=== PATIENT | female | born 1980 | race African-American/Black ===

== ENCOUNTER 2023-08-02 12:36 | Day surgery (SDC) | payer OTHER, SELFPAY ==
[2023-08-02] VITALS (13 sets, daily range): BP systolic 112–144; BP diastolic 66–88; PULSE 56–92; RESP 16–20; TEMP 36.3–37.1; O2SAT 96–100; BMI 36.8
[2023-08-02 13:12] LABS: Basophils Percent Auto 0.3 % (0.2-2.0); Eosinophils Absolute Auto 0.1 10^3/uL (0.0-0.7); Eosinophils Percent Auto 0.9 % (0.9-7.0); Hematocrit 38.1 % (36.0-48.0); Hemoglobin 13.5 g/dL (12.0-16.0); Immature Granulocytes Abs Auto 0.02 10^3/uL (0.00-0.03); Immature Granulocytes Pct Auto 0.3 % (0.0-0.5); Lymphocytes Absolute Auto 2.5 10^3/uL (1.2-3.8); Mean Corpuscular HGB Conc 35.4 g/dL (29.9-35.2); Mean Corpuscular Hemoglobin 28.1 pg (26.7-34.0); Mean Corpuscular Volume 79.4 fL (81.0-99.0); Mean Platelet Volume 9.7 fL (9.5-13.5); Monocytes Absolute Auto 0.4 10^3/uL (0.3-0.8); Monocytes Percent Auto 5.8 % (1.7-12.0); Neutrophils Absolute Auto 3.9 10^3/uL (1.4-6.5); Neutrophils Percent Auto 56.7 % (43.0-75.0); Platelet Count 340 10^3/uL (150-450); Red Cell Distribution Width 13.6 % (11.0-15.0); White Blood Count 6.9 10^3/uL (4.0-11.0)
[2023-08-02 13:31] LABS: HCG Quantitative <1 mIU/mL
[2023-08-02] MEDS: LACTATED RINGER'S SOLUTION 1,000 ML 50 ML IV (13:54)
--- NOTE | 2023-08-02 14:47 | P.ON_ITS ---
Brief Operative Note Date of procedure: 08/02/23 Pre-op diagnosis: PELVIC PAIN, OVARIAN CYST Post-op diagnosis: same as pre-op Procedure: NAME OF PROCEDURE: [diagnostic laparoscopy ] PROCEDURE: The patient was taken back to the Operating Room where she was placed in dorsal lithotomy position after given general anesthesia. The patient was prepped and draped in normal sterile fashion. A sponge stick was placed into the patient's vagina. Attention was turned to the patient's abdomen, where a small umbilical incision was made. The fascia was tented using Luiz clamps and the fascia was entered sharply. Confirmation of intraabdominal placement of the 10 mm port was confirmed under direct visualization using a laparoscope. The patient's abdomen was then insufflated using CO2 gas with approximately 4 liters. A second port was placed left laterally, this was done under direct visualization with a 5 mm port. Survey of the patient's abdomen demonstrated normal liver and gallbladder. Survey of the patient's pelvic anatomy demonstrated normal appearing rt and lt ovary and tubes as well as normal appearing uterus. No endometrial implants could be noted, no evidence of any pelvic disease was seen, normal appearing pelvic cavity. All instruments were removed from the patient's abdomen. The patient's abdomen was deinsufflated of CO2 gas. The patient tolerated the procedure well. Sponge stick was removed from the patient's vagina. The patient's infraumbilical fascia was closed using #0 Vicryl on a GI needle. The patient's skin was closed laterally and infraumbilically using 4-0 Vicryl. The patient tolerated the procedure well. Sponge, lap and needle counts were correct x 2. The patient was taken to Recovery Room in stable condition.Clips from prior surgery noted adhered to bladder, the clips were grasped and gently removed Surgeon: Florin Mccrary Signal Mechanic: Katherine Evans Estimated blood loss (mL): 5 Pathology: none sent Condition: stable Disposition: PACU
[2023-08-02] MEDS: LACTATED RINGER'S SOLUTION 1,000 ML 150 ML IV (14:55)
[2023-08-02] MEDS: CEFTRIAXONE 1,000 MG in 0.9 % SODIUM CHLORIDE 50 ML 100 MG IV (15:00)
[2023-08-02] MEDS: PROMETHAZINE HCL 25 MG/ML VIAL 12.5 MG IV (15:16)
[2023-08-02] MEDS: PROMETHAZINE HCL 25 MG TABLET PO (15:18)
[2023-08-02] MEDS: OXYCODONE HCL/ACETAMINOPHEN 5MG/325MG 2 TAB PO (15:35)
[2023-08-02] MEDS: DOXYCYCLINE HYCLATE 100 MG in 0.9 % SODIUM CHLORIDE 100 ML IV (15:35)
== END 2023-08-02 16:46 | disposition home or self-care (01) ==
PROVIDERS: PCP Family Medicine; Visit Provider Obstetrics & Gynecology
PROC: (CPT 840; principal; 2023-08-02 14:00)
DX: R10.2 Pelvic and perineal pain (principal); Z87.898 Personal history of other specified conditions
CPT/HCPCS: 49320; 36415; 84702; 85025; J1170; J2704

== ENCOUNTER 2024-04-14 13:07 | Emergency (ER) | payer OTHER, SELFPAY ==
[2024-04-14] VITALS (14 sets, daily range): BP systolic 110–160; BP diastolic 80–103; PULSE 58–92; TEMP 36.9; O2SAT 97–100; BMI 34.2
--- NOTE | 2024-04-14 14:26 | CT_ITS ---
[address] [address] Patient Name: WILFRIDO GILMORE MRN: [id number] date: 1980 Sex: F Assigned Patient Location: ER Current Patient Location: ER Accession/Order Number: [id number] Exam Date: 04/14/2024 16:05 Report Date: 04/14/2024 17:05 At the request of: CORBIN SAMS Procedure: CT abdomen pelvis w con EXAM: CT abdomen pelvis w con HISTORY: rlq pain COMPARISON: 07/22/2016 TECHNIQUE: Axial CT imaging was performed through the abdomen and pelvis with intravenous contrast. Multiplanar reformats were performed. Dose reduction techniques were achieved by using automated exposure control and/or adjustment of mA and/or kV according to patient size and/or use of iterative reconstruction technique. FINDINGS: Lung bases: Lung bases are clear. No pleural effusion. GI upper: Unremarkable. Liver: Normal size and contour. Gallbladder: Cholecystectomy. Biliary system: No intra or extrahepatic biliary ductal dilatation. Spleen: Normal size. Pancreas: Unremarkable. Adrenal glands: Normal adrenal glands. Kidneys/ureters: Normal contours. No hydronephrosis. There is a 0.2 cm left renal stone. Vessels: No aneurysm. Lymph Nodes: No lymphadenopathy. Small bowel: No wall thickening or dilatation. Colon: No wall thickening or dilatation. Appendix: Appendix is identified with normal appearance (series 3, image 104). Peritoneal cavity: No free fluid or pneumoperitoneum. Lower : No significant abnormality of the uterus or adnexa. Intrauterine device is in place. 1.4 cm corpus luteal cyst in the right ovary. Bones: No acute bony abnormality. Soft tissues: No acute finding. Additional findings: None. CT/CT abdomen pelvis w con IMPRESSION: 0.2 cm left renal stone. 1.4 cm corpus luteal cyst in the right ovary. Electronically authenticated by: FARSHAD JAMES Date: 04/14/2024 17:05
[2024-04-14 14:31] LABS: Basophils Percent Auto 0.2 % (0.2-2.0); Eosinophils Absolute Auto 0.1 10^3/uL (0.0-0.7); Eosinophils Percent Auto 0.6 % (0.9-7.0); Hematocrit 39.3 % (36.0-48.0); Hemoglobin 14.6 g/dL (12.0-16.0); Immature Granulocytes Abs Auto 0.03 10^3/uL (0.00-0.03); Immature Granulocytes Pct Auto 0.4 % (0.0-0.5); Lymphocytes Absolute Auto 3.4 10^3/uL (1.2-3.8); Lymphocytes Percent Auto 39.6 % (20.5-60.0); Mean Corpuscular HGB Conc 37.2 g/dL (29.9-35.2); Mean Corpuscular Hemoglobin 28.8 pg (26.7-34.0); Mean Corpuscular Volume 77.5 fL (81.0-99.0); Monocytes Absolute Auto 0.6 10^3/uL (0.3-0.8); Monocytes Percent Auto 7.5 % (1.7-12.0); Neutrophils Absolute Auto 4.4 10^3/uL (1.4-6.5); Neutrophils Percent Auto 51.7 % (43.0-75.0); Platelet Count 384 10^3/uL (150-450); Red Blood Count 5.07 10^6/uL (4.20-5.40); Red Cell Distribution Width 13.1 % (11.0-15.0); White Blood Count 8.5 10^3/uL (4.0-11.0)
[2024-04-14 14:32] LABS: Bilirubin Urine NEGATIVE (NEGATIVE); Blood Urine NEGATIVE (NEGATIVE); Clarity Urine CLEAR (CLEAR); Color Urine LT. YELLOW (YELLOW); Glucose Urine UA NEGATIVE (NEGATIVE); Ketones Urine NEGATIVE (NEGATIVE); Leukocyte Esterase Urine SMALL (NEGATIVE); Nitrite Urine NEGATIVE (NEGATIVE); Protein Urine NEGATIVE (NEG/TRACE); Specific Gravity Urine 1.025 (1.005-1.025); Urine Microscopic Indicated YES; Urobilinogen Urine 0.2 EU/dL (0.2-1.0); pH Urine 6.5 (5.0-9.0)
[2024-04-14] MEDS: KETOROLAC TROMETHAMINE 30 MG/ML VIAL IVP (14:35)
[2024-04-14] MEDS: ONDANSETRON PF 4 MG/2 ML VIAL IV (14:35)
--- NOTE | 2024-04-14 14:39 | ED_ITS ---
HPI - Abdominal Pain General Chief Complaint: Abdominal Pain Stated Complaint: ABDOMINAL PAIN Time Seen by Provider: 04/14/24 13:42 Source: patient Mode of arrival: walk-in Limitations: no limitations History of Present Illness HPI narrative: Patient presents to ED complaining of generalized abdominal pain which is worse in the right lower quadrant. She said she has been sick since last Monday it started with a cold. Then on Monday she started getting abdominal pain. She thought it was because she was coughing a lot but now she has sharp stabbing pain that comes and goes in the right lower quadrant but also radiates many other places in her abdomen. She has seen her doctor twice since she has been sick last week and called again yesterday. They told her if it gets worse and continues to be an issue please come into the ER. She is here today for further evaluation. She complains of nausea no vomiting. She was tested for COVID a couple of days ago but states that was negative Related Data Home Medications ?Medication ?Instructions ?Recorded ?Confirmed acetaminophen 300 mg-codeine 30 mg 1 tab PO Q8H 08/02/23 08/02/23 tablet dextroamphetamine-amphetamine 30 30 mg PO DAILY 08/02/23 08/02/23 mg tablet (Adderall) metformin 500 mg tablet 500 mg PO BID POLYCYSTIC OVARIES 08/02/23 08/02/23 topiramate 100 mg tablet 100 mg PO BID 08/02/23 08/02/23 trazodone 50 mg tablet 100 mg PO BEDTIME 08/02/23 08/02/23 vilazodone 10 mg tablet (Viibryd) 10 mg PO DAILY 08/02/23 08/02/23 vilazodone 20 mg tablet 10 mg PO DAILY 08/02/23 08/02/23 Previous Rx's ?Medication ?Instructions ?Recorded ibuprofen 800 mg tablet 800 mg PO Q8H PRN pain 14 days #40 08/02/23 tabs metronidazole 500 mg tablet 500 mg PO BID 7 days #14 tabs 08/02/23 oxycodone-acetaminophen 5 mg-325 1 tab PO Q6H PRN pain 4 days #16 08/02/23 mg tablet (Percocet) tabs Allergies Allergy/AdvReac Type Severity Reaction Status Date / Time latex Allergy Severe Verified 08/02/23 13:15 adhesive Allergy Intermediate Hives Verified 08/02/23 13:15 Review of Systems ROS Status of ROS 10 or more systems reviewed and unremark able except as noted in history and below PFSH PFSH Medical History (Updated 04/14/24 @ 17:14 by Delaney Plata DO) Pelvic pain ?R10.2 - Pelvic and perineal pain (ICD-10) Anxiety ?F41.9 - Anxiety disorder, unspecified (ICD-10) CRPS (complex regional pain syndrome) Surgical History (Updated 08/02/23 @ 13:24 by Chyna Haney) Umbilical hernia ?K42.9 - Umbilical hernia without obstruction or gangrene (ICD-10) Hiatal hernia ?K44.9 - Diaphragmatic hernia without obstruction or gangrene (ICD-10) Family History (Updated 08/02/23 @ 13:24 by Chyna Haney) Mother Family history of cancer Brother Family history of cancer Social History (Updated 08/02/23 @ 13:28 by Chyna Haney) Within the past year, how often did you have a drink containing alcohol: mon thly or less Within the past year, how many standard drinks containing alcohol did you have on a typical day: 1 or 2 Within the past year, how often did you have six or more drinks on one occasion: less than monthly Total score: 1 Score interpretation: A score less than 3 is consistent with normal alcohol consumption. Smoking status: Former smoker Second hand tobacco smoke exposure: No Non-prescribed substance use: denies use Previous occupational history: disabled Known occupational exposures/hazards: No Highest level of school completed/degree received: Bachelor's degree Do you want help with school or training: No Are you now , , , , never or living with a partner: living with partner In a typical week, how many times do you talk on the telephone with family, friends, or neighbors: twice per week How often do you get together with friends or relatives: twice per week How often do you attend [employer] or latter day services: never Do you belong to any clubs or organizations such as [employer] groups unions, fraternal or athletic groups, or school groups: no Total score: 2 Score interpretation: A score of greater than or equal to 2 indicates the lowest level of social isolation. Little interest or pleasure in doing things: not at all Feeling down, depressed, or hopeless: not at all Feel stressed/tense/nervous/anxious/difficulty sleeping: very much Life stressors: recent of family or friend Due to disability, difficulty making decisions: No Do you think of yourself as: straight/heterosexual Gender Identity: female Exam Narrative Exam Narrative: Time Seen: [] Vital Signs: [Per nurse's notes.] General: [Alert] Skin: [Warm, dry, no rash.] Head: [Normocephalic, atraumatic.] Neck: [Supple, trachea midline.] Eye: [Pupils are equal, round and reactive to light, extraocular movements are intact, normal conjunctiva.] Ears, nose, mouth and throat: oral mucosa moist. Cardiovascular: [Regular rate and rhythm, no murmur.] Respiratory: [Lungs are clear to auscultation, respirations are non-labored, breath sounds are equal.] Chest wall: [No tenderness, no deformity.] Gastrointestinal: [Soft, Diffuse tenderness to palpation worse in the right lower quadrant, non distended, normal bowel sounds.] MSK: 5 out of 5 muscle strength x 4 extremities no calf pain or edema Lymphatics: [No lymphadenopathy.] Psychiatric: [Cooperative, appropriate mood & affect.] Neurological: [Alert and oriented to person, place, time, and situation, no focal neurological deficit observed.] Constitutional Vital Signs, click to edit/add: Last Vital Signs Temp 98.5 F 04/14/24 13:27 Pulse 68 04/14/24 17:01 Resp 18 04/14/24 17:01 BP 110/88 04/14/24 17:01 Pulse Ox 98 04/14/24 17:01 O2 Del Method Room Air 04/14/24 13:27 Course Vital Signs Vital signs: Vital Signs Temperature 98.5 F 04/14/24 13:27 Pulse Rate 92 H 04/14/24 13:27 Respiratory Rate 18 04/14/24 13:27 Blood Pressure 160/102 H 04/14/24 13:27 Pulse Oximetry 100 04/14/24 13:27 Oxygen Delivery Method Room Air 04/14/24 13:27 Temperature 98.5 F 04/14/24 13:27 Pulse Rate 68 04/14/24 17:01 Respiratory Rate 18 04/14/24 17:01 Blood Pressure 110/88 04/14/24 17:01 Pulse Oximetry 98 04/14/24 17:01 Oxygen Delivery Method Room Air 04/14/24 13:27 MDM - Abdominal Pain MDM Narrative Medical decision making narrative: Patient's labs and imaging are nonacute. She does have an ovarian cyst but this is most likely not the cause of her pain. Possible viral syndrome given her recent upper respiratory infection as well. Patient is stable for discharge home. Please return to ED if worsening abdominal pain fevers vomiting or any other concerns. Differential Diagnosis Differential diagnosis: Likely abdominal pain, acute appendicitis, constipation, diverticulitis, gastroenteritis and small bowel obstruction Medical Records Attestation: I reviewed the patient's medical records. Lab Data Attestation: I reviewed the patient's lab results. Labs: Lab Results 04/14/24 04/14/24 Range/Units 13:50 13:55 WBC 8.5 (4.0-11.0) 10^3/uL RBC 5.07 (4.20-5.40) 10^6/uL Hgb 14.6 (12.0-16.0) g/dL Hct 39.3 (36.0-48.0) % MCV 77.5 L (81.0-99.0) fL MCH 28.8 (26.7-34.0) pg MCHC 37.2 H (29.9-35.2) g/dL RDW 13.1 (11.0-15.0) % Plt Count 384 (150-450) 10^3/uL MPV 10.0 (9.5-13.5) fL Neut % (Auto) 51.7 (43.0-75.0) % Lymph % (Auto) 39.6 (20.5-60.0) % [place] % (Auto) 7.5 (1.7-12.0) % Eos % (Auto) 0.6 L (0.9-7.0) % Baso % (Auto) 0.2 (0.2-2.0) % Neut # (Auto) 4.4 (1.4-6.5) 10^3/uL Lymph # (Auto) 3.4 (1.2-3.8) 10^3/uL [place] # (Auto) 0.6 (0.3-0.8) 10^3/uL Eos # (Auto) 0.1 (0.0-0.7) 10^3/uL Baso # (Auto) 0.0 (0.0-0.1) 10^3/uL Abs Immat Gran (auto) 0.03 (0.00-0.03) 10^3/uL Imm/Tot Granulo (auto) 0.4 (0.0-0.5) % Sodium 141 (136-145) mmol/L Potassium 4.6 (3.5-5.1) mmol/L Chloride 106 (98-107) mmol/L Carbon Dioxide 21.9 (21.0-32.0) mmol/L Anion Gap 17.7 BUN 13.0 (7.0-18.0) mg/dL Creatinine 0.73 (0.55-1.02) mg/dL Est GFR ( Amer) >60 (>=60) Est GFR (Non-Af Amer) >60 (>=60) BUN/Creatinine Ratio 17.8 Glucose 97 (74-106) mg/dL Calcium 8.9 (8.5-10.1) mg/dL Total Bilirubin 0.4 (0.2-1.0) mg/dL AST 21 (15-37) U/L ALT 23 (14-59) U/L Alkaline Phosphatase 74 (46-116) U/L Total Protein 7.2 (6.4-8.2) g/dL Albumin 3.8 (3.4-5.0) g/dL Globulin 3.4 g/dL Albumin/Globulin Ratio 1.1 Serum HCG, Qual Negative (NEGATIVE) Urine Color Lt. yellow (YELLOW) Urine Clarity Clear (CLEAR) Urine pH 6.5 (5.0-9.0) Ur Specific [place] 1.025 (1.005-1.025) Urine Protein Negative (NEG/TRACE) mg/dL Urine Glucose (UA) Negative (NEGATIVE) mg/dL Urine Ketones Negative (NEGATIVE) mg/dL Urine Occult Blood Negative (NEGATIVE) Urine Nitrite Negative (NEGATIVE) Urine Bilirubin Negative (NEGATIVE) Urine Urobilinogen 0.2 (0.2-1.0) EU/dL Ur Leukocyte Esterase Small A (NEGATIVE) Urine RBC 2-5 A (0-2) #/HPF Urine WBC 5-10 A (NONE SEEN) #/HPF Ur Squamous Epith Cells Moderate A (NONE/RARE) #/LPF Urine Crystals None seen (None Seen) #/HPF Urine Bacteria Small A (NONE SEEN) #/HPF Urine Casts None seen (NONE SEEN) #/LPF Urine Mucus None seen (NONE SEEN) Urine Yeast Seen A (NONE SEEN) Ur Culture Indicated? Yes Imaging Data CT scan - abdomen: Radiologist's impression: ITS Impressions Abdomen/Pelvis CT 04/14/24 14:26 IMPRESSION: 0.2 cm left renal stone. 1.4 cm corpus luteal cyst in the right ovary. Electronically authenticated by: FARSHAD JAMES Date: 04/14/2024 17:05 ECG Data Attestation: I personally reviewed and interpreted this ECG as follows: Interpretation: EKG INTERPRETATION Time: []1342 Rate: []72 Rhythm: _ []Sinus rhythm ST segments: _ [] T waves: _ [] Ectopy: _ [] P wave/OR interval: _ [] QRS interval: _ [] QT interval: _ [] Comparison: _ [] Comparison EKG date: [] Performed by: [self]No acute ST elevation or depression Discharge Plan Discharge Stand Alone Forms: Portal Instructions Chief Complaint: Abdominal Pain Clinical Impression: Gastroenteritis, Acute viral syndrome Patient Disposition: Home, Self-Care Time of Disposition Decision: 17:13 Condition: Good Mode of Transportation: Private Vehicle Prescriptions / Home Meds: No Action metformin 500 mg tablet 500 mg PO BID trazodone 50 mg tablet 100 mg PO BEDTIME topiramate 100 mg tablet 100 mg PO BID vilazodone [Viibryd] 10 mg tablet 10 mg PO DAILY Rx Instructions: must administer with a meal/food acetaminophen-codeine 300-30 mg tablet 1 tab PO Q8H vilazodone 20 mg tablet 10 mg PO DAILY dextroamphetamine-amphetamine [Adderall] 30 mg tablet 30 mg PO DAILY ibuprofen 800 mg tablet 800 mg PO Q8H PRN (Reason: pain) 14 Days Qty: 40 0RF oxycodone-acetaminophen [Percocet] 5-325 mg tablet 1 tab PO Q6H PRN (Reason: pain) 4 Days Qty: 16 0RF metronidazole 500 mg tablet 500 mg PO BID 7 Days Qty: 14 0RF Print Language: Georgian Instructions: Gastroenteritis (ED), Viral Syndrome (ED) Referrals: LIAN STYLES [Primary Care Provider] - 1 week
[2024-04-14 14:42] LABS: Bacteria Urine SMALL #/HPF (NONE SEEN); Cast Seen? NONE SEEN #/LPF (NONE SEEN); Crystals Seen? None Seen #/HPF (None Seen); Mucus Urine NONE SEEN (NONE SEEN); Squamous Epithelial Cell Urine MODERATE #/LPF (NONE/RARE)
[2024-04-14 14:43] LABS: Urine Culture Indicated YES
[2024-04-14 14:48] LABS: Alanine Aminotransferase 23 U/L (14-59); Albumin Globulin Ratio 1.1; Albumin Level 3.8 g/dL (3.4-5.0); Alkaline Phosphatase 74 U/L (46-116); Anion Gap 17.7; Aspartate Amino Transferase 21 U/L (15-37); BUN Creatinine Ratio 17.8; Bilirubin Total 0.4 mg/dL (0.2-1.0); Calcium 8.9 mg/dL (8.5-10.1); Carbon Dioxide 21.9 mmol/L (21.0-32.0); Chloride 106 mmol/L (98-107); Estimated GFR (African America >60 (>=60); Estimated GFR (Non-African Ame >60 (>=60); Globulin 3.4 g/dL; Glucose 97 mg/dL (74-106); Sodium 141 mmol/L (136-145); Total Protein 7.2 g/dL (6.4-8.2)
[2024-04-14 14:49] LABS: Potassium 4.6 mmol/L (3.5-5.1)
[2024-04-14 15:50] LABS: HCG Qualitative NEGATIVE (NEGATIVE)
--- NOTE | 2024-04-14 17:29 | ECG_ITS ---
[facility] Test Date: 2024-04-14 Pat Name: WILFRIDO GILMORE Department: Room: - Gender: Female [place]: : 1980 Requested By: LIAN STYLES Order Number: [id number] Reading MD: CHARLIE PUGH Measurements Intervals [place] Rate: 72 P: 60 WY: 156 QRS: 56 QRSD: 84 T: 46 QT: 360 QTc: 384 Interpretive Statements 1100 Sinus rhythm 1102 Sinus arrhythmia 8102 Low QRS voltage in chest leads 0102 ARTIFACT PRESENT 9120 atypical ECG No previous ECG available for comparison Electronically Signed On 04-15-2024 6:30:53 EDT by CHARLIE PUGH
[2024-04-14 18:20] LABS: Influenza Virus A Antigen Negative; Influenza Virus B Antigen Negative; Internal Control Within Normal Limits; SARS-CoV-2 Ag NEGATIVE (NEGATIVE)
--- NOTE | 2024-04-14 18:26 | PC.NURSE ---
04/14/24 attempted to call pt and update company phone number unable to leave message. Fede Rasmussen RN
== END 2024-04-14 17:32 | disposition home or self-care (01) ==
PROVIDERS: Emergency Provider Emergency Medicine; PCP Family Medicine
DX: K52.9 Noninfective gastroenteritis and colitis, unspecified (principal); B34.9 Viral infection, unspecified; Z90.49 Acquired absence of other specified parts of digestive tract; Z87.891 Personal history of nicotine dependence; N83.201 Unspecified ovarian cyst, right side
CPT/HCPCS: 36415; 74177; 80053; 81001; 84703; 85025; 87086; 87804; 87811; 93005; 96374; 96375; 99285; Q9967

== ENCOUNTER 2024-05-20 10:00 | Outpatient (REF) | payer OTHER, SELFPAY ==
--- OUTSIDE RECORDS SUMMARY | 2024-05-20 21:11 | XMS_ITS | CCD ---
Author Organization [facility] Care Team Providers Care Extractor Puller Name Role Phone RINKU NAJERA Attending Unavailable RINKU NAJERA Admitting Unavailable MITA GONZALES Primary Care Unavailable OLY BIRD Consulting Unavailable RINKU NAJERA Consulting Unavailable Marycarmen Nayak MD Primary Care Provider POOL, MARÍA E Admitting Unavailable VENKATA BARNESHLEEN E Attending Unavailable MARYCARMEN NAYAK Primary Care Unavailable MARYCARMEN NAYAK Primary Care Unavailable ANAO SELMA Admitting Unavailable PEEWEE SIFUENTESE Attending Unavailable MARYCARMEN NAYAK Primary Care Unavailable ANAO, SELMA Admitting Unavailable PEEWEE SIFUENTESE Attending Unavailable DR OLY BIRD Consulting Unavailable RINKU NAJERA Admitting Unavailable RINKU NAJERA Attending Unavailable RINKU NAJERA Consulting Unavailable MITA GONZALES Primary Care Unavailable LALI EL Admitting Unavailable SIENNA, LALI Consulting Unavailable LALI EL Attending Unavailable Marycarmen Nayak MD Primary Care Provider Trey MILES, Kimberlee Rachel Unavailable Marycarmen Nayak MD Unavailable MAGALIE PEÑALOZA Attending Unavailab MAGALIE Harris Attending Unavailab MARICHUY Nair Attending Unavailable MAGALIE PEÑALOZA Referring Unavailab SELMA Rossi Referring Unavailable DEE JACKSON Attending Unavailable MARYCARMEN NAYAK Attending Unavailable DEB SHORT Attending Unavailab MARYCARMEN Mcneil Attending Unavailable MARYCARMEN NAYAK Attending Unavailable Allergies Allergy Classification Reported Allergen(s) Allergy Type Date of Onset Reaction(s) Facility (3 sources) Adhesive Tape Propensity to adverse reactions to drug 1 [facility] (See Comments[facility] Latex Propensity to adverse reactions to drug 1 Rash [facility] (1 source) Latex Allergy to substance 3 Swelling [facility] Work Phone: (1 source) Wound Dressing Adhesive Propensity to adverse reactions 3 Other [facility] Medications Current Medications Medication Drug Class(es) Dates Sig (Normalized) Sig (Original) acetaminophen 325 mg oral tablet (2 sources) Start: 07-29-2021 take 650 mg by mouth every four hours as needed for fever, then take 4000 mg by mouth every twenty-four hours as needed for fever 650 mg, Oral, EVERY 4 HOURS PRN, Fever, Fever >100.5 F (38 C) or pain 1-10, Starting on Vera 07/29/21 at 0855 Maximum dose of acetaminophen is 4000 mg from all sources in 24 hours. Start: 07-21-2021 acetaminophen (TYLENOL) tablet 650 mg 24 hr amphetamine aspartate 7.5 mg / amphetamine sulfate 7.5 mg / dextroamphetamine saccharate 7.5 mg / dextroamphetamine sulfate 7.5 mg extended release oral capsule (1 source) Central Nervous System Stimulant Start: 06-21-2023 take 1 capsule by mouth every twenty-four hours in the morning amphetamine-dextroamphetamine XR (Adderall XR) 30 MG 24 hr capsule Indications: Attention deficit hyperactivity disorder (ADHD), combined type (CMS/HCC) Take 1 capsule (30 mg) by mouth in the morning. Do not crush or chew. . 30 capsule 0 06/21/2023 Active benzocaine 200 mg/ml / menthol 5 mg/ml topical spray (1 source) Standardized Chemical Allergen Start: 07-29-2021 apply 1 dose topically twice daily Topical, 2 TIMES DAILY, First dose on Vera 07/29/21 at 0915 Apply to perineal area. Patient is capable and may self administer at bedside. calcium chloride 0.0014 meq/ml / potassium chloride 0.004 meq/ml / sodium chloride 0.103 meq/ml / sodium lactate 0.028 meq/ml injectable solution (1 source) Start: 07-20-2021 lactated ringers infusion diphenhydrAMINE hydrochloride 50 mg oral capsule (3 sources) Histamine-1 Receptor Antagonist End: 07-31-2021 take 1 capsule by mouth once daily as needed for sleep diphenhydrAMINE (BENADRYL) 50 MG capsule Take 50 mg by mouth nightly as needed for Itching (sleep) 0 07/31/2021 Discontinued (Stop Taking at Discharge) docusate sodium 100 mg oral capsule (1 source) Start: 07-29-2021 take 100 mg by mouth twice daily as needed for constipation 100 mg, Oral, 2 TIMES DAILY PRN, Constipation, Starting on Vera 07/29/21 at 0855 Do not crush or break. ibuprofen 800 mg oral tablet (2 sources) Nonsteroidal Anti-inflamma tory Drug Start: 07-31-2021 take 1 tablet by mouth every eight hours ibuprofen (ADVIL;MOTRIN) 800 MG tablet Take 1 tablet by mouth every 8 hours 120 tablet 3 07/31/2021 Active Start: 07-29-2021 take 800 mg by mouth every eight hours 800 mg, Oral, EVERY 8 HOURS, First dose on Vera 07/29/21 at 0915 Do not crush or break. insulin glargine 100 unt/ml injectable solution (3 sources) Insulin Analog End: 07-31-2021 insulin glargine (LANTUS) 100 UNIT/ML injection vial Inject 35 Units into the skin nightly 0 07/31/2021 Discontinued (Stop Taking at Discharge) lanolin 1000 mg/ml topical cream (2 sources) Start: 07-31-2021 lansinoh lanol in CREA ointment Apply 1 applicator topically as needed for Dry Skin (nipple discomfort) 1 each 3 07/31/2021 Active Start: 07-29-2021 Topical, PRN, Dry Skin, nipple discomfort, Starting on Vera 07/29/21 at 0855, metFORMIN hydrochloride 500 mg oral tablet (1 source) Biguanide Start: 04-13-2023 End: 04-12-2024 take 1 tablet by mouth in the morning metFORMIN (Glucophage) 500 MG tablet Indications: Glucose intolerance Take 1 tablet (500 mg) by mouth in the morning and 1 tablet (500 mg) in the evening. Take with meals. 60 tablet 11 04/13/2023 04/12/2024 Active 2 ml ondansetron 2 mg/ml injection (1 source) Serotonin-3 Receptor Antagonist Start: 07-20-2021 ondansetron (ZOFRAN) injection 4 mg Vit-Fe Fumarate-FA ( VITAMIN PO) (3 sources) Vit-Fe Fumarate-FA ( VITAMIN PO) Take by mouth daily 0 Active rho(d) immune globulin, human 1500 unt prefilled syringe (1 source) Human Immunoglobulin G Start: 07-29-2021 300 mcg, IntraMUSCular, PRN, if mom negative and baby positive, Starting on Vera 07/29/21 at 0855, For 1 dose, rimegepant 75 mg disintegrating oral tablet (1 source) Start: 12-22-2022 Nurtec 75 MG tablet dispersible 3 ml sodium chloride 9 mg/ml injection (3 sources) Start: 07-29-2021 10 mL, IntraVENous, EVERY 12 HOURS SCHEDULED (2 times per day), First dose on Vera 07/29/21 at 0915, Start: 07-29-2021 take 10 mL intravenously once 10 mL, IntraVENous, PRN, Line Care, Starting on Vera 07/29/21 at 0855 After every IV line use Start: 07-29-2021 take 25 mL intraveno usly every hour as needed 25 mL, IntraVENous, at 100 mL/hr, PRN, If patient receiving piggyback infusions without ordered maintenance IV fluids or with frequent/long duration piggyback infusions, Starting on Vera 07/29/21 at 0855 Administer at the same rate as the piggyback being infused. topiramate 100 mg oral tablet (1 source) Start: 10-12-2023 take 2 tablets by mouth once daily at bedtime topiramate (Topamax) 100 MG tablet Indications: Complex regional pain syndrome I, unspecified TAKE 2 TABLET BY MOUTH ONCE DAILY AT BEDTIME FOR 30 DAYS 60 tablet 6 10/12/2023 Active traZODone hydrochloride 50 mg oral tablet (1 source) Serotonin Reuptake Inhibitor Start: 08-04-2023 take 1-2 tablets by mouth every hour at bedtime traZODone (Desyrel) 50 MG tablet Indications: Adjustment disorder with depressed mood (CMS/HCC) TAKE 1-2 TABLETS BY MOUTH ONE HOUR PRIOR TO BEDTIME 180 tablet 1 08/04/2023 Active vilazodone hydrochloride 40 mg oral tablet (1 source) Start: 10-13-2023 take 1 tablet by mouth in the morning Viibryd 40 MG tablet Take 40 mg by mouth in the morning. 0 10/13/2023 Active witch bryant 500 mg/ml medicated pad (1 source) Start: 07-29-2021 apply 1 dose topically twice daily Topical, 2 TIMES DAILY, First dose on Vera 07/29/21 at 0915 Apply to perineal area. Patient is capable and may self administer at bedside. Completed/Discontinued Medications Medication Drug Class(es) Dates Sig (Normalized) Sig (Original) 24 hr methylphenidate hydrochloride 54 mg extended release oral tablet (1 source) Central Nervous System Stimulant End: 07-20-2021 take 1 tablet by mouth once daily in the morning methylphenidate (CONCERTA) 54 MG CR tablet Take 54 mg by mouth every morning. 0 07/20/2021 Discontinued (LIST CLEANUP) 1 ml nalbuphine hydrochloride 10 mg/ml injection (4 sources) Opioid Agonist/Antagon ist Start: 07-29-2021 End: 07-29-2021 nalbuphine (NUBAIN) injection 10 mg Start: 07-20-2021 End: 07-20-2021 nalbuphine (NUBAIN) injectio n 20 mg Start: 07-20-2021 End: 07-20-2021 nalbuphine (NUBAIN) injectio n 5 mg oxytocin (PITOCIN) 30 units in 500 mL infusion Override Pull (1 source) Start: 07-29-2021 End: 07-29-2021 oxytocin (PITOCIN) 30 units in 500 mL infusion Override Pull Problems Active Problems Problem Classification Problem Date Documented Date Episodic/Chronic Acquired foot deformities (1 source) Acquired equinus deformity of foot; Translations: [Other acquired deformities of right foot] Onset: 11-09-2023 11-09-2023 Episodic Adjustment disorders (2 sources) Adjustment disorder with depressed mood; Translations: [Adjustment disorder with depressed mood] Onset: 04-10-2023 04-10-2023 Chronic Anxiety disorders (1 source) Posttraumatic stress disorder; Translations: [Post-traumatic stress disorder, unspecified] Onset: 04-10-2023 04-10-2023 Chronic Attention-deficit, conduct, and disruptive behavior disorders (1 source) Attention deficit hyperactivity disorder, combined type; Translations: [Attention-deficit hyperactivity disorder, combined type] Onset: 04-10-2023 04-10-2023 Chronic Conditions associated with dizziness or vertigo (1 source) Vertigo of central origin; Translations: [Vertigo of central origin] Onset: 11-09-2023 11-09-2023 Episodic Headache; including migraine (2 sources) Migraine; Translations: [Migraine, unspecified, not intractable, without status migrainosus] Onset: 11-09-2023 11-09-2023 Chronic Headache; including migraine (1 source) Headache; including migraine; Translations: [HEADACHE UNSPECIFIED] Onset: 10-02-2021 Menstrual disorders (1 source) Amenorrhea; Translations: [Amenorrhea, unspecified] Onset: 11-09-2023 11-09-2023 Chronic Miscellaneous mental health disorders (1 source) Primary insomnia; Translations: [Primary insomnia] Onset: 11-09-2023 11-09-2023 Chronic Mood disorders (1 source) Mild bipolar II disorder, most recent episode major depressive; Translations: [Bipolar II disorder] Onset: 11-09-2023 11-09-2023 Chronic Nonmalignant breast conditions (1 source) Galactorrhea not associated with childbirth; Translations: [Galactorrhea not associated with childbirth] Onset: 11-09-2023 11-09-2023 Episodic Nonspecific chest pain (4 sources) Chest pain, unspecified; Translations: [CHEST PAIN UNSPECIFIED] Onset: 10-27-2020 Episodic Other acquired deformities (1 source) Equinus contracture of the ankle; Translations: [Contracture, unspecified ankle] Onset: 11-09-2023 11-09-2023 Chronic Other acquired deformities (1 source) Acquired deformity of lower limb; Translations: [Other specified acquired deformities of left lower leg] Onset: 11-09-2023 11-09-2023 Episodic Other connective tissue disease (1 source) Pain in right foot; Translations: [Pain in right foot] Onset: 11-09-2023 11-09-2023 Episodic Other endocrine disorders (1 source) Polycystic ovary syndrome; Translations: [Polycystic ovarian syndrome] Onset: 11-09-2023 11-09-2023 Chronic Other female genital disorders (1 source) Disorder of female genital organs; Translations: [Unspecified condition associated with female genital organs and menstrual cycle] Onset: 11-09-2023 11-09-2023 Episodic Other inflammatory condition of skin (1 source) Pruritus, unspecified; Translations: [PRURITUS UNSPECIFIED] Onset: 10-02-2021 Episodic Other nervous system disorders (1 source) Complex regional pain syndrome type I of left lower limb; Translations: [Complex regional pain syndrome I of left lower limb] Onset: 01-03-2023 11-09-2023 Chronic Other nervous system disorders (1 source) Chronic pain syndrome; Translations: [Chronic pain syndrome] Onset: 11-09-2023 11-09-2023 Chronic Other skin disorders (1 source) Alopecia areata; Translations: [Alopecia areata, unspecified] Onset: 11-09-2023 11-09-2023 Episodic Other upper respiratory disease (1 source) Nasal congestion; Translations: [NASAL CONGESTION] Onset: 10-02-2021 Episodic Other upper respiratory disease (1 source) Other diseases of pharynx; Translations: [OTHER DISEASES OF PHARYNX] Onset: 10-02-2021 Episodic Spondylosis; intervertebral disc disorders; other back problems (1 source) Lumbar radiculopathy; Translations: [Radiculopathy, lumbar region] Onset: 11-09-2023 11-09-2023 Episodic Unclassified (3 sources) CONTACT W/AND (SUSP) EXPOS COVID-19; Translations: [CONTACT W/AND (SUSP) EXPOS COVID-19] Onset: 10-02-2021 Past or Other Problems Problem Classification Problem Date Documented Date Episodic/Chronic Abdominal hernia (1 source) Umbilical hernia; Translations: [Umbilical hernia without obstruction or gangrene] Onset: 03-07-2016 11-09-2023 Episodic Biliary tract disease (1 source) Biliary calculus; Translations: [Calculus of gallbladder without cholecystitis without obstruction] Onset: 03-07-2016 11-09-2023 Episodic Diabetes or abnormal glucose tolerance complicating ; childbirth; or the puerperium (1 source) Gestational diabetes mellitus; Translations: [Gestational diabetes mellitus in , insulin controlled] Onset: 07-13-2021 11-09-2023 Episodic distress and abnormal forces of labor (6 sources) Finding of uterine contractions; Translations: [Other uterine inertia] Onset: 07-21-2021 Episodic Mood disorders (1 source) Mood disorders Onset: 11-09-2023 11-09-2023 Other complications of (1 source) Multigravida of advanced maternal age; Translations: [Supervision of elderly multigravida, unspecified trimester] Onset: 11-09-2023 Resolved: 11-10-2023 11-10-2023 Episodic Other connective tissue disease (1 source) Calcaneal spur of right foot; Translations: [Calcaneal spur, right foot] Onset: 04-19-2019 11-09-2023 Episodic Other connective tissue disease (1 source) Left achilles tendonitis; Translations: [Achilles tendinitis, left leg] Onset: 10-21-2022 11-09-2023 Episodic Other and delivery including normal (3 sources) Delivery normal; Translations: [Encounter for full-term uncomplicated delivery] Onset: 11-09-2023 Resolved: 11-10-2023 Episodic Polyhydramnios and other problems of amniotic cavity (3 sources) Amniotic fluid leaking; Translations: [Premature rupture of membranes, unspecified as to length of time between rupture and onset of labor, unspecified weeks of gestation] Onset: 11-09-2023 Resolved: 11-10-2023 Episodic Residual codes; unclassified (2 sources) Gestation period, 37 weeks; Translations: [37 weeks gestation of ] Onset: 11-09-2023 Resolved: 11-10-2023 07-28-2021 Episodic Unclassified (1 source) CONTACT W/AND (SUSP) EXPOS COVID-19; Translations: [CONTACT W/AND (SUSP) EXPOS COVID-19] Onset: 09-24-2021 Results Test Name Value Interpretation Reference Range Facility US PELVIS TRANSVAGINALon US PELVIS TRANSVAGINAL FINDINGS: Uterus 8.7 x 6.3 x 5.5 cm Endometrium 4 mm IUD Right Ovary 2.6 x 2.3 x 2.2 cm Left Ovary 3.8 x 1.7 x 1.8cm Normal uterine orientation. Normal myometrium. Appropriately positioned intrauterine device. Small amount of pelvic fluid. Normal ovaries, subcentimeter left ovarian follicle. IMPRESSION: 1. Small amount of pelvic fluid. 2. Appropriately positioned intrauterine device. TRANSCRIBED BY: ELECTRONICALLY SIGNED BY: Dayton Graves MD Normal Not Available MRI Ankle w/o Lefton 022 MRI Ankle w/o Left HISTORY: Posterior ankle pain for 8 weeks. Achilles tendinitis. COMPARISON: Radiographs 07/07/2022 TECHNIQUE: Multiplanar multisequence MRI of the left ankle was performed without contrast. FINDINGS: Mild Achilles tendinosis. No Kager fat pad edema or retrocalcaneal bursitis. The plantar fascia is intact and without thickening or nodularity. Tibialis posterior, flexor digitorum longus, and flexor digitorum longus tendons are intact. No space-occupying lesion within the tarsal tunnel. Peroneus longus and peroneus brevis tendons are intact. Extensor tendons are intact. The anterior and posterior tibiofibular ligaments are intact. The anterior and posterior talofibular ligaments and calcaneofibular ligament are intact. Superficial and deep fibers of the deltoid ligament are intact. Spring ligament is intact. Sinus tarsi fat is preserved. No well defined or measurable articular cartilage defect of the tibial plafond, talar dome, or subtalar joint. No ankle joint effusion. No evidence of fracture or stress reaction of the visualized bones. IMPRESSION: Mild Achilles tendinosis. Report reported and signed by Tyler Loza on 09/15/2022 1103 Normal [facility] XR Chest 2 Views*on 05-05-20 22 XR Chest 2 Views* FINDINGS: Mild diffuse interstitial prominence with peribronchial thickening. No parenchymal consolidation or alveolar infiltrates, pulmonary edema or pleural effusion. No pneumothorax. Normal cardiac silhouette size. Mild mid thoracic dextroscoliosis. IMPRESSION: Parenchymal findings can be consistent with interstitial pneumonia, asthma Report reported and signed by Dayton Graves on 05/05/2022 1225 Normal [facility] Covid-19 PCR (CVDTBH)on 09-06 SARS-CoV-2 (COVID-19) RNA ANTHONY+probe Ql (Unsp spec) Not detected Normal NOT DETECTED [facility] Comment on above: Result Comment: This test is not yet approved or cleared by the [place] FDA. When there are no FDA-approved or cleared tests available, and other criteria are met, FDA can make tests available under an emergency access mechanism called an Emergency Use Authorization (EUA). The EUA for this test is supported by the [place] of Health and Human Service's (HHS's) declaration that circumstances exist to justify the emergency use of in vitro diagnostics for the detection and/or diagnosis of the virus that causes COVID-19. This EUA will remain in effect (meaning this test can be used) for the duration of the COVID-19 declaration justifying emergency of IVDs, unless it is terminated or revoked by FDA (after which the test may no longer be used). When diagnostic testing is negative, the possibility of a false negative should be considered in the context of a patient's recent exposures and the presence of clinical signs and symptoms consistent with SARS-CoV-2. Performed By: #### [facility] #### [facility] [address] [place] [address] Dr. Carolyn Ross CBC auto differentialOrdered By: María Barnes on 07-29-2021 Absolute Eos # 0.10 Pull [facility] Work Phone: Absolute Immature Granulocyte 0.04 [employer] Work Phone: Absolute Lymph # 2.71 [employer] [facility] Work Phone: Absolute Gentry # 0.97 [employer] [facility] Work Phone: Basophils (Bld) [#/Vol] 10*3/uL M [employer] Work Phone: Basophils/100 WBC (Bld) 0 % 0 - 2 % [employer] Work Phone: Differential Type NOT REPORTED [employer] Phone: Eosinophils/100 WBC (Bld) 1 % 1 - 4 % [employer] Work Phone: Hematocrit (Bld) [Volume fraction] 36.2 % Low 36.3 - 47.1 % [employer] Phone: Hemoglobin.gastrointest inal spec 1 Ql (Stl) 13.0 g/dL 11.9 - 15.1 g/dL [employer] Phone: Immature granulocytes/100 WBC (Bld) 0 % 0 [employer] Work Phone: Interpretation and review of laboratory results Abnormal [employer] Phone: Lymphocytes/100 WBC (Bld) 26 % 24 - 43 % [employer] Phone: MCH (RBC) [Entitic mass] 27.4 pg 25.2 - 33.5 pg [employer] Phone: MCHC (RBC) [Mass/Vol] 35.9 g/dL High 28.4 - 34.8 g/dL [employer] Phone: MCV (RBC) [Entitic vol] 76.2 fL Low 82.6 - 102.9 fL [employer] Phone: Monocytes/100 WBC (Bld) 9 % 3 - 12 % [facility] Phone: NRBC Automated 0.0 0.0 per 100 WBC [employer] Phone: Platelet distribution width (Bld) [Ratio] 13.2 % 11.8 - 14.4 % [employer] Phone: Platelet Estimate NOT REPORTED [facility] Phone: Platelet mean volume (Bld) [Entitic vol] 11.4 fL 8.1 - 13.5 fL [employer] Phone: Platelets (Bld) [#/Vol] 229 10*3/uL [employer] Phone: RBC (Bld) [#/Vol] 4.75 10*6/uL 3.95 - 5.1 1 m/uL [employer] Phone: RBC (Bld) [#/Vol] NOT REPORTED [facility] Phone: Segmented neutrophils/100 WBC (Bld) 64 % 36 - 65 % [employer] Phone: Segs Absolute 6.79 [employer] Work Phone: WBC (Bld) [#/Vol] 10.6 10*3/uL [facility] Work Phone: WBC (Bld) [#/Vol] NOT REPORTED [facility] Work Phone: [facility] Work Phone: CBC with Diffon 07-29-2021 Abs. Basophil <0.03 Normal 0.00-0.20 [facility] Comment on above: Performed By: #### C DP #### [address] [place] [address] Manager Of Training: Tico Minaya MD Abs.Imm.Granulocyte 0.04 k/uL Normal 0.00-0.30 [facility] Comment on above: Performed By: #### C DP #### [address] [place] [address] Manager Of Training: Tico Minaya MD Abs.Neutrophil (Seg) 6.79 k/uL Normal 1.50-8.10 [facility] Comment on above: Performed By: #### C DP #### [address] [place] [address] Manager Of Training: Tico Minaya MD Basophils/100 WBC (Bld) 0 % Normal 0-2 [facility] Comment on above: Performed By: #### C DP #### [address] [place] [address] Manager Of Training: Tico Minaya MD Eosinophils (Bld) [#/Vol] 0.10 10*3/uL Normal 0.00-0.44 [facility] Comment on above: Performed By: #### C DP #### [address] [place], [place] [id number] Manager Of Training: Tico Minaya MD Eosinophils/100 WBC (Bld) 1 % Normal 1-4 [facility] Comment on above: Performed By: #### C DP #### [facility] [address] [place], [place] [id number] Manager Of Training: Tico Minaya MD Erythrocyte distribution width (RBC) [Ratio] 13.2 % Normal 11.8-14.4 [facility] Comment on above: Performed By: #### C DP #### [facility] [address] [place], [place] [id number] Manager Of Training: Tico Minaya MD Hematocrit (Bld) [Volume fraction] 36.2 % Low 36.3-47.1 [facility] Comment on above: Performed By: #### C DP #### [address] [place], [place] [id number] Manager Of Training: Tico Minaya MD Hemoglobin (Bld) [Mass/Vol] 13.0 g/dL Normal 11.9-15.1 [facility] Comment on above: Performed By: #### C DP #### [address] [place], [facility]83 Manager Of Training: Tico Minaya MD Immature granulocytes/100 WBC (Bld) 0 % Normal 0 [facility] Comment on above: Performed By: #### C DP #### [address] [place], [place] [id number] Manager Of Training: Tico Minaya MD Lymphocytes (Bld) [#/Vol] 2.71 10*3/uL Normal 1.10-3.70 [facility] Comment on above: Performed By: #### C DP #### [facility] [address] [place], [place] [id number] Manager Of Training: Tcio Minaya MD Lymphocytes/100 WBC (Bld) 26 % Normal 24-43 [facility] Comment on above: Performed By: #### C DP #### [facility] [address] [place] [address] Manager Of Training: Tico Minaya MD MCH (RBC) [Entitic mass] 27.4 pg Normal 25.2-33.5 [facility] Comment on above: Performed By: #### C DP #### [address] [place], [facility]83 Manager Of Training: Tico Minaya MD MCHC (RBC) [Mass/Vol] 35.9 g/dL High 28.4-34.8 [facility] Comment on above: Performed By: #### C DP #### [address] [place], [facility]83 Manager Of Training: Tico Minaya MD MCV (RBC) [Entitic vol] 76.2 fL Low 82.6-102.9 [facility] Comment on above: Performed By: #### C DP #### [address] [place] [id number] Manager Of Training: Tico Minaya MD Monocytes (Bld) [#/Vol] 0.97 10*3/uL Normal 0.10-1.20 [facility] Comment on above: Performed By: #### C DP #### [address] [place], [facility]83 Manager Of Training: Tico Minaya MD Monocytes/100 WBC (Bld) 9 % Normal 3-12 [facility] Comment on above: Performed By: #### C DP #### [address] [place], [place] [address] Manager Of Training: Tico Minaya MD Neutrophil (Seg) 64 % Normal 36-65 [facility] Comment on above: Performed By: #### C DP #### [address] [place], [facility]83 Manager Of Training: Tico Minaya MD NRBC Automated 0.0 per 100 WBC Normal 0.0 [facility] Comment on above: Performed By: #### C DP #### [address] [place], [place] [id number] Manager Of Training: Tico Minaya MD Platelet mean volume (Bld) [Entitic vol] 11.4 fL Normal 8.1-13.5 [facility] Comment on above: Performed By: #### C DP #### [address] [place], [place] [id number] Manager Of Training: Tico Minaya MD Platelets (Bld) [#/Vol] 229 10*3/uL Normal 138-453 [facility] Comment on above: Performed By: #### C DP #### [address] [place] [id number] Manager Of Training: Tico Minaya MD RBC (Bld) [#/Vol] 4.75 10*6/uL Normal 3.95-5.11 [facility] Comment on above: Performed By: #### C DP #### [address] [place], [facility]83 Manager Of Training: Tico Minaya MD WBC (Bld) [#/Vol] 10.6 10*3/uL Normal 3.5-11.3 [facility] Comment on above: Performed By: #### C DP #### [address] [place], [facility]83 Manager Of Training: Tico Minaya MD Auto Diff Performed NOT REPORTED Normal [facility] Comment on above: Performed By: #### C DP #### [address] [place], [place] [id number] Manager Of Training: Tico Minaya MD Platelet Estimate NOT REPORTED Normal [facility] Comment on above: Performed By: #### C DP #### [address] [place], [place] [id number] Manager Of Training: Tico Minaya MD RBC morphology finding Nom (Bld) NOT REPORTED Normal [facility] Comment on above: Performed By: #### C DP #### [facility] [address] [place] [address] Manager Of Training: Tico Minaya MD WBC Morphology NOT REPORTED Normal [facility] Comment on above: Performed By: #### C DP #### [facility] [address] [place] [address] Manager Of Training: Tico Minaya MD Cult,Urineon 07-29-2021 Cult,Urine Specimen Description .CLEAN CATCH URINE Special Requests NOT REPORTED Culture NO SIGNIFICANT GROWTH Report Status FINAL 07/29/2021 Normal [facility] Comment on above: Performed By: #### U RC #### [facility] [address] [place], [place] [id number] Manager Of Training: Kvng Soares MD [facility] [address] [place] [address] [place] [address] Manager Of Training: Tico Minaya MD DRUG SCREEN MULTI URINEOrder ed By: María Barnes on 07-29-2021 Amphetamine Screen, Ur Negative NEGATIVE [facility] Work Phone: Barbiturate Screen, Ur Negative NEGATIVE [facility] Work Phone: Benzodiazepine Screen, Urine Negative NEGATIVE [facility] Work Phone: Buprenorphine Urine Negative NEGATIVE [facility] Work Phone: Cannabinoid Scrn, Ur Negative NEGATIVE [facility] Work Phone: Cocaine Metabolite, Urine Negative NEGATIVE [facility] Work Phone: MDMA, Urine NOT REPORTED NEGATIVE [facility] Work Phone: Methadone Screen, Urine Negative NEGATIVE [facility] Work Phone: Methamphetamine, Urine Negative NEGATIVE [facility] Work Phone: Opiates, Urine Negative NEGATIVE [facility] Work Phone: Oxycodone Screen, Ur Negative NEGATIVE [facility] Work Phone: Phencyclidine, Urine Negative NEGATIVE [facility] [email or web address] Phone: Propoxyphene, Urine Negative NEGATIVE [facility] [email or web address] Phone: Test Information NOT REPORTED [facility] [email or web address] Phone: Tricyclic Antidepressants, Urine Negative NEGATIVE [facility] Work Phone: Comment on above: Drug screen results are to be used for medical purposes only. All positive results are unconfirmed. Testing for employment or legal uses should be sent to a reference laboratory for confirmation. [facility] [employer] Phone: Drug Scr, Abuse, Uron 2020 Amphetamine(s),Ur Negative Normal NEG [facility] Comment on above: Performed By: #### D AU #### [facility] [address] [place] [address] [place] [address] Manager Of Training: Tico Minaya MD Barbiturate(s),Ur Negative Normal NEG [facility] Comment on above: Performed By: #### D AU #### [facility] [address] [place], [facility]83 Manager Of Training: Tico Minaya MD Benzodiazepine(s) Negative Normal NEG [facility] Comment on above: Performed By: #### D AU #### [facility] [address] [place], [facility]83 Manager Of Training: Tico Minaya MD Buprenorphrine, Ur Negative Normal NEG [facility] Comment on above: Performed By: #### D AU #### [facility] [address] [place] [address] Manager Of Training: Tico Minaya MD Cannabinoid(s),Ur Negative Normal NEG [facility] Comment on above: Performed By: #### D AU #### [facility] [address] [place] [address] Manager Of Training: Tico Minaya MD Cocaine Metabolite Negative Normal NEG [facility] Comment on above: Performed By: #### D AU #### [facility] [address] [place], [place] [id number] Manager Of Training: Tico Minaya MD Methadone Ql (U) Negative Normal [facility] Comment on above: Performed By: #### D AU #### [facility] [address] [place], [facility]83 Manager Of Training: Tico Minaya MD Methamphetamine, Ur Negative Normal NEG [facility] Comment on above: Performed By: #### D AU #### [facility] [address] [place] [address] [place] [id number] Manager Of Training: Tico Minaya MD Opiate(s), Ur Negative Normal NEG [facility] Comment on above: Performed By: #### D AU #### [facility] [address] [place], [facility]83 Manager Of Training: Tico Minaya MD Oxycodone, Urine Negative Normal [facility] Comment on above: Performed By: #### D AU #### [facility] [address] [place] [address] Dr. [place], [facility]83 Manager Of Training: Tico Minaya MD Phencyclidine, Ur Negative Normal [facility] Comment on above: Performed By: #### D AU #### [facility] [address] [place], [facility]83 Manager Of Training: Tico Minaya MD Propoxyphene,Urine Negative Normal NEG [facility] Comment on above: Performed By: #### D AU #### [facility] [address] [place] [address] Dr. [place], [place] [id number] Manager Of Training: Tico Minaya MD Tricyclic antidepressants Screen Ql (U) Negative Normal [facility] Comment on above: Result Comment: Drug screen results are to be used for medical purposes only. All positive results are unconfirmed. Testing for employment or legal uses should be sent to a reference laboratory for confirmation. Performed By: #### D AU #### [facility] [address] [place] [address] Manager Of Training: Tico Minaya MD Interpretive Info NOT REPORTED Normal [facility] Comment on above: Performed By: #### D AU #### [facility] [address] [place] [address] Manager Of Training: Tico Minaya MD MDMA, Urine NOT REPORTED Normal NEG [facility] Comment on above: Performed By: #### D AU #### [facility] [address] [place] [address] Manager Of Training: Tico Minaya MD Glucose, Whole BloodOrdered By: María Barnes on 07-29-2021 Glucose [Mass/Vol] 100 mg/dL 74 - 100 mg/dL [facility] Work Phone: [facility] Work Phone: Urinalysis, Routineon 2020 Bilirubin, SemiQt,Ur Negative Normal NEG [facility] Comment on above: Performed By: #### U SARAHO, UA #### [facility] [address] [place] [address] Manager Of Training: Tico Minaya MD Blood, Urine Negative Normal NEG [facility] Comment on above: Performed By: #### U SARAHO, UA #### [facility] [address] [place] [address] Manager Of Training: Tico Minaya MD Clarity (U) CLEAR Normal CLEAR [facility] Comment on above: Performed By: #### U SARAHO, UA #### [facility] [address] [place] [address] Manager Of Training: Tico Minaya MD Color (U) YELLOW Normal YEL [facility] Comment on above: Performed By: #### U MICAO, UA #### [facility] [address] [place], [place] [id number] Manager Of Training: Tico Minaya MD Glucose Ql (U) Negative Normal NEG [facility] Comment on above: Performed By: #### U MICAO, UA #### [facility] [address] [place], [place] [id number] Manager Of Training: Tico Minaya MD Ketones Ql (U) Negative Normal NEG [facility] Comment on above: Performed By: #### U MICAO, UA #### [facility] [address] [place], [place] [id number] Manager Of Training: Tico Minaya MD Leukocyte esterase Test strip Ql (U) SMALL Abnormal NEG [facility] Comment on above: Performed By: #### U MICAO, UA #### [facility] [address] [place] [address] Dr. [place], [place] [id number] Manager Of Training: Tico Minaya MD Nitrite,Ur Negative Normal NEG [facility] Comment on above: Performed By: #### U MICAO, UA #### [facility] [address] [place] [address] Dr. [place], [place] [id number] Manager Of Training: Tico Minaya MD PH,Ur 7.0 Normal 5.0-9.0 [facility] Comment on above: Performed By: #### U MICAO, UA #### [facility] [address] [place] [address] Manager Of Training: Tico Minaya MD Protein Ql (U) Negative Normal NEG [facility] Comment on above: Performed By: #### U MICAO, UA #### [facility] [address] [place], [place] [id number] Manager Of Training: Tico Minaya MD Spec. [place],Ur 1.010 Normal 1.010-1.020 [facility] Comment on above: Performed By: #### U MICAO, UA #### [facility] [address] [place], [place] [id number] Manager Of Training: Tico Minaya MD Urobilinogen,Ur Normal Normal NORM [facility] Comment on above: Performed By: #### U MICAO, UA #### [facility] [address] [place] [address] Manager Of Training: Tico Minaya MD Comment NOT REPORTED Normal [facility] Comment on above: Performed By: #### U MICAO, UA #### [facility] [address] [place] [address] Manager Of Training: Tico Minaya MD Urinalysis,Microon 1 ----- Normal [facility] Comment on above: Performed By: #### U MICAO, UA #### [facility] [address] [place], [facility]83 Manager Of Training: Tico Minaya MD Epithelial cells LM Ql (Urine sed) 5 TO 10 Normal 0-25 [facility] Comment on above: Performed By: #### U MICAO, UA #### [facility] [address] [place], [place] [id number] Manager Of Training: Tico Minaya MD Urine RBC's None Normal 0-2 [facility] Comment on above: Performed By: #### U MICAO, UA #### [facility] [address] [place], [facility]83 Manager Of Training: Tico Minaya MD Urine WBC's 0 TO 2 Normal 0-5 [facility] Comment on above: Performed By: #### U MICAO, UA #### [facility] [address] [place] [address] Manager Of Training: Tico Minaya MD Amorphous sediment LM Ql (Urine sed) NOT REPORTED Normal NONE [facility] Comment on above: Performed By: #### U MICAO, UA #### [facility] [address] [place] [address] Manager Of Training: Tico Minaya MD Bacteria NOT REPORTED Normal NONE [facility] Comment on above: Performed By: #### U MICAO, UA #### [facility] [address] [place] [address] Manager Of Training: Tico Minaya MD Casts NOT REPORTED Normal [facility] Comment on above: Performed By: #### U MICAO, UA #### [facility] [address] [place] [address] Manager Of Training: Tico Minaya MD Crystals LM Nom (Urine sed) NOT REPORTED Normal [facility] Comment on above: Performed By: #### U MICAO, UA #### [facility] [address] [place], [place] [id number] Manager Of Training: Tico Minaya MD Epithelial, Renal NOT REPORTED Normal 0 [facility] Comment on above: Performed By: #### U MICAO, UA #### [facility] [address] [place] [address] Manager Of Training: Tico Minaya MD Mucus Strands NOT REPORTED Normal [facility] Comment on above: Performed By: #### U MICAO, UA #### [facility] [address] [place] [address] Manager Of Training: Tico Minaya MD Other Observations NOT REPORTED Normal NREQ [facility] Comment on above: Performed By: #### U MICAO, UA #### [facility] [address] [place] [address] Manager Of Training: Tico Minaya MD Trichomonas NOT REPORTED Normal NONE [facility] Comment on above: Performed By: #### U MICAO, UA #### [facility] [address] [place], [place] [id number] Manager Of Training: Tico Minaya MD Yeast NOT REPORTED Normal NONE [facility] Comment on above: Performed By: #### U MICAO, UA #### [facility] [address] [place] [address] Manager Of Training: Tico Minaya MD Microscopic UrinalysisOrdere d By: María Barnes on 07-27-2021 - [facility] Work Phone: Amorphous, UA NOT REPORTED None [facility] Work Phone: Bacteria, UA NOT REPORTED None [facility] Work Phone: Casts UA NOT REPORTED /LPF [facility] Work Phone: Crystals, UA NOT REPORTED None /HPF [facility] Work Phone: Epithelial Cells UA 5 TO 10 [facility] Work Phone: Mucus, UA NOT REPORTED None [facility] Work Phone: Other Observations UA NOT REPORTED NOT REQ. M [facility] Work Phone: RBC, UA None [facility] Work Phone: Renal Epithelial, UA NOT REPORTED 0 /HPF [facility] Work Phone: Trichomonas, UA NOT REPORTED None [facility] Work Phone: WBC, UA 0 TO 2 [facility] Work Phone: Yeast, UA NOT REPORTED None [facility] Work Phone: [facility] Work Phone: UrinalysisOrdered By: Bay Barnes on 07-27-2021 Bilirubin Urine Negative NEGATIVE [facility] Work Phone: Color, UA YELLOW YELLOW [facility] [employer] Work Phone: Glucose, Ur Negative NEGATIVE [facility] Work Phone: Interpretation and review of laboratory results Abnormal [facility] Work Phone: Ketones Ql (U) Negative NEGATIVE [employer] Work Phone: Leukocyte esterase Test strip Ql (U) SMALL Abnormal NEGATIVE [employer] Work Phone: Nitrite, Urine Negative NEGATIVE [employer] Work Phone: pH, UA 7.0 [facility] Work Phone: Protein, UA Negative NEGATIVE [facility] Work Phone: Specific [place], UA 1.010 [employer] Work Phone: Turbidity UA CLEAR CLEAR [facility] Work Phone: Urinalysis Comments NOT REPORTED [facility] [employer] Work Phone: Urine Hgb Negative NEGATIVE [facility] Phone: Urobilinogen, Urine Normal Normal [facility] Work Phone: [facility] Work Phone: CBC auto differentialOrdered By: Selma Sifuentes on 07-21-2021 Absolute Eos # PLEASE DISREGARD RESULTS. SPECIMEN CONTAMINATED. [employer] Phone: Comment on above: CORRECTED ON 07/21 A T 0451: PREVIOUSLY REPORTED <0.03 Absolute Immature Granulocyte PLEASE DISREGARD RESULTS. SPECIMEN CONTAMINATED. [employer] Phone: Comment on above: CORRECTED ON 07/21 A T 0451: PREVIOUSLY REPORTED <0.03 Absolute Lymph # PLEASE DISREGARD RESULTS. SPECIMEN CONTAMINATED. [employer] Phone: Comment on above: CORRECTED ON 07/21 A T 0451: PREVIOUSLY REPORTED 1.38 Absolute Gentry # PLEASE DISREGARD RESULTS. SPECIMEN CONTAMINATED. [employer] Phone: Comment on above: CORRECTED ON 07/21 A T 0451: PREVIOUSLY REPORTED 0.48 Basophils (Bld) [#/Vol] PLEASE DISREGARD RESULTS. SPECIMEN CONTAMINATED. 0 - 2 % [employer] Work Phone: Comment on above: CORRECTED ON 07/21 A T 0451: PREVIOUSLY REPORTED 0 Basophils Absolute PLEASE DISREGARD RESULTS. SPECIMEN CONTAMINATED. [employer] Phone: Comment on above: CORRECTED ON 07/21 A T 0451: PREVIOUSLY REPORTED <0.03 Differential Type NOT REPORTED [employer] Phone: Eosinophils % PLEASE DISREGARD RESULTS. SPECIMEN CONTAMINATED. 1 - 4 % [employer] Phone: Comment on above: CORRECTED ON 07/21 A T 0451: PREVIOUSLY REPORTED 0 Hematocrit (Bld) [Volume fraction] PLEASE DISREGARD RESULTS. SPECIMEN CONTAMINATED. 36.3 - 47.1 % [employer] Phone: Comment on above: CORRECTED ON 07/21 A T 0451: PREVIOUSLY REPORTED 20.1 Hemoglobin.gastrointest inal spec 1 Ql (Stl) PLEASE DISREGARD RESULTS. SPECIMEN CONTAMINATED. 11.9 - 15.1 g/dL [employer] Phone: Comment on above: CORRECTED ON 07/21 A T 0451: PREVIOUSLY REPORTED 6.8 Immature Granulocytes PLEASE DISREGARD RESULTS. SPECIMEN CONTAMINATED. 0 % [employer] Phone: Comment on above: CORRECTED ON 07/21 A T 0451: PREVIOUSLY REPORTED 0 Lymphocytes (Bld) [#/Vol] PLEASE DISREGARD RESULTS. SPECIMEN CONTAMINATED. 24 - 43 % [employer] Phone: Comment on above: CORRECTED ON 07/21 A T 0451: PREVIOUSLY REPORTED 24 MCH (RBC) [Entitic mass] PLEASE DISREGARD RESULTS. SPECIMEN CONTAMINATED. 25.2 - 33.5 pg [employer] Phone: Comment on above: CORRECTED ON 07/21 A T 0451: PREVIOUSLY REPORTED 27.6 MCHC (RBC) [Mass/Vol] PLEASE DISREGARD RESULTS. SPECIMEN CONTAMINATED. 28.4 - 34.8 g/dL [employer] Phone: Comment on above: CORRECTED ON 07/21 A T 0451: PREVIOUSLY REPORTED 33.8 MCV (RBC) [Entitic vol] PLEASE DISREGARD RESULTS. SPECIMEN CONTAMINATED. 82.6 - 102.9 fL [employer] Phone: Comment on above: CORRECTED ON 07/21 A T 0451: PREVIOUSLY REPORTED 81.7 Monocytes (Bld) [#/Vol] PLEASE DISREGARD RESULTS. SPECIMEN CONTAMINATED. 3 - 12 % [employer] Phone: Comment on above: CORRECTED ON 07/21 A T 0451: PREVIOUSLY REPORTED 8 NRBC Automated NOT REPORTED 0.0 per 100 WBC [employer] Phone: Platelet distribution width (Bld) [Ratio] PLEASE DISREGARD RESULTS. SPECIMEN CONTAMINATED. 11.8 - 14.4 % [employer] Phone: Comment on above: CORRECTED ON 07/21 A T 0451: PREVIOUSLY REPORTED 13.2 Platelet Estimate NOT REPORTED [employer] Phone: Platelet mean volume (Bld) [Entitic vol] PLEASE DISREGARD RESULTS. SPECIMEN CONTAMINATED. 8.1 - 13.5 fL [employer] Phone: Comment on above: CORRECTED ON 07/21 A T 0451: PREVIOUSLY REPORTED 11.2 Platelets (Bld) [#/Vol] PLEASE DISREGARD RESULTS. SPECIMEN CONTAMINATED. [employer] Phone: Comment on above: CORRECTED ON 07/21 A T 0451: PREVIOUSLY REPORTED 129 RBC (Bld) [#/Vol] PLEASE DISREGARD RESULTS. SPECIMEN CONTAMINATED. 3.95 - 5.11 m/uL [employer] Phone: Comment on above: CORRECTED ON 07/21 A T 0451: PREVIOUSLY REPORTED 2.46 RBC (Bld) [#/Vol] NOT REPORTED [employer] Phone: Seg Neutrophils PLEASE DISREGARD RESULTS. SPECIMEN CONTAMINATED. 36 - 65 % [employer] Phone: Comment on above: CORRECTED ON 07/21 A T 0451: PREVIOUSLY REPORTED 68 Segs Absolute PLEASE DISREGARD RESULTS. SPECIMEN CONTAMINATED. [facility]: Comment on above: CORRECTED ON 07/21 A T 0451: PREVIOUSLY REPORTED 3.95 WBC (Bld) [#/Vol] PLEASE DISREGARD RESULTS. SPECIMEN CONTAMINATED. [facility] Phone: Comment on above: CORRECTED ON 07/21 A T 0451: PREVIOUSLY REPORTED 5.9 WBC (Bld) [#/Vol] NOT REPORTED [employer] Phone: [employer] Phone: CBC with Diffon 07-21-2021 Abs. Basophil PLEASE DISREGARD RESULTS. SPECIMEN CONTAMINATED. Normal 0.00-0.20 [facility] Comment on above: Result Comment: MARIPOSA ECTED ON 07/21 AT 0451: PREVIOUSLY REPORTED <0.03 Performed By: #### C DP #### [facility] [address] [place] [address] [place] [id number] Manager Of Training: Tico Minaya MD Abs. Eosinophil PLEASE DISREGARD RESULTS. SPECIMEN CONTAMINATED. Normal 0.00-0.44 [facility] Comment on above: Result Comment: MARIPOSA ECTED ON 07/21 AT 0451: PREVIOUSLY REPORTED <0.03 Performed By: #### C DP #### [facility] [address] [place] [address] [place] [address] Manager Of Training: Tico Minaya MD Abs. Lymph PLEASE DISREGARD RESULTS. SPECIMEN CONTAMINATED. Normal 1.10-3.70 [facility] Comment on above: Result Comment: MARIPOSA ECTED ON 07/21 AT 0451: PREVIOUSLY REPORTED 1.38 Performed By: #### C DP #### [facility] [address] [place], [place] [id number] Manager Of Training: Tico Minaya MD Abs. Monocyte PLEASE DISREGARD RESULTS. SPECIMEN CONTAMINATED. Normal 0.10-1.20 [facility] Comment on above: Result Comment: MARIPOSA ECTED ON 07/21 AT 0451: PREVIOUSLY REPORTED 0.48 Performed By: #### C DP #### [facility] [address] [place], [place] [phone] Manager Of Training: Tico Minaya MD Abs.Imm.Granulocyte PLEASE DISREGARD RESULTS. SPECIMEN CONTAMINATED. Normal 0.00-0.30 [facility] Comment on above: Result Comment: MARIPOSA ECTED ON 07/21 AT 0451: PREVIOUSLY REPORTED <0.03 Performed By: #### C DP #### [facility] [address] [place] [address] Manager Of Training: Tico Minaya MD Abs.Neutrophil (Seg) PLEASE DISREGARD RESULTS. SPECIMEN CONTAMINATED. Normal 1.50-8.10 [facility] Comment on above: Result Comment: MARIPOSA ECTED ON 07/21 AT 0451: PREVIOUSLY REPORTED 3.95 Performed By: #### C DP #### [address] [place], [place] [id number] Manager Of Training: Tico Minaya MD Basophil PLEASE DISREGARD RESULTS. SPECIMEN CONTAMINATED. Normal 0-2 [facility] Comment on above: Result Comment: MARIPOSA ECTED ON 07/21 AT 0451: PREVIOUSLY REPORTED 0 Performed By: #### C DP #### [address] [place], [place] [phone] Manager Of Training: Tico Minaya MD Eosinophil PLEASE DISREGARD RESULTS. SPECIMEN CONTAMINATED. Normal 1-4 [facility] Comment on above: Result Comment: MARIPOSA ECTED ON 07/21 AT 0451: PREVIOUSLY REPORTED 0 Performed By: #### C DP #### [facility] [address] [place] [address] Dr. [place], [place] [id number] Manager Of Training: Tico Minaya MD Hematocrit PLEASE DISREGARD RESULTS. SPECIMEN CONTAMINATED. Normal 36.3-47.1 [facility] Comment on above: Result Comment: MARIPOSA ECTED ON 07/21 AT 0451: PREVIOUSLY REPORTED 20.1 Performed By: #### C DP #### [facility] [address] [place] [address] Dr. [place], [place] [id number] Manager Of Training: Tico Minaya MD [facility] PLEASE DISREGARD RESULTS. SPECIMEN CONTAMINATED. Normal 11.9-15.1 [facility] Comment on above: Result Comment: MARIPOSA ECTED ON 07/21 AT 0451: PREVIOUSLY REPORTED 6.8 Performed By: #### C DP #### [facility] [address] [place], [place] [id number] Manager Of Training: Tico Minaya MD [facility] Granulocyte PLEASE DISREGARD RESULTS. SPECIMEN CONTAMINATED. Normal 0 [facility] Comment on above: Result Comment: MARIPOSA ECTED ON 07/21 AT 0451: PREVIOUSLY REPORTED 0 Performed By: #### C DP #### [facility] [address] [place], [place] [id number] Manager Of Training: Tico Minaya MD [facility] PLEASE DISREGARD RESULTS. SPECIMEN CONTAMINATED. Normal 24-43 [facility] Comment on above: Result Comment: MARIPOSA ECTED ON 07/21 AT 0451: PREVIOUSLY REPORTED 24 Performed By: #### C DP #### [facility] [address] [place], [place] [phone] Manager Of Training: Tico Minaya MD [facility] PLEASE DISREGARD RESULTS. SPECIMEN CONTAMINATED. Normal 25.2-33.5 [facility] Comment on above: Result Comment: MARIPOSA ECTED ON 07/21 AT 0451: PREVIOUSLY REPORTED 27.6 Performed By: #### C DP #### [facility] [address] [place], [place] [id number] Manager Of Training: Tico Minaya MD [facility] PLEASE DISREGARD RESULTS. SPECIMEN CONTAMINATED. Normal 28.4-34.8 [facility] Comment on above: Result Comment: MARIPOSA ECTED ON 07/21 AT 0451: PREVIOUSLY REPORTED 33.8 Performed By: #### C DP #### [facility] [address] [place], [place] [phone] Manager Of Training: Tico Minaya MD [facility] PLEASE DISREGARD RESULTS. SPECIMEN CONTAMINATED. Normal 82.6-102.9 [facility] Comment on above: Result Comment: MARIPOSA ECTED ON 07/21 AT 0451: PREVIOUSLY REPORTED 81.7 Performed By: #### C DP #### [facility] [address] [place], [place] [id number] Manager Of Training: Tico Minaya MD Monocyte PLEASE DISREGARD RESULTS. SPECIMEN CONTAMINATED. Normal 3-12 [facility] Comment on above: Result Comment: MARIPOSA ECTED ON 07/21 AT 0451: PREVIOUSLY REPORTED 8 Performed By: #### C DP #### [facility] [address] [place], [place] [id number] Manager Of Training: Tico Minaya MD MPV PLEASE DISREGARD RESULTS. SPECIMEN CONTAMINATED. Normal 8.1-13.5 [facility] Comment on above: Result Comment: MARIPOSA ECTED ON 07/21 AT 0451: PREVIOUSLY REPORTED 11.2 Performed By: #### C DP #### [facility] [address] [place], [place] [phone] Manager Of Training: Tico Minaya MD Neutrophil (Seg) PLEASE DISREGARD RESULTS. SPECIMEN CONTAMINATED. Normal 36-65 [facility] Comment on above: Result Comment: MARIPOSA ECTED ON 07/21 AT 0451: PREVIOUSLY REPORTED 68 Performed By: #### C DP #### [facility] [address] [place] [address] Manager Of Training: Tico Minaya MD Platelet Count PLEASE DISREGARD RESULTS. SPECIMEN CONTAMINATED. Normal 138-453 [facility] Comment on above: Result Comment: MARIPOSA ECTED ON 07/21 AT 0451: PREVIOUSLY REPORTED 129 Performed By: #### C DP #### [facility] [address] [place], [place] [id number] Manager Of Training: Tico Minaya MD RBC Count PLEASE DISREGARD RESULTS. SPECIMEN CONTAMINATED. Normal 3.95-5.11 [facility] Comment on above: Result Comment: MARIPOSA ECTED ON 07/21 AT 0451: PREVIOUSLY REPORTED 2.46 Performed By: #### C DP #### [facility] [address] [place] [address] Manager Of Training: Tico Minaya MD RDW PLEASE DISREGARD RESULTS. SPECIMEN CONTAMINATED. Normal 11.8-14.4 [facility] Comment on above: Result Comment: MARIPOSA ECTED ON 07/21 AT 0451: PREVIOUSLY REPORTED 13.2 Performed By: #### C DP #### [facility] [address] [place] [address] Manager Of Training: Tico Minaya MD WBC Count PLEASE DISREGARD RESULTS. SPECIMEN CONTAMINATED. Normal 3.5-11.3 [facility] Comment on above: Result Comment: MARIPOSA ECTED ON 07/21 AT 0451: PREVIOUSLY REPORTED 5.9 Performed By: #### C DP #### [facility] [address] [place] [address] [place] [address] Manager Of Training: Tico Minaya MD Abs. Basophil <0.03 Normal 0.00-0.20 [facility] Comment on above: Performed By: #### C DP #### [address] [place] [id number] Manager Of Training: Tico Minaya MD Abs. Eosinophil <0.03 Normal 0.00-0.44 [facility] Comment on above: Performed By: #### C DP #### [facility] [address] [place] [address] [place] [address] Manager Of Training: Tico Minaya MD Abs.Imm.Granulocyte 0.09 k/uL Normal 0.00-0.30 [facility] Comment on above: Performed By: #### C DP #### [facility] [address] [place] [address] [place] [phone] Manager Of Training: Tico Minaya MD Abs.Neutrophil (Seg) 11.03 k/uL High 1.50-8.10 [facility] Comment on above: Performed By: #### C DP #### [facility] [address] [place], [place] [phone] Manager Of Training: Tico Minaya MD Basophils/100 WBC (Bld) 0 % Normal 0-2 [facility] Comment on above: Performed By: #### C DP #### [facility] [address] [place], [facility]83 Manager Of Training: Tico Minaya MD Eosinophils/100 WBC (Bld) 0 % Low 1-4 [facility] Comment on above: Performed By: #### C DP #### [address] [place] [id number] Manager Of Training: Tico Minaya MD Erythrocyte distribution width (RBC) [Ratio] 13.2 % Normal 11.8-14.4 [facility] Comment on above: Performed By: #### C DP #### [address] [place], [facility]83 Manager Of Training: Tico Minaya MD Hematocrit (Bld) [Volume fraction] 37.3 % Normal 36.3-47.1 [facility] Comment on above: Performed By: #### C DP #### [address] [place], [facility]83 Manager Of Training: Tico Minaya MD Hemoglobin (Bld) [Mass/Vol] 13.1 g/dL Normal 11.9-15.1 [facility] Comment on above: Performed By: #### C DP #### [address] [place] [address] Manager Of Training: Tico Minaya MD Immature granulocytes/100 WBC (Bld) 1 % High 0 [facility] Comment on above: Performed By: #### C DP #### [address] [place] [address] Manager Of Training: Tico Minaya MD Lymphocytes (Bld) [#/Vol] 2.10 10*3/uL Normal 1.10-3.70 [facility] Comment on above: Performed By: #### C DP #### [facility] [address] [place], [place] [id number] Manager Of Training: Tico Minaya MD Lymphocytes/100 WBC (Bld) 15 % Low 24-43 [facility] Comment on above: Performed By: #### C DP #### [facility] [address] [place] [address] Manager Of Training: Tico Minaya MD MCH (RBC) [Entitic mass] 27.6 pg Normal 25.2-33.5 [facility] Comment on above: Performed By: #### C DP #### [address] [place] [id number] Manager Of Training: Tico Minaya MD MCHC (RBC) [Mass/Vol] 35.1 g/dL High 28.4-34.8 [facility] Comment on above: Performed By: #### C DP #### [address] [place] [address] Manager Of Training: Tico Minaya MD MCV (RBC) [Entitic vol] 78.7 fL Low 82.6-102.9 [facility] Comment on above: Performed By: #### C DP #### [address] [place] [address] Manager Of Training: Tico Minaya MD Monocytes (Bld) [#/Vol] 0.82 10*3/uL Normal 0.10-1.20 [facility] Comment on above: Performed By: #### C DP #### [address] [place], [place] [phone] Manager Of Training: Tico Minaya MD Monocytes/100 WBC (Bld) 6 % Normal 3-12 [facility] Comment on above: Performed By: #### C DP #### [facility] [address] [place], [place] [id number] Manager Of Training: Tico Minaya MD Neutrophil (Seg) 79 % High 36-65 [facility] Comment on above: Performed By: #### C DP #### [facility] [address] [place], [place] [phone] Manager Of Training: Tico Minaya MD NRBC Automated 0.0 per 100 WBC Normal 0.0 [facility] Comment on above: Performed By: #### C DP #### [facility] [address] [place] [id number] Manager Of Training: Tico Minaya MD Platelet mean volume (Bld) [Entitic vol] 10.8 fL Normal 8.1-13.5 [facility] Comment on above: Performed By: #### C DP #### [facility] [address] [place] [address] Dr. [place], [place] [phone] Manager Of Training: Tico Minaya MD Platelets (Bld) [#/Vol] 250 10*3/uL Normal 138-453 [facility] Comment on above: Performed By: #### C DP #### [address] [place], [place] [phone] Manager Of Training: Tico Minaya MD RBC (Bld) [#/Vol] 4.74 10*6/uL Normal 3.95-5.11 [facility] Comment on above: Performed By: #### C DP #### [facility] [address] [place] [address] Dr. [place], [place] [phone] Manager Of Training: Tico Minaya MD WBC (Bld) [#/Vol] 14.1 10*3/uL High 3.5-11.3 [facility] Comment on above: Performed By: #### C DP #### [facility] [address] [place] [address] Dr. [place] [id number] Manager Of Training: Tico Minaya MD Auto Diff Performed NOT REPORTED Normal [facility] Comment on above: Performed By: #### C DP #### [facility] [address] [place], [place] [phone] Manager Of Training: Tico Minaya MD Platelet Estimate NOT REPORTED Normal [facility] Comment on above: Performed By: #### C DP #### [facility] [address] [place], [place] [id number] Manager Of Training: Tico Minaya MD RBC morphology finding Nom (Bld) NOT REPORTED Normal [facility] Comment on above: Performed By: #### C DP #### [facility] [address] [place], [place] [phone] Manager Of Training: Tico Minaya MD WBC Morphology NOT REPORTED Normal [facility] Comment on above: Performed By: #### C DP #### [facility] [address] [place], [facility]83 Manager Of Training: Tico Minaya MD NRBC Automated NOT REPORTED Normal 0.0 [facility] Comment on above: Performed By: #### C DP #### [facility] [address] [place] [address] Dr. [place], [facility]83 Manager Of Training: Tico Minaya MD Glucose, Whole BloodOrdered By: Selma Sifuentes on 07-21-2021 Glucose [Mass/Vol] 107 mg/dL High 74 - 100 mg/dL [facility] [employer] Phone: Interpretation and review of laboratory results Abnormal [facility] [employer] Phone: [employer] Phone: Glucose [Mass/Vol] 111 mg/dL High 74 - 100 mg/dL [facility] [email or web address] Phone: Interpretation and review of laboratory results Abnormal [facility]: [facility] Phone: TYPE AND SCREENOrdered By: Dewayne Sifuentes on 07-21-2021 ABO/Rh Positive [facility] Work Phone: Arm Band Number [id number] [facility] Work Phone: Expiration Date 07/23/2021,2359 [facility] Work Phone: [facility] [employer] Work Phone: Type + Screenon 07-21-2021 Type + Screen Sample Expiration 07/23/2021,2359 Arm Band Number [id number] ABO/Rh(D) B POSITIVE Antibody Screen NEGATIVE Normal [facility] Comment on above: Performed By: #### T YS #### [facility] [address] [place] [address] Manager Of Training: Tico Minaya MD CBC auto differentialOrdered By: Selma Sifuentes on 07-20-2021 Absolute Eos # <0.03 [facility] Work Phone: Absolute Immature Granulocyte 0.09 [facility] Work Phone: Absolute Lymph # 2.10 [facility] Work Phone: Absolute Gentry # 0.82 [facility] Work Phone: Basophils (Bld) [#/Vol] 10*3/uL M [employer] Work Phone: Basophils/100 WBC (Bld) 0 % 0 - 2 % M [email or web address] Work Phone: Differential Type NOT REPORTED [facility] [employer] Work Phone: Eosinophils/100 WBC (Bld) 0 % Low 1 - 4 % [facility] Work Phone: Hematocrit (Bld) [Volume fraction] 37.3 % 36.3 - 47.1 % [facility] Phone: Hemoglobin.gastrointest inal spec 1 Ql (Stl) 13.1 g/dL 11.9 - 15.1 g/dL [facility] Work Phone: Immature granulocytes/100 WBC (Bld) 1 % High 0 [employer] Phone: Interpretation and review of laboratory results Abnormal [employer] Phone: Lymphocytes/100 WBC (Bld) 15 % Low 24 - 43 % [employer] Phone: MCH (RBC) [Entitic mass] 27.6 pg 25.2 - 33.5 pg [employer] Phone: MCHC (RBC) [Mass/Vol] 35.1 g/dL High 28.4 - 34.8 g/dL [employer] Phone: MCV (RBC) [Entitic vol] 78.7 fL Low 82.6 - 102.9 fL [employer] Phone: Monocytes/100 WBC (Bld) 6 % 3 - 12 % M [employer] Phone: NRBC Automated 0.0 0.0 per 100 WBC [employer] Phone: Platelet distribution width (Bld) [Ratio] 13.2 % 11.8 - 14.4 % [employer] Phone: Platelet Estimate NOT REPORTED [employer] Phone: Platelet mean volume (Bld) [Entitic vol] 10.8 fL 8.1 - 13.5 fL [employer] Phone: Platelets (Bld) [#/Vol] 250 10*3/uL [employer] Phone: RBC (Bld) [#/Vol] 4.74 10*6/uL 3.95 - 5.1 1 m/uL [employer] Phone: RBC (Bld) [#/Vol] NOT REPORTED [employer] Phone: Segmented neutrophils/100 WBC (Bld) 79 % High 36 - 65 % [employer] Phone: Segs Absolute 11.03 High [facility] Work Phone: WBC (Bld) [#/Vol] 14.1 10*3/uL High [facility] Work Phone: WBC (Bld) [#/Vol] NOT REPORTED [facility] Work Phone: [facility] Work Phone: CBC with Diffon 07-20-2021 Auto Diff Performed NOT REPORTED Normal [facility] Comment on above: Performed By: #### C DP #### [facility] [address] [place], [place] [phone] Manager Of Training: Tico Minaya MD Platelet Estimate NOT REPORTED Normal [facility] Comment on above: Performed By: #### C DP #### [facility] [address] [place] [address] Manager Of Training: Tico Minaya MD RBC morphology finding Nom (Bld) NOT REPORTED Normal [facility] Comment on above: Performed By: #### C DP #### [facility] [address] [place] [address] Manager Of Training: Tico Minaya MD WBC Morphology NOT REPORTED Normal [facility] Comment on above: Performed By: #### C DP #### [facility] [address] [place] [address] Manager Of Training: Tico Minaya MD Glucose, Whole BloodOrdered By: Selma Sifuentes on 07-20-2021 Glucose [Mass/Vol] 98 mg/dL 74 - 100 mg/dL [facility] Work Phone: [facility] Work Phone: Microscopic UrinalysisOrdere d By: Selma Sifuentes on 07-20-2021 - [facility] Work Phone: Amorphous, UA NOT REPORTED None [facility] Work Phone: Bacteria, UA TRACE Abnormal None [facility] Work Phone: Casts UA NOT REPORTED /LPF [facility] Work Phone: Crystals, UA NOT REPORTED None /HPF [facility] Work Phone: Epithelial Cells UA 10 TO 20 [facility] Work Phone: Interpretation and review of laboratory results Abnormal [facility] Work Phone: Mucus, UA NOT REPORTED None [facility] Work Phone: Other Observations UA NOT REPORTED NOT REQ. M [facility] Work Phone: RBC, UA 0 TO 2 [facility] Work Phone: Renal Epithelial, UA NOT REPORTED 0 /HPF [facility] Work Phone: Trichomonas, UA NOT REPORTED None [facility] Work Phone: WBC, UA 0 TO 3 [facility] Work Phone: Yeast, UA NOT REPORTED None [facility] Work Phone: [facility] Work Phone: UrinalysisOrdered By: Peewee Sifuentes on 07-20-2021 Bilirubin Urine Negative NEGATIVE [facility] Work Phone: Color, UA YELLOW YELLOW [facility] Work Phone: Glucose, Ur Negative NEGATIVE [facility] Work Phone: Interpretation and review of laboratory results Abnormal [facility] Work Phone: Ketones Ql (U) 2+ Abnormal NEGATIVE [facility] Work Phone: Leukocyte esterase Test strip Ql (U) Negative NEGATIVE [facility] Work Phone: Nitrite, Urine Negative NEGATIVE [facility] Work Phone: pH, UA 6.0 [facility] Work Phone: Protein, UA Negative NEGATIVE [facility] [employer] Work Phone: Specific [place], UA 1.020 [facility] [employer] Work Phone: Turbidity UA CLEAR CLEAR [facility] Work Phone: Urinalysis Comments NOT REPORTED [facility] [employer] Work Phone: Urine Hgb Negative NEGATIVE [facility] Work Phone: Urobilinogen, Urine Normal Normal [facility] [email or web address] Phone: [facility] [employer] Work Phone: Urinalysis, Routineon 2020 Bilirubin, SemiQt,Ur Negative Normal NEG [facility] Comment on above: Performed By: #### U MICAO, UA #### [facility] [address] [place], [facility]83 Manager Of Training: Tico Minaya MD Blood, Urine Negative Normal NEG [facility] Comment on above: Performed By: #### U MICAO, UA #### [facility] [address] [place], [facility]83 Manager Of Training: Tico Minaya MD Clarity (U) CLEAR Normal CLEAR [facility] Comment on above: Performed By: #### U MICAO, UA #### [facility] [address] [place], [facility]83 Manager Of Training: Tico Minaya MD Color (U) YELLOW Normal YEL [facility] Comment on above: Performed By: #### U MICAO, UA #### [facility] [address] [place] [address] Manager Of Training: Tico Minaya MD Glucose Ql (U) Negative Normal NEG [facility] Comment on above: Performed By: #### U MICAO, UA #### [facility] [address] [place], [facility]83 Manager Of Training: Tico Minaya MD Ketones Ql (U) 2+ Abnormal NEG [facility] Comment on above: Performed By: #### U MICAO, UA #### [facility] [address] [place], [place] [phone] Manager Of Training: Tico Minaya MD Leukocyte esterase Test strip Ql (U) Negative Normal NEG [facility] Comment on above: Performed By: #### U MICAO, UA #### [facility] [address] [place] [address] Manager Of Training: Tico Minaya MD Nitrite,Ur Negative Normal NEG [facility] Comment on above: Performed By: #### U MICAO, UA #### [facility] [address] [place] [address] Dr. [place], [place] [phone] Manager Of Training: Tico Minaya MD PH,Ur 6.0 Normal 5.0-9.0 [facility] Comment on above: Performed By: #### U MICAO, UA #### [facility] [address] [place] [address] [place] [address] Manager Of Training: Tico Minaya MD Protein Ql (U) Negative Normal NEG [facility] Comment on above: Performed By: #### U MICAO, UA #### [facility] [address] [place] [address] Dr[place], [place] [phone] Manager Of Training: Tico Minaya MD Spec. [place],Ur 1.020 Normal 1.010-1.020 [facility] Comment on above: Performed By: #### U MICAO, UA #### [facility] [address] [place], [place] [id number] Manager Of Training: Tico Minaya MD Urobilinogen,Ur Normal Normal NORM [facility] Comment on above: Performed By: #### U MICAO, UA #### [facility] [address] [place], [place] [phone] Manager Of Training: Tico Minaya MD Comment NOT REPORTED Normal [facility] Comment on above: Performed By: #### U MICAO, UA #### [facility] [address] [place] [address] Dr. [place], [place] [id number] Manager Of Training: Tico Minaya MD Urinalysis,Microon 1 ----- Normal [facility] Comment on above: Performed By: #### U MICAO, UA #### [facility] [address] [place], [place] [id number] Manager Of Training: Tico Minaya MD Bacteria TRACE Abnormal [facility] Comment on above: Performed By: #### U MICAO, UA #### [facility] [address] [place] [address] Dr. [place], [place] [phone] Manager Of Training: Tico Minaya MD Epithelial cells LM Ql (Urine sed) 10 TO 20 Normal 0-25 [facility] Comment on above: Performed By: #### U MICAO, UA #### [facility] [address] [place], [place] [id number] Manager Of Training: Tico Minaya MD Urine RBC's 0 TO 2 Normal 0-2 [facility] Comment on above: Performed By: #### U MICAO, UA #### [address] [place], [place] [phone] Manager Of Training: Tico Minaya MD Urine WBC's 0 TO 3 Normal 0-5 [facility] Comment on above: Performed By: #### U MICAO, UA #### [facility] [address] [place], [place] [phone] Manager Of Training: Tico Minaya MD Amorphous sediment LM Ql (Urine sed) NOT REPORTED Normal [facility] Comment on above: Performed By: #### U MICAO, UA #### [facility] [address] [place], [place] [id number] Manager Of Training: Tico Minaya MD Casts NOT REPORTED Normal [facility] Comment on above: Performed By: #### U ELLIOT, UA #### [facility] [address] [place], [place] [phone] Manager Of Training: Tico Minaya MD Crystals LM Nom (Urine sed) NOT REPORTED Normal NONE [facility] Comment on above: Performed By: #### U SARAHO, UA #### [facility] [address] [place], [place] [id number] Manager Of Training: Tico Minaya MD Epithelial, Renal NOT REPORTED Normal 0 [facility] Comment on above: Performed By: #### U ELLIOT, UA #### [facility] [address] [place], [place] [id number] Manager Of Training: Tico Minaya MD Mucus Strands NOT REPORTED Normal NONE [facility] Comment on above: Performed By: #### U ELLIOT, UA #### [facility] [address] [place], [place] [id number] Manager Of Training: Tico Minaya MD Other Observations NOT REPORTED Normal NREQ [facility] Comment on above: Performed By: #### U ELLIOT, UA #### [facility] [address] [place], [place] [id number] Manager Of Training: Tico Minaya MD Trichomonas NOT REPORTED Normal NONE [facility] Comment on above: Performed By: #### U SARAHO, UA #### [facility] [address] [place], [place] [id number] Manager Of Training: Tico Minaya MD Yeast NOT REPORTED Normal [facility] Comment on above: Performed By: #### U SARAHO, UA #### [facility] [address] [place], [place] [id number] Manager Of Training: Tico Minaya MD GBS, External ResultOrdered By: Selma Sifuentes on 07-19-2021 GBS, External Result Negative [facility] Work Phone: [employer] Phone: ABO, External ResultOrdered By: Historical Provider on 12-29-2020 ABO, External Result Positive [employer] Phone: HIV ScreenOrdered By: Peewee Sifuentes on 12-29-2020 HIV Ag/Ab [facility]-Reactive [facility]: N. GONORRHOEAE CULTUREOrdere d By: Selma Sifuentes on 12-29-2020 Culture, Gonorrhoeae Not detected [facility] [employer] Phone: No Panel InformationOrdered By: Historical Provider on 12-29-2020 [facility]: No Panel InformationOrdered By: Selma Sifuentes on 12-29-2020 [facility] Phone: PROFILE IOrdered By : Selma Sifuentes on 12-29-2020 ABO/Rh Positive [facility]: Hepatitis B Surface Ag Non-Reactive [facility]: Rubella virus IgG Ql (S) Immune [facility] Phone: T. pallidum, IgG Non-Reactive [facility]: Comment on above: RPR CBC AUTO DIFFon 10-27-2020 Basophils (Bld) [#/Vol] 0.0 103/ul Normal 0.0-0.1 [facility] Comment on above: Performed By: #### C BC #### [facility] [address] [place], [place] [address] [place] Basophils/100 WBC (Bld) 0.2 % Normal 0.2-2.0 [facility] Comment on above: Performed By: #### C BC #### [facility] [address] [place], [place] [address] [place] Eosinophils (Bld) [#/Vol] 0.1 103/ul Normal 0.0-0.7 [facility] Comment on above: Performed By: #### C BC #### [facility] [address] [place] [id number] [place] Eosinophils/100 WBC (Bld) 1.2 % Normal 0.9-7.0 [facility] Comment on above: Performed By: #### C BC #### [facility] [address] [place] [id number] [place] Erythrocyte distribution width (RBC) [Ratio] 12.5 % Normal 11.0-15.0 [facility] Comment on above: Performed By: #### C BC #### [facility] [address] [place], [place] [phone] [place] Hematocrit (Bld) [Volume fraction] 40.1 % Normal 36.0-48.0 [facility] Comment on above: Performed By: #### C BC #### [facility] [address] [place], [place] [phone] [place] Hemoglobin (Bld) [Mass/Vol] 14.3 g/dL Normal 12.0-16.0 [facility] Comment on above: Performed By: #### C BC #### [facility] [address] [place], [place] [phone] [place] IG # 0.04 10e3/ul Critically high 0.00-0.03 [facility] Comment on above: Performed By: #### C BC #### [facility] [address] [place], [place] [phone] [place] IG % 0.4 % Normal 0.0-0.5 [facility] Comment on above: Performed By: #### C BC #### [facility] [address] [place], [place] [phone] [place] Lymphocytes (Bld) [#/Vol] 3.8 103/ul Normal 1.2-3.8 [facility] Comment on above: Performed By: #### C BC #### [facility] [address] [place], [place] [phone] [place] Lymphocytes/100 WBC (Bld) 36.2 % Normal 20.5-60.0 [facility] Comment on above: Performed By: #### C BC #### [facility] [address] [place], [place] [address] [place] MANUAL DIFF REQ NO Normal [facility] Comment on above: Performed By: #### C BC #### [facility] [address] [place], [place] [address] [place] MCH (RBC) [Entitic mass] 28.1 pg Normal 26.7-34.0 [facility] Comment on above: Performed By: #### C BC #### [facility] [address] [place], [place] [address] [place] MCHC (RBC) [Mass/Vol] 35.7 g/dL Critically high 29.9-35.2 [facility] Comment on above: Performed By: #### C BC #### [facility] [address] [place] [phone] [place] MCV (RBC) [Entitic vol] 78.9 fL Critically low 81.0-99. 0 [facility] Comment on above: Performed By: #### C BC #### [facility] [address] [place] [address] [place] Monocytes (Bld) [#/Vol] 1.1 103/ul Critically high 0.3-0.8 [facility] Comment on above: Performed By: #### C BC #### [facility] [address] [place], [place] [address] [place] Monocytes/100 WBC (Bld) 10.3 % Normal 1.7-12.0 [facility] Comment on above: Performed By: #### C BC #### [facility] [address] [place], [place] [address] [place] Neutrophils (Bld) [#/Vol] 5.4 103/ul Normal 1.4-6.5 [facility] Comment on above: Performed By: #### C BC #### [facility] [address] [place], [place] [address] [place] Neutrophils/100 WBC (Bld) 51.7 % Normal 43.0-75.0 [facility] Comment on above: Performed By: #### C BC #### [facility] [address] [place], [place] [phone] Casekrysten Wong Platelet mean volume (Bld) [Entitic vol] 9.7 fL Normal 9.5-13.5 [facility] Comment on above: Performed By: #### C BC #### [facility] [address] [place], [place] [phone] Casekrysten Wong Platelets (Bld) [#/Vol] 321 103/ul Normal 150-450 [facility] Comment on above: Performed By: #### C BC #### [facility] [address] [place], [place] [address] [place] RBC (Bld) [#/Vol] 5.08 106/ul Normal 4.20-5.40 [facility] Comment on above: Performed By: #### C BC #### [facility] [address] [place], [place] [phone] Casekrysten Lemonen WBC (Bld) [#/Vol] 10.4 103/ul Normal 4.0-11.0 [facility] Comment on above: Performed By: #### C BC #### [facility] [address] [place], [place] [phone] Casekrysten Wong ER URINE PROFILEon 0 Bilirubin [Mass/Vol] Negative Normal NEGATIVE [facility] Comment on above: Performed By: #### E RUR #### [facility] [address] [place], [place] [phone] [place] BLOOD Negative Normal NEGATIVE [facility] Comment on above: Performed By: #### E RUR #### [facility] [address] [place], [place] [phone] [place] Clarity (U) CLEAR Normal CLEAR [facility] Comment on above: Performed By: #### E RUR #### [facility] [address] [place], [place] [phone] [place] Color (U) LT. YELLOW Normal YELLOW [facility] Comment on above: Performed By: #### E RUR #### [facility] [address] [place] [address] [place] ERUAHD A micrscopic examination will be performed if indicated. Normal [facility] Comment on above: Performed By: #### E RUR #### [facility] [address] [place], [place] [phone] [place] Glucose [Mass/Vol] Negative Normal NEGATIVE [facility] Comment on above: Performed By: #### E RUR #### [facility] [address] [place] [address] [place] Ketones Ql (U) Negative Normal NEGATIVE [facility] Comment on above: Performed By: #### E RUR #### [facility] [address] [place], [place] [phone] [place] Nitrite Ql (U) Negative Normal NEGATIVE [facility] Comment on above: Performed By: #### E RUR #### [facility] [address] [place] [address] [place] pH (Bld) 6.0 Normal 5-9 [facility] Comment on above: Performed By: #### E RUR #### [facility] [address] [place] [address] [place] Protein (U) [Mass/Vol] Negative Normal NEGAT EDDY/ TRACE [facility] Comment on above: Performed By: #### E RUR #### [facility] [address] [place] [address] [place] SPEC GRAVITY >=1.030 Abnormal 1.005-<=1.025 [facility] Comment on above: Performed By: #### E RUR #### [facility] [address] [place] [address] [place] UR MICRO IND NOT INDICATED Normal [facility] Comment on above: Performed By: #### E RUR #### [facility] [address] [place], [place] [phone] [place] Urobilinogen Qn (U) 0.2 EU/dl Normal 0.2 - 1.0 [facility] Comment on above: Performed By: #### E RUR #### [facility] [address] [place] [address] Casekrysten Wong WBC (Bld) [#/Vol] Negative Normal NEGATIVE [facility] Comment on above: Performed By: #### E RUR #### [facility] [address] [place] [address] Case Wong URon 10-27-2020 , QUAL Negative Normal NEGATIVE [facility] Comment on above: Performed By: #### P REGU #### [facility] [address] [place], [place] [address] Case Wong PROF 14(COMP METB)on 020 Albumin [Mass/Vol] 3.7 g/dL Normal 3.5-5.0 [facility] Comment on above: Performed By: #### C MP #### [facility] [address] [place], [place] [address] Casekrysten Wong Albumin/Globulin [Mass ratio] 1.1 {ratio} Normal [facility] Comment on above: Performed By: #### C MP #### [facility] [address] [place], [place] [address] [place] ALP [Catalytic activity/Vol] 62 U/L Normal 38-126 [facility] Comment on above: Performed By: #### C MP #### [facility] [address] [place], [place] [address] [place] ALT [Catalytic activity/Vol] 36 U/L Normal 9-52 [facility] Comment on above: Performed By: #### C MP #### [facility] [address] [place], [place] [address] [place] Anion gap [Moles/Vol] 15.4 mmol/L Normal [facility] Comment on above: Performed By: #### C MP #### [facility] [address] [place], [place] [address] [place] AST [Catalytic activity/Vol] 17 U/L Normal 14-36 [facility] Comment on above: Performed By: #### C MP #### [facility] [address] [place], [place] [address] [place] Bilirubin Ql (U) 0.4 mg/dL Normal 0.2-1.3 [facility] Comment on above: Performed By: #### C MP #### [facility] [address] [place] [address] [place] Calcium [Mass/Vol] 8.4 mg/dL Normal 8.4-10.2 [facility] Comment on above: Performed By: #### C MP #### [facility] [address] [place] [address] [place] Chloride [Moles/Vol] 103 mmol/L Normal 98-107 [facility] Comment on above: Performed By: #### C MP #### [facility] [address] [place] [address] [place] CO2 [Moles/Vol] 25.5 mmol/L Normal 22.0-30.0 [facility] Comment on above: Performed By: #### C MP #### [facility] [address] [place] [address] [place] Creatinine [Mass/Vol] 0.88 mg/dL Normal 0.52-1.04 [facility] Comment on above: Performed By: #### C MP #### [facility] [address] [place] [address] [place] EGFR-AF RWANDAN >60 Normal >=60 [facility] Comment on above: Performed By: #### C MP #### [facility] [address] [place] [address] [place] EGFR-NON AF RWANDAN >60 Normal >=60 [facility] Comment on above: Performed By: #### C MP #### [facility] [address] [place] [address] [place] Globulin (S) [Mass/Vol] 3.3 g/dL Normal T [facility] Comment on above: Performed By: #### C MP #### [facility] [address] [place] [address] [place] Glucose [Mass/Vol] 105 mg/dL Normal 74-106 [facility] Comment on above: Performed By: #### C MP #### [facility] [address] [place], [place] [address] [place] Potassium [Moles/Vol] 3.9 mmol/L Normal 3.4-5.0 [facility] Comment on above: Performed By: #### C MP #### [facility] [address] [place], [place] [address] [place] Protein [Mass/Vol] 7.0 g/dL Normal 6.1-8.2 [facility] Comment on above: Performed By: #### C MP #### [facility] [address] [place], [place] [address] [place] Sodium [Moles/Vol] 140 mmol/L Normal 137-145 [facility] Comment on above: Performed By: #### C MP #### [facility] [address] [place], [place] [address] [place] Urea nitrogen [Mass/Vol] 11.0 mg/dL Normal 7.0-17.0 [facility] Comment on above: Performed By: #### C MP #### [facility] [address] [place], [place] [address] [place] Urea nitrogen/Creatinine [Mass ratio] 12.5 mg/mg Normal [facility] Comment on above: Performed By: #### C MP #### [facility] [address] [place], [place] [address] [place] XR CHEST 1 Von 10-27-2020 XR CHEST 1 V EXAMINATION: XR CHEST 1 V HISTORY: CHEST PAIN, UNSPECIFIED ; acute chest pain for a few days COMPARISON: No relevant comparison available. FINDINGS: LUNGS: No significant pulmonary parenchymal abnormalities. VASCULATURE: No increased pulmonary vasculature. PLEURA: No pneumothorax, effusion, or pleural thickening. CARDIAC: No cardiomegaly or cardiac silhouette abnormality. MEDIASTINUM: No visible mass or adenopathy. BONES: No fracture or visible bone lesion. OTHER: Negative. IMPRESSION: 1. No acute cardiopulmonary process. Electronically authenticated by: OLY BIRD Date: 2020-10-27 12:04 Normal [facility] Vital Signs Date Time Vital Sign Value Performing Clinician Jaleni lity 07-31-2021 07:46-0400 Body temperature 98.71 [degF] María Pool DATA ENTRY COORDINATOR - CNM Work Phone: [employer] Work Phone: 07-31-2021 07:46-0400 Diastolic blood pressure 78 mm[Hg] María Pool DATA ENTRY COORDINATOR - CNM Work Phone: [employer] Work Phone: 07-31-2021 07:46-0400 Heart rate 72 /min María Pool DATA ENTRY COORDINATOR - CNM Work Phone: [employer] Work Phone: 07-31-2021 07:46-0400 Respiratory rate 16 /min María Pool DATA ENTRY COORDINATOR - CNM Work Phone: [employer] Work Phone: 07-31-2021 07:46-0400 Systolic blood pressure 135 mm[Hg] María Pool DATA ENTRY COORDINATOR - CNM Work Phone: [employer] Work Phone: 07-29-2021 04:02-0400 Body height 170.2 cm María Pool DATA ENTRY COORDINATOR - CNM Work Phone: [employer] Work Phone: 07-29-2021 04:02-0400 Body mass index (BMI) [Ratio] 41.04 kg/m2 María Pool DATA ENTRY COORDINATOR - CNM Work Phone: [employer] Work Phone: 07-29-2021 04:02-0400 Body weight 118.84 kg María Pool DATA ENTRY COORDINATOR - CNM Work Phone: [employer] Work Phone: 07-28-2021 00:21-0400 Diastolic blood pressure 86 mm[Hg] Selma Sifuentes DATA ENTRY COORDINATOR - CNM Work Phone: [employer] Work Phone: 07-28-2021 00:21-0400 Heart rate 63 /min Selma Floro DATA ENTRY COORDINATOR - CNM Work Phone: [employer] Work Phone: 07-28-2021 00:21-0400 Systolic blood pressure 140 mm[Hg] Selma Sifuentes APRN - CNM Work Phone: [employer] Work Phone: 07-27-2021 23:08-0400 Respiratory rate 17 /min Selma Sifuentes APRN - CNM Work Phone: [employer] Work Phone: 07-27-2021 22:36-0400 Body height 170.2 cm Selma Sifuentes APRN - CNM Work Phone: [employer] Work Phone: 07-27-2021 22:36-0400 Body mass index (BMI) [Ratio] 41.5 kg/m2 Selma Sifuentes APRN - CNM Work Phone: [employer] Work Phone: 07-27-2021 22:36-0400 Body weight 120.2 kg Slema Sifuentes APRN - CNM Work Phone: [employer] Work Phone: 07-27-2021 22:18-0400 Body temperature 98.01 [degF] Selma Sifuentes APRN - CNM Work Phone: [employer] Work Phone: 07-21-2021 12:20-0400 Body temperature 98.01 [degF] Selma Sifuentes DATA ENTRY COORDINATOR - CNM Work Phone: [employer] Work Phone: 07-21-2021 12:20-0400 Diastolic blood pressure 75 mm[Hg] Selma Sifuentes APRN - CNM Work Phone: [employer] Work Phone: 07-21-2021 12:20-0400 Heart rate 86 /min Selma Sifuentes APRN - CNM Work Phone: [employer] Work Phone: 07-21-2021 12:20-0400 Respiratory rate 20 /min Selma Sifuentes DATA ENTRY COORDINATOR - CNM Work Phone: [employer] Work Phone: 07-21-2021 12:20-0400 Systolic blood pressure 130 mm[Hg] Selma Sifuentes APRN - CNM Work Phone: [employer] Work Phone: 07-20-2021 14:45-0400 Body height 170.2 cm Selma Sifuentes APRN - CNM Work Phone: [employer] Work Phone: 07-20-2021 14:45-0400 Body mass index (BMI) [Ratio] 41.5 kg/m2 Selma Sifuentes APRN - CNM Work Phone: [employer] Work Phone: 07-20-2021 14:45-0400 Body weight 120.2 kg Selma Sifuentes APRN - CNM Work Phone: [employer] Work Phone: Encounters Encounter Date Encounter Type Care Provider Facility Start: 04-15-2024 End: 04-15-2024 ambulatory MARYCARMEN NAYAK Not Available Start: 04-10-2024 End: 04-10-2024 ambulatory MARYCARMEN NAYAK Not Available Start: 04-09-2024 End: 04-09-2024 ambulatory DEB SHORT Not Available Start: 04-08-2024 End: 04-08-2024 ambulatory MARYCARMEN NAYAK Not Available Start: 04-02-2024 End: 04-02-2024 ambulatory DEE JACKSON Not Available Start: 03-13-2024 End: 03-13-2024 ambulatory SELMA SIFUENTES Not Available Start: 03-11-2024 End: 03-11-2024 ambulatory MARICHUY SKY Not Available Start: 03-04-2024 End: 03-04-2024 ambulatory MAGALIE PEÑALOZA Not Available Start: 12-18-2023 Telephone encounter Marycarmen nassar MD Work Phone: [facility] Start: 11-09-2023 End: 11-09-2023 ambulatory MAGALIE PEÑALOZA Not Available Start: 09-24-2021 End: 09-24-2021 ambulatory MITA GONZALES Facility:[facility] Start: 07-29-2021 End: 07-31-2021 Evaluation and management of inpatient [facility] Start: 07-29-2021 End: 07-31-2021 Evaluation and management of inpatient María Edwards Buchanan DATA ENTRY COORDINATOR - CNM Work Phone: [facility] Start: 07-28-2021 End: 07-28-2021 ambulatory [facility] Start: 07-27-2021 End: 07-28-2021 Subsequent hospital visit by physician Selma Sifuentes DATA ENTRY COORDINATOR - CNM Work Phone: [facility] Start: 07-20-2021 End: 07-21-2021 Evaluation and management of inpatient [facility] Start: 07-20-2021 End: 07-21-2021 Evaluation and management of inpatient Selma Sifuentes DATA ENTRY COORDINATOR - CNM Work Phone: [facility] Start: 10-27-2020 End: 10-27-[address] OLY BIRD Facility:[facility] Start: 10-27-2020 End: 10-27-2020 Patient encounter procedure RINKU Andre NAJERA Facility:[facility] Procedures Date Procedure Procedure Detail Performing Clinician Start: 03-22-2023 Microscopic observat ion [Identifier] in Cervix by Cyto stain Marycarmen Nayak MD Work Phone: Start: 02-08-2023 Mammography Marycarmen Nayak MD Work Phone: Start: 07-29-2021 GLUCOSE, WHOLE BLOOD Ka hans Edwards Michi DATA ENTRY COORDINATOR - CNM Work Phone: Start: 07-29-2021 Drug screen class list a María Barnes DATA ENTRY COORDINATOR - CNM Work Phone: Start: 07-29-2021 Blood count complete auto&auto difrntl wbc María Barnes DATA ENTRY COORDINATOR - CNM Work Phone: Start: 07-27-2021 Urinalysis microscop ic only María Barnes DATA ENTRY COORDINATOR - CNM Work Phone: Start: 07-27-2021 Urnls dip stick/tabl et rgnt auto w/o microscopy María Barnes DATA ENTRY COORDINATOR - CNM Work Phone: Start: 07-21-2021 GLUCOSE, WHOLE BLOOD Portia Sifuentes DATA ENTRY COORDINATOR - CNM Work Phone: Start: 07-21-2021 GLUCOSE, WHOLE BLOOD Portia Sifuentes DATA ENTRY COORDINATOR - CNM Work Phone: Start: 07-21-2021 Antibody screen Selma Sifuentes DATA ENTRY COORDINATOR - CNM Work Phone: Start: 07-20-2021 Blood count complete auto&auto difrntl wbc Selma Sifuentes DATA ENTRY COORDINATOR - CNM Work Phone: Start: 07-20-2021 GLUCOSE, WHOLE BLOOD Portia Sifuentes DATA ENTRY COORDINATOR - CNM Work Phone: Start: 07-20-2021 Blood count complete auto&auto difrntl wbc Selma Sifuentes APRN - CNM Work Phone: Start: 07-20-2021 Blood typing serologic abo Selma Sifuentes DATA ENTRY COORDINATOR - CNM Work Phone: Start: 07-20-2021 Urinalysis microscop ic only Selma Sifuentes DATA ENTRY COORDINATOR - CNM Work Phone: Start: 07-20-2021 Urnls dip stick/tabl et rgnt auto w/o microscopy Selma Sifuentes DATA ENTRY COORDINATOR - CNM Work Phone: Start: 07-19-2021 GBS, EXTERNAL RESULT Va spike Sifuentes DATA ENTRY COORDINATOR - CNM Work Phone: Start: 12-29-2020 ABO, EXTERNAL RESULT Hi storical Provider Start: 12-29-2020 Antibody hiv-1&hiv-2 single result Selma Sifuentes DATA ENTRY COORDINATOR - CN Work Phone: Start: 12-29-2020 Antibody screen Selma Sifuentes DATA ENTRY COORDINATOR - CN Work Phone: Start: 12-29-2020 Chlamydia culture Yovanny Sifuentes DATA ENTRY COORDINATOR - CN Work Phone: Start: 12-29-2020 Iaadiadoo neisseria gonorrhoeae Selma Sifuentes DATA ENTRY COORDINATOR - CN Work Phone: Plan of Treatment Date Care Activity Detail Author Start: 03-22-2028 Screening for malign ant neoplasm of cervix [facility] Start: 03-22-2026 Screening for malign ant neoplasm of cervix Pap Smear [facility] Start: 02-09-2024 Screening for malign ant neoplasm of breast Mammogram [facility] Start: 07-07-2023 Influenza vaccination Influenza Vacc ine (#1) [facility] Start: 07-07-2021 Influenza vaccination Flu vaccine (# 1) [employer] Phone: Start: 2021 Diabetes screen Diabetes screen [employer] Phone: Start: 2021 Lipid panel Lipid screen [facility] Work Phone: Start: 2011 Screening for malign ant neoplasm of cervix [employer] Phone: Start: 2002 Screening for malign ant neoplasm of cervix Pap smear [employer] Phone: Start: 2000 DTaP/Tdap/Td vaccine (1 - Tdap) DTaP/Tdap/Td vaccine (1 - Tdap) [employer] Phone: Start: 1993 COVID-19 Vaccine (1) COVID-19 Vaccin e (1) [employer] Phone: Start: 1982 Varicella vaccine (1 of 2 - 2-dose childhood series) Varicella vaccine (1 of 2 - 2-dose childhood series) [employer] Phone: Start: 1981 Hepatitis C screening Hepatitis C sc [facility] [employer] Phone: End: 07-20-2021 Bacteria identified in Urine by Culture Urine culture Microbiology Routine One Time for 1 Occurrences starting 07/20/2021 until 07/20/2021 [employer] Phone: Comment on above: One Time for 1 Occur rences starting 07/20/2021 until 07/20/2021 End: 07-27-2021 Bacteria identified in Urine by Culture Urine culture Microbiology Routine One Time for 1 Occurrences starting 07/27/2021 until 07/27/2021 [employer] Phone: Comment on above: One Time for 1 Occur rences starting 07/27/2021 until 07/27/2021 Bacteria identified in Urine by Culture Urine culture Microbiology [employer] Label Print 07/27/2021 10:30 PM EDT [employer] Phone: Glucose [Mass/volume ] in Serum or Plasma POCT glucose Point of Care Testing Routine TID until discontinued starting 07/21/2021 [employer] Phone: Comment on above: TID until discontinu ed starting 07/21/2021 Nonrebreather mask oxygen [employer] Phone: Comment on above: As directed - RT (WA N) until discontinued starting 07/20/2021 As directed - RT (WA N) until discontinued starting 07/27/2021 End: 07-29-2021 RHOGAM RHOGAM Blood Bank Routine One Time for 1 Occurrences starting 07/29/2021 until 07/29/2021 [employer] Phone: Comment on above: One Time for 1 Occur rences starting 07/29/2021 until 07/29/2021 End: 07-20-2021 SVE SVE Point of Care Testing Routine One Time for 1 Occurrences starting 07/20/2021 until 07/20/2021 [employer] Phone: Comment on above: One Time for 1 Occur rences starting 07/20/2021 until 07/20/2021 End: 07-27-2021 SVE SVE Point of Care Testing Routine One Time for 1 Occurrences starting 07/27/2021 until 07/27/2021 [employer] Phone: Comment on above: One Time for 1 Occur rences starting 07/27/2021 until 07/27/2021 End: 07-27-2021 Urinalysis Urinalysis Lab Routine One Time for 1 Occurrences starting 07/27/2021 until 07/27/2021 [employer] Phone: Comment on above: One Time for 1 Occur rences starting 07/27/2021 until 07/27/2021 Immunizations Immunization Date Immunization Notes Care Provider Fa cili 07-29-2021 diphtheria, tetanus toxoids and acellular pertussis vaccine, unspecified formulation María [employer] DATA ENTRY COORDINATOR - [facility] Work Phone: [employer] Work Phone: 07-29-2021 measles, mumps and rubella virus vaccine María [employer] DATA ENTRY COORDINATOR - [facility] Work Phone: [employer] Work Phone: 06-30-2021 tetanus toxoid, redu graciela diphtheria toxoid, and acellular pertussis vaccine, adsorbed Marycarmen Nayak MD Work Phone: [facility] Payers Date Payer Category Payer Unknown [id number] 2023 Unknown [id number] 2023 Medicaid [employer] [employer] [id number] 2023-Present [address] [place] [address] [id number] 2020 Unknown [id number] 1981 Unknown [id number] 1981 Unknown [id number] 1981 Unknown [id number] [id number] 1981 Unknown [id number] [id number] 1981 Unknown [id number] [id number] 1981 Unknown [id number] [id number] 1981 Unknown [id number] [id number] 1981 Unknown [id number] [id number] 1981 Unknown [id number] [id number] 1981 Unknown [id number] [id number] 1981 Unknown [id number] [id number] 1981 Unknown [id number] [id number] 1981 Unknown [id number] [id number] 1981 Unknown [id number] 1959 Unknown [id number] Social History Date Type Detail Facility Start: 07-20-2021 End: 04-13-2023 Tobacco smoking status [facility] Former smoker [employer] Phone: Start: 11-06-1994 End: 07-20-2020 History of tobacco use Current smoker [employer] Start: 07-20-2021 End: 04-13-2023 Tobacco use and exposure Never used [employer] Start: 07-20-2021 End: 07-29-2021 Alcohol intake Lifetime non-drinker (finding) [employer] Phone: Start: 07-20-2021 History SDOH Alcohol Frequency 1 [employer] Phone: Start: 11-22-2020 [employer] Phone: Start: 1980 Sex Assigned At Not on file [employer] Phone: Exposure to SARS-CoV -2 (event) Not sure [employer] Start: 11-06-1994 End: 11-06-2019 History of tobacco use Cigarette Smoker [facility] Start: 11-10-2023 Alcohol intake Ex-drinker (finding) [facility] Start: 04-13-2023 End: 11-10-2023 Alcohol intake [facility] Start: 04-13-2023 End: 11-09-2023 Humiliation, Afraid, Rape, and Kick questionnaire [HARK] [facility] Within the last year , have you been afraid of your partner or ex-partner? No [facility] Are you now , , , , never or living with a partner? [facility] How often to you hav e a drink containing alcohol? Monthly or less [facility] How many standard dr inks containing alcohol do you have on a typical day? Patient does not drink [facility] How often do you hav e 6 or more drinks on 1 occasion? Never [facility] How hard is it for y ou to pay for the very basics like food, housing, medical care, and heating Not very hard [facility] Do you feel stress - tense, restless, nervous, or anxious, or unable to sleep at night because your mind is troubled all the time - these days [OSQ] Only a little [facility] (I/We) worried wheth er (my/our) food would run out before (I/we) got money to buy more. Never true [facility] In the past 12 month s, was there a time when you were not able to pay the mortgage or rent on time? Yes [facility] Start: 06-13-2023 Alcohol Comment caffeiene: 1-2 cups/day [facility] Start: 07-13-2023 Sexual orientation Heterosexual (finding) [facility] Telephone encounter Note 12-18-2023 Telephone Encounter - Helen Hairston - 12/18/2023 1:05 PM EST Note Date & Type Note Facility 12-18-2023 Telephone encount er Note Handicapped ese expires in January, and she is requesting a new rx for this. [facility] Note 12-18-2023 Telephone Encounter - Helen Hairston - 12/18/2023 1:05 PM EST Note Date & Type Note Facility 12-18-2023 Miscellaneous Notes Formattin g of this note might be different from the original. Handicapped ese expires in January, and she is requesting a new rx for this. documented in this encounter [facility] History of Present illness Narrative 07-31-2021 Selma Sifuentes APRN - CNM - 07/31/2021 4:03 AM María Preston APRN - CNM - 07/30/2021 8:19 AM Jenny Vargas RN - 07/29/2021 8:20 AM Jenny Vargas RN - 07/29/2021 8:15 AM EDT Note Date & Type Note Facility 07-31-2021 History of Present illness Narrative Department of Obstetrics and Gynecology Labor and Deliver Post Progress Note SUBJECTIVE: Sitting up in bed and watching tv. She just sent the baby to the nursery so she could try and get some sleep. OBJECTIVE: Vitals: BP 126/85 Pulse 76 Temp 98.1 F (36.7 C) Resp 18 Ht 5' 7 (1.702 m) Wt 262 lb (118.8 kg) LMP 11/08/2020 (Exact Date) Unknown BMI 41.04 kg/m Patient Vitals for the past 24 hrs: BP Temp Temp src Pulse Resp 07/31/21 0119 126/85 98.1 F (36.7 C) 76 18 07/30/21 2118 (!) 139/93 97.9 F (36.6 C) 78 18 07/30/21 1632 132/68 98 F (36.7 C) Oral 81 16 07/30/21 1307 124/80 97.7 F (36.5 C) Oral 70 16 07/30/21 0757 126/80 98.4 F (36.9 C) Oral 71 16 07/30/21 0650 133/73 98.4 F (36.9 C) 77 18 ABDOMEN: normal shape, position and consistency, non tender GENITAL/URINARY: External Genitalia: General appearance; normal, Hair distribution; normal, Lesions absent Uterus: Size normal, Tenderness absent Breast:normal appearance, no masses or tenderness Cor: RRR no Murmurs Pulmonary: clear to auscultation anterior and posterior Extremities: no Clubbing cyanosis or ecchymosis DATA: 41 yo 2 day post S/P ASSESSMENT : Active Problems: Uterine contractions during (normal spontaneous vaginal delivery) Amniotic fluid leaking Plan: Discharge patient home with baby girl Follow up with ROSEANNA Swain in 2 weeks for televisit Department of Obstetrics and Gynecology Labor and Delivery Post Progress Note SUBJECTIVE: Pt doing well today. Pt states she is wishing to go home on 07/31/21 OBJECTIVE: Vitals: BP 133/73 Pulse 77 Temp 98.4 F (36.9 C) Resp 18 Ht 5' 7 (1.702 m) Wt 262 lb (118.8 kg) LMP 11/08/2020 (Exact Date) Unknown BMI 41.04 kg/m Patient Vitals for the past 24 hrs: BP Temp Pulse Resp 07/30/21 0650 133/73 98.4 F (36.9 C) 77 18 07/30/21 0138 130/76 98.4 F (36.9 C) 82 18 07/30/21 0022 (!) 143/75 98 F (36.7 C) 90 18 07/29/21 2149 133/73 81 07/29/21 1604 129/75 98.6 F (37 C) 89 20 07/29/21 1200 128/71 83 07/29/21 1045 134/76 80 16 07/29/21 1030 134/76 80 16 07/29/21 1015 133/75 93 16 07/29/21 1000 (!) 144/82 102 16 07/29/21 0945 131/78 93 16 07/29/21 0930 (!) 155/85 93 16 07/29/21 0915 (!) 158/93 90 16 07/29/21 0912 (!) 143/88 74 16 07/29/21 0900 129/79 97.7 F (36.5 C) 98 16 07/29/21 0845 (!) 142/80 85 16 07/29/21 0830 (!) 146/91 97 16 ABDOMEN: normal shape, position and consistency GENITAL/URINARY: External Genitalia: General appearance; normal, Hair distribution; normal, Lesions absent Uterus: Size normal, Contour normal Breast:normal appearance, no masses or tenderness Cor: RRR no Murmurs Pulmonary: clear to auscultation anterior and posterior Extremities: no Clubbing cyanosis or ecchymosis DATA: ASSESSMENT : Active Problems: Uterine contractions during (normal spontaneous vaginal delivery) Plan: continue care Rest today Angeline Barnes CNM in room for delivery HOLLI Mesa in room for epidural. documented in this encounter [employer] Phone: History of Present illness Narrative 07-28-2021 Caterina Bautista RN - 07/28/2021 3:01 AM EDTCaterina Bautista RN - 07/28/2021 2:35 AM EDTCaterina Bautista RN - 07/28/2021 12:50 AM EDCaterina Parra RN - 07/27/2021 11:01 PM EDT Note Date & Type Note Facility 07-28-2021 History of Present illness Narrative Pt provided with discharge instructions. Pt verbalized understanding regarding home going instructions. Pt was also instructed per STEVEN to take a hot shower, to get some sleep and to come back to the hospital if she started to feel worse. Pt verbalized understanding. Pt was wheeled off unit in wheelchair and driven home by significant other. Joi Barnes CNM updated with SVE. CNMarty states okay to discharge patient. CNM stated to instruct patient to take a hot shower and rest and to return to the hospital if pain is worse. Joi Barnes CNM updated with SVE. STEVEN states to keep patient and recheck in two hours.Pt aware of plan. Joi Barnes CNM updated with SVE, patient pain rating, contraction pattern and urine results. Joi Barnes CNM states to have Pt drink 1 pitcher of water every 30 minutes and to perform SVE in 2 hours. Pt arrives to OB department in wheelchair with FODiane Coronado. Pt complains of 6/10 pain with contractions every 6 minutes lasting one minute. Pt hs been experiencing them all day and was told by her OB provider Samra Sifuentes CNM to come to hospital. Pt denies any leaking of fluid, patient last had sex 07/25/21 and denies any amounts of bleeding. Pt states she has continued to feel baby move during this time. documented in this encounter [employer] Phone: History of Present illness Narrative 07-21-2021 Selma Sifuentes APRN - CNM - 07/21/2021 9:24 AM EDSelma Ruelas APRN - CNM - 07/21/2021 8:14 AM EDTCaterina Bautista RN - 07/21/2021 6:38 AM EDSelma Ruelas APRN - CNM - 07/21/2021 6:36 AM EDT Note Date & Type Note Facility 07-21-2021 History of Present illness Narrative To patients room. She is uncomfortable and states the contractions are far apart but they feel different. SVE stretchy /-3 and ballotable. Baby is not engaged against the cervix. CTX's palpate moderate and she is breathing through them. She would like something for pain and she states the Nubain made her sick and she does not want an epidural at this time. She wants to stay longer as she thinks this is different and I feel like I'm not comfortable going home at this time. She will order breakfast as she has not eaten since yesterday. She is diabetic and on insulin at night. She did not have insulin last night but bedside glucose was not elevated per RN. I will diet for her, intermittent monitoring so she can ambulate in the room and will evaluate her in a few hours. PVU and agrees with the plan. She will reconsider Nubain for pain relief. En route to hospital I called the unit and spoke with Priya. Contractions are about 7 mins apart and pt states she is uncomfortable. I asked Priya to do SVE as patient had not been checked since 229. She reports to me patient is 3/60/-3 and not engaged. Veronica Sifuentes CNM updated with SVE, contraction pattern, pain rating, CBC results. Veronica Sifuentes CNM stated to admit patient and continue to monitor. I called hospital for update on patient and spoke with Caterina, reported that patients contractions have spaced out and she rested most of the night after receiving Tylenol. She reported to me her labs that were on hold were ran and her Hgb was 6.0. RN spoke with patient and they think the lab was drawn from the arm the IV fluids were running in so she repeated the lab and it was drawn from the other arm. Hgb was 13.1/ RN reported SVE was 4-5 cm. Patient has made cervical change from previously reported SVE so I gave orders to admit patient for labor. Second CBC hemoglobin result WNL. Pt made aware of lab result. CBC redrawn on Patient after lab called with critical low of hemoglobin and hematocrit from previous draw. Pt asymptomatic, VS stable at this time. Pt states previous nurse mojgan lab from same arm as IV fluids were infusing. Second CBC was drawn from opposite arm as IV fluids. Awaiting result. Pt aware of plan. Samra Sifuentes CNM orders CBC and type and screen on patient. Samra Sifuentes CNM updated with SVE, patient contraction pattern and improved pain rating after the nubain. CNM orders tylenol 650mg for pain every 4 hours, 20mg IM nubain every 6 hours as needed for pain, zofran 4mg IV every 8 hours for nausea. Patient updated with plan. Samra Sifuentes CNM updated with SVE, contraction pattern and Pt pain rating. CNM states to continue to monitor patient as observation. CNM orders 20mg IM nubain for pain. CNM states to recheck patient in 2 hours. Pt updated with plan. documented in this encounter [employer] Phone: Evaluation note Note Date & Type Note Facility Evaluation note Diagnosis Uterine contractions during documented in this encounter [employer] Phone: Evaluation note Note Date & Type Note Facility Evaluation note Diagnosis Uterine contractions during (normal spontaneous vaginal delivery) Normal delivery Amniotic fluid leaking Premature rupture of membranes in , unspecified as to episode of care documented in this encounter [employer] Phone: Hospital Discharge instructions Instructions Note Date & Type Note Facility Hospital Discharge instructions Priya Sanchez RN - 07/21/[address] Ana Cristina Barnes CN Dr. Desirae Sullivan CN [address] [facility] [address] [place] [id number] [place] [address] [place] [address] Desirae Herrera CN [address] [facility] [id number] [phone] Samra Sifuentes, MSN, DATA ENTRY COORDINATOR, CNM [facility] [address] [facility] [address] [address] Sch[address] [facility] [address] Jazmine Boateng CN [address] [facility] [place] [address] Magy Wells CN [address] [place] [place] [address] [place] [address] [phone] ACTIVITY LIMITATIONS: ( )Up and about as desired and tolerated ( )Up to bathroom only ( )Lay on either side ( )Avoid heavy lifting or exercise ( )No sex ( )No nipple stimulation ( )Complet bedrest ( )Avoid using stairs ( x )Increase fluids DRINK AT LEAST eight-8oz. Glasses of water daily. Call your Doctor if: (x )Contractions are every 5 minutes apart (from start of one to the start of the next contraction) lasting 60 seconds for at least 1 hour, strong enough you can not walk or talk through the contraction and regular. (x )Bag of water breaks ( x )Vaginal bleeding ( x )Unusual pain occurs ( x )Decreased movement ( ) labor: If you have 4 contractions in an hour Keep your scheduled follow up appointment tomorrow. IN CASE OF EMERGENCY CONTACT LABOR AND DELIVERY . documented in this encounter [employer] Phone: Hospital Discharge instructions Instructions Note Date & Type Note Facility Hospital Discharge instructions Lashon Alarcon RN - 07/28/[address] Ana Cristina Barnes [facility] Dr. Desirae Sullivan [facility] [address] [facility] [address] [facility] [address] [place] [address] Desirae Herrera [facility] [address] [facility] [id number] [phone] Samra Sifuentes, MSN, DATA ENTRY COORDINATOR, CNM [facility] [address] [facility] [address] [address] [facility] [address] Jazmine Boateng CN [address] [place] [address] [place] [address] Magy Wells CN [address] [place] [address] [place] [address] [phone] ACTIVITY LIMITATIONS: ( x )Up and about as desired and tolerated ( )Up to bathroom only ( )Lay on either side ( )Avoid heavy lifting or exercise ( )No sex ( )No nipple stimulation ( )Complet bedrest ( )Avoid using stairs (x )Increase fluids DRINK AT LEAST eight-8oz. Glasses of water daily. Call your Doctor if: ( )Contractions are every 5 minutes apart (from start of one to the start of the next contraction) lasting 60 seconds for at least 1 hour, strong enough you can not walk or talk through the contraction and regular. ( x)Bag of water breaks ( x )Vaginal bleeding ( x )Unusual pain occurs ( x )Decreased movement ( ) labor: If you have 4 contractions in an hour Keep your scheduled follow up appointment. IN CASE OF EMERGENCY CONTACT LABOR AND DELIVERY . documented in this encounter [employer] Phone: Hospital Discharge instructions Instructions Note Date & Type Note Facility Hospital Discharge instructions Kristie Houser RN - 07/31/2021 Follow-up with your OB doctor as specified. [facility] OB Department phone: Dr. Ana Cristina Barnes [facility] Dr. Desirae Sullivan [address] [place] DIET Eat a well balanced diet focusing on foods high in fiber and protein. Drink plenty of fluids especially water. To avoid constipation you may take a mild stool softener as recommended by your doctor or medical laboratory technician. ACTIVITY Gradually increase your activity. Resume exercise regimen only after advice by your doctor or medical laboratory technician. Avoid lifting anything heavier than a gallon of milk for SIX weeks. Avoid driving until your doctor or medical laboratory technician has given their approval. Rise slowly from a lying to sitting and then a standing position. Climb stairs one at a time. Use caution when carrying your baby up and down the stairs. NO SEXUAL Activity for 4-6 weeks or until advised by your doctor; Nothing in vagina: intercourse, tampons, or douching. Be prepared to discuss family planning at your follow-up OB visit. You may feel tired or have a lack of energy. You may continue your vitamin to replenish nutrients post delivery. Nap when baby naps to catch up on sleep. EMOTIONS You may feel alberto, sad, teary, & overwhelmed. Contact your OB provider if you feel you may be showing signs of depression, or have thoughts of harming yourself or your infant. If will not stop crying, contact another adult for help or place infant in their crib on their back and take a break. NEVER shake your infant. BLEEDING Vaginal bleeding will decrease in amount over the next few weeks. You will notice that as your activity increases, your flow may increase. This is your body's way of telling you, you need to take things easier and rest more often. Call your care provider if you are saturating more than one maxi pad in an hour & resting does not help. BREAST CARE Take medications as recommended by your doctor or medical laboratory technician for pain If you develop a warm, red, tender area on your breast or develop a fever contact your OB provider. For moms: If you become engorged, feeding may be more difficult or painful for 1-2 days. You may find it helpful to hand express some milk so that the can latch on more easily. While , continue to take your vitamins as directed by your doctor or medical laboratory technician. Refer to the booklet in the folder/binder for more information. If you feel you need more assistance or have questions, please call Senait Vizcarra IBCLC, networks software consultant, at or the OB department to schedule an appointment or phone consultation. For more FREE help, visit the Support Group on Monday evenings at 7 pm in the OB department. DARIEL CARE Use the dariel-bottle after toileting until bleeding stops. Cleanse your perineum from front to back If used, stitches will dissolve in 4-6 weeks. You may use a sitz bath or soak in a clean tub as needed for comfort. Kegel exercises will help restore bladder control. SWELLING Try to keep your legs elevated when you are sitting. When lying down keep your legs elevated. When wearing stocking or socks, make sure they are not too tight. WHEN TO CALL THE DOCTOR If you have a temp of 100.6 or more. If your bleeding has increased and you are saturating a pad in an hour. Your abdomen is tender to touch. You are passing blood clots bigger than the size of a lemon. If you are experiencing extreme weakness or dizziness. If you are having flu-like symptoms such as achy muscles or joints. There is a foul smell or a green color to your vaginal bleeding. If you have pain that cannot be relieved. You have persistent burning or frequency with urination. Call if you have concerns about your well-being. You are unable to sleep, eat, or are having thoughts of harming yourself or your baby. You have swelling, bleeding, drainage, foul odor, redness, or warmth in/around your incision or stitches. You have a red, warm, tender area in your calf. 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 Latest Code Status on File Code Status Date Activated Date Inactivated Comments Full Code 07/20/2021 2:33 PM Latest Code Status on File Code Status Date Activated Date Inactivated Comments Full Code 07/27/2021 10:29 PM Full Code 07/27/2021 10:27 PM 07/27/2021 10:28 PM Full Code 07/20/2021 2:33 PM 07/21/2021 3:03 PM Latest Code Status on File Code Status Date Activated Date Inactivated Comments Full Code 07/29/2021 8:55 AM Full Code 07/29/2021 4:34 AM 07/29/2021 8:55 AM Full Code 07/27/2021 10:29 PM 07/28/2021 5:32 AM Additional Source Comments INFORMATION SOURCE (unrecogn ized section and content) DATE CREATED AUTHOR 10/29/2020 [facility] DATE CREATED AUTHOR AUTHOR'S ORGANIZ ATION 08/02/2021 [facility] DATE CREATED AUTHOR AUTHOR'S ORGANIZ ATION 10/04/2021 [facility] DATE CREATED AUTHOR AUTHOR'S ORGANIZ ATION 09/16/2022 [facility] DATE CREATED AUTHOR AUTHOR'S ORGANIZ ATION 04/20/2024 [facility] EPIC Reason for Visit (unrecogniz ed section and content) Reason Comments Contractions Reason Comments Rupture of Membranes Status Reason Specialty Diagnoses / Procedures Referre d By Contact Referred To Contact Diagnoses Uterine contractions during María Barnes, DATA ENTRY COORDINATOR - CNM [address] [place] [address] [facility] Scheduled Active and Recently Administ ered Medications (unrecognized section and content) Medication Order 07/19/2021 07/20/2021 07/21/2021 nalbuphine (NUBAIN) injection 20 mg (COMPLETED) 20 mg, IntraMUSCular, ONCE, On Mon07/20/21 at 2015, For 1 dose 2004 (Given - Provider: Caterina Bautista RN) nalbuphine (NUBAIN) injection 5 mg (COMPLETED) 5 mg, IntraVENous, ONCE, On Mon07/20/21 at 1545, For 1 dose 1640 (Given - Provider: Aidan Washburn RN) Continuous Medication Order 07/19/2021 07/20/2021 07/21/2021 lactated ringers infusion IntraVENous, at 100 mL/hr, CONTINUOUS, Starting on Mon07/20/21 at 1545 1515 (New Bag - Provider: Leena Washburn RN)1600 (Rate/Dose Change - Provider: Leena Washburn RN)2004 (New Bag - Provider: Caterina Bautista RN) 0410 (New Bag - Provider: Caterina Bautista RN) PRN Medication Order 07/19/2021 07/20/2021 07/21/2021 acetaminophen (TYLENOL) tablet 650 mg 650 mg, Oral, EVERY 4 HOURS PRN, Pain Mild (1-3), Starting on Mon07/21/21 at 0220, Maximum dose of acetaminophen is 4000 mg from all sources in 24 hours. 0254 (Given - Provid er: Caterina Bautista RN) nalbuphine (NUBAIN) injection 20 mg 20 mg, IntraMUSCular, EVERY 6 HOURS PRN, Pain Severe (7-10), Starting on Mon07/20/21 at 2246 ondansetron (ZOFRAN) injection 4 mg 4 mg, IntraVENous, EVERY 8 HOURS PRN, Nausea, Vomiting, Starting on Mon07/20/21 at 2246 2316 (Given - Provider: Caterina Bautista, RN) Scheduled Medication Order 07/29/2021 07/30/2021 07/31/2021 benzocaine-menthol (DERMOPLAST) 20-0.5 % spray Topical, 2 TIMES DAILY, First dose on Vera 07/29/21 at 0915, Apply to perineal area. Patient is capable and may self administer at bedside., 09 (Due)2099 (Due) 0856 (Not Given - Provider: Miriam Wong RN - Reason: Patient/family refused)2099 (Due) 0932 (Not Given - Provider: Kristie Houser, JONH - Reason: Other)2099 (Due) ibuprofen (ADVIL;MOTRIN) tablet 800 mg 800 mg, Oral, EVERY 8 HOURS, First dose on Mon07/29/21 at 0915, Do not crush or break., 0906 (Given - Provider: Jenny Moore RN)1757 (Given - Provider: Sudha Lee RN) 0018 (Given - Provider: Lashon Alarcon RN)0856 (Given - Provider: Miriam Wong, JONH)1704 (Given - Provider: Sudha Lee, JONH) 0117 (Given - Provider: Caterina Bautista, JONH)0936 (Given - Provider: Kristie Houser, JONH)1715 (Due) measles, mumps & rubella vaccine (MMR) injection 0.5 mL 0.5 mL, SubCUTAneous, PRIOR TO DISCHARGE, Starting on Mon07/29/21 at 0855, For 1 dose, sodium chloride flush 0.9 % injection 10 mL 10 mL, IntraVENous, EVERY 12 HOURS SCHEDULED (2 times per day), First dose on Mon07/29/21 at 0915, 0915 (Due)2099 (Due) 0856 (Not Given - Provider: Miriam Wong RN - Reason: Loss of IV access)2099 (Due) 0933 (Not Given - Provider: Kristie Houser, JONH - Reason: Loss of IV access)2100 (Due) Tiusvax-Sodblg-Udfus Pertussis (BOOSTRIX) injection 0.5 mL 0.5 mL, IntraMUSCular, PRIOR TO DISCHARGE, Starting on Mon07/29/21 at 0855, For 1 dose, If not previously administered during at 27-36 weeks as recommended by CDC., witch bryant-glycerin (TUCKS) pad Topical, 2 TIMES DAILY, First dose on Vera 07/29/21 at 0915, Apply to perineal area. Patient is capable and may self administer at bedside., 0915 (Due)2099 (Due) 0857 (Not Given - Provider: Miriam Wong RN - Reason: Patient/family refused)2099 (Due) 932 (Not Given - Provider: Kristie Houser, JONH - Reason: Other)2099 (Due) PRN Medication Order 07/29/2021 07/30/2021 07/31/2021 0.9 % sodium chloride infusion 25 mL, IntraVENous, at 100 mL/hr, PRN, If patient receiving piggyback infusions without ordered maintenance IV fluids or with frequent/long duration piggyback infusions, Starting on Vera 07/29/21 at 0855, Administer at the same rate as the piggyback being infused., acetaminophen (TYLENOL) tablet 650 mg 650 mg, Oral, EVERY 4 HOURS PRN, Fever, Fever >100.5 F (38 C) or pain 1-10, Starting on Vera 07/29/21 at 0855, Maximum dose of acetaminophen is 4000 mg from all sources in 24 hours., 1248 (Given - Provider: Jenny Moore, RN)2000 (Given - Provider: Obdulia Farrell, JONH) 0025 (Given - Provider: Lashon Alarcon, RN)1353 (Given - Provider: Miriam Wong RN)1801 (Given - Provider: Sudha Lee, JONH)2212 (Given - Provider: Aileen Sands, JONH) 0749 (Given - Provider: Kristie Houser, JONH) docusate sodium (COLACE) capsule 100 mg 100 mg, Oral, 2 TIMES DAILY PRN, Constipation, Starting on Vera 07/29/21 at 0855, Do not crush or break., lansinoh lanolin ointment Topical, PRN, Dry Skin, nipple discomfort, Starting on Vera 07/29/21 at 0855, nalbuphine (NUBAIN) injection 10 mg (CANCELED) 10 mg, IntraVENous, EVERY 2 HOURS PRN, Pain Moderate (4-6), Pain Severe (7-10), For pain, Starting on Vera 07/29/21 at 0429, PRN for pain, Labor and Delivery 0536 (Given - Provider: Mariola Tinoco, RN)0746 (Given - Provider: Jenny Moore, JONH) oxytocin (PITOCIN) 30 units in 500 mL infusion (CANCELED) 166 gertrudis-units/min (166 mL/hr), IntraVENous, at 166 mL/hr, PRN, Bleeding, Starting on Vera 07/29/21 at 0429, For 1 dose, For Post Use Only. Give after delivery of placenta. Following Bolus from bag administration, reduce the rate to166 mL/hr and administer remaining bag, Post Delivery 0845 (New Bag - Provider: Jenny Moore, JONH) rho(D) immune globulin (HYPERRHO S/D) injection 300 mcg 300 mcg, IntraMUSCular, PRN, if mom negative and baby positive, Starting on Vera 07/29/21 at 0855, For 1 dose, sodium chloride flush 0.9 % injection 10 mL 10 mL, IntraVENous, PRN, Line Care, Starting on Vera 07/29/21 at 0855, After every IV line use, Ordered Prescriptions (unrec ognized section and content) Prescription Sig Dispensed Refills Start Date End Da lansinoh lanolin CREA ointment Apply 1 applicator topically as needed for Dry Skin (nipple discomfort) 1 each 3 07/31/2021 ibuprofen (ADVIL;MOTRIN) 800 MG tablet Take 1 tablet by mouth every 8 hours 120 tablet 3 07/31/2021 Care Teams (unrecognized sec tion and content) Extractor Puller Relationship Specialty Start Date End Date Marycarmen Nayak MD [address] [place] [place] [address] PCP - General Family Medicine 03/15/23 Marycarmen Nayak MD [address] [place] [address] PCP - [facility] 05/06/23 Kimberlee Yang NP [address] [place] [address] Nurse Practitioner Family Medicine 03/15/23 FOR RECORDS PERTAINING TO PATIENTS WHO ARE OR HAVE BEEN ENROLLED IN A CHEMICAL DEPENDENCY/SUBSTANCEABUSE PROGRAM, SOME INFORMATION MAY BE OMITTED. This clinical summary was aggregated from multiple sources. Caution should be exercised in using it in the provision of clinical care. This summary normalizes information from multiple sources, and as a consequence, information in this document may materially change the coding, format and clinical context of patient data. In addition, data may be omitted in some cases. CLINICAL DECISIONS SHOULD BE BASED ON THE PRIMARY CLINICAL RECORDS. [employer] [facility]. provides no warranty or guarantee of the accuracy or completeness of information in this document.
--- OUTSIDE RECORDS SUMMARY | 2024-05-24 10:16 | XMS_ITS | CCD ---
Author Organization [facility] CliniSyin Care Team Providers Care Castables Worker Name Role Phone RINKU NAJERA Attending Unavailable RINKU NAJERA Admitting Unavailable MITA GONZALES Primary Care Unavailable OLY BIRD Consulting Unavailable RINKU NAJERA Consulting Unavailable Marycarmen Nayak MD Primary Care Provider [phone] POOLMARÍA Admitting Unavailable MRAÍA BARNES Attending Unavailable MARYCARMEN NAYAK Primary Care Unavailable MARYCARMEN NAYAK Primary Care Unavailable SELMA SIFUENTES Admitting Unavailable SELMA SIFUENTES Attending Unavailable MARYCARMEN NAYAK Primary Care Unavailable SELMA SIFUENTES Admitting Unavailable SELMA SIFUENTES Attending Unavailable DR OLY BIRD Consulting Unavailable RINKU NAJERA Admitting Unavailable RINKU NAJERA Attending Unavailable RINKU NAJERA Consulting Unavailable MITA GONZALES Primary Care Unavailable LALI EL Admitting Unavailable SIENNA, LALI Consulting Unavailable LALI EL Attending Unavailable Marycarmen Nayak MD Primary Care Provider Trey NURSE DISCHARGE PLANNER, Kimberlee R Unavailable Marycarmen Nayak MD Unavailable MAGALIE PEÑALOZA Attending Unavailab MAGALIE Harris Attending Unavailab MARICHUY Nair Attending Unavailable MAGALIE PEÑALOZA Referring Unavailab SELMA Rossi Referring Unavailable FLORIN MCCRARY Attending Unavailable MARYCARMEN NAYAK Attending Unavailable DEB SHORT Attending Unavailab MARYCARMEN Mcneil Attending Unavailable MARYCARMEN NAYAK Attending Unavailable DO Florin Mccrary Attending Provider Allergies Allergy Classification Reported Allergen(s) Allergy Type Date of Onset Reaction(s) Facility (3 sources) Adhesive Tape Propensity to adverse reactions to drug 1 Other (See Comments) [employer] (3 sources) Latex Propensity to adverse reactions to drug 1 Rash [employer] (1 source) Latex Allergy to substance 3 Swelling [facility] Work Phone: (1 source) Wound Dressing Adhesive Propensity to adverse reactions 3 Other [facility] Medications Current Medications Medication Drug Class(es) [...] by Tyler Loza on 09/15/2022 1103 Normal [facility] Nurse Discharge Planner XR Chest 2 Views*on 05-05-20 22 XR Chest 2 Views* FINDINGS: Mild diffuse interstitial prominence with peribronchial thickening. No parenchymal consolidation or alveolar infiltrates, pulmonary edema or pleural effusion. No pneumothorax. Normal cardiac silhouette size. Mild mid thoracic dextroscoliosis. IMPRESSION: Parenchymal findings can be consistent with interstitial pneumonia, asthma Report reported and signed by Dayton Graves on 05/05/2022 1225 Normal [facility] Nurse Discharge Planner Covid-19 PCR (CVDTBH)on 09-06 SARS-CoV-2 (COVID-19) RNA ANTHONY+probe Ql (Unsp spec) Not detected Normal NOT DETECTED [facility] Comment on above: Result Comment: This test is not yet approved or cleared by the [place] FDA. When there are no FDA-approved or cleared tests available, and other criteria are met, FDA can make tests available under an emergency access mechanism called an Emergency Use Authorization (EUA). The EUA for this test is supported by the [place] of Health and Human Service's (HHS's) declaration [...] consistent with SARS-CoV-2. Performed By: #### [facility] #### [facility] [address] [place] [address] Dr. Carolyn Ross CBC auto differentialOrdered By: María Barnes on 07-29-2021 Absolute Eos # 0.10 [employer] [facility] Work Phone: Absolute Immature Granulocyte 0.04 [employer] Work Phone: Absolute Lymph # 2.71 [facility] Work Phone: Absolute [place] # 0.97 [facility] Work Phone: Basophils (Bld) [#/Vol] 10*3/uL [employer] Work Phone: Basophils/100 WBC (Bld) 0 % 0 - 2 % [employer] Work Phone: Differential Type NOT REPORTED [employer] Phone: Eosinophils/100 WBC (Bld) 1 % 1 - 4 % [employer] Work Phone: Hematocrit (Bld) [Volume fraction] 36.2 % Low 36.3 - 47.1 % [employer] Phone: Hemoglobin.gastrointest inal spec 1 Ql (Stl) 13.0 g/dL 11.9 - 15.1 g/dL [employer] Phone: Immature granulocytes/100 WBC (Bld) 0 % 0 [employer] Phone: Interpretation and review of laboratory results Abnormal [employer] Phone: Lymphocytes/100 WBC (Bld) 26 % 24 - 43 % [facility] Phone: MCH (RBC) [Entitic mass] 27.4 pg 25.2 - 33.5 pg [employer] Phone: MCHC (RBC) [Mass/Vol] 35.9 g/dL High 28.4 - 34.8 g/dL [employer] Phone: MCV (RBC) [Entitic vol] 76.2 fL Low 82.6 - 102.9 fL [employer] Phone: Monocytes/100 WBC (Bld) 9 % 3 - 12 % [facility] Phone: NRBC Automated 0.0 0.0 per 100 WBC [employer] Phone: Platelet distribution width (Bld) [Ratio] 13.2 % 11.8 - 14.4 % [employer] Phone: Platelet Estimate NOT REPORTED [facility] Phone: Platelet mean volume (Bld) [Entitic vol] 11.4 fL 8.1 - 13.5 fL [employer] Phone: Platelets (Bld) [#/Vol] 229 10*3/uL [employer] Phone: RBC (Bld) [#/Vol] 4.75 10*6/uL 3.95 - 5.1 1 m/uL [facility] Phone: RBC (Bld) [#/Vol] NOT REPORTED [facility] Phone: Segmented neutrophils/100 WBC (Bld) 64 % 36 - 65 % [employer] Phone: Segs Absolute 6.79 [employer] Work Phone: WBC (Bld) [#/Vol] 10.6 10*3/uL [facility] Work Phone: WBC (Bld) [#/Vol] NOT REPORTED [facility] Work Phone: [facility] [employer] Phone: CBC with Diffon 07-29-2021 Abs. Basophil <0.03 Normal 0.00-0.20 [facility] Comment on above: Performed By: #### C DP #### [facility] [address] [place] [address] [place] [address] Investigation Manager: Tico Minaya MD Abs.Imm.Granulocyte 0.04 k/uL Normal 0.00-0.30 [facility] Comment on above: Performed By: #### C DP #### [address] [place] [id number] Investigation Manager: Tico Minaya MD Abs.Neutrophil (Seg) 6.79 k/uL Normal 1.50-8.10 [facility] Comment on above: Performed By: #### C DP #### [address] [place] [address] Investigation Manager: Tico Minaya MD Basophils/100 WBC (Bld) 0 % Normal 0-2 [facility] Comment on above: Performed By: #### C DP #### [address] [place] [address] Investigation Manager: Tico Minaya MD Eosinophils (Bld) [#/Vol] 0.10 10*3/uL Normal 0.00-0.44 [facility] Comment on above: Performed By: #### C DP #### [address] [place], [place] [id number] Investigation Manager: Tico Minaya MD Eosinophils/100 WBC (Bld) 1 % Normal 1-4 [facility] Comment on above: Performed By: #### C DP #### [address] [place], [place] [id number] Investigation Manager: Tico Minaya MD Erythrocyte distribution width (RBC) [Ratio] 13.2 % Normal 11.8-14.4 [facility] Comment on above: Performed By: #### C DP #### [facility] [address] [place] [address] Dr. [place], [place] [id number] Investigation Manager: Tico Minaya MD Hematocrit (Bld) [Volume fraction] 36.2 % Low 36.3-47.1 [facility] Comment on above: Performed By: #### C DP #### [address] [place], [facility]83 Investigation Manager: Tico Minaya MD Hemoglobin (Bld) [Mass/Vol] 13.0 g/dL Normal 11.9-15.1 [facility] Comment on above: Performed By: #### C DP #### [address] [place], [facility]83 Investigation Manager: Tico Minaya MD Immature granulocytes/100 WBC (Bld) 0 % Normal 0 [facility] Comment on above: Performed By: #### C DP #### [address] [place], [facility]83 Investigation Manager: Tico Minaya MD Lymphocytes (Bld) [#/Vol] 2.71 10*3/uL Normal 1.10-3.70 [facility] Comment on above: Performed By: #### C DP #### [facility] [address] [place] [address] Dr. [place], [place] [id number] Investigation Manager: Tico Minaya MD Lymphocytes/100 WBC (Bld) 26 % Normal 24-43 [facility] Comment on above: Performed By: #### C DP #### [facility] [address] [place] [address] Dr. [place], [place] [id number] Investigation Manager: Tico Minaya MD MCH (RBC) [Entitic mass] 27.4 pg Normal 25.2-33.5 [facility] Comment on above: Performed By: #### C DP #### [facility] [address] [place] [address] Dr[place] [id number] Investigation Manager: Tico Minaya MD MCHC (RBC) [Mass/Vol] 35.9 g/dL High 28.4-34.8 [facility] Comment on above: Performed By: #### C DP #### [address] [place] [address] Investigation Manager: Tico Minaya MD MCV (RBC) [Entitic vol] 76.2 fL Low 82.6-102.9 [facility] Comment on above: Performed By: #### C DP #### [address] [place] [id number] Investigation Manager: Tico Minaya MD Monocytes (Bld) [#/Vol] 0.97 10*3/uL Normal 0.10-1.20 [facility] Comment on above: Performed By: #### C DP #### [address] [place], [facility]83 Investigation Manager: Tico Minaya MD Monocytes/100 WBC (Bld) 9 % Normal 3-12 [facility] Comment on above: Performed By: #### C DP #### [address] [place], [facility]83 Investigation Manager: Tico Minaya MD Neutrophil (Seg) 64 % Normal 36-65 [facility] Comment on above: Performed By: #### C DP #### [address] [place] [id number] Investigation Manager: Tico Minaya MD NRBC Automated 0.0 per 100 WBC Normal 0.0 [facility] Comment on above: Performed By: #### C DP #### [address] [place] [address] Investigation Manager: Tico Minaya MD Platelet mean volume (Bld) [Entitic vol] 11.4 fL Normal 8.1-13.5 [facility] Comment on above: Performed By: #### C DP #### [address] [place], [place] [id number] Investigation Manager: Tico Minaya MD Platelets (Bld) [#/Vol] 229 10*3/uL Normal 138-453 [facility] Comment on above: Performed By: #### C DP #### [address] [place], [place] 1284383 Investigation Manager: Tico Minaya MD RBC (Bld) [#/Vol] 4.75 10*6/uL Normal 3.95-5.11 [facility] Comment on above: Performed By: #### C DP #### [address] [place], [facility]83 Investigation Manager: Tico Minaya MD WBC (Bld) [#/Vol] 10.6 10*3/uL Normal 3.5-11.3 [facility] Comment on above: Performed By: #### C DP #### [address] [place], [place] [id number] Investigation Manager: Tico Minaya MD Auto Diff Performed NOT REPORTED Normal [facility] Comment on above: Performed By: #### C DP #### [address] [place], [place] 3088183 Investigation Manager: Tico Minaya MD Platelet Estimate NOT REPORTED Normal [facility] Comment on above: Performed By: #### C DP #### [address] [place], [place] 9648083 Investigation Manager: Tico Minaya MD RBC morphology finding Nom (Bld) NOT REPORTED Normal [facility] Comment on above: Performed By: #### C DP #### [facility] [address] [place] [address] Investigation Manager: Tico Minaya MD WBC Morphology NOT REPORTED Normal [facility] Comment on above: Performed By: #### C DP #### [facility] [address] [place] [address] Investigation Manager: Tico Minaya MD Cult,Urineon 07-29-2021 Cult,Urine Specimen Description .CLEAN CATCH URINE Special Requests NOT REPORTED Culture NO SIGNIFICANT GROWTH Report Status FINAL 07/29/2021 Normal [facility] Comment on above: Performed By: #### U RC #### [facility] [address] [place], [place] 1402308 Investigation Manager: Kvng Soares MD [facility] [address] [place] [address] Investigation Manager: Tico Minaya MD DRUG SCREEN MULTI URINEOrder ed By: María Barnes on 07-29-2021 Amphetamine Screen, Ur Negative NEGATIVE [facility] Work Phone: Barbiturate Screen, Ur Negative NEGATIVE [facility] Work Phone: Benzodiazepine Screen, Urine Negative NEGATIVE [facility] Work Phone: Buprenorphine Urine Negative NEGATIVE [facility] Work Phone: Cannabinoid Scrn, Ur Negative NEGATIVE [facility] Work Phone: Cocaine Metabolite, Urine Negative NEGATIVE [facility] Work Phone: MDMA, Urine NOT REPORTED NEGATIVE [facility] Work Phone: Methadone Screen, Urine Negative NEGATIVE [facility] Work Phone: Methamphetamine, Urine Negative NEGATIVE [facility] Work Phone: Opiates, Urine Negative NEGATIVE [facility] Work Phone: Oxycodone Screen, Ur Negative NEGATIVE [facility] Work Phone: Phencyclidine, Urine Negative NEGATIVE [facility] [employer] Phone: Propoxyphene, Urine Negative NEGATIVE [facility] [employer] Phone: Test Information NOT REPORTED [facility] [employer] Phone: Tricyclic Antidepressants, Urine Negative NEGATIVE [facility] Work Phone: Comment on above: Drug screen results are to be used for medical purposes only. All positive results are unconfirmed. Testing for employment or legal uses should be sent to a reference laboratory for confirmation. [facility] Phone: Drug Scr, Abuse, Uron 2020 Amphetamine(s),Ur Negative Normal NEG [facility] Comment on above: Performed By: #### D AU #### [facility] [address] [place] [address] [place] [address] Investigation Manager: Tico Minaya MD Barbiturate(s),Ur Negative Normal NEG [facility] Comment on above: Performed By: #### D AU #### [facility] [address] [place] [address] Investigation Manager: Tico Minaya MD Benzodiazepine(s) Negative Normal NEG [facility] Comment on above: Performed By: #### D AU #### [facility] [address] [place], [place] [id number] Investigation Manager: Tico Minaya MD Buprenorphrine, Ur Negative Normal NEG [facility] Comment on above: Performed By: #### D AU #### [facility] [address] [place] [address] Investigation Manager: Tioc Minaya MD Cannabinoid(s),Ur Negative Normal NEG [facility] Comment on above: Performed By: #### D AU #### [facility] [address] [place] [address] Investigation Manager: Tico Minaya MD Cocaine Metabolite Negative Normal NEG [facility] Comment on above: Performed By: #### D AU #### [facility] [address] [place], [place] [id number] Investigation Manager: Tico Minaya MD Methadone Ql (U) Negative Normal [facility] Comment on above: Performed By: #### D AU #### [facility] [address] [place], [facility]83 Investigation Manager: Tico Minaya MD Methamphetamine, Ur Negative Normal NEG [facility] Comment on above: Performed By: #### D AU #### [facility] [address] [place] [id number] Investigation Manager: Tioc Minaya MD Opiate(s), Ur Negative Normal NEG [facility] Comment on above: Performed By: #### D AU #### [facility] [address] [place], [facility]83 Investigation Manager: Tico Minaya MD Oxycodone, Urine Negative Normal [facility] Comment on above: Performed By: #### D AU #### [facility] [address] [place], [facility]83 Investigation Manager: Tico Minaya MD Phencyclidine, Ur Negative Normal [facility] Comment on above: Performed By: #### D AU #### [facility] [address] [place], [facility]83 Investigation Manager: Tico Minaya MD Propoxyphene,Urine Negative Normal [facility] Comment on above: Performed By: #### D AU #### [facility] [address] [place] [id number] Investigation Manager: Tico Minaya MD Tricyclic antidepressants Screen Ql (U) Negative Normal [facility] Comment on above: Result Comment: Drug screen results are to be used for medical purposes only. All positive results are unconfirmed. Testing for employment or legal uses should be sent to a reference laboratory for confirmation. Performed By: #### D AU #### [facility] [address] [place] [address] Investigation Manager: Tico Minaya MD Interpretive Info NOT REPORTED Normal [facility] Comment on above: Performed By: #### D AU #### [facility] [address] [place] [address] Investigation Manager: Tico Minaya MD MDMA, Urine NOT REPORTED Normal NEG [facility] Comment on above: Performed By: #### D AU #### [facility] [address] [place] [address] Investigation Manager: Tico Minaya MD Glucose, Whole BloodOrdered By: María Barnes on 07-29-2021 Glucose [Mass/Vol] 100 mg/dL 74 - 100 mg/dL [facility] Work Phone: [facility] Work Phone: Urinalysis, Routineon 2020 Bilirubin, SemiQt,Ur Negative Normal NEG [facility] Comment on above: Performed By: #### U SARAHO, UA #### [facility] [address] [place] [address] Investigation Manager: Tico Minaya MD Blood, Urine Negative Normal NEG [facility] Comment on above: Performed By: #### U MICAO, UA #### [facility] [address] [place] [address] Investigation Manager: Tico Minaya MD Clarity (U) CLEAR Normal CLEAR [facility] Comment on above: Performed By: #### U MICAO, UA #### [facility] [address] [place] [address] Investigation Manager: Tico Minaya MD Color (U) YELLOW Normal YEL [facility] Comment on above: Performed By: #### U MICAO, UA #### [facility] [address] [place], [place] [id number] Investigation Manager: Tico Minaya MD Glucose Ql (U) Negative Normal NEG [facility] Comment on above: Performed By: #### U MICAO, UA #### [facility] [address] [place] [address] Dr. [place], [place] [id number] Investigation Manager: Tico Minaya MD Ketones Ql (U) Negative Normal NEG [facility] Comment on above: Performed By: #### U MICAO, UA #### [facility] [address] [place] [address] Dr. [place], [place] [id number] Investigation Manager: Tico Minaya MD Leukocyte esterase Test strip Ql (U) SMALL Abnormal NEG [facility] Comment on above: Performed By: #### U MICAO, UA #### [facility] [address] [place] [address] Dr. [place], [place] [id number] Investigation Manager: Tico Minaya MD Nitrite,Ur Negative Normal NEG [facility] Comment on above: Performed By: #### U MICAO, UA #### [facility] [address] [place] [address] Dr. [place], [place] [id number] Investigation Manager: Tico Minaya MD PH,Ur 7.0 Normal 5.0-9.0 [facility] Comment on above: Performed By: #### U MICAO, UA #### [facility] [address] [place] [address] Dr. [place], [place] [id number] Investigation Manager: Tico Minaya MD Protein Ql (U) Negative Normal NEG [facility] Comment on above: Performed By: #### U MICAO, UA #### [facility] [address] [place] [address] Dr. [place], [place] [phone] Investigation Manager: Tico Minaya MD Spec. [place],Ur 1.010 Normal 1.010-1.020 [facility] Comment on above: Performed By: #### U MICAO, UA #### [facility] [address] [place] [address] Investigation Manager: Tico Minaya MD Urobilinogen,Ur Normal Normal NORM [facility] Comment on above: Performed By: #### U MICAO, UA #### [facility] [address] [place], [place] 0559783 Investigation Manager: Tico Minaya MD Comment NOT REPORTED Normal [facility] Comment on above: Performed By: #### U MICAO, UA #### [facility] [address] [place], [place] [id number] Investigation Manager: Tico Minaya MD Urinalysis,Microon 1 ----- Normal [facility] Comment on above: Performed By: #### U MICAO, UA #### [facility] [address] [place], [facility]83 Investigation Manager: Tico Minaya MD Epithelial cells LM Ql (Urine sed) 5 TO 10 Normal 0-25 [facility] Comment on above: Performed By: #### U MICAO, UA #### [address] [place], [place] 1461083 Investigation Manager: Tico Minaya MD Urine RBC's None Normal 0-2 [facility] Comment on above: Performed By: #### U MICAO, UA #### [facility] [address] [place], [place] [phone] Investigation Manager: Tico Minaya MD Urine WBC's 0 TO 2 Normal 0-5 [facility] Comment on above: Performed By: #### U MICAO, UA #### [facility] [address] [place] [address] Investigation Manager: Tico Minaya MD Amorphous sediment LM Ql (Urine sed) NOT REPORTED Normal [facility] Comment on above: Performed By: #### U MICAO, UA #### [facility] [address] [place] [address] Investigation Manager: Tico Minaya MD Bacteria NOT REPORTED Normal NONE [facility] Comment on above: Performed By: #### U MICAO, UA #### [facility] [address] [place], [place] [id number] Investigation Manager: Tico Minaya MD Casts NOT REPORTED Normal [facility] Comment on above: Performed By: #### U MICAO, UA #### [facility] [address] [place], [place] [id number] Investigation Manager: Tico Minaya MD Crystals LM Nom (Urine sed) NOT REPORTED Normal NONE [facility] Comment on above: Performed By: #### U MICAO, UA #### [facility] [address] [place] [address] Investigation Manager: Tico Minaya MD Epithelial, Renal NOT REPORTED Normal 0 [facility] Comment on above: Performed By: #### U MICAO, UA #### [facility] [address] [place], [place] [id number] Investigation Manager: Tico Minaya MD Mucus Strands NOT REPORTED Normal [facility] Comment on above: Performed By: #### U MICAO, UA #### [facility] [address] [place], [place] [id number] Investigation Manager: Tico Minaya MD Other Observations NOT REPORTED Normal NREQ [facility] Comment on above: Performed By: #### U MICAO, UA #### [facility] [address] [place], [place] [id number] Investigation Manager: Tico Minaya MD Trichomonas NOT REPORTED Normal NONE [facility] Comment on above: Performed By: #### U MICAO, UA #### [facility] [address] [place], [place] [id number] Investigation Manager: Tico Minaya MD Yeast NOT REPORTED Normal NONE [facility] Comment on above: Performed By: #### U MICAO, UA #### [facility] [address] [place] [address] Investigation Manager: Tico Minaya MD Microscopic UrinalysisOrdere d By: María Barnes on 07-27-2021 - [facility] Work Phone: Amorphous, UA NOT REPORTED None [facility] Work Phone: Bacteria, UA NOT REPORTED None [facility] Work Phone: Casts UA NOT REPORTED /LPF [facility] Work Phone: Crystals, UA NOT REPORTED None /HPF [facility] Work Phone: Epithelial Cells UA 5 TO 10 [facility] Work Phone: Mucus, UA NOT REPORTED None [facility] Work Phone: Other Observations UA NOT REPORTED NOT REQ. M [facility] Work Phone: RBC, UA None [facility] Work Phone: Renal Epithelial, UA NOT REPORTED 0 /HPF [facility] Work Phone: Trichomonas, UA NOT REPORTED None [facility] Work Phone: WBC, UA 0 TO 2 [facility] Work Phone: Yeast, UA NOT REPORTED None [facility] Work Phone: [facility] Work Phone: UrinalysisOrdered By: Bay Barnes on 07-27-2021 Bilirubin Urine Negative NEGATIVE [facility] Work Phone: Color, UA YELLOW YELLOW [facility] Work Phone: Glucose, Ur Negative NEGATIVE [facility] Work Phone: Interpretation and review of laboratory results Abnormal [facility] [employer] Work Phone: Ketones Ql (U) Negative NEGATIVE [facility] Work Phone: Leukocyte esterase Test strip Ql (U) SMALL Abnormal NEGATIVE [employer] Work Phone: Nitrite, Urine Negative NEGATIVE [facility] Work Phone: pH, UA 7.0 [facility] Work Phone: Protein, UA Negative NEGATIVE [facility] Work Phone: Specific [place], UA 1.010 [employer] Work Phone: Turbidity UA CLEAR CLEAR [employer] Work Phone: Urinalysis Comments NOT REPORTED [facility] [employer] Work Phone: Urine Hgb Negative NEGATIVE [facility] Phone: Urobilinogen, Urine Normal Normal [facility] Work Phone: [employer] Work Phone: CBC auto differentialOrdered By: Selma Sifuentes on 07-21-2021 Absolute Eos # PLEASE DISREGARD RESULTS. SPECIMEN CONTAMINATED. [employer] Phone: Comment on above: CORRECTED ON 07/21 A T 0451: PREVIOUSLY REPORTED <0.03 Absolute Immature Granulocyte PLEASE DISREGARD RESULTS. SPECIMEN CONTAMINATED. [employer] Phone: Comment on above: CORRECTED ON 07/21 A T 0451: PREVIOUSLY REPORTED <0.03 Absolute Lymph # PLEASE DISREGARD RESULTS. SPECIMEN CONTAMINATED. [employer] Phone: Comment on above: CORRECTED ON 07/21 A T 0451: PREVIOUSLY REPORTED 1.38 [facility] [place] # PLEASE DISREGARD RESULTS. SPECIMEN CONTAMINATED. [employer] Phone: Comment on above: CORRECTED ON 07/21 A T 0451: PREVIOUSLY REPORTED 0.48 Basophils (Bld) [#/Vol] PLEASE DISREGARD RESULTS. SPECIMEN CONTAMINATED. 0 - 2 % [employer] Work Phone: Comment on above: CORRECTED ON 07/21 A T 0451: PREVIOUSLY REPORTED 0 Basophils Absolute PLEASE DISREGARD RESULTS. SPECIMEN CONTAMINATED. [employer] Phone: Comment on above: CORRECTED ON 07/21 A T 0451: PREVIOUSLY REPORTED <0.03 Differential Type NOT REPORTED [employer] Phone: Eosinophils % PLEASE DISREGARD RESULTS. SPECIMEN CONTAMINATED. 1 - 4 % [employer] Phone: Comment on above: CORRECTED ON 07/21 A T 0451: PREVIOUSLY REPORTED 0 Hematocrit (Bld) [Volume fraction] PLEASE DISREGARD RESULTS. SPECIMEN CONTAMINATED. 36.3 - 47.1 % [employer] Phone: Comment on above: CORRECTED ON 07/21 A T 0451: PREVIOUSLY REPORTED 20.1 Hemoglobin.gastrointest inal spec 1 Ql (Stl) PLEASE DISREGARD RESULTS. SPECIMEN CONTAMINATED. 11.9 - 15.1 g/dL [employer] Phone: Comment on above: CORRECTED ON 07/21 A T 0451: PREVIOUSLY REPORTED 6.8 Immature Granulocytes PLEASE DISREGARD RESULTS. SPECIMEN CONTAMINATED. 0 % [employer] Phone: Comment on above: CORRECTED ON 07/21 A T 0451: PREVIOUSLY REPORTED 0 Lymphocytes (Bld) [#/Vol] PLEASE DISREGARD RESULTS. SPECIMEN CONTAMINATED. 24 - 43 % [employer] Phone: Comment on above: CORRECTED ON 07/21 A T 0451: PREVIOUSLY REPORTED 24 MCH (RBC) [Entitic mass] PLEASE DISREGARD RESULTS. SPECIMEN CONTAMINATED. 25.2 - 33.5 pg [employer] Phone: Comment on above: CORRECTED ON 07/21 A T 0451: PREVIOUSLY REPORTED 27.6 MCHC (RBC) [Mass/Vol] PLEASE DISREGARD RESULTS. SPECIMEN CONTAMINATED. 28.4 - 34.8 g/dL [employer] Phone: Comment on above: CORRECTED ON 07/21 A T 0451: PREVIOUSLY REPORTED 33.8 MCV (RBC) [Entitic vol] PLEASE DISREGARD RESULTS. SPECIMEN CONTAMINATED. 82.6 - 102.9 fL [employer] Phone: Comment on above: CORRECTED ON 07/21 A T 0451: PREVIOUSLY REPORTED 81.7 Monocytes (Bld) [#/Vol] PLEASE DISREGARD RESULTS. SPECIMEN CONTAMINATED. 3 - 12 % [employer] Phone: Comment on above: CORRECTED ON 07/21 A T 0451: PREVIOUSLY REPORTED 8 NRBC Automated NOT REPORTED 0.0 per 100 WBC [employer] Phone: Platelet distribution width (Bld) [Ratio] PLEASE DISREGARD RESULTS. SPECIMEN CONTAMINATED. 11.8 - 14.4 % [employer] Phone: Comment on above: CORRECTED ON 07/21 A T 0451: PREVIOUSLY REPORTED 13.2 Platelet Estimate NOT REPORTED [employer] Phone: Platelet mean volume (Bld) [Entitic vol] PLEASE DISREGARD RESULTS. SPECIMEN CONTAMINATED. 8.1 - 13.5 fL [employer] Phone: Comment on above: CORRECTED ON 07/21 A T 0451: PREVIOUSLY REPORTED 11.2 Platelets (Bld) [#/Vol] PLEASE DISREGARD RESULTS. SPECIMEN CONTAMINATED. [employer] Phone: Comment on above: CORRECTED ON 07/21 A T 0451: PREVIOUSLY REPORTED 129 RBC (Bld) [#/Vol] PLEASE DISREGARD RESULTS. SPECIMEN CONTAMINATED. 3.95 - 5.11 m/uL [employer] Phone: Comment on above: CORRECTED ON 07/21 A T 0451: PREVIOUSLY REPORTED 2.46 RBC (Bld) [#/Vol] NOT REPORTED [employer] Phone: Seg Neutrophils PLEASE DISREGARD RESULTS. SPECIMEN CONTAMINATED. 36 - 65 % [employer] Phone: Comment on above: CORRECTED ON 07/21 A T 0451: PREVIOUSLY REPORTED 68 Segs Absolute PLEASE DISREGARD RESULTS. SPECIMEN CONTAMINATED. [employer] Phone: Comment on above: CORRECTED ON 07/21 A T 0451: PREVIOUSLY REPORTED 3.95 WBC (Bld) [#/Vol] PLEASE DISREGARD RESULTS. SPECIMEN CONTAMINATED. [facility] Phone: Comment on above: CORRECTED ON 07/21 A T 0451: PREVIOUSLY REPORTED 5.9 WBC (Bld) [#/Vol] NOT REPORTED [employer] Phone: [facility] Phone: CBC with Diffon 07-21-2021 Abs. Basophil PLEASE DISREGARD RESULTS. SPECIMEN CONTAMINATED. Normal 0.00-0.20 [facility] Comment on above: Result Comment: MARIPOSA ECTED ON 07/21 AT 0451: PREVIOUSLY REPORTED <0.03 Performed By: #### C DP #### [facility] [address] [place] [address] Investigation Manager: Tico Minaya MD Abs. Eosinophil PLEASE DISREGARD RESULTS. SPECIMEN CONTAMINATED. Normal 0.00-0.44 [facility] Comment on above: Result Comment: MARIPOSA ECTED ON 07/21 AT 0451: PREVIOUSLY REPORTED <0.03 Performed By: #### C DP #### [facility] [address] [place], [place] [id number] Investigation Manager: Tico Minaya MD Abs. Lymph PLEASE DISREGARD RESULTS. SPECIMEN CONTAMINATED. Normal 1.10-3.70 [facility] Comment on above: Result Comment: MARIPOSA ECTED ON 07/21 AT 0451: PREVIOUSLY REPORTED 1.38 Performed By: #### C DP #### [facility] [address] [place] [address] Investigation Manager: Tico Minaya MD Abs. Monocyte PLEASE DISREGARD RESULTS. SPECIMEN CONTAMINATED. Normal 0.10-1.20 [facility] Comment on above: Result Comment: MARIPOSA ECTED ON 07/21 AT 0451: PREVIOUSLY REPORTED 0.48 Performed By: #### C DP #### [facility] [address] [place] [address] Investigation Manager: Tico Minaya MD Abs.Imm.Granulocyte PLEASE DISREGARD RESULTS. SPECIMEN CONTAMINATED. Normal 0.00-0.30 [facility] Comment on above: Result Comment: MARIPOSA ECTED ON 07/21 AT 0451: PREVIOUSLY REPORTED <0.03 Performed By: #### C DP #### [facility] [address] [place] [address] Investigation Manager: Tico Minaya MD Abs.Neutrophil (Seg) PLEASE DISREGARD RESULTS. SPECIMEN CONTAMINATED. Normal 1.50-8.10 [facility] Comment on above: Result Comment: MARIPOSA ECTED ON 07/21 AT 0451: PREVIOUSLY REPORTED 3.95 Performed By: #### C DP #### [address] [place] [address] Investigation Manager: Tico Minaya MD Basophil PLEASE DISREGARD RESULTS. SPECIMEN CONTAMINATED. Normal 0-2 [facility] Comment on above: Result Comment: MARIPOSA ECTED ON 07/21 AT 0451: PREVIOUSLY REPORTED 0 Performed By: #### C DP #### [address] [place] [address] Investigation Manager: Tico Minaya MD Eosinophil PLEASE DISREGARD RESULTS. SPECIMEN CONTAMINATED. Normal 1-4 [facility] Comment on above: Result Comment: MARIPOSA ECTED ON 07/21 AT 0451: PREVIOUSLY REPORTED 0 Performed By: #### C DP #### [facility] [address] [place] [address] [place] [address] Investigation Manager: Tico Minaya MD Hematocrit PLEASE DISREGARD RESULTS. SPECIMEN CONTAMINATED. Normal 36.3-47.1 [facility] Comment on above: Result Comment: MARIPOSA ECTED ON 07/21 AT 0451: PREVIOUSLY REPORTED 20.1 Performed By: #### C DP #### [address] [place] [id number] Investigation Manager: Tico Minaya MD Hemoglobin PLEASE DISREGARD RESULTS. SPECIMEN CONTAMINATED. Normal 11.9-15.1 [facility] Comment on above: Result Comment: MARIPOSA ECTED ON 07/21 AT 0451: PREVIOUSLY REPORTED 6.8 Performed By: #### C DP #### [facility] [address] [place], [place] [id number] Investigation Manager: Tico Minaya MD Immature Granulocyte PLEASE DISREGARD RESULTS. SPECIMEN CONTAMINATED. Normal 0 [facility] Comment on above: Result Comment: MARIPOSA ECTED ON 07/21 AT 0451: PREVIOUSLY REPORTED 0 Performed By: #### C DP #### [facility] [address] [place], [place] [id number] Investigation Manager: Tico Minaya MD [facility] PLEASE DISREGARD RESULTS. SPECIMEN CONTAMINATED. Normal 24-43 [facility] Comment on above: Result Comment: MARIPOSA ECTED ON 07/21 AT 0451: PREVIOUSLY REPORTED 24 Performed By: #### C DP #### [facility] [address] [place], [place] [id number] Investigation Manager: Tico Minaya MD [facility] PLEASE DISREGARD RESULTS. SPECIMEN CONTAMINATED. Normal 25.2-33.5 [facility] Comment on above: Result Comment: MARIPOSA ECTED ON 07/21 AT 0451: PREVIOUSLY REPORTED 27.6 Performed By: #### C DP #### [facility] [address] [place], [place] [phone] Investigation Manager: Tico Minaya MD [facility] PLEASE DISREGARD RESULTS. SPECIMEN CONTAMINATED. Normal 28.4-34.8 [facility] Comment on above: Result Comment: MARIPOSA ECTED ON 07/21 AT 0451: PREVIOUSLY REPORTED 33.8 Performed By: #### C DP #### [facility] [address] [place], [place] [id number] Investigation Manager: Tico Minaya MD [facility] PLEASE DISREGARD RESULTS. SPECIMEN CONTAMINATED. Normal 82.6-102.9 [facility] Comment on above: Result Comment: MARIPOSA ECTED ON 07/21 AT 0451: PREVIOUSLY REPORTED 81.7 Performed By: #### C DP #### [facility] [address] [place], [place] [phone] Investigation Manager: Tico Minaya MD Monocyte PLEASE DISREGARD RESULTS. SPECIMEN CONTAMINATED. Normal 3-12 [facility] Comment on above: Result Comment: MARIPOSA ECTED ON 07/21 AT 0451: PREVIOUSLY REPORTED 8 Performed By: #### C DP #### [facility] [address] [place] [address] Investigation Manager: Tico Minaya MD MPV PLEASE DISREGARD RESULTS. SPECIMEN CONTAMINATED. Normal 8.1-13.5 [facility] Comment on above: Result Comment: MARIPOSA ECTED ON 07/21 AT 0451: PREVIOUSLY REPORTED 11.2 Performed By: #### C DP #### [facility] [address] [place] [address] Investigation Manager: Tico Minaya MD Neutrophil (Seg) PLEASE DISREGARD RESULTS. SPECIMEN CONTAMINATED. Normal 36-65 [facility] Comment on above: Result Comment: MARIPOSA ECTED ON 07/21 AT 0451: PREVIOUSLY REPORTED 68 Performed By: #### C DP #### [facility] [address] [place] [id number] Investigation Manager: Tico Minaya MD Platelet Count PLEASE DISREGARD RESULTS. SPECIMEN CONTAMINATED. Normal 138-453 [facility] Comment on above: Result Comment: MARIPOSA ECTED ON 07/21 AT 0451: PREVIOUSLY REPORTED 129 Performed By: #### C DP #### [facility] [address] [place], [place] [id number] Investigation Manager: Tico Minaya MD RBC Count PLEASE DISREGARD RESULTS. SPECIMEN CONTAMINATED. Normal 3.95-5.11 [facility] Comment on above: Result Comment: MARIPOSA ECTED ON 07/21 AT 0451: PREVIOUSLY REPORTED 2.46 Performed By: #### C DP #### [facility] [address] [place] [id number] Investigation Manager: Tico Minaya MD RDW PLEASE DISREGARD RESULTS. SPECIMEN CONTAMINATED. Normal 11.8-14.4 [facility] Comment on above: Result Comment: MARIPOSA ECTED ON 07/21 AT 0451: PREVIOUSLY REPORTED 13.2 Performed By: #### C DP #### [facility] [address] [place] [address] Investigation Manager: Tico Minaya MD WBC Count PLEASE DISREGARD RESULTS. SPECIMEN CONTAMINATED. Normal 3.5-11.3 [facility] Comment on above: Result Comment: MARIPOSA ECTED ON 07/21 AT 0451: PREVIOUSLY REPORTED 5.9 Performed By: #### C DP #### [facility] [address] [place] [address] [place] [address] Investigation Manager: Tico Minaya MD Abs. Basophil <0.03 Normal 0.00-0.20 [facility] Comment on above: Performed By: #### C DP #### [facility] [address] [place] [address] [place] [address] Investigation Manager: Tico Minaya MD Abs. Eosinophil <0.03 Normal 0.00-0.44 [facility] Comment on above: Performed By: #### C DP #### [facility] [address] [place] [address] [place] [address] Investigation Manager: Tico Minaya MD Abs.Imm.Granulocyte 0.09 k/uL Normal 0.00-0.30 [facility] Comment on above: Performed By: #### C DP #### [facility] [address] [place] [address] Investigation Manager: Tico Minaya MD Abs.Neutrophil (Seg) 11.03 k/uL High 1.50-8.10 [facility] Comment on above: Performed By: #### C DP #### [facility] [address] [place] [address] Dr[place], [place] [id number] Investigation Manager: Tico Minaya MD Basophils/100 WBC (Bld) 0 % Normal 0-2 [facility] Comment on above: Performed By: #### C DP #### [facility] [address] [place] [address] Dr. [place], [place] [id number] Investigation Manager: Tico Minaya MD Eosinophils/100 WBC (Bld) 0 % Low 1-4 [facility] Comment on above: Performed By: #### C DP #### [address] [place], [place] [phone] Investigation Manager: Tico Minaya MD Erythrocyte distribution width (RBC) [Ratio] 13.2 % Normal 11.8-14.4 [facility] Comment on above: Performed By: #### C DP #### [address] [place], [facility]83 Investigation Manager: Tico Minaya MD Hematocrit (Bld) [Volume fraction] 37.3 % Normal 36.3-47.1 [facility] Comment on above: Performed By: #### C DP #### [address] [place], [place] [id number] Investigation Manager: Tico Minaya MD Hemoglobin (Bld) [Mass/Vol] 13.1 g/dL Normal 11.9-15.1 [facility] Comment on above: Performed By: #### C DP #### [facility] [address] [place] [address] Dr. [place], [place] [phone] Investigation Manager: Tico Minaya MD Immature granulocytes/100 WBC (Bld) 1 % High 0 [facility] Comment on above: Performed By: #### C DP #### [address] [place], [place] [phone] Investigation Manager: Tico Minaya MD Lymphocytes (Bld) [#/Vol] 2.10 10*3/uL Normal 1.10-3.70 [facility] Comment on above: Performed By: #### C DP #### [facility] [address] [place], [place] [phone] Investigation Manager: Tico Minaya MD Lymphocytes/100 WBC (Bld) 15 % Low 24-43 [facility] Comment on above: Performed By: #### C DP #### [facility] [address] [place], [place] [address] Investigation Manager: Tico Minaya MD MCH (RBC) [Entitic mass] 27.6 pg Normal 25.2-33.5 [facility] Comment on above: Performed By: #### C DP #### [address] [place], [facility]03 ( Investigation Manager: Tico Minaya MD MCHC (RBC) [Mass/Vol] 35.1 g/dL High 28.4-34.8 [facility] Comment on above: Performed By: #### C DP #### [address] [place], [place] [address] Investigation Manager: Tico Minaya MD MCV (RBC) [Entitic vol] 78.7 fL Low 82.6-102.9 [facility] Comment on above: Performed By: #### C DP #### [facility] [address] [place] [address] Dr. [place], [facility]83 Investigation Manager: Tico Minaya MD Monocytes (Bld) [#/Vol] 0.82 10*3/uL Normal 0.10-1.20 [facility] Comment on above: Performed By: #### C DP #### [facility] [address] [place] [address] Dr[place], [place] 4373983 Investigation Manager: Tico Minaya MD Monocytes/100 WBC (Bld) 6 % Normal 3-12 [facility] Comment on above: Performed By: #### C DP #### [facility] [address] [place], [place] [phone] Investigation Manager: Tico Minaya MD Neutrophil (Seg) 79 % High 36-65 [facility] Comment on above: Performed By: #### C DP #### [facility] [address] [place], [place] 9041183 Investigation Manager: Tico Minaya MD NRBC Automated 0.0 per 100 WBC Normal 0.0 [facility] Comment on above: Performed By: #### C DP #### [facility] [address] [place], [place] [phone] Investigation Manager: Tico Minaya MD Platelet mean volume (Bld) [Entitic vol] 10.8 fL Normal 8.1-13.5 [facility] Comment on above: Performed By: #### C DP #### [address] [place], [place] 8288383 Investigation Manager: Tico Minaya MD Platelets (Bld) [#/Vol] 250 10*3/uL Normal 138-453 [facility] Comment on above: Performed By: #### C DP #### [address] [place], [place] 0126383 Investigation Manager: Tico Minaya MD RBC (Bld) [#/Vol] 4.74 10*6/uL Normal 3.95-5.11 [facility] Comment on above: Performed By: #### C DP #### [facility] [address] [place] [address] Dr[place], [place] [phone] Investigation Manager: Tico Minaya MD WBC (Bld) [#/Vol] 14.1 10*3/uL High 3.5-11.3 [facility] Comment on above: Performed By: #### C DP #### [facility] [address] [place], [place] [phone] Investigation Manager: Tico Minaya MD Auto Diff Performed NOT REPORTED Normal [facility] Comment on above: Performed By: #### C DP #### [facility] [address] [place], [place] 9584283 Investigation Manager: Tico Minaya MD Platelet Estimate NOT REPORTED Normal [facility] Comment on above: Performed By: #### C DP #### [facility] [address] [place], [place] [phone] Investigation Manager: Tico Minaya MD RBC morphology finding Nom (Bld) NOT REPORTED Normal [facility] Comment on above: Performed By: #### C DP #### [facility] [address] [place], [place] 774[address]83 Investigation Manager: Tico Minaya MD WBC Morphology NOT REPORTED Normal [facility] Comment on above: Performed By: #### C DP #### [facility] [address] [place], [place] 9013283 Investigation Manager: Tico Minaya MD NRBC Automated NOT REPORTED Normal 0.0 [facility] Comment on above: Performed By: #### C DP #### [facility] [address] [place], [place] [phone] Investigation Manager: Tico Minaya MD Glucose, Whole BloodOrdered By: Selma Sifuentes on 07-21-2021 Glucose [Mass/Vol] 107 mg/dL High 74 - 100 mg/dL [facility] [employer] Phone: Interpretation and review of laboratory results Abnormal [facility] [employer] Phone: [facility] Phone: Glucose [Mass/Vol] 111 mg/dL High 74 - 100 mg/dL [facility] Phone: Interpretation and review of laboratory results Abnormal [facility] Phone: [facility] Phone: TYPE AND SCREENOrdered By: Dewayne Sifuentes on 07-21-2021 ABO/Rh Positive [facility] Work Phone: Arm Band Number [id number] [facility] Work Phone: Expiration Date 07/23/2021,2359 [facility] Work Phone: [facility] [employer] Work Phone: Type + Screenon 07-21-2021 Type + Screen Sample Expiration 07/23/2021,2359 Arm Band Number [id number] ABO/Rh(D) B POSITIVE Antibody Screen NEGATIVE Normal [facility] Comment on above: Performed By: #### T YS #### [facility] [address] [place] [address] Investigation Manager: Tico Minaya MD CBC auto differentialOrdered By: Selma Sifuentes on 07-20-2021 [employer] Eos # <0.03 [facility] Work Phone: Absolute Immature Granulocyte 0.09 [facility] Work Phone: Absolute Lymph # 2.10 [facility] Work Phone: Absolute [place] # 0.82 [facility] Work Phone: Basophils (Bld) [#/Vol] 10*3/uL [employer] Work Phone: Basophils/100 WBC (Bld) 0 % 0 - 2 % M [facility] [employer] Work Phone: Differential Type NOT REPORTED [facility] [employer] Work Phone: Eosinophils/100 WBC (Bld) 0 % Low 1 - 4 % [facility] Phone: Hematocrit (Bld) [Volume fraction] 37.3 % 36.3 - 47.1 % [facility] [employer] Work Phone: Hemoglobin.gastrointest inal spec 1 Ql (Stl) 13.1 g/dL 11.9 - 15.1 g/dL [facility] Work Phone: Immature granulocytes/100 WBC (Bld) 1 % High 0 [employer] Phone: Interpretation and review of laboratory results Abnormal [employer] Phone: Lymphocytes/100 WBC (Bld) 15 % Low 24 - 43 % [employer] Phone: MCH (RBC) [Entitic mass] 27.6 pg 25.2 - 33.5 pg [employer] Phone: MCHC (RBC) [Mass/Vol] 35.1 g/dL High 28.4 - 34.8 g/dL [employer] Phone: MCV (RBC) [Entitic vol] 78.7 fL Low 82.6 - 102.9 fL [employer] Phone: Monocytes/100 WBC (Bld) 6 % 3 - 12 % M [employer] Phone: NRBC Automated 0.0 0.0 per 100 WBC [employer] Phone: Platelet distribution width (Bld) [Ratio] 13.2 % 11.8 - 14.4 % [employer] Phone: Platelet Estimate NOT REPORTED [employer] Phone: Platelet mean volume (Bld) [Entitic vol] 10.8 fL 8.1 - 13.5 fL [employer] Phone: Platelets (Bld) [#/Vol] 250 10*3/uL [employer] Phone: RBC (Bld) [#/Vol] 4.74 10*6/uL 3.95 - 5.1 1 m/uL [employer] Phone: RBC (Bld) [#/Vol] NOT REPORTED [employer] Phone: Segmented neutrophils/100 WBC (Bld) 79 % High 36 - 65 % [employer] Phone: Segs Absolute 11.03 High [facility] Work Phone: WBC (Bld) [#/Vol] 14.1 10*3/uL [facility] Work Phone: WBC (Bld) [#/Vol] NOT REPORTED [facility] Work Phone: [facility] Work Phone: CBC with Diffon 07-20-2021 Auto Diff Performed NOT REPORTED Normal [facility] Comment on above: Performed By: #### C DP #### [facility] [address] [place], [place] [id number] Investigation Manager: Tico Minaya MD Platelet Estimate NOT REPORTED Normal [facility] Comment on above: Performed By: #### C DP #### [facility] [address] [place], [place] [id number] Investigation Manager: Tico Minaya MD RBC morphology finding Nom (Bld) NOT REPORTED Normal [facility] Comment on above: Performed By: #### C DP #### [facility] [address] [place] [address] Investigation Manager: Tico Minaya MD WBC Morphology NOT REPORTED Normal [facility] Comment on above: Performed By: #### C DP #### [facility] [address] [place] [address] Investigation Manager: Tico Minaya MD Glucose, Whole BloodOrdered By: Selma Sifuentes on 07-20-2021 Glucose [Mass/Vol] 98 mg/dL 74 - 100 mg/dL [facility] Work Phone: [facility] Work Phone: Microscopic UrinalysisOrdere d By: Selma Sifuentes on 07-20-2021 - [facility] Work Phone: Amorphous, UA NOT REPORTED None [facility] Work Phone: Bacteria, UA TRACE Abnormal None [facility] Work Phone: Casts UA NOT REPORTED /LPF [facility] Work Phone: Crystals, UA NOT REPORTED None /HPF [facility] Work Phone: Epithelial Cells UA 10 TO 20 [facility] Work Phone: Interpretation and review of laboratory results Abnormal [facility] Work Phone: Mucus, UA NOT REPORTED None [facility] Work Phone: Other Observations UA NOT REPORTED NOT REQ. M [facility] Work Phone: RBC, UA 0 TO 2 [facility] Work Phone: Renal Epithelial, UA NOT REPORTED 0 /HPF [facility] Work Phone: Trichomonas, UA NOT REPORTED None [facility] Work Phone: WBC, UA 0 TO 3 [facility] Work Phone: Yeast, UA NOT REPORTED None [facility] Work Phone: [facility] Work Phone: UrinalysisOrdered By: Ghazal Sifuentes on 07-20-2021 Bilirubin Urine Negative NEGATIVE [facility] Work Phone: Color, UA YELLOW YELLOW [facility] Work Phone: Glucose, Ur Negative NEGATIVE [facility] Work Phone: Interpretation and review of laboratory results Abnormal [facility] Work Phone: Ketones Ql (U) 2+ Abnormal NEGATIVE [facility] Work Phone: Leukocyte esterase Test strip Ql (U) Negative NEGATIVE [facility] Work Phone: Nitrite, Urine Negative NEGATIVE [facility] Work Phone: pH, UA 6.0 [facility] [employer] Work Phone: Protein, UA Negative NEGATIVE [facility] [employer] Phone: Specific [place], UA 1.020 [facility] [employer] Work Phone: Turbidity UA CLEAR CLEAR [facility] Work Phone: Urinalysis Comments NOT REPORTED [facility] [employer] Work Phone: Urine Hgb Negative NEGATIVE [facility] [employer] Phone: Urobilinogen, Urine Normal Normal [facility] [employer] Phone: [facility] [employer] Phone: Urinalysis, Routineon 2020 Bilirubin, SemiQt,Ur Negative Normal NEG [facility] Comment on above: Performed By: #### U MICAO, UA #### [facility] [address] [place] [address] Investigation Manager: Tico Minaya MD Blood, Urine Negative Normal NEG [facility] Comment on above: Performed By: #### U MICAO, UA #### [facility] [address] [place] [address] Investigation Manager: Tico Minaya MD Clarity (U) CLEAR Normal CLEAR [facility] Comment on above: Performed By: #### U MICAO, UA #### [facility] [address] [place] [address] Investigation Manager: Tico Minaya MD Color (U) YELLOW Normal YEL [facility] Comment on above: Performed By: #### U MICAO, UA #### [facility] [address] [place] [address] Investigation Manager: Tico Minaya MD Glucose Ql (U) Negative Normal NEG [facility] Comment on above: Performed By: #### U MICAO, UA #### [facility] [address] [place] [address] Investigation Manager: Tico Minaya MD Ketones Ql (U) 2+ Abnormal NEG [facility] Comment on above: Performed By: #### U MICAO, UA #### [facility] [address] [place] [address] Investigation Manager: Tico Minaya MD Leukocyte esterase Test strip Ql (U) Negative Normal NEG [facility] Comment on above: Performed By: #### U MICAO, UA #### [facility] [address] [place] [address] Investigation Manager: Tico Minaya MD Nitrite,Ur Negative Normal NEG [facility] Comment on above: Performed By: #### U MICAO, UA #### [facility] [address] [place] [address] [place] [address] Investigation Manager: Tico Minaya MD PH,Ur 6.0 Normal 5.0-9.0 [facility] Comment on above: Performed By: #### U MICAO, UA #### [facility] [address] [place] [address] [place] [address] Investigation Manager: Tico Minaya MD Protein Ql (U) Negative Normal NEG [facility] Comment on above: Performed By: #### U MICAO, UA #### [facility] [address] [place] [address] [place] [address] Investigation Manager: Tico Minaya MD Spec. [place],Ur 1.020 Normal 1.010-1.020 [facility] Comment on above: Performed By: #### U MICAO, UA #### [facility] [address] [place], [place] [id number] Investigation Manager: Tico Minaya MD Urobilinogen,Ur Normal Normal NORM [facility] Comment on above: Performed By: #### U MICAO, UA #### [facility] [address] [place] [address] Dr. [place], [place] [id number] Investigation Manager: Tico Minaya MD Comment NOT REPORTED Normal [facility] Comment on above: Performed By: #### U MICAO, UA #### [facility] [address] [place] [address] Dr[place], [place] [id number] Investigation Manager: Tico Minaya MD Urinalysis,Microon 1 ----- Normal [facility] Comment on above: Performed By: #### U MICAO, UA #### [facility] [address] [place], [place] [address] Investigation Manager: Tico Minaya MD Bacteria TRACE Abnormal [facility] Comment on above: Performed By: #### U MICAO, UA #### [address] [place], [place] [id number] Investigation Manager: Tico Minaya MD Epithelial cells LM Ql (Urine sed) 10 TO 20 Normal 0-25 [facility] Comment on above: Performed By: #### U MICAO, UA #### [address] [place], [place] [id number] Investigation Manager: Tico Minaya MD Urine RBC's 0 TO 2 Normal 0-2 [facility] Comment on above: Performed By: #### U MICAO, UA #### [address] [place], [place] [id number] Investigation Manager: Tico Minaya MD Urine WBC's 0 TO 3 Normal 0-5 [facility] Comment on above: Performed By: #### U MICAO, UA #### [facility] [address] [place], [place] [address] Investigation Manager: Tico Minaya MD Amorphous sediment LM Ql (Urine sed) NOT REPORTED Normal [facility] Comment on above: Performed By: #### U MICAO, UA #### [facility] [address] [place] [address] Investigation Manager: Tico Minaya MD Casts NOT REPORTED Normal [facility] Comment on above: Performed By: #### U SARAHO, UA #### [facility] [address] [place], [place] [address] Investigation Manager: Tico Minaya MD Crystals LM Nom (Urine sed) NOT REPORTED Normal NONE [facility] Comment on above: Performed By: #### U SARAHO, UA #### [facility] [address] [place], [place] [id number] Investigation Manager: Tico Minaya MD Epithelial, Renal NOT REPORTED Normal 0 [facility] Comment on above: Performed By: #### U SARAHO, UA #### [facility] [address] [place], [place] [id number] Investigation Manager: Tico Minaya MD Mucus Strands NOT REPORTED Normal NONE [facility] Comment on above: Performed By: #### U ELLIOT, UA #### [facility] [address] [place], [place] [id number] Investigation Manager: Tico Minaya MD Other Observations NOT REPORTED Normal NREQ [facility] Comment on above: Performed By: #### U ELLIOT, UA #### [facility] [address] [place], [place] [id number] Investigation Manager: Tico Minaya MD Trichomonas NOT REPORTED Normal NONE [facility] Comment on above: Performed By: #### U ELLIOT, UA #### [facility] [address] [place], [place] [address] Investigation Manager: Tico Minaya MD Yeast NOT REPORTED Normal [facility] Comment on above: Performed By: #### U SARAHO, UA #### [facility] [address] [place] [address] Investigation Manager: Tico Minaya MD GBS, External ResultOrdered By: Selma Sifuentes on 07-19-2021 GBS, External Result Negative [facility] Work Phone: [employer] Phone: ABO, External ResultOrdered By: Historical Provider on 12-29-2020 ABO, External Result Positive [employer] Phone: HIV ScreenOrdered By: Ghazal Sifuentes on 12-29-2020 HIV Ag/Ab Non-Reactive [facility] Phone: N. GONORRHOEAE CULTUREOrdere d By: Selma Sifuentes on 12-29-2020 Culture, Gonorrhoeae Not detected [facility] Phone: No Panel InformationOrdered By: Historical Provider on 12-29-2020 [employer] Phone: No Panel InformationOrdered By: Selma Sifuentes on 12-29-2020 [employer] Phone: PROFILE IOrdered By : Selma Sifuentes on 12-29-2020 ABO/Rh Positive [facility] Phone: Hepatitis B Surface Ag Non-Reactive [employer] Phone: Rubella virus IgG Ql (S) Immune [facility] Phone: T. pallidum, IgG Non-Reactive [facility] Phone: Comment on above: RPR CBC AUTO DIFFon 10-27-2020 Basophils (Bld) [#/Vol] 0.0 103/ul Normal 0.0-0.1 [facility] Comment on above: Performed By: #### C BC #### [facility] [address], [place] [address] [facility] [employer] Basophils/100 WBC (Bld) 0.2 % Normal 0.2-2.0 [facility] Comment on above: Performed By: #### C BC #### [facility] [address], [place] [address] [facility] [place] Eosinophils (Bld) [#/Vol] 0.1 103/ul Normal 0.0-0.7 [facility] Comment on above: Performed By: #### C BC #### [facility] [address] [place] [id number] [facility] Eosinophils/100 WBC (Bld) 1.2 % Normal 0.9-7.0 [facility] Comment on above: Performed By: #### C BC #### [facility] [address] [id number] [facility] Erythrocyte distribution width (RBC) [Ratio] 12.5 % Normal 11.0-15.0 [facility] Comment on above: Performed By: #### C BC #### [facility] [address] [place], [place] [address] [facility] Hematocrit (Bld) [Volume fraction] 40.1 % Normal 36.0-48.0 [facility] Comment on above: Performed By: #### C BC #### [facility] [address] [place], [place] [address] [facility] Hemoglobin (Bld) [Mass/Vol] 14.3 g/dL Normal 12.0-16.0 [facility] Comment on above: Performed By: #### C BC #### [facility] [address] [place], [place] [address] Case [facility] IG # 0.04 10e3/ul Critically high 0.00-0.03 [facility] Comment on above: Performed By: #### C BC #### [facility] [address] [place], [place] [address] [facility] IG % 0.4 % Normal 0.0-0.5 [facility] Comment on above: Performed By: #### C BC #### [facility] [address] [place], [place] [address] [facility] Lymphocytes (Bld) [#/Vol] 3.8 103/ul Normal 1.2-3.8 [facility] Comment on above: Performed By: #### C BC #### [facility] [address] [place], [place] [address] [facility] Lymphocytes/100 WBC (Bld) 36.2 % Normal 20.5-60.0 [facility] Comment on above: Performed By: #### C BC #### [facility] [address], [place] [address] [employer] MANUAL DIFF REQ NO Normal [facility] Comment on above: Performed By: #### C BC #### [facility] [address], [place] [address] [facility] [place] MCH (RBC) [Entitic mass] 28.1 pg Normal 26.7-34.0 [facility] Comment on above: Performed By: #### C BC #### [facility] [address] [place], [place] [address] [facility] MCHC (RBC) [Mass/Vol] 35.7 g/dL Critically high 29.9-35.2 [facility] Comment on above: Performed By: #### C BC #### [facility] [address] [place], [place] [address] [facility] MCV (RBC) [Entitic vol] 78.9 fL Critically low 81.0-99. 0 [facility] Comment on above: Performed By: #### C BC #### [facility] [address] [place], [place] [address] [facility] Monocytes (Bld) [#/Vol] 1.1 103/ul Critically high 0.3-0.8 [facility] Comment on above: Performed By: #### C BC #### [facility] [address] [place] [address] [facility] Monocytes/100 WBC (Bld) 10.3 % Normal 1.7-12.0 [facility] Comment on above: Performed By: #### C BC #### [facility] [address] [place] [address] [facility] [place] Neutrophils (Bld) [#/Vol] 5.4 103/ul Normal 1.4-6.5 [facility] Comment on above: Performed By: #### C BC #### [facility] [address] [place], [place] [address] [facility] Neutrophils/100 WBC (Bld) 51.7 % Normal 43.0-75.0 [facility] Comment on above: Performed By: #### C BC #### [facility] [address] [place], [place] [address] Casekrysten Wong Platelet mean volume (Bld) [Entitic vol] 9.7 fL Normal 9.5-13.5 [facility] Comment on above: Performed By: #### C BC #### [facility] [address] [place], [place] [address] Casekrysten Wong Platelets (Bld) [#/Vol] 321 103/ul Normal 150-450 T [facility] Comment on above: Performed By: #### C BC #### [facility] [address] [place], [place] [address] Casekrysten Wong RBC (Bld) [#/Vol] 5.08 106/ul Normal 4.20-5.40 [facility] Comment on above: Performed By: #### C BC #### [facility] [address] [place], [place] [address] Casekrysten Wong WBC (Bld) [#/Vol] 10.4 103/ul Normal 4.0-11.0 [facility] Comment on above: Performed By: #### C BC #### [facility] [address] [place], [place] [address] Casekrysten Wong ER URINE PROFILEon 0 Bilirubin [Mass/Vol] Negative Normal NEGATIVE [facility] Comment on above: Performed By: #### E RUR #### [facility] [address] [place], [place] [address] [facility] BLOOD Negative Normal NEGATIVE [facility] Comment on above: Performed By: #### E RUR #### [facility] [address] [place], [place] [address] Casekrysten Lemonen Clarity (U) CLEAR Normal CLEAR [facility] Comment on above: Performed By: #### E RUR #### [facility] [address] [place], [place] [address] [facility] Color (U) LT. YELLOW Normal YELLOW [facility] Comment on above: Performed By: #### E RUR #### [facility] [address] [place], [place] [address] [facility] ERUAHD A micrscopic examination will be performed if indicated. Normal [facility] Comment on above: Performed By: #### E RUR #### [facility] [address] [place], [place] [address] [facility] Glucose [Mass/Vol] Negative Normal NEGATIVE [facility] Comment on above: Performed By: #### E RUR #### [facility] [address] [place], [place] [address] [facility] [place] Ketones Ql (U) Negative Normal NEGATIVE [facility] Comment on above: Performed By: #### E RUR #### [facility] [address] [place], [place] [address] [facility] [place] Nitrite Ql (U) Negative Normal NEGATIVE [facility] Comment on above: Performed By: #### E RUR #### [facility] [address] [place] [address] Case Judith pH (Bld) 6.0 Normal 5-9 [facility] Comment on above: Performed By: #### E RUR #### [facility] [address] [place] [address] [facility] Protein (U) [Mass/Vol] Negative Normal NEGAT EDDY/ TRACE [facility] Comment on above: Performed By: #### E RUR #### [facility] [address] [place] [address] [facility] SPEC GRAVITY >=1.030 Abnormal 1.005-<=1.025 [facility] Comment on above: Performed By: #### E RUR #### [facility] [address] [place], [place] [address] [facility] UR MICRO IND NOT INDICATED Normal [facility] Comment on above: Performed By: #### E RUR #### [facility] [address] [place], [place] [address] [facility] Urobilinogen Qn (U) 0.2 EU/dl Normal 0.2 - 1.0 [facility] Comment on above: Performed By: #### E RUR #### [facility] [address] [place], [place] [address] Casekrysten Wong WBC (Bld) [#/Vol] Negative Normal NEGATIVE [facility] Comment on above: Performed By: #### E RUR #### [facility] [address] [place], [place] [address] Case Wong URon 10-27-2020 , QUAL Negative Normal NEGATIVE [facility] Comment on above: Performed By: #### P REGU #### [facility] [address] [place], [place] [address] Case Wong PROF 14(COMP METB)on 020 Albumin [Mass/Vol] 3.7 g/dL Normal 3.5-5.0 [facility] Comment on above: Performed By: #### C MP #### [facility] [address] [place], [place] [address] Case Wong Albumin/Globulin [Mass ratio] 1.1 {ratio} Normal [facility] Comment on above: Performed By: #### C MP #### [facility] [address] [place], [place] [address] [facility] ALP [Catalytic activity/Vol] 62 U/L Normal 38-126 [facility] Comment on above: Performed By: #### C MP #### [facility] [address] [place], [place] [address] [facility] [place] ALT [Catalytic activity/Vol] 36 U/L Normal 9-52 [facility] Comment on above: Performed By: #### C MP #### [facility] [address] [place], [place] [address] [place] Anion gap [Moles/Vol] 15.4 mmol/L Normal [facility] Comment on above: Performed By: #### C MP #### [facility] [address] [place], [place] [address] Case Judith AST [Catalytic activity/Vol] 17 U/L Normal 14-36 [facility] Comment on above: Performed By: #### C MP #### [facility] [address] [place], [place] [address] [place] Bilirubin Ql (U) 0.4 mg/dL Normal 0.2-1.3 [facility] Comment on above: Performed By: #### C MP #### [facility] [address] [address] Case Judith Calcium [Mass/Vol] 8.4 mg/dL Normal 8.4-10.2 [facility] Comment on above: Performed By: #### C MP #### [facility] [address] [place] [address] [place] Chloride [Moles/Vol] 103 mmol/L Normal 98-107 [facility] Comment on above: Performed By: #### C MP #### [facility] [address] [place] [address] Case Judith CO2 [Moles/Vol] 25.5 mmol/L Normal 22.0-30.0 [facility] Comment on above: Performed By: #### C MP #### [facility] [address] [place] [address] [facility] [place] Creatinine [Mass/Vol] 0.88 mg/dL Normal 0.52-1.04 [facility] Comment on above: Performed By: #### C MP #### [facility] [address] [place] [address] [facility] EGFR-AF CROATIAN >60 Normal >=60 [facility] Comment on above: Performed By: #### C MP #### [facility] [address] [place] [address] [facility] [place] EGFR-NON AF CROATIAN >60 Normal >=60 [facility] Comment on above: Performed By: #### C MP #### [facility] [address] [place] [address] [facility] Judith Globulin (S) [Mass/Vol] 3.3 g/dL Normal T [facility] Comment on above: Performed By: #### C MP #### [facility] [address] [place] [id number] [place] Glucose [Mass/Vol] 105 mg/dL Normal 74-106 [facility] Comment on above: Performed By: #### C MP #### [facility] [address], [place] [address] Case [place] Potassium [Moles/Vol] 3.9 mmol/L Normal 3.4-5.0 [facility] Comment on above: Performed By: #### C MP #### [facility] [address], [place] [address] [place] Protein [Mass/Vol] 7.0 g/dL Normal 6.1-8.2 [facility] Comment on above: Performed By: #### C MP #### [facility] [address], [place] [address] Case Judith Sodium [Moles/Vol] 140 mmol/L Normal 137-145 [facility] Comment on above: Performed By: #### C MP #### [facility] [address] [id number] Case Judith Urea nitrogen [Mass/Vol] 11.0 mg/dL Normal 7.0-17.0 [facility] Comment on above: Performed By: #### C MP #### [facility] [address] [id number] Case Judith Urea nitrogen/Creatinine [Mass ratio] 12.5 mg/mg Normal [facility] Comment on above: Performed By: #### C MP #### [facility] [address] [id number] Case Judith XR CHEST 1 Von 10-27-2020 [...] by: OLY BIRD Date: 2020-10-27 12:04 Normal [facility] Vital Signs Date Time Vital Sign Value Performing Clinician Faci lity 07-31-2021 07:46-0400 Body temperature 98.71 [degF] María Pool LPN HOME HEALTH - CNM Work Phone: [employer] Work Phone: 07-31-2021 07:46-0400 Diastolic blood pressure 78 mm[Hg] María Pool LPN HOME HEALTH - CNM Work Phone: [employer] Work Phone: 07-31-2021 07:46-0400 Heart rate 72 /min María Pool LPN HOME HEALTH - CNM Work Phone: [employer] Work Phone: 07-31-2021 07:46-0400 Respiratory rate 16 /min María Pool LPN HOME HEALTH - CNM Work Phone: [employer] Work Phone: 07-31-2021 07:46-0400 Systolic blood pressure 135 mm[Hg] María Pool LPN HOME HEALTH - CNM Work Phone: [employer] Work Phone: 07-29-2021 04:02-0400 Body height 170.2 cm María Pool LPN HOME HEALTH - CNM Work Phone: [employer] Work Phone: 07-29-2021 04:02-0400 Body mass index (BMI) [Ratio] 41.04 kg/m2 María Pool LPN HOME HEALTH - CNM Work Phone: [employer] Work Phone: 07-29-2021 04:02-0400 Body weight 118.84 kg María Pool LPN HOME HEALTH - CNM Work Phone: [employer] Work Phone: 07-28-2021 00:21-0400 Diastolic blood pressure 86 mm[Hg] Selma Sifuentes LPN HOME HEALTH - CNM Work Phone: [employer] Work Phone: 07-28-2021 00:21-0400 Heart rate 63 /min Selma Sifuentes APRN - CNM Work Phone: [employer] Work Phone: 07-28-2021 00:21-0400 Systolic blood pressure 140 mm[Hg] Selma Sifuentes APRN - CNM Work Phone: [employer] Work Phone: 07-27-2021 23:08-0400 Respiratory rate 17 /min Selma Sifuentes APRN - CNM Work Phone: [employer] Work Phone: 07-27-2021 22:36-0400 Body height 170.2 cm Selma Sifuentes APRN - CNM Work Phone: [employer] Work Phone: 07-27-2021 22:36-0400 Body mass index (BMI) [Ratio] 41.5 kg/m2 Selma Sifuentes APRN - CNM Work Phone: [employer] Work Phone: 07-27-2021 22:36-0400 Body weight 120.2 kg Selma Sifuentes APRN - CNM Work Phone: [employer] Work Phone: 07-27-2021 22:18-0400 Body temperature 98.01 [degF] Selma Sifuentes APRN - CNM Work Phone: [employer] Work Phone: 07-21-2021 12:20-0400 Body temperature 98.01 [degF] Selma Sifuentes APRN - CNM Work Phone: [employer] Work Phone: 07-21-2021 12:20-0400 Diastolic blood pressure 75 mm[Hg] Selma Sifuentes APRN - CNM Work Phone: [employer] Work Phone: 07-21-2021 12:20-0400 Heart rate 86 /min Selma Sifuentes APRN - CNM Work Phone: [employer] Work Phone: 07-21-2021 12:20-0400 Respiratory rate 20 /min Selma Sifuentes APRN - CNM Work Phone: [employer] Work Phone: 07-21-2021 12:20-0400 Systolic blood pressure 130 mm[Hg] Selma Sifuentes APRN - CNM Work Phone: [employer] Work Phone: 07-20-2021 14:45-0400 Body height 170.2 cm Selma Sifuentes APRN - CNM Work Phone: [employer] Work Phone: 07-20-2021 14:45-0400 Body mass index (BMI) [Ratio] 41.5 kg/m2 Selma Sifuentes APRN - CNMippin Work Phone: [employer] Work Phone: 07-20-2021 14:45-0400 Body weight 120.2 kg Selma Sifuentes APRN - CNM Work Phone: [employer] Work Phone: Encounters Encounter Date Encounter Type Care Provider Facility Start: 05-20-2024 End: 05-20-2024 ambulatory DO Florin Demetra Work Phone: [facility] Work Phone: Start: 05-20-2024 End: 05-20-2024 Departed Referred DO Florin Demetra Work Phone: [facility] Start: 04-15-2024 End: 04-15-2024 ambulatory MARYCARMEN NAYAK Not Available Start: 04-10-2024 End: 04-10-2024 ambulatory MARYCARMEN NAYAK Not Available Start: 04-09-2024 End: 04-09-2024 ambulatory DEB Marty HAN Not Available Start: 04-08-2024 End: 04-08-2024 ambulatory MARYCARMEN NAYAK Not Available Start: 04-02-2024 End: 04-02-2024 ambulatory FLORIN MCCRARY Not Available Start: 03-13-2024 End: 03-13-2024 ambulatory SELMA SIFUENTES Not Available Start: 03-11-2024 End: 03-11-2024 ambulatory MARICHUY SKY Not Available Start: 03-04-2024 End: 03-04-2024 ambulatory MAGALIE ISLASENFABRICIO Not Available Start: 12-18-2023 Telephone encounter Marycarmen Marek Antonio nassar MD Work Phone: [facility] Start: 11-09-2023 End: 11-09-2023 ambulatory MAGALIE ISLASENBURG Not Available Start: 09-24-2021 End: 09-24-2021 ambulatory MITA GONZALES Facility:[facility]1 Start: 07-29-2021 End: 07-31-2021 Evaluation and management of inpatient HIAWATHA Jerry [facility] Start: 07-29-2021 End: 07-31-2021 Evaluation and management of inpatient [facility] Work Phone: [facility] Labor and Delivery Start: 07-28-2021 End: 07-28-2021 ambulatory [facility] Start: 07-27-2021 End: 07-28-2021 Subsequent hospital visit by physician Selma Sifuentes APRN - CNMarty Work Phone: [facility] Labor and Delivery Start: 07-20-2021 End: 07-21-2021 Evaluation and management of inpatient MARYCARMEN NAYAK [facility] Start: 07-20-2021 End: 07-21-2021 Evaluation and management of inpatient Selma Sifuentes LPN HOME HE[facility] - CNM Work Phone: [facility] Labor and Delivery Start: 10-27-2020 End: 10-27-[address] OLY BIRD Facility:[facility]1 Start: 10-27-2020 End: 10-27-2020 Patient encounter procedure RINKU NAJERA Facility:[facility]1 Procedures Date Procedure Procedure Detail Performing Clinician Start: 03-22-2023 Microscopic observat ion [Identifier] in Cervix by Cyto stain Marycarmen Nayak MD Work Phone: Start: 02-08-2023 Mammography Marycarmen Nayak MD Work Phone: Start: 07-29-2021 GLUCOSE, WHOLE BLOOD Ka hans Edwards Pool LPN HOME HEALTH - CNM Work Phone: Start: 07-29-2021 Drug screen class list a María Edwards Pool LPN HOME [facility] - CNM Work Phone: Start: 07-29-2021 Blood count complete auto&auto difrntl wbc María Edwards Pool LPN [facility] - CNM Work Phone: Start: 07-27-2021 Urinalysis microscop ic only María Edwards Pool LPN [facility] - CNM Work Phone: Start: 07-27-2021 Urnls dip stick/tabl et rgnt auto w/o microscopy María Edwards Pool LPN [facility] - CNM Work Phone: Start: 07-21-2021 GLUCOSE, WHOLE BLOOD Portia Sifuentes LPN HOME [facility] - CNM Work Phone: Start: 07-21-2021 GLUCOSE, WHOLE BLOOD Portia Sifuentes LPN [facility] - CNM Work Phone: Start: 07-21-2021 Antibody screen Selma Sifuentes LPN HOME [facility] - CNM Work Phone: Start: 07-20-2021 Blood count complete auto&auto difrntl wbc Selma Sifuentes LPN [facility] - CNM Work Phone: Start: 07-20-2021 GLUCOSE, WHOLE BLOOD Portia Sifuentes LPN HOME [facility] - CNM Work Phone: Start: 07-20-2021 Blood count complete auto&auto difrntl wbc Selma Sifuentes LPN HOME [facility] - CNM Work Phone: Start: 07-20-2021 Blood typing serologic abo Selma Sifuentes LPN [facility] - CNM Work Phone: Start: 07-20-2021 Urinalysis microscop ic only Selma Sifuentes LPN HOME HE[facility] - CN Work Phone: Start: 07-20-2021 Urnls dip stick/tabl et rgnt auto w/o microscopy Selma Sifuentes LPN HOME HE[facility] - CN Work Phone: Start: 07-19-2021 GBS, EXTERNAL RESULT Va spike Sifuentes LPN HOME HEALTH - CN Work Phone: Start: 12-29-2020 ABO, EXTERNAL RESULT Hi storical Provider Start: 12-29-2020 Antibody hiv-1&hiv-2 single result Selma Sifuentes LPN HOME HEALTH - CN Work Phone: Start: 12-29-2020 Antibody screen Selma Sifuentes LPN HOME HEALTH - CN Work Phone: Start: 12-29-2020 Chlamydia culture Yovanny Sifuentes LPN [facility] - [facility] Work Phone: Start: 12-29-2020 Iaadiadoo neisseria gonorrhoeae Selma Sifuentes LPN [facility] - [facility] Work Phone: Plan of Treatment Date Care Activity Detail Author Start: 03-22-2028 Screening for malign ant neoplasm of cervix [facility] Start: 03-22-2026 Screening for malign ant neoplasm of cervix Pap Smear [facility] Start: 02-09-2024 Screening for malign ant neoplasm of breast Mammogram [facility] Start: 07-07-2023 Influenza vaccination Influenza Vacc ine (#1) [facility] Start: 07-07-2021 Influenza vaccination Flu vaccine (# 1) [employer] Phone: Start: 2021 Diabetes screen Diabetes screen [employer] Phone: Start: 2021 Lipid panel Lipid screen [facility] Work Phone: Start: 2011 Screening for malign ant neoplasm of cervix [facility] [employer] Phone: Start: 2002 Screening for malign ant neoplasm of cervix Pap smear [facility] [employer] Phone: Start: 2000 DTaP/Tdap/Td vaccine (1 - Tdap) DTaP/Tdap/Td vaccine (1 - Tdap) [employer] Phone: Start: 1993 COVID-19 Vaccine (1) COVID-19 Vaccin e (1) [employer] Phone: Start: 1982 Varicella vaccine (1 of 2 - 2-dose childhood series) Varicella vaccine (1 of 2 - 2-dose childhood series) [employer] Phone: Start: 1981 Hepatitis C screening Hepatitis C sc reen [employer] Phone: End: 07-20-2021 Bacteria identified in Urine by Culture Urine culture Microbiology Routine One Time for 1 Occurrences starting 07/20/2021 until 07/20/2021 [employer] Phone: Comment on above: One Time for 1 Occur rences starting 07/20/2021 until 07/20/2021 End: 07-27-2021 Bacteria identified in Urine by Culture Urine culture Microbiology Routine One Time for 1 Occurrences starting 07/27/2021 until 07/27/2021 [employer] Phone: Comment on above: One Time for 1 Occur rences starting 07/27/2021 until 07/27/2021 Bacteria identified in Urine by Culture Urine culture Microbiology [employer] Print 07/27/2021 10:30 PM EDT [employer] Phone: Glucose [Mass/volume ] in Serum or Plasma POCT glucose Point of Care Testing Routine TID until discontinued starting 07/21/2021 [employer] Phone: Comment on above: TID until discontinu ed starting 07/21/2021 Nonrebreather mask oxygen [employer] Phone: Comment on above: As directed - RT (MS N) until discontinued starting 07/20/2021 As directed - RT (MS N) until discontinued starting 07/27/2021 End: 07-29-2021 RHOGAM RHOGAM Blood Bank Routine One Time for 1 Occurrences starting 07/29/2021 until 07/29/2021 [employer] Phone: Comment on above: One Time for 1 Occur rences starting 07/29/2021 until 07/29/2021 End: 07-20-2021 SVE SVE Point of Care Testing Routine One Time for 1 Occurrences starting 07/20/2021 until 07/20/2021 [employer] Phone: Comment on above: One Time for 1 Occur rences starting 07/20/2021 until 07/20/2021 End: 07-27-2021 SVE SVE Point of Care Testing Routine One Time for 1 Occurrences starting 07/27/2021 until 07/27/2021 [employer] Phone: Comment on above: One Time for 1 Occur rences starting 07/27/2021 until 07/27/2021 End: 07-27-2021 Urinalysis Urinalysis Lab Routine One Time for 1 Occurrences starting 07/27/2021 until 07/27/2021 [employer] Phone: Comment on above: One Time for 1 Occur rences starting 07/27/2021 until 07/27/2021 Immunizations Immunization Date Immunization Notes Care Provider Luz Marina aiken 07-29-2021 diphtheria, tetanus toxoids and acellular pertussis vaccine, unspecified formulation María Pool LPN HOME HEALTH - CNM Work Phone: [employer] Work Phone: 07-29-2021 measles, mumps and rubella virus vaccine María Pool LPN HOME HE[facility] - CNM Work Phone: [employer] Phone: 06-30-2021 tetanus toxoid, redu graciela diphtheria toxoid, and acellular pertussis vaccine, adsorbed Marycarmen Nayak MD Work Phone: [facility] Payers Date Payer Category Payer Unknown [id number] 2023 Unknown [id number] 2023 Medicaid [facility] Y MEDICAID [place] [id number] 2023-Present [address] [place] [address] [id number] 2020 Unknown [id number] 1981 Unknown [id number] 1981 Unknown [id number] 1981 Unknown [id number] 1981 Unknown [id number] 1981 Unknown [id number] 1981 Unknown [id number] [id number] 1981 Unknown [id number] [id number] 1981 Unknown [id number] [id number] 1981 Unknown [id number] [id number] 1981 Unknown [id number] [id number] 1981 Unknown [id number] [id number] 1981 Unknown [id number] [id number] 1981 Unknown [id number] [id number] 1981 Unknown [id number] 1959 Unknown [id number] Social History Date Type Detail Facility Start: 07-20-2021 End: 04-13-2023 Tobacco smoking status AKIS Former smoker [employer] Phone: Start: 11-06-1994 End: 07-20-2020 History of tobacco use Current smoker [employer] Start: 07-20-2021 End: 04-13-2023 Tobacco use and exposure Never used [employer] Start: 07-20-2021 End: 07-29-2021 Alcohol intake Lifetime non-drinker (finding) [employer] Phone: Start: 07-20-2021 History SDOH Alcohol Frequency 1 [employer] Phone: Start: 11-22-2020 [employer] Phone: Start: 1980 Sex Assigned At Not on file [employer] Phone: Exposure to SARS-CoV -2 (event) Not sure [employer] Start: 11-06-1994 End: 11-06-2019 History of tobacco use Cigarette Smoker [facility] Start: 11-10-2023 Alcohol intake Ex-drinker (finding) [...] got money to buy more. Never true [facility] In the past 12 month s, was there a time when you were not able to pay the mortgage or rent on time? Yes [facility] Start: 06-13-2023 Alcohol Comment caffeiene: 1-2 cups/day [facility] Start: 07-13-2023 Sexual orientation Heterosexual (finding) [facility] Start: 1980 Sex Assigned At Female [facility] Clinical Notes 07-21-2021 to 12-18-2023 Telephone Encounter - Helen Hairston - 12/18/2023 1:05 PM ESTTelephone Encounter - Helen Hairston - 12/18/2023 1:05 PM Selma Boss APRN - CNM - 07/31/2021 4:03 AM EDT Note Date & Type Note Facility 12-18-2023 Telephone encounter Note Handicapped ese expires in January, and she is requesting a new rx for this. [facility] 12-18-2023 Miscellaneous Notes Handicapped ese expires in January, and she is requesting a new rx for this. documented in this encounter [facility] 07-31-2021 History of Presen t illness Narrative Department of Obstetrics and Gynecology [...] room for epidural. documented in this encounter [employer] Phone: 07-28-2021 History of Presen t illness Narrative Pt provided with discharge instructions. [...] other. Joi Barnes CNM updated with SVE. STEVEN states okay to discharge patient. CNM stated [...] arrives to OB department in wheelchair with JESSICA Coronado. Pt complains of 6/10 pain with [...] during this time. documented in this encounter [employer] Phone: 07-21-2021 History of Presen t illness Narrative To patients room. She is uncomfortable and states the contractions are far apart but they feel different. SVE stretchy 3/60/-3 and ballotable. Baby is not engaged against [...] patient is 3/60/-3 and not engaged. Veronica Siufentes CNM updated with SVE, contraction pattern, pain [...] updated with plan. documented in this encounter [employer] Phone: Evaluation note Diagnosis Uterine contractions during documented in this encounter [employer] Phone: evaluation note* Diagnosis Uterine contractions during (normal spontaneous vaginal delivery) Normal delivery Amniotic fluid leaking Premature rupture of membranes in , unspecified as to episode of care documented in this encounter [employer] Phone: evaluation noteNo assessment information available [facility] Work Phone: Hospital Discharge instructions* Instructions* Priya Sanchez, RN - 07/21/[address] Ana Cristina Barnes CNM Dr. Desirae Sullivan CN [address] [facility] [address] [facility] [address] [address] Desirae DIGGS [facility] CN [address] [facility] [id number] [phone] Samra Sifuentes, MSN, LPN HOME HEALTH, CNM [facility] [address] [facility] [address] [address] [facility] [address] Jazmine Boateng CNM [address] [place] [address] [place] [address] Magy Wells CNM [address] [facility] [place] [address] [phone] ACTIVITY LIMITATIONS: ( )Up and about as [...] one to the start of the next contraction)lasting 60 seconds for at least 1 hour, [...] LABOR AND DELIVERY . [facility] Phone: Hospital Discharge instructions* Instructions* Lashon Alarcon, RN - 07/28/[address] Ana Cristina Barnes CNM Dr. Desirae Sullivan CNM [address] [facility] [address] [facility] [address] Desirae DIGGS [facility] CN [address] [facility] [address] [phone] Samra Sifuentes, MSN, LPN HOME HEALTH, CNM [facility] [address] [facility] [address] [address] [facility] [address] Jazmine Boateng CNM [address] [place] [address] [place] [address] Magy Wells CNM [address] [address] [place] [address] [phone] ACTIVITY LIMITATIONS: ( x )Up and about [...] LABOR AND DELIVERY . documented in this [employer] Phone: Hospital Discharge instructions* Instructions* Kristie Houser RN - 07/31/2021 Follow-up with your OB doctor as specified. [facility] OB Department phone: Dr. Ana Cristina Barnes M Dr. Desirae Sullivan [facility] [address] [facility] [address] [facility] [address] [place] DIET Eat a well balanced diet focusing on foods high in fiber and protein. Drink plenty of fluids especially water. To avoid constipation you may take a mild stool softener as recommended by your doctor or language pathologist. ACTIVITY Gradually increase your activity. Resume exercise regimen only after advice by your doctor or language pathologist. Avoid lifting anything heavier than a gallon of milk for SIX weeks. Avoid driving until your doctor or language pathologist has given their approval. Rise slowly from [...] have thoughts of harming yourself or your . If infant will not stop crying, contact another adult for help or place in their crib on their back and take a break. NEVER shake your infant. BLEEDING Vaginal bleeding will decrease in amount over the next few weeks. You will notice that as your activity increases, your flow may increase. This is your body's way oftelling you, you need to take things easier and rest more often. Call your care provider if you are saturating more than one maxi pad in an hour & resting does not help. BREAST CARE Take medications as recommended by your doctor or language pathologist for pain If you develop a warm, [...] vitamins as directed by your doctor or language pathologist. Refer to the booklet in the folder/binder for more information. If you feel you need more assistance or have questions, please call Senait Vizcarra IBCLC, software sales consultant, at or the OB department to schedule an appointment or phone consultation. For more FREE help, visit the Support Group on Monday evenings at 7 pm in the OB department. ADRIEL CARE Use the dariel-bottle after toileting until [...] area in your calf. documented in this 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 ACP-Advance Directive ACP-[employer] Roboticist Latest Code Status on File Code Status [...] Code 07/27/2021 10:29 PM 07/28/2021 5:32 AM Advance Directive Response Recorded Date/ Time Advance Directives No May 21 1:05pm Additional Source Comments INFORMATION SOURCE (unrecogn ized section and content) DATE CREATED AUTHOR 10/29/2020 [facility] DATE CREATED AUTHOR AUTHOR'S ORGANIZ ATION 08/02/2021 [facility] DATE CREATED AUTHOR AUTHOR'S ORGANIZ ATION 10/04/2021 [facility] DATE CREATED AUTHOR AUTHOR'S ORGANIZ ATION 09/16/2022 [facility] dical Specialist DATE CREATED AUTHOR AUTHOR'S ORGANIZ ATION 04/20/2024 [facility] dical Specialists EPIC Reason for Visit (unrecogniz ed section and content) Reason Comments Contractions Reason Comments Rupture of Membranes Status Reason Specialty Diagnoses / Procedures Referre d By Contact Referred To Contact Diagnoses Uterine contractions during María Barnes APRN - STEVEN [address] [place] [address] [facility] Scheduled Active and Recently Administ ered Medications (unrecognized section and content) Medication Order 07/19/2021 07/20/2021 07/21/2021 nalbuphine (NUBAIN) injection 20 mg (COMPLETED) 20 mg, IntraMUSCular, ONCE, On Mon07/20/21 at 2014, For 1 dose 2004 (Given - Provider: [...] at 2246 2316 (Given - Provider: Caterina Bautista RN) Scheduled Medication Order 07/29/2021 07/30/2021 07/31/2021 benzocaine-menthol (DERMOPLAST) 20-0.5 % spray Topical, 2 TIMES DAILY, First dose on Vera 07/29/21 at 0915, Apply to perineal area. Patient is capable and may self administer at bedside., 0915 (Due)2100 (Due) 0856 (Not Given - Provider: Miriam Wong RN - Reason: Patient/family refused)2100 (Due) 0932 (Not Given - Provider: Kristie Houser RN - Reason: Other)2100 (Due) ibuprofen (ADVIL;MOTRIN) tablet 800 mg 800 mg, Oral, EVERY 8 HOURS, First dose on Vera 07/29/21 at 0915, Do not crush or break., 0906 (Given - Provider: Jenny Moore, RN)1757 (Given - Provider: Sudha Lee, RN) 0018 (Given - Provider: Lashon Alarcon, RN)0856 (Given - Provider: Miriam Wong, RN)1704 (Given - Provider: Sudha Lee, RN) 0117 (Given - Provider: Caterina Bautista RN)0936 (Given - Provider: Kristie Houser, JONH)1715 (Due) measles, mumps & rubella vaccine (MMR) injection 0.5 mL 0.5 mL, SubCUTAneous, PRIOR TO DISCHARGE, Starting on Vera 07/29/21 at 0855, For 1 dose, sodium chloride flush 0.9 % injection 10 mL 10 mL, IntraVENous, EVERY 12 HOURS SCHEDULED (2 times per day), First dose on Vera 07/29/21 at 0915, 914 (Due)2099 (Due) 0856 (Not Given - Provider: Miriam Wong RN - Reason: Loss of IV access)2099 (Due) 932 (Not Given - Provider: Kristie Houser RN - Reason: Loss of IV access)2100 (Due) Yjtqjdm-Mhzbxm-Jeyuo Pertussis (BOOSTRIX) injection 0.5 mL 0.5 mL, IntraMUSCular, PRIOR TO DISCHARGE, Starting on Vera 07/29/21 at 0855, For 1 dose, If not [...] - Provider: Kristie Houser, JONH - Reason: Other)2100 (Due) PRN Medication Order 07/29/2021 07/30/2021 07/31/2021 [...] Moore, RN)2000 (Given - Provider: Obdulia Farrell, RN) 0025 (Given - Provider: Lashon Alarcon, RN)1353 (Given - Provider: Miriam Wong, RN)1801 (Given - Provider: Sudha Lee, JONH)2212 (Given - Provider: Aileen Sands, RN) 0749 (Given - Provider: Kristie Houser, JONH) [...] Delivery 0536 (Given - Provider: Mariola Tinoco, JONH)0746 (Given - Provider: Jenny Moore, JONH) oxytocin [...] Delivery 0845 (New Bag - Provider: Jenny Moore RN) rho(D) immune globulin (HYPERRHO S/D) injection 300 [...] Sig Dispensed Refills Start Date End Da te lansinoh lanolin CREA ointment Apply 1 applicator topically as needed for Dry Skin (nipple discomfort) 1 each 3 07/31/2021 ibuprofen (ADVIL;MOTRIN) 800 MG tablet Take 1 tablet by mouth every 8 hours 120 tablet 3 07/31/2021 Care Teams (unrecognized sec tion and content) [employer] Worker Relationship Specialty Start Date End Date Marycarmen Nayak MD [address] [place] [address] PCP - General Family Medicine 03/15/23 Marycarmen Nayak MD [address] [facility] [place] [address] PCP - [facility] 05/06/23 Kimberlee Yang NP [address] [facility] [place] [address] Nurse Practitioner Family Medicine 03/15/23 Team Status: Inactive Member Role Status Dates Florin Mccrary DO Attending Provider Active Start : May 20, 2024 End: May 20, 2024 Goals (unrecognized section and content) Goals may be documented in a n alternate section FOR RECORDS PERTAINING TO PATIENTS WHO ARE [...] BE BASED ON THE PRIMARY CLINICAL RECORDS. [facility] provides no warranty or guarantee of the accuracy or completeness of information in this document.
== END 2024-05-20 21:07 | disposition home or self-care (01) ==
LOC: LAB 10:00
PROVIDERS: PCP Family Medicine; Visit Provider Obstetrics & Gynecology
DX: N92.6 Irregular menstruation, unspecified (principal)
CPT/HCPCS: 88305

== ENCOUNTER 2024-06-21 09:18 | Outpatient (OUT) | payer OTHER, SELFPAY ==
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
[2024-06-21 10:18] LABS: Basophils Percent Auto 0.4 % (0.2-2.0); Eosinophils Absolute Auto 0.1 10^3/uL (0.0-0.7); Eosinophils Percent Auto 1.2 % (0.9-7.0); Hematocrit 37.3 % (36.0-48.0); Hemoglobin 13.5 g/dL (12.0-16.0); Immature Granulocytes Abs Auto 0.01 10^3/uL (0.00-0.03); Immature Granulocytes Pct Auto 0.1 % (0.0-0.5); Lymphocytes Absolute Auto 2.2 10^3/uL (1.2-3.8); Lymphocytes Percent Auto 32.5 % (20.5-60.0); Mean Corpuscular HGB Conc 36.2 g/dL (29.9-35.2); Mean Corpuscular Hemoglobin 28.2 pg (26.7-34.0); Mean Corpuscular Volume 77.9 fL (81.0-99.0); Mean Platelet Volume 9.5 fL (9.5-13.5); Monocytes Absolute Auto 0.6 10^3/uL (0.3-0.8); Monocytes Percent Auto 8.7 % (1.7-12.0); Neutrophils Absolute Auto 3.9 10^3/uL (1.4-6.5); Neutrophils Percent Auto 57.1 % (43.0-75.0); Platelet Count 355 10^3/uL (150-450); Red Blood Count 4.79 10^6/uL (4.20-5.40); Red Cell Distribution Width 13.4 % (11.0-15.0); White Blood Count 6.8 10^3/uL (4.0-11.0)
[2024-06-21 10:41] LABS: Alanine Aminotransferase 25 U/L (14-59); Albumin Globulin Ratio 1.2; Albumin Level 3.6 g/dL (3.4-5.0); Alkaline Phosphatase 69 U/L (46-116); Anion Gap 14.2; Aspartate Amino Transferase 12 U/L (15-37); BUN Creatinine Ratio 11.7; Bilirubin Direct 0.1 mg/dL (0.0-0.2); Bilirubin Total 0.2 mg/dL (0.2-1.0); Calcium 8.7 mg/dL (8.5-10.1); Carbon Dioxide 21.6 mmol/L (21.0-32.0); Chloride 107 mmol/L (98-107); Estimated GFR (African America >60 (>=60); Estimated GFR (Non-African Ame >60 (>=60); Globulin 3.1 g/dL; Glucose 102 mg/dL (74-106); INR 1.01; Partial Thromboplastin Time 25.9 sec (22.3-36.2); Potassium 3.8 mmol/L (3.5-5.1); Prothrombin Time 10.7 sec (9.0-11.6); Sodium 139 mmol/L (136-145); Total Protein 6.7 g/dL (6.4-8.2)
== END 2024-06-21 09:19 | disposition home or self-care (01) ==
LOC: PST 09:22
PROVIDERS: PCP Family Medicine; Visit Provider Obstetrics & Gynecology
DX: Z01.812 Encounter for preprocedural laboratory examination (principal); Z01.818 Encounter for other preprocedural examination; N92.1 Excessive and frequent menstruation with irregular cycle; R10.2 Pelvic and perineal pain; N94.10 Unspecified dyspareunia; N94.6 Dysmenorrhea, unspecified
CPT/HCPCS: 80048; 80076; 85025; 85610; 85730; 86850; 86900; 86901; G0463

== ENCOUNTER 2024-07-04 11:10 | Day surgery (SDC) | payer OTHER, SELFPAY ==
[2024-06-21 09:58] VITALS: BP 138/87; PULSE 92; TEMP 36.5; O2SAT 100; BMI 35.1
[2024-07-04] VITALS (16 sets, daily range): BP systolic 106–145; BP diastolic 64–85; PULSE 69–95; TEMP 36.2–36.4; O2SAT 95–100; BMI 33.6; BMI 33.7
[2024-07-04 11:19] LABS: Basophils Percent Auto 0.1 % (0.2-2.0); Eosinophils Absolute Auto 0.1 10^3/uL (0.0-0.7); Eosinophils Percent Auto 1.4 % (0.9-7.0); Hematocrit 36.4 % (36.0-48.0); Hemoglobin 13.5 g/dL (12.0-16.0); Immature Granulocytes Abs Auto 0.03 10^3/uL (0.00-0.03); Immature Granulocytes Pct Auto 0.4 % (0.0-0.5); Lymphocytes Absolute Auto 2.6 10^3/uL (1.2-3.8); Lymphocytes Percent Auto 37.1 % (20.5-60.0); Mean Corpuscular HGB Conc 37.1 g/dL (29.9-35.2); Mean Corpuscular Hemoglobin 28.7 pg (26.7-34.0); Mean Corpuscular Volume 77.4 fL (81.0-99.0); Mean Platelet Volume 9.1 fL (9.5-13.5); Monocytes Absolute Auto 0.5 10^3/uL (0.3-0.8); Monocytes Percent Auto 7.6 % (1.7-12.0); Neutrophils Absolute Auto 3.7 10^3/uL (1.4-6.5); Neutrophils Percent Auto 53.4 % (43.0-75.0); Platelet Count 284 10^3/uL (150-450); Red Cell Distribution Width 13.7 % (11.0-15.0)
--- OUTSIDE RECORDS SUMMARY | 2024-07-04 11:24 | XMS_ITS | CCD ---
Author Organization [facility] Care Team Providers Care Fingernail Technician Name Role Phone RINKU NAJERA Attending Unavailable RINKU NAJERA Admitting Unavailable MITA GONZALES Primary Care Unavailable OLY BIRD Consulting Unavailable RINKU NAJERA Consulting Unavailable Marycarmen Nayak MD Primary Care Provider [phone] POOLMARÍA E Admitting Unavailable MARÍA BARNES Attending Unavailable MARYCARMEN NAYAK Primary Care Unavailable MARYCARMEN NAYAK Primary Care Unavailable LILLIAN SIFUENTESERIE Admitting Unavailable SELMA SIFUENTES Attending Unavailable MARYCARMEN NAYAK Primary Care Unavailable LILLIAN SIFUENTESERIE Admitting Unavailable SELMA SIFUENTES Attending Unavailable DR OLY BIRD Consulting Unavailable RINKU NAJERA Admitting Unavailable RINKU NAJERA Attending Unavailable RINKU NAJERA Consulting Unavailable MITA GONZALES Primary Care Unavailable LALI EL Admitting Unavailable SIENNA, LALI Consulting Unavailable LALI EL Attending Unavailable Malini DIGGS, Mraycarmen Jara Primary Care Provider [phone] Trey MILLER HEAD WET PROCESS, Kimberlee R Unavailable Marycarmen Nayak MD Unavailable DO Florin Mccrary Attending Provider Florin Mccrary Attending Unavailable Florin Mccrary Admitting Unavailable MAGALIE PÑEALOZA Attending Unavailab MAGALIE Harris Attending Unavailab MARICHUY Nair Attending Unavailable MAGALIE PEÑALOZA Referring Unavailab SELMA Rossi Referring Unavailable FLORIN MCCRARY Attending Unavailable MARYCARMEN NAYAK Attending Unavailable DEB SHORT Attending Unavailab MARYCARMEN Mcneil Attending Unavailable MARYCARMEN NAYAK Attending Unavailable FLORIN MCCRARY Attending Unavailable MARYCARMEN NAYAK Attending Unavailable Allergies Allergy Classification Reported Allergen(s) Allergy Type Date of Onset Reaction(s) Facility (3 sources) Adhesive Tape Propensity to adverse reactions to drug 1 Other (See Comments) [facility] (3 sources) Latex Propensity to adverse reactions to drug 1 Rash [facility] (1 source) Latex Allergy to substance 3 Swelling [facility] Work Phone: (1 source) Wound Dressing Adhesive Propensity to adverse reactions 3 Other [facility] Medications Current Medications Medication [...] mom negative and baby positive, Starting on Mon07/29/21 at 0855, For 1 dose, rimegepant 75 mg disintegrating oral tablet (1 source) Start: 12-22-2022 Nurtec 75 MG tablet dispersible 3 ml sodium chloride 9 mg/ml injection (3 sources) Start: 07-29-2021 10 mL, IntraVENous, EVERY 12 HOURS SCHEDULED (2 times per day), First dose on Mon07/29/21 at 0915, Start: 07-29-2021 take 10 mL intravenously once 10 mL, IntraVENous, PRN, Line Care, Starting on Mon07/29/21 at 0855 After every IV line use Start: 07-29-2021 take 25 mL intraveno usly every hour as needed 25 mL, IntraVENous, at 100 mL/hr, PRN, If patient receiving piggyback infusions without ordered maintenance IV fluids or with frequent/long duration piggyback infusions, Starting on Mon07/29/21 at 0855 Administer at the same rate [...] Test Name Value Interpretation Reference Range Facility [facility] 05-20-2024 L Specimen: [id number] Received: 05/21/241352 Status: DEL [place] Num: [id number] Spec Type: Surgical Subm Dr: Florin Mccrary Tissues: A Endometrium - Biopsy (EMBX) Procedures: HE/2, Gross/Micro L4 Age/ Patient Sex Location Account Attending Physician Julianna Guerra Malena 44/F LABELL [id number] Folrin Mccrary SPEC NUM: [id number] RECD: 05/21/24 STATUS: DEL CONDON NUM: [id number] LACHELLE: 05/20/24-1001 [facility] DR: Florin Mccrary ENTERED: 05/21/[address] [facility] DR: Mathieu,Lab SPEC TYPE: Surgical DEPT: DONALD BADILLO ORDERED: HE/2, Gross/Micro L4 ORDERED: HE/2, Gross/Micro L4 Pathological Diagnosis Endometrial biopsy: -Multiple strips of slightly unevenly developed secretory endometrium of the left phase type, also demonstrating occasional small foci of early breakdown disruption, otherwise without hyperplasia or atypia identified Clinical Information Irregular cycles N92.6 Gross Description Received in formalin labeled with the patient's name, date of and endometrium (per requisition) is a 2.6 x 1.6 x 0.3 cm aggregate of hemorrhagic, hernandez-brown tissue admixed with mucus, entirely submitted in A1. Microscopic Description Microscopic examinations are performed supporting the above interpretation Specimen: [id number] Received: 05/21/24 Status: DEL Condon Num: [id number] Spec Type: Surgical Subm Dr: Florin Mccrary Tissues: A Endometrium - Biopsy (EMBX) Procedures: HE/2, Gross/Micro L4 Patient: Julianna Guerra [id number] (Continued) Specimen: [id number] Received: 05/21/24 (Continued) Signed (signatur e on file) Radha Ross MD 05/23/241831 Specimen: [id number] Received: 05/21/24 Status: DEL [place]ondon Num: [id number] Spec Type: Surgical Subm Dr: Florin Mccrary Tissues: A Endometrium - Biopsy (EMBX) Procedures: DEMARCO/Augie Wilde/Kyra L4 Patient: Julianna Guerra [id number] (Continued) Specimen: [id number] Received: 05/21/24 (Continued) CPT Codes 19950 Specimen: [id number] Received: 05/21/24 Status: DEL [place]ondon Num: [id number] Spec Type: Surgical Subm Dr: Florin Mccrary Tissues: A Endometrium - Biopsy (EMBX) Procedures: DEMARCO/Augie Wilde/Kyra L4 Patient: Julianna Guerra [id number] (Continued) Signed (signatur e on file) Radha Ross MD 05/23/24 1832 Normal [facility] US PELVIS TRANSVAGINALon US PELVIS TRANSVAGINAL FINDINGS: [...] by Tyler Loza on 09/15/2022 1103 Normal [facility] Surgical Device Sales Representative XR Chest 2 Views*on 05-05-20 XR Chest 2 Views* FINDINGS: Mild diffuse interstitial prominence with peribronchial thickening. No parenchymal consolidation or alveolar infiltrates, pulmonary edema or pleural effusion. No pneumothorax. Normal cardiac silhouette size. Mild mid thoracic dextroscoliosis. IMPRESSION: Parenchymal findings can be consistent with interstitial pneumonia, asthma Report reported and signed by Dayton Graves on 05/05/2022 1225 Normal [facility] Surgical Device Sales Representative Covid-19 PCR ([facility])on 09-06 SARS-CoV-2 (COVID-19) RNA ANTHONY+probe Ql (Unsp spec) Not detected Normal NOT DETECTED [facility] Comment on above: Result Comment: This test is not yet approved or cleared by the [place] FDA. When there are no FDA-approved or cleared tests available, and other criteria are met, FDA can make tests available under an emergency access mechanism called an Emergency Use Authorization (EUA). The EUA for this test is supported by the Premium Service Representative of Health and Human Service's (HHS's) declaration [...] consistent with SARS-CoV-2. Performed By: #### C VDTB #### [facility] [address] [place] [address] Dr. Carolyn Ross CBC auto differentialOrdered By: María Barnes on 07-29-2021 Absolute Eos # 0.10 [employer] [facility] Work Phone: Absolute Immature Granulocyte 0.04 [employer] [facility] Work Phone: Absolute Lymph # 2.71 [employer] [facility] Work Phone: Absolute [place] # 0.97 [employer] [facility] Work Phone: Basophils (Bld) [#/Vol] 10*3/uL [employer] Work Phone: Basophils/100 WBC (Bld) 0 % 0 - 2 % [employer] Work Phone: Differential Type NOT REPORTED [employer] Phone: Eosinophils/100 WBC (Bld) 1 % 1 - 4 % [employer] Phone: Hematocrit (Bld) [Volume fraction] 36.2 % Low 36.3 - 47.1 % [employer] Phone: Hemoglobin.gastrointest inal spec 1 Ql (Stl) 13.0 g/dL 11.9 - 15.1 g/dL [employer] Phone: Immature granulocytes/100 WBC (Bld) 0 % 0 [employer] Phone: Interpretation and review of laboratory results Abnormal [employer] Phone: Lymphocytes/100 WBC (Bld) 26 % 24 - 43 % [employer] Phone: MCH (RBC) [Entitic mass] 27.4 pg 25.2 - 33.5 pg [employer] Phone: MCHC (RBC) [Mass/Vol] 35.9 g/dL High 28.4 - 34.8 g/dL [employer] Phone: MCV (RBC) [Entitic vol] 76.2 fL Low 82.6 - 102.9 fL [employer] Phone: Monocytes/100 WBC (Bld) 9 % 3 - 12 % [employer] Phone: NRBC Automated 0.0 0.0 per 100 WBC [employer] Phone: Platelet distribution width (Bld) [Ratio] 13.2 % 11.8 - 14.4 % [employer] Phone: Platelet Estimate NOT REPORTED [employer] Phone: Platelet mean volume (Bld) [Entitic vol] 11.4 fL 8.1 - 13.5 fL [employer] Phone: Platelets (Bld) [#/Vol] 229 10*3/uL [facility] Phone: RBC (Bld) [#/Vol] 4.75 10*6/uL 3.95 - 5.1 1 m/uL [facility] Work Phone: RBC (Bld) [#/Vol] NOT REPORTED [employer] Phone: Segmented neutrophils/100 WBC (Bld) 64 % 36 - 65 % [employer] Work Phone: Segs Absolute 6.79 [facility] Work Phone: WBC (Bld) [#/Vol] 10.6 10*3/uL [facility] Work Phone: WBC (Bld) [#/Vol] NOT REPORTED [employer] Phone: [employer] Phone: CBC with Diffon 07-29-2021 Abs. Basophil <0.03 Normal 0.00-0.20 [facility] Comment on above: Performed By: #### C DP #### [facility] [address] [place] [address] [place] [address] [employer]rick[employer] Helper: Tico Minaya MD Abs.Imm.Granulocyte 0.04 k/uL Normal 0.00-0.30 [facility] Comment on above: Performed By: #### C DP #### [facility] [address] [place] [address] [employer] Helper: Tico Minaya MD Abs.Neutrophil (Seg) 6.79 k/uL Normal 1.50-8.10 [facility] Comment on above: Performed By: #### C DP #### [address] [place] [address] [employer] Helper: Tico Minaya MD Basophils/100 WBC (Bld) 0 % Normal 0-[address] [facility] Comment on above: Performed By: #### C DP #### [facility] [address] [place] [address] [place] [address] [employer] Helper: Tico Minaya MD Eosinophils (Bld) [#/Vol] 0.10 10*3/uL Normal 0.00-0.44 [facility] Comment on above: Performed By: #### C DP #### [address] [place], [facility]83 [employer] Helper: Tico Minaya MD Eosinophils/100 WBC (Bld) 1 % Normal 1-4 [facility] Comment on above: Performed By: #### C DP #### [address] [place], [facility]83 [employer] Helper: Tico Minaya MD Erythrocyte distribution width (RBC) [Ratio] 13.2 % Normal 11.8-14.4 [facility] Comment on above: Performed By: #### C DP #### [address] [place], [facility]83 [employer] Helper: Tico Minaya MD Hematocrit (Bld) [Volume fraction] 36.2 % Low 36.3-47.1 [facility] Comment on above: Performed By: #### C DP #### [address] [place] [id number] [employer]rick[employer] Helper: Tico Minaya MD Hemoglobin (Bld) [Mass/Vol] 13.0 g/dL Normal 11.9-15.1 [facility] Comment on above: Performed By: #### C DP #### [address] [place], [facility]83 [employer] Helper: Tico Minaya MD Immature granulocytes/100 WBC (Bld) 0 % Normal 0 [facility] Comment on above: Performed By: #### C DP #### [address] [place] [facility]83 [employer] Helper: Tico Mianya MD Lymphocytes (Bld) [#/Vol] 2.71 10*3/uL Normal 1.10-3.70 [facility] Comment on above: Performed By: #### C DP #### [facility] [address] [place], [place] [id number] [employer] Helper: Tico Minaya MD Lymphocytes/100 WBC (Bld) 26 % Normal 24-43 [facility] Comment on above: Performed By: #### C DP #### [facility] [address] [place], [place] [id number] [employer]rick[employer] Helper: Tico Minaya MD MCH (RBC) [Entitic mass] 27.4 pg Normal 25.2-33.5 [facility] Comment on above: Performed By: #### C DP #### [address] [place], [place] 5639783 [employer]rick[employer] Helper: Tico Minaya MD MCHC (RBC) [Mass/Vol] 35.9 g/dL High 28.4-34.8 [facility] Comment on above: Performed By: #### C DP #### [address] [place], [place] 6677883 [employer]rick[employer] Helper: Tico Minaya MD MCV (RBC) [Entitic vol] 76.2 fL Low 82.6-102.9 [facility] Comment on above: Performed By: #### C DP #### [facility] [address] [place] [address] Dr[place], [place] [id number] Derrick[employer] Helper: Tico Minaya MD Monocytes (Bld) [#/Vol] 0.97 10*3/uL Normal 0.10-1.20 [facility] Comment on above: Performed By: #### C DP #### [address] [place] [address] [employer]rick[employer] Helper: Tico Minaya MD Monocytes/100 WBC (Bld) 9 % Normal 3-[address] [facility] Comment on above: Performed By: #### C DP #### [facility] [address] [place], [place] 5283083 Derrick[employer] Helper: Tico Minaya MD Neutrophil (Seg) 64 % Normal 36-65 [facility] Comment on above: Performed By: #### C DP #### [facility] [address] [place], [place] 0226283 [employer] Helper: Tico Minaya MD NRBC Automated 0.0 per [address] [facility] Comment on above: Performed By: #### C DP #### [facility] [address] [place] 6342783 [employer]rick[employer] Helper: Tico Minaya MD Platelet mean volume (Bld) [Entitic vol] 11.4 fL Normal 8.1-13.5 [facility] Comment on above: Performed By: #### C DP #### [address] [place], [place] 6270783 [employer] Helper: Tico Minaya MD Platelets (Bld) [#/Vol] 229 10*3/uL Normal 138-453 [facility] Comment on above: Performed By: #### C DP #### [address] [place], [place] 5617183 Derrick[employer] Helper: Tico Minaya MD RBC (Bld) [#/Vol] 4.75 10*6/uL Normal 3.95-5.11 [facility] Comment on above: Performed By: #### C DP #### [address] [place], [place] 3322683 [employer] Helper: Tico Minaya MD WBC (Bld) [#/Vol] 10.6 10*3/uL Normal 3.5-11.3 [facility] Comment on above: Performed By: #### C DP #### [facility] [address] [place] [address] [place] [address] [employer]rick[employer] Helper: Tico Minaya MD Auto Diff Performed NOT REPORTED Normal [facility] Comment on above: Performed By: #### C DP #### [facility] [address] [place] [address] [place] [address] Derrick[employer] Helper: Tico Minaya MD Platelet Estimate NOT REPORTED Normal [facility] Comment on above: Performed By: #### C DP #### [facility] [address] [place] [address] Dr[place], [place] [id number] Derrick[employer] Helper: Tico Minaya MD RBC morphology finding Nom (Bld) NOT REPORTED Normal [facility] Comment on above: Performed By: #### C DP #### [address] [place] [address] [employer]rick[employer] Helper: Tico Minaya MD WBC Morphology NOT REPORTED Normal [facility] Comment on above: Performed By: #### C DP #### [facility] [address] [place] [address] [place] [address] [employer] Helper: Tico Minaya MD Cult,Urineon 07-29-2021 Cult,Urine Specimen Description .CLEAN CATCH URINE Special Requests NOT REPORTED Culture NO SIGNIFICANT GROWTH Report Status FINAL 07/29/[address] [facility] Comment on above: Performed By: #### U RC #### [facility] [address] [place], [place] [id number] [employer] Helper: Kvng Soares MD [facility] [address] [place] [address] [place] [address] [employer] Helper: Tico Minaya MD DRUG SCREEN MULTI URINEOrder ed By: María Barnes on 07-29-2021 Amphetamine Screen, Ur Negative NEGATIVE Me [facility] [employer] Work Phone: Barbiturate Screen, Ur Negative NEGATIVE Me [facility] Work Phone: Benzodiazepine Screen, Urine Negative NEGATIVE [facility] Work Phone: Buprenorphine Urine Negative NEGATIVE [facility] Work Phone: Cannabinoid Scrn, Ur Negative NEGATIVE [facility] Work Phone: Cocaine Metabolite, Urine Negative NEGATIVE [facility] Work Phone: MDMA, Urine NOT REPORTED NEGATIVE [facility] Work Phone: Methadone Screen, Urine Negative NEGATIVE [facility] Work Phone: Methamphetamine, Urine Negative NEGATIVE [facility] Work Phone: Opiates, Urine Negative NEGATIVE [facility] Work Phone: Oxycodone Screen, Ur Negative NEGATIVE [facility] Work Phone: Phencyclidine, Urine Negative NEGATIVE [facility] Work Phone: Propoxyphene, Urine Negative NEGATIVE [facility] Work Phone: Test Information NOT REPORTED [facility] Work Phone: Tricyclic Antidepressants, Urine Negative NEGATIVE [facility] Work Phone: Comment on above: Drug screen results are to be used for medical purposes only. All positive results are unconfirmed. Testing for employment or legal uses should be sent to a reference laboratory for confirmation. [facility] Work Phone: Drug Scr, Abuse, Uron 2020 Amphetamine(s),Ur Negative Normal NEG [facility] Comment on above: Performed By: #### D AU #### [facility] [address] [place] [address] [employer] Helper: Tico Minaya MD Barbiturate(s),Ur Negative Normal NEG [facility] Comment on above: Performed By: #### D AU #### [facility] [address] [place] [address] [employer] Helper: Tico Minaya MD Benzodiazepine(s) Negative Normal NEG [facility] Comment on above: Performed By: #### D AU #### [facility] [address] [place], [place] 7[address]83 [employer]man Helper: Tico Minaya MD Buprenorphrine, Ur Negative Normal [facility] Comment on above: Performed By: #### D AU #### [facility] [address] [place], [place] 2356183 Derrickman Helper: Tico Minaya MD Cannabinoid(s),Ur Negative Normal NEG [facility] Comment on above: Performed By: #### D AU #### [facility] [address] [place], [place] 0175583 [employer] Helper: Tico Minaya MD Cocaine Metabolite Negative Normal [facility] Comment on above: Performed By: #### D AU #### [facility] [address] [place], [place] 6[address]83 Derrickman Helper: Tico Minaya MD Methadone Ql (U) Negative Normal [facility] Comment on above: Performed By: #### D AU #### [facility] [address] [place], [place] 169[address]83 [employer] Helper: Tico Minaya MD Methamphetamine, Ur Negative Normal [facility] Comment on above: Performed By: #### D AU #### [facility] [address] [place], [place] 8447483 Der[employer]man Helper: Tico Minaya MD Opiate(s), Ur Negative Normal [facility] Comment on above: Performed By: #### D AU #### [facility] [address] [place], [place] [id number] Derrickman Helper: Tico Minaya MD Oxycodone, Urine Negative Normal NEG [facility] Comment on above: Performed By: #### D AU #### [facility] [address] [place], [place] 6375183 Derrickman Helper: Tico Minaya MD Phencyclidine, Ur Negative Normal [facility] Comment on above: Performed By: #### D AU #### [facility] [address] [place] [address] Derrickman Helper: Tico Minaya MD Propoxyphene,Urine Negative Normal NEG [facility] Comment on above: Performed By: #### D AU #### [facility] [address] [place] [address] [employer]rick[employer] Helper: Tico Minaya MD Tricyclic antidepressants Screen Ql (U) Negative Normal NEG [facility] Comment on above: Result Comment: Drug screen results are to be used for medical purposes only. All positive results are unconfirmed. Testing for employment or legal uses should be sent to a reference laboratory for confirmation. Performed By: #### D AU #### [facility] [address] [place] [address] [place] [address] [employer] Helper: Tico Minaya MD Interpretive Info NOT REPORTED Normal [facility] Comment on above: Performed By: #### D AU #### [facility] [address] [place] [address] [place] [address] Derrick[employer] Helper: Tico Minaya MD MDMA, Urine NOT REPORTED Normal NEG [facility] Comment on above: Performed By: #### D AU #### [facility] [address] [place] [address] [place] [address] Derrickman Helper: Tico Minaya MD Glucose, Whole BloodOrdered By: María Barnes on 07-29-2021 Glucose [Mass/Vol] 100 mg/dL 74 - 100 mg/dL [facility] Work Phone: [facility] Work Phone: Urinalysis, Routineon 2020 Bilirubin, SemiQt,Ur Negative Normal [facility] Comment on above: Performed By: #### U MICAO, UA #### [facility] [address] [place] [address] Derrickman Helper: Tico Minaya MD Blood, Urine Negative Normal NEG [facility] Comment on above: Performed By: #### U MICAO, UA #### [facility] [address] [place] [address] Dr. [place], [place] [phone] [employer] Helper: Tico Minaya MD Clarity (U) CLEAR Normal CLEAR [facility] Comment on above: Performed By: #### U MICAO, UA #### [facility] [address] [place], [place] 8048183 Derrickman Helper: Tico Minaya MD Color (U) YELLOW Normal YEL [facility] Comment on above: Performed By: #### U MICAO, UA #### [facility] [address] [place] [address] Dr. [place], [place] 2830083 Der[employer]man Helper: Tico Minaya MD Glucose Ql (U) Negative Normal NEG [facility] Comment on above: Performed By: #### U MICAO, UA #### [facility] [address] [place] [address] Dr. [place], [place] 7538083 Derrickman Helper: Tico Minaya MD Ketones Ql (U) Negative Normal NEG [facility] Comment on above: Performed By: #### U MICAO, UA #### [facility] [address] [place] [address] Dr[place], [place] [phone] Der[employer]man Helper: Tico Minaya MD Leukocyte esterase Test strip Ql (U) SMALL Abnormal NEG [facility] Comment on above: Performed By: #### U MICAO, UA #### [facility] [address] [place] [address] Dr. [place], [place] 0650983 Derrickman Helper: Tico Minaya MD Nitrite,Ur Negative Normal NEG [facility] Comment on above: Performed By: #### U MICAO, UA #### [facility] [address] [place] [address] Dr. [place], [place] 4389883 Derrickman Helper: Tico Minaya MD PH,Ur 7.0 Normal 5.0-9.0 [facility] Comment on above: Performed By: #### U MICAO, UA #### [facility] [address] [place], [place] 2527883 Derrickman Helper: Tico Minaya MD Protein Ql (U) Negative Normal NEG [facility] Comment on above: Performed By: #### U MICAO, UA #### [facility] [address] [place], [place] 1251483 Derrickman Helper: Tico Minaya MD Spec. Orient,Ur 1.010 Normal 1.010-1.020 [facility] Comment on above: Performed By: #### U MICAO, UA #### [facility] [address] [place] [address] Derrickman Helper: Tico Minaya MD Urobilinogen,Ur Normal Normal NORM [facility] Comment on above: Performed By: #### U MICAO, UA #### [facility] [address] [place] [address] Derrickman Helper: Tico Minaya MD Comment NOT REPORTED Normal [facility] Comment on above: Performed By: #### U MICAO, UA #### [facility] [address] [place] [address] Dr[place], [place] 8871583 Derrickman Helper: Tico Minaya MD Urinalysis,Microon 1 ----- Normal [facility] Comment on above: Performed By: #### U MICAO, UA #### [facility] [address] [place] [address] Derrickman Helper: Tico Minaya MD Epithelial cells LM Ql (Urine sed) 5 TO 10 Normal 0-25 [facility] Comment on above: Performed By: #### U MICAO, UA #### [facility] [address] [place], [place] 1533083 Derrickman Helper: Tico Minaya MD Urine RBC's None Normal 0-2 [facility] Comment on above: Performed By: #### U SARAHO, UA #### [facility] [facility] [address] [place], [place] [id number] Derrickman Helper: Tico Minaya MD Urine WBC's 0 TO 2 Normal 0-5 [facility] Comment on above: Performed By: #### U MICAO, UA #### [facility] [address] [place], [place] [id number] Derrickman Helper: Tico Minaya MD Amorphous sediment LM Ql (Urine sed) NOT REPORTED Normal [facility] Comment on above: Performed By: #### U SARAHO, UA #### [address] [place], [place] [id number] Derrickman Helper: Tico Minaya MD Bacteria NOT REPORTED Normal [facility] Comment on above: Performed By: #### U SARAHO, UA #### [facility] [address] [place], [place] [id number] Derrickman Helper: Tico Minaya MD Casts NOT REPORTED Normal [facility] Comment on above: Performed By: #### U SARAHO, UA #### [address] [place] [address] Derrickman Helper: Tico Minaya MD Crystals LM Nom (Urine sed) NOT REPORTED Normal [facility] Comment on above: Performed By: #### U MICAO, UA #### [facility] [address] [place], [place] [id number] Derrickman Helper: Tico Minaay MD Epithelial, Renal NOT REPORTED Normal 0 [facility] Comment on above: Performed By: #### U MICAO, UA #### [facility] [address] [place], [place] [id number] Derrickman Helper: Tico Minaya MD Mucus Strands NOT REPORTED Normal [facility] Comment on above: Performed By: #### U MICAO, UA #### [facility] [address] [place], [place] 1678483 Derrickman Helper: Tico Minaya MD Other Observations NOT REPORTED Normal NREQ [facility] Comment on above: Performed By: #### U MICAO, UA #### [facility] [address] [place], [place] [id number] Derrickman Helper: Tico Minaya MD Trichomonas NOT REPORTED Normal NONE [facility] Comment on above: Performed By: #### U MICAO, UA #### [facility] [address] [place], [place] [id number] Derrickman Helper: Tico Minaya MD Yeast NOT REPORTED Normal NONE [facility] Comment on above: Performed By: #### U MICAO, UA #### [facility] [address] [place], [place] 4753583 Derrickman Helper: Tico Minaya MD Microscopic UrinalysisOrdere d By: María Barnes on 07-27-2021 - [facility] Work Phone: Amorphous, UA NOT REPORTED None [facility] Work Phone: Bacteria, UA NOT REPORTED None [facility] Work Phone: Casts UA NOT REPORTED /LPF [facility] Work Phone: Crystals, UA NOT REPORTED None /HPF [facility] Work Phone: Epithelial Cells UA 5 TO 10 [facility] Work Phone: Mucus, UA NOT REPORTED None [facility] Work Phone: Other Observations UA NOT REPORTED NOT REQ. M [facility] Work Phone: RBC, UA None [facility] Work Phone: Renal Epithelial, UA NOT REPORTED 0 /HPF [facility] Work Phone: Trichomonas, UA NOT REPORTED None [facility] Work Phone: WBC, UA 0 TO 2 [facility] Work Phone: Yeast, UA NOT REPORTED None [facility] Work Phone: [facility] [employer] Work Phone: UrinalysisOrdered By: Bay Barnes on 07-27-2021 Bilirubin Urine Negative NEGATIVE [facility] Work Phone: Color, UA YELLOW YELLOW [facility] Work Phone: Glucose, Ur Negative NEGATIVE [facility] Work Phone: Interpretation and review of laboratory results Abnormal [facility] Work Phone: Ketones Ql (U) Negative NEGATIVE [facility] Work Phone: Leukocyte esterase Test strip Ql (U) SMALL Abnormal NEGATIVE [facility] [employer] Work Phone: Nitrite, Urine Negative NEGATIVE [facility] Work Phone: pH, UA 7.0 [facility] [employer] Work Phone: Protein, UA Negative NEGATIVE [facility] Work Phone: Specific [place], UA 1.010 [facility] [employer] Work Phone: Turbidity UA CLEAR CLEAR [facility] [employer] Work Phone: Urinalysis Comments NOT REPORTED [facility] Work Phone: Urine Hgb Negative NEGATIVE [facility] Work Phone: Urobilinogen, Urine Normal Normal [facility] [employer] Work Phone: [facility] [employer] Work Phone: CBC auto differentialOrdered By: Selma Sifuentes on 07-21-2021 Absolute Eos # PLEASE DISREGARD RESULTS. SPECIMEN CONTAMINATED. [facility] Work Phone: Comment on above: CORRECTED ON 07/21 A T 0451: PREVIOUSLY REPORTED <0.03 Absolute Immature Granulocyte PLEASE DISREGARD RESULTS. SPECIMEN CONTAMINATED. [employer] Phone: Comment on above: CORRECTED ON 07/21 A T 0451: PREVIOUSLY REPORTED <0.03 Absolute Lymph # PLEASE DISREGARD RESULTS. SPECIMEN CONTAMINATED. [employer] Phone: Comment on above: CORRECTED ON 07/21 A T 0451: PREVIOUSLY REPORTED 1.38 Absolute [place] # PLEASE DISREGARD RESULTS. SPECIMEN CONTAMINATED. [employer] Phone: Comment on above: CORRECTED ON 07/21 A T 0451: PREVIOUSLY REPORTED 0.48 Basophils (Bld) [#/Vol] PLEASE DISREGARD RESULTS. SPECIMEN CONTAMINATED. 0 - 2 % [employer] Phone: Comment on above: CORRECTED ON 07/21 A T 0451: PREVIOUSLY REPORTED 0 Basophils Absolute PLEASE DISREGARD RESULTS. SPECIMEN CONTAMINATED. [employer] Phone: Comment on above: CORRECTED ON 07/21 A T 0451: PREVIOUSLY REPORTED <0.03 Differential Type NOT REPORTED [employer] Phone: Eosinophils % PLEASE DISREGARD RESULTS. SPECIMEN CONTAMINATED. 1 - 4 % [employer] Phone: Comment on above: CORRECTED ON 07/21 A T 0451: PREVIOUSLY REPORTED 0 Hematocrit (Bld) [Volume fraction] PLEASE DISREGARD RESULTS. SPECIMEN CONTAMINATED. 36.3 - 47.1 % [employer] Phone: Comment on above: CORRECTED ON 07/21 A T 0451: PREVIOUSLY REPORTED 20.1 Hemoglobin.gastrointest inal spec 1 Ql (Stl) PLEASE DISREGARD RESULTS. SPECIMEN CONTAMINATED. 11.9 - 15.1 g/dL [employer] Phone: Comment on above: CORRECTED ON 07/21 A T 0451: PREVIOUSLY REPORTED 6.8 Immature Granulocytes PLEASE DISREGARD RESULTS. SPECIMEN CONTAMINATED. 0 % [employer] Phone: Comment on above: CORRECTED ON 07/21 A T 0451: PREVIOUSLY REPORTED 0 Lymphocytes (Bld) [#/Vol] PLEASE DISREGARD RESULTS. SPECIMEN CONTAMINATED. 24 - 43 % [employer] Phone: Comment on above: CORRECTED ON 07/21 A T 0451: PREVIOUSLY REPORTED 24 MCH (RBC) [Entitic mass] PLEASE DISREGARD RESULTS. SPECIMEN CONTAMINATED. 25.2 - 33.5 pg [employer] Phone: Comment on above: CORRECTED ON 07/21 A T 0451: PREVIOUSLY REPORTED 27.6 MCHC (RBC) [Mass/Vol] PLEASE DISREGARD RESULTS. SPECIMEN CONTAMINATED. 28.4 - 34.8 g/dL [employer] Phone: Comment on above: CORRECTED ON 07/21 A T 0451: PREVIOUSLY REPORTED 33.8 MCV (RBC) [Entitic vol] PLEASE DISREGARD RESULTS. SPECIMEN CONTAMINATED. 82.6 - 102.9 fL [employer] Phone: Comment on above: CORRECTED ON 07/21 A T 0451: PREVIOUSLY REPORTED 81.7 Monocytes (Bld) [#/Vol] PLEASE DISREGARD RESULTS. SPECIMEN CONTAMINATED. 3 - 12 % [employer] Phone: Comment on above: CORRECTED ON 07/21 A T 0451: PREVIOUSLY REPORTED 8 NRBC Automated NOT REPORTED 0.0 per 100 WBC [employer] Phone: Platelet distribution width (Bld) [Ratio] PLEASE DISREGARD RESULTS. SPECIMEN CONTAMINATED. 11.8 - 14.4 % [employer] Phone: Comment on above: CORRECTED ON 07/21 A T 0451: PREVIOUSLY REPORTED 13.2 Platelet Estimate NOT REPORTED [employer] Phone: Platelet mean volume (Bld) [Entitic vol] PLEASE DISREGARD RESULTS. SPECIMEN CONTAMINATED. 8.1 - 13.5 fL [employer] Phone: Comment on above: CORRECTED ON 07/21 A T 0451: PREVIOUSLY REPORTED 11.2 Platelets (Bld) [#/Vol] PLEASE DISREGARD RESULTS. SPECIMEN CONTAMINATED. [employer] Phone: Comment on above: CORRECTED ON 07/21 A T 0451: PREVIOUSLY REPORTED 129 RBC (Bld) [#/Vol] PLEASE DISREGARD RESULTS. SPECIMEN CONTAMINATED. 3.95 - 5.11 m/uL [employer] Phone: Comment on above: CORRECTED ON 07/21 A T 0451: PREVIOUSLY REPORTED 2.46 RBC (Bld) [#/Vol] NOT REPORTED [employer] Phone: Seg Neutrophils PLEASE DISREGARD RESULTS. SPECIMEN CONTAMINATED. 36 - 65 % [employer] Phone: Comment on above: CORRECTED ON 07/21 A T 0451: PREVIOUSLY REPORTED 68 Segs Absolute PLEASE DISREGARD RESULTS. SPECIMEN CONTAMINATED. [employer] Phone: Comment on above: CORRECTED ON 07/21 A T 0451: PREVIOUSLY REPORTED 3.95 WBC (Bld) [#/Vol] PLEASE DISREGARD RESULTS. SPECIMEN CONTAMINATED. [employer] Phone: Comment on above: CORRECTED ON 07/21 A T 0451: PREVIOUSLY REPORTED 5.9 WBC (Bld) [#/Vol] NOT REPORTED [employer] Phone: [employer] Phone: CBC with Diffon 07-21-2021 Abs. Basophil PLEASE DISREGARD RESULTS. SPECIMEN CONTAMINATED. Normal 0.00-0.20 [facility] Comment on above: Result Comment: MARIPOSA ECTED ON 07/21 AT 0451: PREVIOUSLY REPORTED <0.03 Performed By: #### C DP #### [facility] [address] [place] [address] Derrickman Helper: Tico Minaya MD Abs. Eosinophil PLEASE DISREGARD RESULTS. SPECIMEN CONTAMINATED. Normal 0.00-0.44 [facility] Comment on above: Result Comment: MARIPOSA ECTED ON 07/21 AT 0451: PREVIOUSLY REPORTED <0.03 Performed By: #### C DP #### [facility] [address] [place] [address] Derrickman Helper: Tico Minaya MD Abs. Lymph PLEASE DISREGARD RESULTS. SPECIMEN CONTAMINATED. Normal 1.10-3.70 [facility] Comment on above: Result Comment: MARIPOSA ECTED ON 07/21 AT 0451: PREVIOUSLY REPORTED 1.38 Performed By: #### C DP #### [facility] [address] [place], [place] [id number] Derrickman Helper: Tico Minaya MD Abs. Monocyte PLEASE DISREGARD RESULTS. SPECIMEN CONTAMINATED. Normal 0.10-1.20 [facility] Comment on above: Result Comment: MARIPOSA ECTED ON 07/21 AT 0451: PREVIOUSLY REPORTED 0.48 Performed By: #### C DP #### [facility] [address] [place] [address] [address] [place], [place] [id number] Derrickman Helper: Tico Minaya MD Abs.Imm.Granulocyte PLEASE DISREGARD RESULTS. SPECIMEN CONTAMINATED. Normal 0.00-0.30 [facility] Comment on above: Result Comment: MARIPOSA ECTED ON 07/21 AT 0451: PREVIOUSLY REPORTED <0.03 Performed By: #### C DP #### [facility] [address] [place], [place] [id number] Derrickman Helper: Tico Minaya MD Abs.Neutrophil (Seg) PLEASE DISREGARD RESULTS. SPECIMEN CONTAMINATED. Normal 1.50-8.10 [facility] Comment on above: Result Comment: MARIPOSA ECTED ON 07/21 AT 0451: PREVIOUSLY REPORTED 3.95 Performed By: #### C DP #### [facility] [address] [place], [place] [id number] Derrickman Helper: Tico Minaya MD Basophil PLEASE DISREGARD RESULTS. SPECIMEN CONTAMINATED. Normal 0-2 [facility] Comment on above: Result Comment: MARIPOSA ECTED ON 07/21 AT 0451: PREVIOUSLY REPORTED 0 Performed By: #### C DP #### [facility] [address] [place], [place] [id number] Derrickman Helper: Tico Minaya MD Eosinophil PLEASE DISREGARD RESULTS. SPECIMEN CONTAMINATED. Normal 1-4 [facility] Comment on above: Result Comment: MARIPOSA ECTED ON 07/21 AT 0451: PREVIOUSLY REPORTED 0 Performed By: #### C DP #### [facility] [address] [place], [place] [id number] Derrickman Helper: Tico Minaya MD Hematocrit PLEASE DISREGARD RESULTS. SPECIMEN CONTAMINATED. Normal 36.3-47.1 [facility] Comment on above: Result Comment: MRAIPOSA ECTED ON 07/21 AT 0451: PREVIOUSLY REPORTED 20.1 Performed By: #### C DP #### [facility] [address] [place], [place] 458[address]83 Derrickman Helper: Tico Minaya MD Hemoglobin PLEASE DISREGARD RESULTS. SPECIMEN CONTAMINATED. Normal 11.9-15.1 [facility] Comment on above: Result Comment: MARIPOSA ECTED ON 07/21 AT 0451: PREVIOUSLY REPORTED 6.8 Performed By: #### C DP #### [facility] [address] [place], [place] [id number] Derrickman Helper: Tico Minaya MD Immature Granulocyte PLEASE DISREGARD RESULTS. SPECIMEN CONTAMINATED. Normal 0 [facility] Comment on above: Result Comment: MARIPOSA ECTED ON 07/21 AT 0451: PREVIOUSLY REPORTED 0 Performed By: #### C DP #### [facility] [address] [place], [place] [id number] Derrickman Helper: Tico Minaya MD Lymphocyte PLEASE DISREGARD RESULTS. SPECIMEN CONTAMINATED. Normal 24-43 [facility] Comment on above: Result Comment: MARIPOSA ECTED ON 07/21 AT 0451: PREVIOUSLY REPORTED 24 Performed By: #### C DP #### [facility] [address] [place] [address] Derrickman Helper: Tico Minaya MD MCH PLEASE DISREGARD RESULTS. SPECIMEN CONTAMINATED. Normal 25.2-33.5 [facility] Comment on above: Result Comment: MARIPOSA ECTED ON 07/21 AT 0451: PREVIOUSLY REPORTED 27.6 Performed By: #### C DP #### [facility] [address] [place], [place] [id number] Derrickman Helper: Tico Minaya MD [facility] PLEASE DISREGARD RESULTS. SPECIMEN CONTAMINATED. Normal 28.4-34.8 [facility] Comment on above: Result Comment: MARIPOSA ECTED ON 07/21 AT 0451: PREVIOUSLY REPORTED 33.8 Performed By: #### C DP #### [facility] [address] [place] [phone] Derrickman Helper: Tico Minaya MD [facility] PLEASE DISREGARD RESULTS. SPECIMEN CONTAMINATED. Normal 82.6-102.9 [facility] Comment on above: Result Comment: MARIPOSA ECTED ON 07/21 AT 045: PREVIOUSLY REPORTED 81.7 Performed By: #### C DP #### [facility] [address] [place], [place] [id number] Derrickman Helper: Tico Minaya MD Monocyte PLEASE DISREGARD RESULTS. SPECIMEN CONTAMINATED. Normal 3-12 [facility] Comment on above: Result Comment: MARIPOSA ECTED ON 07/21 AT 0451: PREVIOUSLY REPORTED 8 Performed By: #### C DP #### [facility] [address] [place] [address] Derrickman Helper: Tico Minaya MD MPV PLEASE DISREGARD RESULTS. SPECIMEN CONTAMINATED. Normal 8.1-13.5 [facility] Comment on above: Result Comment: MARIPOSA ECTED ON 07/21 AT 0451: PREVIOUSLY REPORTED 11.2 Performed By: #### C DP #### [facility] [address] [place] [address] Derrickman Helper: Tico Minaya MD Neutrophil (Seg) PLEASE DISREGARD RESULTS. SPECIMEN CONTAMINATED. Normal 36-65 [facility] Comment on above: Result Comment: MARIPOSA ECTED ON 07/21 AT 0451: PREVIOUSLY REPORTED 68 Performed By: #### C DP #### [facility] [address] [place] [address] Derrickman Helper: Tico Minaya MD Platelet Count PLEASE DISREGARD RESULTS. SPECIMEN CONTAMINATED. Normal 138-453 [facility] Comment on above: Result Comment: MARIPOSA ECTED ON 07/21 AT 0451: PREVIOUSLY REPORTED 129 Performed By: #### C DP #### [facility] [address] [place], [place] [phone] Derrickman Helper: Tico Minaya MD RBC Count PLEASE DISREGARD RESULTS. SPECIMEN CONTAMINATED. Normal 3.95-5.11 [facility] Comment on above: Result Comment: MARIPOSA ECTED ON 07/21 AT 0451: PREVIOUSLY REPORTED 2.46 Performed By: #### C DP #### [facility] [address] [place], [place] [id number] Derrickman Helper: Tico Minaya MD RDW PLEASE DISREGARD RESULTS. SPECIMEN CONTAMINATED. Normal 11.8-14.4 [facility] Comment on above: Result Comment: MARIPOSA ECTED ON 07/21 AT 0451: PREVIOUSLY REPORTED 13.2 Performed By: #### C DP #### [facility] [address] [place] [address] Dr. [place], [place] [phone] Derrickman Helper: Tico Minaya MD WBC Count PLEASE DISREGARD RESULTS. SPECIMEN CONTAMINATED. Normal 3.5-11.3 [facility] Comment on above: Result Comment: MARIPOSA ECTED ON 07/21 AT 0451: PREVIOUSLY REPORTED 5.9 Performed By: #### C DP #### [facility] [address] [place] [address] Derrickman Helper: Tico Minaya MD Abs. Basophil <0.03 Normal 0.00-0.20 [facility] Comment on above: Performed By: #### C DP #### [facility] [address] [place], [place] 6807383 Derrickman Helper: Tico Minaya MD Abs. Eosinophil <0.03 Normal 0.00-0.44 [facility] Comment on above: Performed By: #### C DP #### [facility] [address] [place], [place] 03[address] Derrickman Helper: Tico Minaya MD Abs.Imm.Granulocyte 0.09 k/uL Normal 0.00-0.30 [facility] Comment on above: Performed By: #### C DP #### [facility] [address] [place] [facility]83 Derrickman Helper: Tico Minaya MD Abs.Neutrophil (Seg) 11.03 k/uL High 1.50-8.10 [facility] Comment on above: Performed By: #### C DP #### [facility] [address] [place] [address] Dr. [place], [facility]83 Derrickman Helper: Tico Minaya MD Basophils/100 WBC (Bld) 0 % Normal 0-2 [facility] Comment on above: Performed By: #### C DP #### [facility] [address] [place] [address] Dr. [place] [facility]83 Derrickman Helper: Tico Minaya MD Eosinophils/100 WBC (Bld) 0 % Low 1-4 [facility] Comment on above: Performed By: #### C DP #### [facility] [address] [place] [address] Dr. [place], [facility]83 Derrickman Helper: Tico Minaya MD Erythrocyte distribution width (RBC) [Ratio] 13.2 % Normal 11.8-14.4 [facility] Comment on above: Performed By: #### C DP #### [facility] [address] [place] [address] Dr. [place] [facility]83 Derrickman Helper: Tico Minaya MD Hematocrit (Bld) [Volume fraction] 37.3 % Normal 36.3-47.1 [facility] Comment on above: Performed By: #### C DP #### [facility] [address] [place] [address] Dr. [place] [facility]83 Derrickman Helper: Tico Minaya MD Hemoglobin (Bld) [Mass/Vol] 13.1 g/dL Normal 11.9-15.1 [facility] Comment on above: Performed By: #### C DP #### [facility] [address] [place] [address] Derrickman Helper: Tico Minaya MD Immature granulocytes/100 WBC (Bld) 1 % High 0 [facility] Comment on above: Performed By: #### C DP #### [facility] [address] [place] [address] Dr. [place], [place] [id number] Derrickman Helper: Tico Minaya MD Lymphocytes (Bld) [#/Vol] 2.10 10*3/uL Normal 1.10-3.70 [facility] Comment on above: Performed By: #### C DP #### [facility] [address] [place] [address] Dr. [place], [facility]83 Derrickman Helper: Tico Minaya MD Lymphocytes/100 WBC (Bld) 15 % Low 24-43 [facility] Comment on above: Performed By: #### C DP #### [address] [place] [address] Derrickman Helper: Tico Minaya MD MCH (RBC) [Entitic mass] 27.6 pg Normal 25.2-33.5 [facility] Comment on above: Performed By: #### C DP #### [facility] [address] [place] [address] Dr. [place], [facility]83 Derrickman Helper: Tico Minaya MD MCHC (RBC) [Mass/Vol] 35.1 g/dL High 28.4-34.8 [facility] Comment on above: Performed By: #### C DP #### [address] [place] [address] Derrickman Helper: Tico Minaya MD MCV (RBC) [Entitic vol] 78.7 fL Low 82.6-102.[address] [facility] Comment on above: Performed By: #### C DP #### [facility] [address] [place], [place] 8709383 Derrickman Helper: Tico Minaya MD Monocytes (Bld) [#/Vol] 0.82 10*3/uL Normal 0.10-1.20 [facility] Comment on above: Performed By: #### C DP #### [facility] [address] [place], [place] 3955083 Derrickman Helper: Tico Minaya MD Monocytes/100 WBC (Bld) 6 % Normal 3-12 [facility] Comment on above: Performed By: #### C DP #### [facility] [address] [place], [place] 4816783 Derrickman Helper: Tico Minaya MD Neutrophil (Seg) 79 % High 36-65 [facility] Comment on above: Performed By: #### C DP #### [facility] [address] [place], [place] 2343283 Derrickman Helper: Tico Minaya MD NRBC Automated 0.0 per [address] [facility] Comment on above: Performed By: #### C DP #### [address] [place], [place] 5057283 Derrickman Helper: Tico Minaya MD Platelet mean volume (Bld) [Entitic vol] 10.8 fL Normal 8.1-13.5 [facility] Comment on above: Performed By: #### C DP #### [facility] [address] [place], [place] 820[address]83 Derrickman Helper: Tico Minaya MD Platelets (Bld) [#/Vol] 250 10*3/uL Normal 138-453 [facility] Comment on above: Performed By: #### C DP #### [facility] [address] [place] 4641783 Derrickman Helper: Tico Minaya MD RBC (Bld) [#/Vol] 4.74 10*6/uL Normal 3.95-5.11 [facility] Comment on above: Performed By: #### C DP #### [facility] [address] [place] [address] Derrickman Helper: Tico Minaya MD WBC (Bld) [#/Vol] 14.1 10*3/uL High 3.5-11.3 [facility] Comment on above: Performed By: #### C DP #### [facility] [address] [place], [place] 1442083 Derrickman Helper: Tico Minaya MD Auto Diff Performed NOT REPORTED Normal [facility] Comment on above: Performed By: #### C DP #### [facility] [address] [place], [place] 1815183 Derrickman Helper: Tico Minaya MD Platelet Estimate NOT REPORTED Normal [facility] Comment on above: Performed By: #### C DP #### [facility] [address] [place] [address] Derrickman Helper: Tico Minaya MD RBC morphology finding Nom (Bld) NOT REPORTED Normal [facility] Comment on above: Performed By: #### C DP #### [facility] [address] [place] [address] Derrickman Helper: Tico Minaya MD WBC Morphology NOT REPORTED Normal [facility] Comment on above: Performed By: #### C DP #### [facility] [address] [place], [place] 7636383 Derrickman Helper: Tico Minaya MD NRBC Automated NOT REPORTED Normal 0.0 [facility] Comment on above: Performed By: #### C DP #### [facility] [address] [place], [place] 83[address]83 Derrickman Helper: Tico Minaya MD Glucose, Whole BloodOrdered By: Selma Sifuentes on 07-21-2021 Glucose [Mass/Vol] 107 mg/dL High 74 - 100 mg/dL [facility] Work Phone: Interpretation and review of laboratory results Abnormal [facility] Work Phone: [facility] Work Phone: Glucose [Mass/Vol] 111 mg/dL High 74 - 100 mg/dL [facility] Work Phone: Interpretation and review of laboratory results Abnormal [facility] Work Phone: [facility] Work Phone: TYPE AND SCREENOrdered By: Dewayne Sifuentes on 07-21-2021 ABO/Rh Positive [facility] Work Phone: Arm Band Number [id number] [facility] Work Phone: Expiration Date 07/23/2021,2359 [facility] Work Phone: [facility] Work Phone: Type + Screenon 07-21-2021 Type + Screen Sample Expiration 07/23/2021,2359 Arm Band Number [id number] ABO/Rh(D) B POSITIVE Antibody Screen NEGATIVE Normal [facility] Comment on above: Performed By: #### T YS #### [facility] [address] [place] [address] Derrickman Helper: Tico Minaya MD CBC auto differentialOrdered By: Selma Sifuentes on 07-20-2021 Absolute Eos # <0.03 [facility] Work Phone: Absolute Immature Granulocyte 0.09 [facility] Work Phone: Absolute Lymph # 2.10 [facility] Work Phone: Absolute [place] # 0.82 [facility] Work Phone: Basophils (Bld) [#/Vol] 10*3/uL M [facility] Work Phone: Basophils/100 WBC (Bld) 0 % 0 - 2 % M [employer] Phone: Differential Type NOT REPORTED [employer] Phone: Eosinophils/100 WBC (Bld) 0 % Low 1 - 4 % [employer] Phone: Hematocrit (Bld) [Volume fraction] 37.3 % 36.3 - 47.1 % [employer] Phone: Hemoglobin.gastrointest inal spec 1 Ql (Stl) 13.1 g/dL 11.9 - 15.1 g/dL [employer] Phone: Immature granulocytes/100 WBC (Bld) 1 % High 0 [employer] Phone: Interpretation and review of laboratory results Abnormal [employer] Phone: Lymphocytes/100 WBC (Bld) 15 % Low 24 - 43 % [employer] Phone: MCH (RBC) [Entitic mass] 27.6 pg 25.2 - 33.5 pg [employer] Phone: MCHC (RBC) [Mass/Vol] 35.1 g/dL High 28.4 - 34.8 g/dL [employer] Phone: MCV (RBC) [Entitic vol] 78.7 fL Low 82.6 - 102.9 fL [employer] Phone: Monocytes/100 WBC (Bld) 6 % 3 - 12 % M [employer] Phone: NRBC Automated 0.0 0.0 per 100 WBC [employer] Phone: Platelet distribution width (Bld) [Ratio] 13.2 % 11.8 - 14.4 % [employer] Phone: Platelet Estimate NOT REPORTED [employer] Phone: Platelet mean volume (Bld) [Entitic vol] 10.8 fL 8.1 - 13.5 fL [employer] Work Phone: Platelets (Bld) [#/Vol] 250 10*3/uL [employer] Work Phone: RBC (Bld) [#/Vol] 4.74 10*6/uL 3.95 - 5.1 1 m/uL [employer] Work Phone: RBC (Bld) [#/Vol] NOT REPORTED [employer] Work Phone: Segmented neutrophils/100 WBC (Bld) 79 % High 36 - 65 % [employer] Work Phone: Segs Absolute 11.03 High [employer] Work Phone: WBC (Bld) [#/Vol] 14.1 10*3/uL High [employer] Work Phone: WBC (Bld) [#/Vol] NOT REPORTED [employer] Work Phone: [employer] Work Phone: CBC with Diffon 07-20-2021 Auto Diff Performed NOT REPORTED Normal [facility] Comment on above: Performed By: #### C DP #### [facility] [address] [place] [address] Derrickman Helper: Tico Minaya MD Platelet Estimate NOT REPORTED Normal [facility] Comment on above: Performed By: #### C DP #### [facility] [address] [place] [address] Derrickman Helper: Tico Minaya MD RBC morphology finding Nom (Bld) NOT REPORTED Normal [facility] Comment on above: Performed By: #### C DP #### [facility] [address] [place] [address] Derrickman Helper: Tico Minaya MD WBC Morphology NOT REPORTED Normal [facility] Comment on above: Performed By: #### C DP #### [facility] [address] [place] [address] Derrickman Helper: Tico Minaya MD Glucose, Whole BloodOrdered By: Selma Sifuentes on 07-20-2021 Glucose [Mass/Vol] 98 mg/dL 74 - 100 mg/dL [facility] Work Phone: [facility] [employer] Work Phone: Microscopic UrinalysisOrdere d By: Selma Sifuentes on 07-20-2021 - [facility] Work Phone: Amorphous, UA NOT REPORTED None [facility] Work Phone: Bacteria, UA TRACE Abnormal None [facility] Work Phone: Casts UA NOT REPORTED /LPF [facility] [employer] Work Phone: Crystals, UA NOT REPORTED None /HPF [facility] Work Phone: Epithelial Cells UA 10 TO 20 [facility] Work Phone: Interpretation and review of laboratory results Abnormal [facility] Work Phone: Mucus, UA NOT REPORTED None [facility] Work Phone: Other Observations UA NOT REPORTED NOT REQ. M [facility] [employer] Work Phone: RBC, UA 0 TO 2 [facility] Work Phone: Renal Epithelial, UA NOT REPORTED 0 /HPF Me [facility] Work Phone: Trichomonas, UA NOT REPORTED None [facility] Work Phone: WBC, UA 0 TO 3 [facility] Work Phone: Yeast, UA NOT REPORTED None [facility] Work Phone: [facility] [employer] Work Phone: UrinalysisOrdered By: Ghazal Sifuentes on 07-20-2021 Bilirubin Urine Negative NEGATIVE [facility] Work Phone: Color, UA YELLOW YELLOW [facility] [employer] Work Phone: Glucose, Ur Negative NEGATIVE [facility] Work Phone: Interpretation and review of laboratory results Abnormal [facility] Work Phone: Ketones Ql (U) 2+ Abnormal NEGATIVE [facility] Work Phone: Leukocyte esterase Test strip Ql (U) Negative NEGATIVE [facility] Work Phone: Nitrite, Urine Negative NEGATIVE [facility] Work Phone: pH, UA 6.0 [facility] Work Phone: Protein, UA Negative NEGATIVE [facility] Work Phone: Specific Orient, UA 1.020 [facility] Work Phone: Turbidity UA CLEAR CLEAR [facility] Work Phone: Urinalysis Comments NOT REPORTED [facility] [employer] Work Phone: Urine Hgb Negative NEGATIVE [facility] Work Phone: Urobilinogen, Urine Normal Normal [facility] Work Phone: [facility] Work Phone: Urinalysis, Routineon 2020 Bilirubin, SemiQt,Ur Negative Normal NEG [facility] Comment on above: Performed By: #### U MICAO, UA #### [facility] [address] [place] [address] Derrickman Helper: Tico Minaya MD Blood, Urine Negative Normal NEG [facility] Comment on above: Performed By: #### U MICAO, UA #### [facility] [address] [place] [address] Derrickman Helper: Tico Minaya MD Clarity (U) CLEAR Normal CLEAR [facility] Comment on above: Performed By: #### U MICAO, UA #### [facility] [address] [place], [place] [id number] Derrickman Helper: Tico Minaya MD Color (U) YELLOW Normal YEL [facility] Comment on above: Performed By: #### U MICAO, UA #### [facility] [address] [place], [place] [id number] Derrickman Helper: Tico Minaya MD Glucose Ql (U) Negative Normal NEG [facility] Comment on above: Performed By: #### U MICAO, UA #### [facility] [address] [place], [place] [id number] Derrickman Helper: Tico Minaya MD Ketones Ql (U) 2+ Abnormal NEG [facility] Comment on above: Performed By: #### U MICAO, UA #### [facility] [address] [place] [address] [place], [place] [id number] Derrickman Helper: Tico Minaya MD Leukocyte esterase Test strip Ql (U) Negative Normal NEG [facility] Comment on above: Performed By: #### U MICAO, UA #### [address] [place], [place] [id number] Derrickman Helper: Tico Minaya MD Nitrite,Ur Negative Normal NEG [facility] Comment on above: Performed By: #### U MICAO, UA #### [facility] [address] [place] [address] Dr[address] [place], [place] [id number] Derrickman Helper: Tico Minaya MD PH,Ur 6.0 Normal 5.0-9.0 [facility] Comment on above: Performed By: #### U MICAO, UA #### [facility] [address] [place] [address] Dr[place], [place] [id number] Derrickman Helper: Tico Minaya MD Protein Ql (U) Negative Normal NEG [facility] Comment on above: Performed By: #### U MICAO, UA #### [facility] [address] [place], [place] [id number] Derrickman Helper: Tico Minaya MD Spec. Orient,Ur 1.020 Normal 1.010-1.020 [facility] Comment on above: Performed By: #### U MICAO, UA #### [facility] [address] [place], [place] [address] Derrickman Helper: Tico Minaya MD Urobilinogen,Ur Normal Normal NORM [facility] Comment on above: Performed By: #### U MICAO, UA #### [facility] [address] [place] [address] Derrickman Helper: Tico Minaya MD Comment NOT REPORTED Normal [facility] Comment on above: Performed By: #### U MICAO, UA #### [facility] [address] [place], [place] [id number] Derrickman Helper: Tico Minaya MD Urinalysis,Microon 1 ----- Normal [facility] Comment on above: Performed By: #### U MICAO, UA #### [facility] [address] [place] [address] Derrickman Helper: Tico Minaya MD Bacteria TRACE Abnormal NONE [facility] Comment on above: Performed By: #### U MICAO, UA #### [facility] [address] [place] [address] Derrickman Helper: Tico Minaya MD Epithelial cells LM Ql (Urine sed) 10 TO 20 Normal 0-25 [facility] Comment on above: Performed By: #### U MICAO, UA #### [facility] [address] [place], [place] [id number] Derrickman Helper: Tico Minaya MD Urine RBC's 0 TO 2 Normal 0-2 [facility] Comment on above: Performed By: #### U MICAO, UA #### [facility] [address] [place] [address] Derrickman Helper: Tico Minaya MD Urine WBC's 0 TO 3 Normal 0-5 [facility] Comment on above: Performed By: #### U MICAO, UA #### [facility] [address] [place] [address] Derrickman Helper: Tico Minaya MD Amorphous sediment LM Ql (Urine sed) NOT REPORTED Normal NONE [facility] Comment on above: Performed By: #### U MICAO, UA #### [facility] [address] [place] [address] Derrickman Helper: Tico Minaya MD Casts NOT REPORTED Normal [facility] Comment on above: Performed By: #### U MICAO, UA #### [facility] [address] [place] [address] Derrickman Helper: Tico Minaya MD Crystals LM Nom (Urine sed) NOT REPORTED Normal [facility] Comment on above: Performed By: #### U MICAO, UA #### [facility] [address] [place], [place] 2337383 Derrickman Helper: Tico Minaya MD Epithelial, Renal NOT REPORTED Normal [address] [facility] Comment on above: Performed By: #### U MICAO, UA #### [facility] [address] [place] [address] Derrickman Helper: Tico Minaya MD Mucus Strands NOT REPORTED Normal [facility] Comment on above: Performed By: #### U MICAO, UA #### [facility] [address] [place], [place] [phone] Derrickman Helper: Tico Minaya MD Other Observations NOT REPORTED Normal NREQ [facility] Comment on above: Performed By: #### U MICAO, UA #### [facility] [address] [place], [place] [phone] Derrickman Helper: Tico Minaya MD Trichomonas NOT REPORTED Normal NONE [facility] Comment on above: Performed By: #### U ELLITO, UA #### [facility] [address] [place] [address] Derrickman Helper: Tico Minaya MD Yeast NOT REPORTED Normal NONE [facility] Comment on above: Performed By: #### U ELLIOT, UA #### [facility] [address] [place] [address] Derrickman Helper: Tico Minaya MD GBS, External ResultOrdered By: Selma Sifuentes on 07-19-2021 GBS, External Result Negative [facility] [employer] Phone: [facility]: ABO, External ResultOrdered By: Historical Provider on 12-29-2020 ABO, External Result Positive [facility] [employer] Phone: HIV ScreenOrdered By: Ghazal Sifuentes on 12-29-2020 HIV Ag/Ab Non-Reactive [facility] Phone: N. GONORRHOEAE CULTUREOrdere d By: Selma Sifuentes on 12-29-2020 Culture, Gonorrhoeae Not detected [facility] [employer] Phone: No Panel InformationOrdered By: Historical Provider on 12-29-2020 [facility]: No Panel InformationOrdered By: Selma Sifuentes on 12-29-2020 [facility]: PROFILE IOrdered By : Selma Sifuentes on 12-29-2020 ABO/Rh Positive [facility]: Hepatitis B Surface Ag Non-Reactive [facility]: Rubella virus IgG Ql (S) Immune [facility]: T. pallidum, IgG Non-Reactive [facility] [employer] Phone: Comment on above: RPR CBC AUTO DIFFon 12-22-2020 Basophils (Bld) [#/Vol] 0.0 103/ul Normal 0.0-0.1 [facility] Comment on above: Performed By: #### C BC #### [facility] [address] [id number] Case Judith Basophils/100 WBC (Bld) 0.2 % Normal 0.2-2.0 [facility] Comment on above: Performed By: #### C BC #### [facility] [address] [place], [place] [address] Case Judith Eosinophils (Bld) [#/Vol] 0.1 103/ul Normal 0.0-0.7 [facility] Comment on above: Performed By: #### C BC #### [facility] [address] [id number] Case Juidth Eosinophils/100 WBC (Bld) 1.2 % Normal 0.9-7.0 [facility] Comment on above: Performed By: #### C BC #### [facility] [address] [place], [place] [address] Case Judith Erythrocyte distribution width (RBC) [Ratio] 12.5 % Normal 11.0-15.0 [facility] Comment on above: Performed By: #### C BC #### [facility] [address] [place], [place] [address] Case Judith Hematocrit (Bld) [Volume fraction] 40.1 % Normal 36.0-48.0 [facility] Comment on above: Performed By: #### C BC #### [facility] [address] [place], [place] [address] Case Judith Hemoglobin (Bld) [Mass/Vol] 14.3 g/dL Normal 12.0-16.0 [facility] Comment on above: Performed By: #### C BC #### [facility] [address] [place], [place] [address] Case Judith IG # 0.04 10e3/ul Critically high 0.00-0.03 [facility] Comment on above: Performed By: #### C BC #### [facility] [address] [id number] Case Judith IG % 0.4 % Normal 0.0-0.[address] [facility] Comment on above: Performed By: #### C BC #### [facility] [address] [place], [place] [address] [place] Judith Lymphocytes (Bld) [#/Vol] 3.8 103/ul Normal 1.2-3.[address] [facility] Comment on above: Performed By: #### C BC #### [facility] [address] [place], [place] [address] Case Judith Lymphocytes/100 WBC (Bld) 36.2 % Normal 20.5-60.[address] [facility] Comment on above: Performed By: #### C BC #### [facility] [address] [place], [place] [address] Case Judith MANUAL DIFF REQ NO Normal [facility] Comment on above: Performed By: #### C BC #### [facility] [address] [place], [place] [address] Case Judith MCH (RBC) [Entitic mass] 28.1 pg Normal 26.7-34.[address] [facility] Comment on above: Performed By: #### C BC #### [facility] [address] [place], [place] [address] Case Judith MCHC (RBC) [Mass/Vol] 35.7 g/dL Critically high 29.9-35.[address] [facility] Comment on above: Performed By: #### C BC #### [facility] [address] [place], [place] [address] Case Judith MCV (RBC) [Entitic vol] 78.9 fL Critically low 81.0-99. [address] [facility] Comment on above: Performed By: #### C BC #### [facility] [address] [place], [place] [address] Case Judith Monocytes (Bld) [#/Vol] 1.1 103/ul Critically high 0.3-0.[address] [facility] Comment on above: Performed By: #### C BC #### [facility] [address] [place], [place] [address] Case Judith Monocytes/100 WBC (Bld) 10.3 % Normal 1.7-12.0 [facility] Comment on above: Performed By: #### C BC #### [facility] [address] [place] [address] Case [place] Neutrophils (Bld) [#/Vol] 5.4 103/ul Normal 1.4-6.5 [facility] Comment on above: Performed By: #### C BC #### [facility] [address] [place] [address] Case [place] Neutrophils/100 WBC (Bld) 51.7 % Normal 43.0-75.0 [facility] Comment on above: Performed By: #### C BC #### [facility] [address] [place] [address] Case Judith Platelet mean volume (Bld) [Entitic vol] 9.7 fL Normal 9.5-13.5 [facility] Comment on above: Performed By: #### C BC #### [facility] [address] [place] [address] Case Judith Platelets (Bld) [#/Vol] 321 103/ul Normal 150-450 [facility] Comment on above: Performed By: #### C BC #### [facility] [address] [place] [address] Case Judith RBC (Bld) [#/Vol] 5.08 106/ul Normal 4.20-5.40 [facility] Comment on above: Performed By: #### C BC #### [facility] [address] [place] [address] Case Judith WBC (Bld) [#/Vol] 10.4 103/ul Normal 4.0-11.0 [facility] Comment on above: Performed By: #### C BC #### [facility] [address] [place] [address] [place] ER URINE PROFILEon 0 Bilirubin [Mass/Vol] Negative Normal NEGATIVE [facility] Comment on above: Performed By: #### E RUR #### [facility] [address] [place] [address] Case Judith BLOOD Negative Normal NEGATIVE [facility] Comment on above: Performed By: #### E RUR #### [facility] [address] [place] [address] Case Judith Clarity (U) CLEAR Normal CLEAR [facility] Comment on above: Performed By: #### E RUR #### [facility] [address] [place] [address] Case Judith Color (U) LT. YELLOW Normal YELLOW [facility] Comment on above: Performed By: #### E RUR #### [facility] [address] [place] [address] Case Judith ERUAHD A micrscopic examination will be performed if indicated. Normal [facility] Comment on above: Performed By: #### E RUR #### [facility] [address] [place] [address] Case Judith Glucose [Mass/Vol] Negative Normal NEGATIVE [facility] Comment on above: Performed By: #### E RUR #### [facility] [address] [place] [address] Case Judith Ketones Ql (U) Negative Normal NEGATIVE [facility] Comment on above: Performed By: #### E RUR #### [facility] [address] [place] [address] Case Judith Nitrite Ql (U) Negative Normal NEGATIVE [facility] Comment on above: Performed By: #### E RUR #### [facility] [address] [place] [address] Case Judith pH (Bld) 6.0 Normal 5-9 [facility] Comment on above: Performed By: #### E RUR #### [facility] [address] [place] [address] Case Judith Protein (U) [Mass/Vol] Negative Normal NEGAT EDDY/ TRACE [facility] Comment on above: Performed By: #### E RUR #### [facility] [address] [place] [address] Case Wong SPEC GRAVITY >=1.030 Abnormal 1.005-<=1.025 [facility] Comment on above: Performed By: #### E RUR #### [facility] [address] [place], [place] [address] Case Wong UR MICRO IND NOT INDICATED Normal [facility] Comment on above: Performed By: #### E RUR #### [facility] [address] [place], [place] [address] Case Wong Urobilinogen Qn (U) 0.2 EU/dl Normal 0.2 - 1.0 [facility] Comment on above: Performed By: #### E RUR #### [facility] [address] [place], [place] [address] Case Wong WBC (Bld) [#/Vol] Negative Normal NEGATIVE [facility] Comment on above: Performed By: #### E RUR #### [facility] [address] [place], [place] [address] Case Lemonen URon 10-27-2020 , QUAL Negative Normal NEGATIVE [facility] Comment on above: Performed By: #### P REGU #### [facility] [address] [place], [place] [address] Case Wong PROF 14(COMP METB)on 020 Albumin [Mass/Vol] 3.7 g/dL Normal 3.5-5.0 [facility] Comment on above: Performed By: #### C MP #### [facility] [address] [place], [place] [address] Case Wong Albumin/Globulin [Mass ratio] 1.1 {ratio} Normal [facility] Comment on above: Performed By: #### C MP #### [facility] [address] [place], [place] [address] Case Wong ALP [Catalytic activity/Vol] 62 U/L Normal 38-[address] [facility] Comment on above: Performed By: #### C MP #### [facility] [address] [place], [place] [address] Case Wong ALT [Catalytic activity/Vol] 36 U/L Normal 9-[address] [facility] Comment on above: Performed By: #### C MP #### [facility] [address] [place], [place] [address] Case Judith Anion gap [Moles/Vol] 15.4 mmol/L Normal Th e [facility] Comment on above: Performed By: #### C MP #### [facility] [address] [id number] Case Judith AST [Catalytic activity/Vol] 17 U/L Normal 14-[address] [facility] Comment on above: Performed By: #### C MP #### [facility] [address] [id number] Case Judith Bilirubin Ql (U) 0.4 mg/dL Normal 0.2-1.3 [facility] Comment on above: Performed By: #### C MP #### [facility] [address] [address] Case Judith Calcium [Mass/Vol] 8.4 mg/dL Normal 8.4-10.2 [facility] Comment on above: Performed By: #### C MP #### [facility] [address] [id number] Case Judith Chloride [Moles/Vol] 103 mmol/L Normal 98-[address] [facility] Comment on above: Performed By: #### C MP #### [facility] [address] [address] Case Judith CO2 [Moles/Vol] 25.5 mmol/L Normal 22.0-30.0 [facility] Comment on above: Performed By: #### C MP #### [facility] [address] [place], [place] [address] Case Judith Creatinine [Mass/Vol] 0.88 mg/dL Normal 0.52-1.[address] [facility] Comment on above: Performed By: #### C MP #### [facility] [address] [place], [place] [address] Case Judith EGFR-AF ZIMBABWEAN >60 Normal >=60 [facility] Comment on above: Performed By: #### C MP #### [facility] [address] [id number] Case Judith EGFR-NON AF ZIMBABWEAN >60 Normal >=60 [facility] Comment on above: Performed By: #### C MP #### [facility] [address] [id number] Case Judith Globulin (S) [Mass/Vol] 3.3 g/dL Normal [facility] Comment on above: Performed By: #### C MP #### [facility] [address] [address] Case [place] Glucose [Mass/Vol] 105 mg/dL Normal 74-106 [facility] Comment on above: Performed By: #### C MP #### [facility] [address] [place] [address] Case Judith Potassium [Moles/Vol] 3.9 mmol/L Normal 3.4-5.0 [facility] Comment on above: Performed By: #### C MP #### [facility] [address] [place] [address] Case Judith Protein [Mass/Vol] 7.0 g/dL Normal 6.1-8.2 [facility] Comment on above: Performed By: #### C MP #### [facility] [address] [place] [address] Case Judith Sodium [Moles/Vol] 140 mmol/L Normal 137-145 [facility] Comment on above: Performed By: #### C MP #### [facility] [address] [place] [address] Case Judith Urea nitrogen [Mass/Vol] 11.0 mg/dL Normal 7.0-17.0 [facility] Comment on above: Performed By: #### C MP #### [facility] [address] [place], [place] [address] Case Judith Urea nitrogen/Creatinine [Mass ratio] 12.5 mg/mg Normal [facility] Comment on above: Performed By: #### C MP #### [facility] [address] [place], [place] [address] Case Judith XR CHEST 1 Von 10-27-2020 [...] BIRD Date: 2020-10-27 12:04 Normal [facility] Vital Signs Date Time Vital Sign Value Performing Clinician Faci lity 07-31-2021 07:46-0400 Body temperature 98.71 [degF] [employer] Work Phone: [employer] Work Phone: 07-31-2021 07:46-0400 Diastolic blood pressure 78 mm[Hg] Reactivity BILLING SUPER[employer]OR - [employer] Work Phone: [employer] Work Phone: 07-31-2021 07:46-0400 Heart rate 72 /min Reactivity BILLING SUPERVISOR - [facility] Work Phone: [employer] Work Phone: 07-31-2021 07:46-0400 Respiratory rate 16 /min Reactivity BILLING SUPERVISOR - CNM Work Phone: [facility] Work Phone: 07-31-2021 07:46-0400 Systolic blood pressure 135 mm[Hg] Reactivity BILLING SUPERVISOR - CNM Work Phone: [facility] Work Phone: 07-29-2021 04:02-0400 Body height 170.2 cm María Pool BILLING SUPERVISOR - CNM Work Phone: [facility] Work Phone: 07-29-2021 04:02-0400 Body mass index (BMI) [Ratio] 41.04 kg/m2 María Pool BILLING SUPERVISOR - CNM Work Phone: [facility] Work Phone: 07-29-2021 04:02-0400 Body weight 118.84 kg María Pool BILLING SUPERVISOR - CNM Work Phone: [facility] Work Phone: 07-28-2021 00:21-0400 Diastolic blood pressure 86 mm[Hg] Selma Sifuentes APRN - CNM Work Phone: [facility] Work Phone: 07-28-2021 00:21-0400 Heart rate 63 /min Selma Sifuentes APRN - CNM Work Phone: [facility] Work Phone: 07-28-2021 00:21-0400 Systolic blood pressure 140 mm[Hg] Selma Sifuentes APRN - CNM Work Phone: [facility] Work Phone: 07-27-2021 23:08-0400 Respiratory rate 17 /min Selma Sifuentes APRN - CNM Work Phone: [facility] Work Phone: 07-27-2021 22:36-0400 Body height 170.2 cm Selma Sifuentes APRN - CNM Work Phone: [facility] Work Phone: 07-27-2021 22:36-0400 Body mass index (BMI) [Ratio] 41.5 kg/m2 Selma Sifuentes APRN - CNM Work Phone: [facility] Work Phone: 07-27-2021 22:36-0400 Body weight 120.2 kg Selma Sifuentes APRN - CNM Work Phone: [facility] Work Phone: 07-27-2021 22:18-0400 Body temperature 98.01 [degF] Selma Sifuentes BILLING SUPERVISOR - CNM Work Phone: [facility] Work Phone: 07-21-2021 12:20-0400 Body temperature 98.01 [degF] Selma Sifuentes BILLING SUPERVISOR - CNM Work Phone: [facility] Work Phone: 07-21-2021 12:20-0400 Diastolic blood pressure 75 mm[Hg] Selma Sifuentes BILLING SUPERVISOR - CNM Work Phone: [facility] Work Phone: 07-21-2021 12:20-0400 Heart rate 86 /min Selma Sifuentes APRN - CNM Work Phone: [facility] Work Phone: 07-21-2021 12:20-0400 Respiratory rate 20 /min Selma Sifuentes APRN - CNM Work Phone: [facility] Work Phone: 07-21-2021 12:20-0400 Systolic blood pressure 130 mm[Hg] Selma Sifuentes APRN - CNM Work Phone: [facility] Work Phone: 07-20-2021 14:45-0400 Body height 170.2 cm Selma Sifuentes APRN - CNM Work Phone: [facility] Work Phone: 07-20-2021 14:45-0400 Body mass index (BMI) [Ratio] 41.5 kg/m2 Selma Sifuentes APRN - CNM Work Phone: [facility] Work Phone: 07-20-2021 14:45-0400 Body weight 120.2 kg Selma Sifuentes APRN - CNM Work Phone: [facility] Work Phone: Encounters Encounter Date Encounter Type Care Provider Facility Start: 06-07-2024 End: 06-07-2024 ambulatory MARYCARMEN NAYAK Not Available Start: 05-20-2024 End: 05-20-2024 Departed Referred DO Florin Demetra Work Phone: [facility] Start: 05-20-2024 End: 05-20-2024 ambulatory Florin Razazio [facility] Work Phone: Start: 04-15-2024 End: 04-15-2024 ambulatory MARYCARMEN NAYAK [...] Available Start: 03-04-2024 End: 03-04-2024 ambulatory MAGALIE A HAWHITENBURG Not Available Start: 12-18-2023 Telephone encounter Marycarmen Jara Antonio nassar MD Work Phone: [facility] Start: 11-09-2023 End: 11-09-2023 ambulatory MAGALIE A HACKEN[place] Not Available Start: 09-24-2021 End: 09-24-2021 ambulatory MITA GONZALES Facility: Start: 07-29-2021 End: 07-31-2021 Evaluation and management of inpatient MARÍA E [facility] Start: 07-29-2021 End: 07-31-2021 Evaluation and management of inpatient María E [place] BILLING SUPERVISOR - CNM Work Phone: [facility] Labor and Delivery Start: 07-28-2021 End: 07-28-2021 ambulatory MARYCARMEN NAYAK [facility] Start: 07-27-2021 End: 07-28-2021 Subsequent hospital visit by physician Selma Ginafaisal BILLING SUPERVISOR - CNM Work Phone: [facility] Labor and Delivery Start: 07-20-2021 End: 07-21-2021 Evaluation and management of inpatient MARYCARMEN [facility] Start: 07-20-2021 End: 07-21-2021 Evaluation and management of inpatient Selma Sifuentes BILLING SUPERVISOR - CNM Work Phone: [facility] Labor and Delivery Start: 10-27-2020 End: 10-27-[address] OLY BIRD Facility:[facility] Start: 10-27-2020 End: 10-27-2020 Patient encounter procedure RINKU NAJERA Facility:[facility] Procedures Date Procedure Procedure Detail Performing Clinician Start: 03-22-2023 Microscopic observat ion [Identifier] in Cervix by Cyto stain Marycarmen Nayak MD Work Phone: Start: 02-08-2023 Mammography Marycarmen Nayak MD Work Phone: Start: 07-29-2021 GLUCOSE, WHOLE BLOOD Ka thgarciela Edwards Pool BILLING SUPERVISOR - CNM Work Phone: Start: 07-29-2021 Drug screen class list a María Edwards Pool BILLING SUPERVISOR - CNM Work Phone: Start: 07-29-2021 Blood count complete auto&auto difrntl wbc María Edwards Pool BILLING SUPERVISOR - CNM Work Phone: Start: 07-27-2021 Urinalysis microscop ic only María Edwards Pool BILLING SUPERVISOR - CNM Work Phone: Start: 07-27-2021 Urnls dip stick/tabl et rgnt auto w/o microscopy María Edwards Pool BILLING SUPERVISOR - CNM Work Phone: Start: 07-21-2021 GLUCOSE, WHOLE BLOOD Portia Fuenteso BILLING SUPERVISOR - CNM Work Phone: Start: 07-21-2021 GLUCOSE, WHOLE BLOOD Portia Fuenteso BILLING SUPERVISOR - CNM Work Phone: Start: 07-21-2021 Antibody screen Selma Sifuentes BILLING SUPERVISOR - CNM Work Phone: Start: 07-20-2021 Blood count complete auto&auto difrntl wbc Selma Sifuentes APRN - CNM Work Phone: Start: 07-20-2021 GLUCOSE, WHOLE BLOOD Va spike Sifuentes APRN - CNM Work Phone: Start: 07-20-2021 Blood count complete auto&auto difrntl wbc Selma Sifuentes APRN - CNM Work Phone: Start: 07-20-2021 Blood typing serologic abo Selma Sifuentes APRN - CNM Work Phone: Start: 07-20-2021 Urinalysis microscop ic only Selma Sifuentes BILLING SUPERVISOR - CNM Work Phone: Start: 07-20-2021 Urnls dip stick/tabl et rgnt auto w/o microscopy Selma Sifuentes BILLING SUPERVISOR - CNM Work Phone: Start: 07-19-2021 GBS, EXTERNAL RESULT Va spike Sifuentes BILLING SUPERVISOR - CNM Work Phone: Start: 12-29-2020 ABO, EXTERNAL RESULT Hi storical Provider Start: 12-29-2020 Antibody hiv-1&hiv-2 single result Selma Sifuentes BILLING SUPERVISOR - CNM Work Phone: Start: 12-29-2020 Antibody screen Selma Sifuentes BILLING SUPERVISOR - CNM Work Phone: Start: 12-29-2020 Chlamydia culture Yovanny Sifuentes BILLING SUPERVISOR - CNM Work Phone: Start: 12-29-2020 Iaadiadoo neisseria gonorrhoeae Selma Sifuentes BILLING SUPERVISOR - CNM Work Phone: Plan of Treatment Date Care Activity Detail Author Start: 03-22-2028 Screening for malign ant neoplasm of cervix [facility] Start: 03-22-2026 Screening for malign ant neoplasm of cervix Pap Smear [facility] Start: 02-09-2024 Screening for malign ant neoplasm of breast Mammogram [facility] Start: 07-07-2023 Influenza vaccination Influenza Vacc ine (#1) [facility] Start: 07-07-2021 Influenza vaccination Flu vaccine (# 1) [facility] Phone: Start: 2021 Diabetes screen Diabetes screen [facility] [employer] Phone: Start: 2021 Lipid panel Lipid screen [facility] Work Phone: Start: 2011 [facility] Start: 2002 Screening for malign ant neoplasm of cervix Pap smear [facility] Phone: Start: 2000 DTaP/Tdap/Td vaccine (1 - Tdap) DTaP/Tdap/Td vaccine (1 - Tdap) [facility] Phone: Start: 1993 COVID-19 Vaccine (1) COVID-19 Vaccin e (1) [facility] Phone: Start: 1982 Varicella vaccine (1 of 2 - 2-dose childhood series) Varicella vaccine (1 of 2 - 2-dose childhood series) [facility] Phone: Start: 1981 Hepatitis C screening Hepatitis C sc reen [facility] Phone: End: 07-20-2021 Bacteria identified in Urine by Culture Urine culture Microbiology Routine One Time for 1 Occurrences starting 07/20/2021 until 07/20/2021 [facility] Phone: Comment on above: One Time for 1 Occur rences starting 07/20/2021 until 07/20/2021 End: 07-27-2021 Bacteria identified in Urine by Culture Urine culture Microbiology Routine One Time for 1 Occurrences starting 07/27/2021 until 07/27/2021 [facility] Phone: Comment on above: One Time for 1 Occur rences starting 07/27/2021 until 07/27/2021 Bacteria identified in Urine by Culture Urine culture Microbiology [employer] Label Print 07/27/2021 10:30 PM EDT [facility] Phone: Glucose [Mass/volume ] in Serum or Plasma POCT glucose Point of Care Testing Routine TID until discontinued starting 07/21/2021 [facility] Phone: Comment on above: TID until discontinu ed starting 07/21/2021 Nonrebreather mask oxygen [facility] Phone: Comment on above: As directed - RT (DC N) until discontinued starting 07/20/2021 As directed - RT (DC N) until discontinued starting 07/27/2021 End: 07-29-2021 RHOGAM RHOGAM Blood Bank Routine One Time for 1 Occurrences starting 07/29/2021 until 07/29/2021 [facility] Phone: Comment on above: One Time for 1 Occur rences starting 07/29/2021 until 07/29/2021 End: 07-20-2021 SVE SVE Point of Care Testing Routine One Time for 1 Occurrences starting 07/20/2021 until 07/20/2021 [facility] Phone: Comment on above: One Time for 1 Occur rences starting 07/20/2021 until 07/20/2021 End: 07-27-2021 SVE SVE Point of Care Testing Routine One Time for 1 Occurrences starting 07/27/2021 until 07/27/2021 [facility] Phone: Comment on above: One Time for 1 Occur rences starting 07/27/2021 until 07/27/2021 End: 07-27-2021 Urinalysis Urinalysis Lab Routine One Time for 1 Occurrences starting 07/27/2021 until 07/27/2021 [facility] Phone: Comment on above: One Time for 1 Occur rences starting 07/27/2021 until 07/27/2021 Immunizations Immunization Date Immunization Notes Care Provider Fa cility 07-29-2021 diphtheria, tetanus toxoids and acellular pertussis vaccine, unspecified formulation María Barnes BILLING SUPERVISOR [facility] Work Phone: [facility] Work Phone: 07-29-2021 measles, mumps and rubella virus vaccine María Barnes BILLING SUPERVISOR - CN Work Phone: [facility] Work Phone: 06-30-2021 tetanus toxoid, redu graciela diphtheria toxoid, and acellular pertussis vaccine, adsorbed Marycarmen Nayak MD Work Phone: [facility] Healthcare Payers Date Payer Category Payer Self-pay 2024 Unknown [id number] 2023 Unknown [id number] 2023 Medicaid [employer] [employer] [id number] 2023-Present [address] [place] [address] [id number] 2020 Unknown [id number] 1981 Unknown [id number] 1981 Unknown [id number] 1981 Unknown [id number] [id number] 1981 Unknown [id number] [id number] 1981 Unknown [id number] 1981 Unknown [id number] [id number] 1981 Unknown [id number] [id number] 1981 Unknown [id number] 2.16.840.1.782916.3.579.2.1258 1981 Unknown [id number] 2.16.840.1.659736.3.579.2.1258 1981 Unknown [id number] 2.16.840.1.460409.3.579.2.1258 1981 Unknown [id number] [id number] 1981 Unknown [id number] [id number]58 1981 Unknown [id number] [id number]58 1981 Unknown [id number] 2.16.840.1.935562.3.579.2.1258 1981 Unknown [id number] [id number]58 1981 Unknown [id number] 2.16.840.1.587652.3.579.2.9 1959 Unknown [id number] Unknown [id number] Social History Date Type Detail Facility Start: 07-20-2021 End: 04-13-2023 Tobacco smoking status INIS Former smoker [facility] Phone: Start: 11-06-1994 End: 07-20-2020 History of tobacco use Current smoker [facility] Start: 07-20-2021 End: 04-13-2023 Tobacco use and exposure Never used [facility] Start: 07-20-2021 End: 07-29-2021 Alcohol intake Lifetime non-drinker (finding) [facility] Phone: Start: 07-20-2021 History SDOH Alcohol Frequency 1 [facility] Phone: Start: 11-22-2020 [facility] Phone: Start: 1980 Sex Assigned At Not on file [facility] Phone: Exposure to SARS-CoV -2 (event) Not sure [facility] Start: 11-06-1994 End: 11-06-2019 History of tobacco [...] Only a little [facility] (I/We) worried whetricia er (my/our) food would run out before (I/we) got money to buy more. Never true [facility] In the past 12 month s, was there a time when you were not able to pay the mortgage or rent on time? Yes [facility] Start: 06-13-2023 Alcohol Comment caffeiene: 1-2 cups/day [facility] Start: 07-13-2023 Sexual orientation Heterosexual (finding) [facility] Start: 1980 Sex Assigned At Female [facility] Clinical Notes 07-21-2021 to 02-12-2024 Telephone Encounter - Helen Hillman 12/18/2023 1:05 PM ESTTelephone Encounter - Helen Hairston - 12/18/2023 1:05 PM Selma Boss APRN - MAGED - 07/31/2021 4:03 AM EDT Note Date & Type Note Facility 12-18-2023 Telephone encounter Note Handicapped ese expires in January, and she is requesting a new rx for this. [facility] 12-18-2023 Miscellaneous Notes Handicapped ese expires in January, and she is requesting a new rx for this. documented in this encounter [facility] 07-31-2021 History of Presen t illness [...] room for epidural. documented in this encounter [facility] Phone: 07-28-2021 History of Presen t illness Narrative Pt provided with discharge instructions. Pt verbalized understanding regarding home going instructions. Pt was also instructed per CNMarty to take a hot shower, to get some sleep and to come back to the hospital if she started to feel worse. Pt verbalized understanding. Pt was wheeled off unit in wheelchair and driven home by significant other. Joi Barnes CNM updated with SVE. CNM states okay to discharge patient. CNM stated to instruct patient to take a hot shower and rest and to return to the hospital if pain is worse. Joi Barnes CNM updated with SVE. CNM states to keep patient and recheck in [...] and was told by her OB provider Lillian Sifuentes CNM to come to hospital. Pt denies any leaking of fluid, patient last had sex 07/25/21 and denies any amounts of bleeding. Pt states she has continued to feel baby move during this time. documented in this encounter [facility] Phone: 07-21-2021 History of Presen t illness [...] as patient had not been checked since 023. She reports to me patient is 3/60/-3 [...] fluids. Awaiting result. Pt aware of plan. Lillian LYNNEM orders CBC and type and screen on patient. Lillian LYNNEM updated with SVE, patient contraction pattern and improved pain rating after the nubain. CNM orders tylenol 650mg for pain every 4 hours, 20mg IM nubain every 6 hours as needed for pain, zofran 4mg IV every 8 hours for nausea. Patient updated with plan. Lillian Sifuentes CNM updated with SVE, contraction pattern and Pt pain rating. CNM states to continue to monitor patient as observation. CNM orders 20mg IM nubain for pain. CNM states to recheck patient in 2 hours. Pt updated with plan. documented in this encounter [facility] Phone: Evaluation note Diagnosis Uterine contractions during documented in this encounter [facility] Phone: evaluation note* Diagnosis Uterine contractions during (normal spontaneous vaginal delivery) Normal delivery Amniotic fluid leaking Premature rupture of membranes in , unspecified as to episode of care documented in this encounter [facility] Phone: evaluation noteNo assessment information available [facility] Work Phone: Hospital Discharge instructions* Instructions* Priya Sanchez RN - 07/21/[address] Ana Cristina Barnes [facility] Dr. Desirae Sullivan [facility] [address] [facility] [address] [facility] [address] [place] [address] Desirae Herrera [facility] [address] [facility] [id number] [phone] Lillian Sifuentes, MSN, BILLING SUPERVISOR, CNM [facility] [address] [facility] [address] [address] Raciel Dee S [facility] [id number] Jazmine Jjanup CNM [address] [place] [address] [place] [address] Magy Wells CNM [address] [place] [address] [place] [address] [phone] ACTIVITY LIMITATIONS: ( )Up and about as [...] LABOR AND DELIVERY . documented in this [facility] Work Phone: Hospital Discharge instructions* Instructions* Lashon Alarcon RN - 07/28/[address] Ana Cristina Barnes CNM Dr. Desirae Sullivan CN [address] [facility] [address] [facility] [address] [place] [address] Desirae Herrera CN [address] [facility] [id number] [phone] Lillian Sifuentes, MSN, BILLING SUPERVISOR, CNM [facility] [address] [facility] [address] [address] Raciel Dee S [facility] [address] Jazmine Jjanup CN [address] [facility] [place], [place] [id number] Magyclarissa Wells CN [address] [place], [place] [id number] [phone] ACTIVITY LIMITATIONS: ( x )Up and about [...] LABOR AND DELIVERY . documented in this [facility] Work Phone: Hospital Discharge instructions* Instructions* Kristie Houser, RN - 07/31/2021 Follow-up with your OB doctor as specified. [facility] OB Department phone: Dr. Ana Cristina Barnes [facility] Dr. Desirae Sullivan [facility] [address] [facility] [address] [facility] [address] [place] or [place] DIET Eat a well balanced diet focusing on foods high in fiber and protein. Drink plenty of fluids especially water. To avoid constipation you may take a mild stool softener as recommended by your doctor or cambering machine operator. ACTIVITY Gradually increase your activity. Resume exercise regimen only after advice by your doctor or cambering machine operator. Avoid lifting anything heavier than a gallon of milk for SIX weeks. Avoid driving until your doctor or cambering machine operator has given their approval. Rise slowly from [...] of harming yourself or your infant. If infant will not stop crying, contact another adult for help or place in their crib on their back and take a break. NEVER shake your . BLEEDING Vaginal bleeding will decrease in amount [...] medications as recommended by your doctor or cambering machine operator for pain If you develop a warm, [...] vitamins as directed by your doctor or cambering machine operator. Refer to the booklet in the folder/binder for more information. If you feel you need more assistance or have questions, please call Senait Vizcarra IBCLC, life skills consultant, at or the OB department to [...] area in your calf. documented in this [facility] Work Phone: Summary Purpose Family History No Family History Records FoundNo Family History Records FoundNo Family History Records FoundNo Family History Records FoundNo Family History Records FoundNo Family History Records Found Advance Directives No Advanced Directives Records FoundDocuments on File Type Date Recorded Patient Bottom Filler Expl anation ACP-Advance Directive ACP-Power of Ladle Handler Latest Code Status on File Code Status [...] and content) DATE CREATED AUTHOR 10/29/2020 [facility] DATE CREATED AUTHOR AUTHOR'S ORGANIZ ATION 08/02/2021 [facility] DATE CREATED AUTHOR AUTHOR'S ORGANIZ ATION 10/04/2021 [facility] DATE CREATED AUTHOR AUTHOR'S ORGANIZ ATION 09/16/2022 [facility] dical Specialist DATE CREATED AUTHOR AUTHOR'S ORGANIZ ATION 05/25/2024 [facility] DATE CREATED AUTHOR AUTHOR'S ORGANIZ ATION 06/10/2024 [facility] dical Specialists EPIC Reason for Visit (unrecogniz ed section and content) Reason Comments Contractions Reason Comments Rupture of Membranes Status Reason Specialty Diagnoses / Procedures Referre d By Contact Referred To Contact Diagnoses Uterine contractions during María Barnes APRN - CNM [address] [place] [address] [facility] Scheduled Active and Recently Administ ered Medications (unrecognized section and content) Medication Order 07/19/2021 07/20/2021 07/21/2021 nalbuphine (NUBAIN) injection 20 mg (COMPLETED) 20 mg, IntraMUSCular, ONCE, On Mon07/20/21 at 2015, For 1 dose 2004 (Given - Provider: Caterina Bautista RN) nalbuphine (NUBAIN) injection 5 mg (COMPLETED) 5 mg, IntraVENous, ONCE, On Mon07/20/21 at 1545, For 1 dose 1640 (Given - Provider: Aidan Washburn, JONH) Continuous Medication Order 07/19/2021 07/20/2021 07/21/2021 lactated ringers infusion IntraVENous, at 100 mL/hr, CONTINUOUS, Starting on Mon07/20/21 at 1545 1515 (New Bag - Provider: Leena Washburn RN)1600 (Rate/Dose Change - Provider: Leena Washburn, RN)2004 (New Bag - Provider: Caterina Bautista, JONH) 0410 (New Bag - Provider: Caterina Bautista RN) PRN Medication Order 07/19/2021 07/20/202107/2107/21/2021 acetaminophen (TYLENOL) tablet 650 mg 650 mg, [...] Topical, 2 TIMES DAILY, First dose on Mon07/29/21 at 0915, Apply to perineal area. Patient is capable and may self administer at bedside., 09 (Due)2100 (Due) 0856 (Not Given - Provider: Miriam Wong RN - Reason: Patient/family refused)2100 (Due) 0932 (Not Given - Provider: Kristie Houser RN - Reason: Other)2100 (Due) ibuprofen (ADVIL;MOTRIN) tablet 800 mg 800 mg, Oral, EVERY 8 HOURS, First dose on Mon07/29/21 at 0915, Do not crush or break., 0906 (Given - Provider: Jenny Moore RN)1757 (Given - Provider: Sudha Lee, JONH) 0018 (Given - Provider: Lashon Alarcon, JONH)0856 (Given - Provider: Miriam Wong, JONH)1704 (Given - Provider: Sudha Lee, JONH) 0117 (Given - Provider: Caterina Bautista RN)0936 [...] - Reason: Loss of IV access)2099 (Due) 09 (Not Given - Provider: Kristie Houser RN - Reason: Loss of IV access)2100 (Due) Hkbklti-Ijapku-Stgmm Pertussis (BOOSTRIX) injection 0.5 mL 0.5 mL, IntraMUSCular, PRIOR TO DISCHARGE, Starting on Vera 07/29/21 at 0855, For 1 dose, If not previously administered during at 27-36 weeks as recommended by CDC., witch bryant-glycerin (TUCKS) pad Topical, 2 TIMES DAILY, First dose on Vera 07/29/21 at 0915, Apply to perineal area. Patient is capable and may self administer at bedside., 914 (Due)2099 (Due) 0857 (Not Given - Provider: Miriam Wong RN - Reason: Patient/family refused)2099 (Due) 932 (Not Given - Provider: Kristie Houser RN - Reason: Other)2100 (Due) PRN Medication Order [...] 24 hours., 1248 (Given - Provider: Jenny Moore RN)2000 (Given - Provider: Obdulia Farrell RN) 0025 (Given - Provider: Lashon Alarcon RN)1353 (Given - Provider: Miriam Wong RN)1801 (Given - Provider: Sudha Lee RN)2212 (Given - Provider: Aileen Sands, JONH) 0749 (Given - Provider: Kristie Houser RN) docusate sodium (COLACE) capsule 100 mg 100 [...] and Delivery 0536 (Given - Provider: Mariola Tinoco RN)0746 (Given - Provider: Jenny Moore, JONH) [...] Care Teams (unrecognized sec tion and content) Fingernail Technician Relationship Specialty Start Date End Date Marycarmen Nayak MD [address] [place] [address] PCP - General Family Medicine 03/15/23 Marycarmen Nayak MD [address] [place] [address] PCP - [facility] 05/06/23 Kimberlee Yang NP [address] [place], [place] [id number] Nurse Practitioner Family Medicine 03/15/23 Team Status: [...] BE BASED ON THE PRIMARY CLINICAL RECORDS. [email or web address] provides no warranty or guarantee of the accuracy or completeness of information in this document.
[2024-07-04 11:50] LABS: HCG Quantitative <1 mIU/mL
[2024-07-04] MEDS: LACTATED RINGER'S SOLUTION 1,000 ML 50 ML IV ×2 (12:04→14:30)
--- NOTE | 2024-07-04 12:24 | PC.NURSE ---
1224 Physician explained the use of compression sleeves during surgery. Patient has CRPS and states she gets flare ups with compression. Risk be post surgical blood clots and patient is aware and understands.
[2024-07-04] MEDS: CEFAZOLIN SODIUM 2 GM/50 ML D5W PREMIX IV (12:28)
--- NOTE | 2024-07-04 15:10 | P.ON_ITS ---
Brief Operative Note Date of procedure: 07/04/24 Pre-op diagnosis general: menorrhagia, dysmenorrhea, pelvic pain Post-op diagnosis: same as pre-op Procedure: NAME OF PROCEDURE: ? Robotic assisted laparoscopic hysterectomy with cystoscopy, bilateral salpingectomy, rt oopherectomy PROCEDURE:? The patient was taken back to the operating room, where she was prepped and draped in the normal sterile fashion after being placed in the dorsal lithotomy position.? Patient?s anesthesia was found to be adequate.? Surgical timeout was performed using two patient identifiers.? SCDs were on and in place.? Two grams of Ancef were given prior to the surgery.? Sterile Noriega catheter was inserted.? Standard size VCare was secured to the uterine cervix and the surgeon changed gloves.? Attention then was turned to the patient's abdomen, where a supraumbilical incision was then made.? Two S retractors were used to identify the patient?s fascia.? The fascia was then tented up using Luiz clamps and the patient?s fascia was incised sharply.? Patient?s abdomen was identified and entered bluntly.? The patient had the trocar placed and a pneumoperitoneum was obtained.? Approximately 4 liters of CO2 gas was used.? The camera was then placed through the trocar.? At this time, two robot trocars were placed in the patient?s left and right side, two hand widths from the midline, and this was placed under direct visualization.? The patient?s tube on the right side was tented up and the vessel sealer was then used to come across the mesosalpinx, and this was carried down to the uterine ovarian ligament.? The vessel sealer was carried down serially to the broad ligament, to the area of the bladder flap, which was then created anteriorly, and the uterine arteries were skeletonized and sealed using the vessel sealer.? This was done on the contralateral side as well, the vessel sealer was used to come across the infundibular pelvic ligament on the rt side and the ovary was removed, excellent hemostasis. The colpotomy was made using the monopolar cautery on cut, and this was carried circumferentially, posteriorly to anteriorly, until the uterus was amputated.? The specimen was then removed intact through the vagina, without difficulty.? The vagina was then closed using two running V-Loc in a non-lock fashion.? The robot was undocked.? The abdomen was desufflated.? The skin defe cts were closed using 4-0 Vicryl.? Please note, the fascia was closed using 0 Vicryl.? Sponge, lap and needle counts were correct x2.? Patient was taken to recovery room in stable condition.? The patient was awakened by Anesthesia first.? Patient tolerated procedure well.?? Anesthesia: TETOA Surgeon: Florin Mccrary Racing Mechanic: Debra Patel Estimated blood loss (mL): 250 Pathology: other (uterus, cervix, bilateral tubes and rt ovary) Condition: stable Disposition: PACU Urinary Catheter Management Urinary Catheter Management Urethral: Cath placed during this visit: no
[2024-07-04] MEDS: HYDROMORPHONE HCL 1 MG/ML CARTRIDGE IV (15:45)
[2024-07-04] MEDS: KETOROLAC TROMETHAMINE 30 MG/ML VIAL IVP ×2 (15:47→22:23)
[2024-07-04] MEDS: LACTATED RINGER'S SOLUTION 1,000 ML 125 ML IV (15:58)
[2024-07-04] MEDS: CEFAZOLIN SODIUM/DEXTROSE,ISO 2 GM/50 ML PIGGYBACK IV (17:58)
[2024-07-04] MEDS: ONDANSETRON PF 4 MG/2 ML VIAL IV (17:58)
[2024-07-04] MEDS: OXYCODONE HCL/ACETAMINOPHEN 5MG/325MG 1 TAB PO (18:10)
--- NOTE | 2024-07-04 20:16 | PC.NURSE ---
4 lap sites on abdomen from surgery. dressings 1,2,4 have scant drainage. dressing 3 large amount of drainage. dressings still intact
[2024-07-05] VITALS: BP 123/75; PULSE 81; TEMP 36.6; O2SAT 98
[2024-07-05] MEDS: OXYCODONE HCL/ACETAMINOPHEN 5MG/325MG 2 TAB PO (00:12)
[2024-07-05] MEDS: LACTATED RINGER'S SOLUTION 1,000 ML 125 ML IV (00:13)
[2024-07-05] MEDS: SIMETHICONE 80 MG TAB.CHEW PO (00:13)
[2024-07-05] MEDS: CEFAZOLIN SODIUM/DEXTROSE,ISO 2 GM/50 ML PIGGYBACK IV (00:14)
[2024-07-05 04:00] VITALS: BP 112/67; PULSE 58; TEMP 36.8; O2SAT 97
[2024-07-05 05:50] LABS: Basophils Percent Auto 0.1 % (0.2-2.0); Eosinophils Percent Auto 0.2 % (0.9-7.0); Hematocrit 33.5 % (36.0-48.0); Hemoglobin 12.1 g/dL (12.0-16.0); Immature Granulocytes Abs Auto 0.04 10^3/uL (0.00-0.03); Immature Granulocytes Pct Auto 0.3 % (0.0-0.5); Lymphocytes Absolute Auto 2.6 10^3/uL (1.2-3.8); Lymphocytes Percent Auto 20.3 % (20.5-60.0); Mean Corpuscular HGB Conc 36.1 g/dL (29.9-35.2); Mean Corpuscular Hemoglobin 28.3 pg (26.7-34.0); Mean Corpuscular Volume 78.3 fL (81.0-99.0); Mean Platelet Volume 9.9 fL (9.5-13.5); Monocytes Absolute Auto 1.1 10^3/uL (0.3-0.8); Monocytes Percent Auto 8.4 % (1.7-12.0); Neutrophils Absolute Auto 9.1 10^3/uL (1.4-6.5); Neutrophils Percent Auto 70.7 % (43.0-75.0); Platelet Count 273 10^3/uL (150-450); Red Blood Count 4.28 10^6/uL (4.20-5.40); Red Cell Distribution Width 13.9 % (11.0-15.0); White Blood Count 12.9 10^3/uL (4.0-11.0)
[2024-07-05] MEDS: ENOXAPARIN SODIUM 40 MG/0.4 ML SYRINGE SUBQ (06:08)
== END 2024-07-05 07:52 | disposition home or self-care (01) ==
LOC: SURGOUT 15:16 → MS 16:12
PROVIDERS: PCP Family Medicine; Visit Provider Obstetrics & Gynecology
PROC: (CPT 840; principal; 2024-07-04 12:30)
DX: N92.1 Excessive and frequent menstruation with irregular cycle (principal); N94.6 Dysmenorrhea, unspecified; R10.2 Pelvic and perineal pain; N94.10 Unspecified dyspareunia; N72 Inflammatory disease of cervix uteri; N83.201 Unspecified ovarian cyst, right side; Z86.16 Personal history of COVID-19; Z87.891 Personal history of nicotine dependence; G47.33 Obstructive sleep apnea (adult) (pediatric)
CPT/HCPCS: 58571; 36415; 84702; 85025; 88307; 94667; 96372; J0690; J1170; J1650; J1885; J2405

== ENCOUNTER 2024-08-19 11:32 | Outpatient (OUT) | payer OTHER, SELFPAY ==
--- OUTSIDE RECORDS SUMMARY | 2024-08-19 11:55 | XMS_ITS | CCD ---
Author Organization [facility] Care Team Providers Care Programmer Developer Name Role Phone RINKU NAJERA Attending Unavailable RINKU NAJERA Admitting Unavailable MITA GONZALES Primary Care Unavailable OLY BIRD Consulting Unavailable RIKNU NAJERA Consulting Unavailable Marycarmen Nayak MD Primary Care Provider [phone] MARÍA BARNES Admitting Unavailable MARÍA BARNES Attending Unavailable MARYCARMEN NAYAK Primary Care Unavailable MARYCARMEN NAYAK Primary Care Unavailable SELMA SIFUENTES Admitting Unavailable SELMA SIFUENTES Attending Unavailable MARYCARMEN NAYAK Primary Care Unavailable PEEWEE SIFUENTESE Admitting Unavailable SELMA SIFUENTES Attending Unavailable DR OLY BIRD Consulting Unavailable RINKU NAJERA Admitting Unavailable RINKU NAJERA Attending Unavailable RINKU NAJERA Consulting Unavailable MITA GONZALES Primary Care Unavailable LALI EL Admitting Unavailable LALI EL Consulting Unavailable LALI EL Attending Unavailable Marycarmen Nayak MD Primary Care Provider [phone] Trey MILES, Kimberlee Rachel Unavailable Marycarmen Nayak MD Unavailable DO Florin Mccrary Attending Provider MAGALIE PEÑALOZA Attending Unavailab MAGALIE Harris Attending Unavailab MARICHUY Nair Attending Unavailable MAGALIE PEÑALOZA Referring Unavailab SELMA Rossi Referring Unavailable FLORIN MCCRARY Attending Unavailable MARYCARMEN NAYAK Attending Unavailable DEB SHORT Attending Unavailab MARYCARMEN Mcneil Attending Unavailable MARYCARMEN NAYAK Attending Unavailable DEMETRA, FLORIN Attending Unavailable STEPHANIMARYCARMEN RON Attending Unavailable YEIMI TERAN Attending Unavailable Demetra, Florin Attending Unavailable Demetra, Florin Admitting Unavailable Demetra, Florin Attending Unavailable Demetra, Florin Admitting Unavailable TRISTAN GEOVANNI Jerry Attending Unavailable DEMETRA, Florin R Referring Unavailable MARYCARMEN NAYAK Primary Care Physician [phone] Allergies Allergy Classification Reported Allergen(s) Allergy Type Date of Onset Reaction(s) Facility (3 sources) Adhesive Tape Propensity to adverse reactions to drug 1 Other (See Comments) [facility] (5 sources) Latex; Translations: [Latex] Propensity to adverse reactions to drug 1 Rash, Swelling (finding) [facility] (1 source) Latex Allergy to substance 3 Swelling [facility] Work Phone: (1 source) Wound Dressing Adhesive Propensity to adverse reactions 3 Other [facility] (2 sources) Adhesive bandage; Translations: [Adhesive Bandage] Propensity to adverse reactions (disorder) Burn (disorder) [facility] Repository (2 sources) Doxycycline; Translations: [doxycycline] Drug Allergy Nausea (finding) [facility] Repository Medications Current Medications Medication Drug Class(es) Dates [...] Start: 07-21-2021 acetaminophen (TYLENOL) tablet 650 mg benzocaine 200 mg/ml / menthol 5 mg/ml [...] 800 mg oral tablet (2 sources) Nonsteroidal Anti-inflammator y Drug Start: 07-31-2021 take 1 tablet by [...] same rate as the piggyback being infused. solifenacin succinate 5 mg oral tablet (1 source) Cholinergic Muscarinic Antagonist Start: 08-08-2024 take 1 tablet by mouth once daily Vesicare 5 mg Tab 5 mg = 1 tab(s), Oral, Daily, # 30 tab(s), Refills(s) 11, Pharmacy: [facility]/pharmacy #[id number], 172, cm, 08/08/24 11:35:00 EDT, Height/Length Dosing, 98, kg, 08/08/24 11:35:00 EDT, Weight Dosing Start Date: 08/08/24 Status: Ordered topiramate 100 mg oral tablet (2 sources) Start: 08-08-2024 take 1 tablet by mouth once daily topiramate 100 mg Tab 100 mg = 1 tab(s), Oral, Daily, Refills(s) 0 Start Date: 08/08/24 Status: Ordered Start: 10-12-2023 take 2 tablets by mo uth once daily at bedtime topiramate (Topamax) 100 MG tablet Indications: Complex regional pain syndrome I, unspecified TAKE 2 TABLET BY MOUTH ONCE DAILY AT BEDTIME FOR 30 DAYS 60 tablet 6 10/12/2023 Active vilazodone hydrochloride 40 mg oral tablet [...] Dates Sig (Normalized) Sig (Original) 24 hr amphetamine aspartate 7.5 mg / amphetamine sulfate 7.5 mg / dextroamphetamine saccharate 7.5 mg / dextroamphetamine sulfate 7.5 mg extended release oral capsule (3 sources) Central Nervous System Stimulant Start: 08-08-2024 take 0.5-1 tablets by mouth once daily in the evening amphetamine-dext roamphetamine 10 mg oral tablet 10 mg, 1 tab(s), Oral, Daily, TAKE 0.5-1 TABLET BY MOUTH AT 2 PM Start Date: 08/08/24 Status: Ordered Start: 08-08-2024 take 1 capsule by mo uth once daily in the morning amphetamine-dextroamphetamine 30 mg ER C ap 30 mg = 1 cap(s), Oral, qAM, TAKE 1 CAPSULE BY MOUTH ONCE DAILY Start Date: 08/08/24 Status: Ordered Start: 06-21-2023 take 1 capsule by mo uth every twenty-four hours in the morning amphetamine-dextroamphetamine XR (Addera ll XR) 30 MG 24 hr capsule Indications: Attention deficit hyperactivity disorder (ADHD), combined type (CMS/HCC) Take 1 capsule (30 mg) by mouth in the morning. Do not crush or chew. . 30 capsule 0 06/21/2023 Active 24 hr methylphenidate hydrochloride 54 mg extended [...] units in 500 mL infusion Override Pull traZODone hydrochloride 50 mg oral tablet (2 sources) Serotonin Reuptake Inhibitor Start: 08-08-2024 take 1-2 tablets by mouth every hour at bedtime traZODONE 50 mg Tab 50 mg = 1 tab(s), Oral, Once a day (at bedtime), TAKE 1-2 TABLETS BY MOUTH ONE HOUR PRIOR TO BEDTIME Start Date: 08/08/24 Status: Ordered Start: 08-04-2023 take 1-2 tablets by mouth every hour at bedtime traZODone (Desyrel) 50 MG tablet Indications: Adjustment disorder with depressed mood (CMS/HCC) TAKE 1-2 TABLETS BY MOUTH ONE HOUR PRIOR TO BEDTIME 180 tablet 1 08/04/2023 Active Problems Active Problems Problem Classification Problem Date Documented Date Episodic/Chronic Abdominal hernia (2 sources) Umbilical hernia; Translations: [Umbilical hernia without obstruction or gangrene] Onset: 03-07-2016 11-09-2023 Episodic Acquired foot deformities (1 source) Acquired equinus deformity of foot; Translations: [Other acquired deformities of right foot] Onset: 11-09-2023 11-09-2023 Episodic Adjustment disorders (2 sources) Adjustment disorder with depressed mood; Translations: [Adjustment disorder with depressed mood] Onset: 04-10-2023 04-10-2023 Chronic Anxiety disorders (3 sources) Posttraumatic stress disorder; Translations: [Post-traumatic stress disorder, unspecified] Onset: 04-10-2023 04-10-2023 Chronic Attention-deficit, conduct, and disruptive behavior disorders (1 source) Attention deficit hyperactivity disorder, combined type; Translations: [Attention-deficit hyperactivity disorder, combined type] Onset: 04-10-2023 04-10-2023 Chronic Attention-deficit, conduct, and disruptive behavior disorders (1 source) Attention deficit hyperactivity disorder 08-08-2024 Chronic Biliary tract disease (2 sources) Biliary calculus; Translations: [Calculus of gallbladder without cholecystitis without obstruction] Onset: 03-07-2016 11-09-2023 Episodic Conditions associated with dizziness or vertigo (1 source) Vertigo of central origin; Translations: [Vertigo of central origin] Onset: 11-09-2023 11-09-2023 Episodic Genitourinary symptoms and ill-defined conditions (2 sources) Mixed incontinence; Translations: [Incontinence] Onset: 08-08-2024 Chronic Headache; including migraine (3 sources) Migraine; Translations: [Migraine, unspecified, not intractable, without status migrainosus] Onset: 11-09-2023 11-09-2023 Chronic Headache; including migraine (1 source) Headache; including migraine; Translations: [HEADACHE UNSPECIFIED] Onset: 10-02-2021 Menstrual disorders (1 source) Amenorrhea; Translations: [Amenorrhea, unspecified] Onset: 11-09-2023 11-09-2023 Chronic Miscellaneous mental health disorders (1 source) Primary insomnia; Translations: [Primary insomnia] Onset: 11-09-2023 11-09-2023 Chronic Mood disorders (3 sources) Mild bipolar II disorder, most recent episode [...] ovarian syndrome] Onset: 11-09-2023 11-09-2023 Chronic Other endocrine disorders (1 source) Polycystic ovary 08-08-2024 Chronic Other female genital disorders (1 source) Disorder of female genital organs; Translations: [Unspecified condition associated with female genital organs and menstrual cycle] Onset: 11-09-2023 11-09-2023 Episodic Other female genital disorders (1 source) History of abnormal cervical Papanicolaou smear 08-08-2024 Episodic Other inflammatory condition of skin (1 [...] Onset: 11-09-2023 11-09-2023 Chronic Other skin disorders (2 sources) Alopecia areata; Translations: [Alopecia areata, unspecified] Onset: 11-09-2023 11-09-2023 Episodic Other upper respiratory disease (1 source) Nasal congestion; Translations: [NASAL CONGESTION] Onset: 10-02-2021 Episodic Other upper respiratory disease (1 source) Other diseases of pharynx; Translations: [OTHER DISEASES OF PHARYNX] Onset: 10-02-2021 Episodic Residual codes; unclassified (1 source) Sleep apnea 08-08-2024 Chronic Spondylosis; intervertebral disc disorders; other back problems (2 sources) Lumbar radiculopathy; Translations: [Radiculopathy, lumbar region] Onset: 11-09-2023 11-09-2023 Episodic Unclassified (3 sources) CONTACT W/AND (SUSP) EXPOS COVID-19; Translations: [CONTACT W/AND (SUSP) EXPOS COVID-19] Onset: 10-02-2021 Urinary tract infections (1 source) Cystitis; Translations: [Cystitis, unspecified without hematuria] Onset: 08-08-2024 Episodic Past or Other Problems Problem Classification Problem Date Documented Date Episodic/Chronic Diabetes or abnormal glucose tolerance complicating ; [...] Test Name Value Interpretation Reference Range Facility Ambulatory Visit Summaryon 1 Ambulatory Visit Summary Ambulatory Visit Summary JULIANNA GUERRA :1980 Visit Date:08/08/2024 Ambulatory Visit Instructions Your Diagnosis Mixed incontinence Cystitis Your Care Team Attending Physician - GEOVANNI HUDSON PA-C Primary Care Physician - MARYCARMEN NAYAK MD Referring Physician - Florin MCCRARY DO This Is Your Medications List amphetamine-dextroamphetamin e (amphetamine-dextroamphetami ne 10 mg oral tablet) amphetamine-dextroamphetamin e (amphetamine-dextroamphetami ne 30 mg ER Cap) solifenacin (Vesicare 5 mg Tab) topiramate (topiramate 100 mg Tab) trazodone (traZODONE 50 mg Tab) Procedures Performed Hysterectomy (07/04/2024), Colonoscopy (03/2016), EGD - esophagogastroduodenoscopy (03/2016), Umbilical hernia (03/2016), Ankle, Cholecystectomy. Discharge Vitals Heart Rate (Peripheral) 106 Respiratory Rate 18 Blood Pressure 116/78 Height 172 cm Height 68 in Weight 98 kg Weight 215.6 lb BMI 33.13 What to do next You Need to Schedule the Following Appointments Follow Up with GEOVANNI HUDSON PA-C, URL When: Within 1 year Where: Medications What How Much When Instructions New solifenacin (Vesicare 5 mg Tab) 1 Tablets By Mouth Every day Refills: 11 Pickup at [facility]/pharmacy #[id number] Unchanged amphetamine-dextroamphetamin e (amphetamine-dextroamphetami ne 10 mg oral tablet) 1 Tablets By Mouth Every day TAKE 0.5-1 TABLET BY MOUTH AT 2 PM Unchanged amphetamine-dextroamphetamin e (amphetamine-dextroamphetami ne 30 mg ER Cap) 1 Capsules By Mouth Once a day (in the morning) TAKE 1 CAPSULE BY MOUTH ONCE DAILY Unchanged topiramate (topiramate 100 mg Tab) 1 Tablets By Mouth Every day Unchanged trazodone (traZODONE 50 mg Tab) 1 Tablets By Mouth Once a day (at bedtime) TAKE 1-2 TABLETS BY MOUTH ONE HOUR PRIOR TO BEDTIME Pharmacy Information [facility]/pharmacy #[id number]: [address], [place] [phone] Allergies Latex (Swelling) Adhesive Bandage (Burn) doxycycline (Nausea) Problems Ongoing - Any problem that you are currently receiving treatment for. ADHD (attention deficit hyperactivity disorder) Alopecia areata Anxiety Bipolar II disorder Depression Gallbladder problem History of abnormal cervical Pap smear Lumbar radiculopathy Migraine Mixed incontinence Polycystic ovary PTSD (post-traumatic stress disorder) Sleep apnea Umbilical hernia Patient Survey You may receive a survey via text or e-mail asking about your office visit. Please share your experience with us by completing your survey. We appreciate your feedback and thank you for choosing us for your care. Education Materials Overactive Bladder, Adult Overactive bladder is a condition in which a person has a sudden and frequent need to urinate. A person might also leak urine if he or she cannot get to the bathroom fast enough (urinary incontinence). Sometimes, symptoms can interfere with work or social activities. What are the causes? Overactive bladder is associated with poor nerve signals between your bladder and your brain. Your bladder may get the signal to empty before it is full. You may also have very sensitive muscles that make your bladder squeeze too soon. This condition may also be caused by other factors, such as: ? Medical conditions: ? Urinary tract infection. ? Infection of nearby tissues. ? Prostate enlargement. ? Bladder stones, inflammation, or tumors. ? Diabetes. ? Muscle or nerve weakness, especially from these conditions: ? A spinal cord injury. ? Stroke. ? Multiple sclerosis. ? Parkinson's disease. ? Other causes: ? Surgery on the uterus or urethra. ? Drinking too much caffeine or alcohol. ? Certain medicines, especially those that eliminate extra fluid in the body (diuretics). ? Constipation. What increases the risk? You may be at greater risk for overactive bladder if you: ? Are an older adult. ? Smoke. ? Are going through menopause. ? Have prostate problems. ? Have a neurological disease, such as stroke, dementia, Parkinson's disease, or multiple sclerosis (MS). ? Eat or drink alcohol, spicy food, caffeine, and other things that irritate the bladder. ? Are overweight or obese. What are the signs or symptoms? Symptoms of this condition include a sudden, strong urge to urinate. Other symptoms include: ? Leaking urine. ? Urinating 8 or more times a day. ? Waking up to urinate 2 or more times overnight. How is this diagnosed? This condition may be diagnosed based on: ? Your symptoms and medical history. ? A physical exam. ? Blood or urine tests to check for possible causes, such as infection. You may also need to see a health care provider who specializes in urinary tract problems. This is called a urologist. How is this treated? Treatment for overactive bladder depends on the cause of your condition and whether it is (more content not included)... Normal [facility] Urology Office/Clinic Noteon 08-08-2024 Urology Office/Clinic Note Urology Office/Clinic Note Chief Complaint New patient cystitis HPI Staff New pt referred by Dr. Mccrary due to cystitis noted during [facility] assisted laparoscopic hysterectomy done 07/04/24. Per patient Dr Mccrary states that during her hysterectomy they noticed he bladder didn't look good . I see no mention of this on the op note, however it is mentioned on her post-op ov note 07/11/24. Prescribed doxycycline 100 mg bid x 30d w 1 refill at that visit. Pt has been taking it but states it makes her very nauseous. Cx 11/10/23 50-100k GBS. Tx by Jeferson Peñaloza Cx 03/04/24 nl maryellen, 1-9k GBS. Tx by Jeferson Peñaloza CT wo con 04/14/24 shows 2mm L renal stone w/o hydro. Cx 04/14/24 - nl maryellen. PVR is 15ml today UA neg Dysuria: unknown Incomplete bladder emptying: yes Hematuria: denies visible blood Frequency: depends on fluid intake but between 2-3 hours Urgency: denies Nocturia: has the urge to go at night a few times but is not waking up to go Stream: denies hesitancy, has a steady stream Leaking: yes Post void dripping: denies Wearing pads/ Depends: denies Urge incontinence: denies Stress incontinence: when coughing and sneezing and walking Incontinence without Sensory Awareness: denies Abdominal pain: pain from hysterectomy Flank pain: has chronic left side pain and back pain Sexual complaints: _ Review of Systems PHQ Score Initial Depression Screen Score: 0 SCORE no fever, chills. no rash/lesions. no chest pain, palpitations, or SOB. no abdominal pain, nausea, vomiting. no unilateral calf swelling, redness, pain Physical Exam Vitals & Measurements HR: 106(Peripheral) RR: 18 BP: 116/78 HT: 68 in HT: 172 cm WT: 98 kg WT: 215.6 lb BMI: 33.13 General: nontoxic, NAD Mouth: moist mucosa Lungs: normal respiratory effort Cardio: regular rate, good distal perfusion Abdomen: nondistended, no suprapubic distention or tenderness, no CVA tenderness Neurologic: Grossly normal Skin: No rashes or suspicious lesions Assessment/Plan UA completed in office today shows no microhematuria or signs of infection. 1. Mixed incontinence (N39.46: Mixed incontinence) BBSQ 17 poor control. mixed inc + fecal inc. PVR is 15ml today Thinks she may have tried a bladder control med a few years ago after gallbladder surgery but doesn't remember which one. Discussed tx options for bothersome urinary sx including oral medications, Botox, SNM. Medication management includes anticholinergics and beta-3 agonists. Beta-3's (Myrbetriq/Gemtesa) are often preferable due to lower side effect profile, but most insurances won't cover without trying anticholinergics first. Therefore we will start with Vesicare/solifenacin. Pt will start with lowest daily dose and slowly titrate up as pt tolerates. I explained the most common side effects are dry mouth, dry eyes, and constipation. We discussed OTC options to help with these side effects. Pt will stop medication and call office if side effects become intolerable. We did discuss that there is a documented potential side effect of mental status changes/confusion in the elderly, but that this risk is quite low. Pt and I agree that potential benefit outweigh risk at this time. For RYAN recommend PFPT. Provided printed info for self-guided exercises. Ordered: E&M of New Patient Moderate 45-59 Min [id number] 2. Cystitis (N30.90: Cystitis, unspecified without hematuria) Referred by Dr. Mccrary due to cystitis noted during [facility] assisted laparoscopic hysterectomy done 07/04/24. Prescribed doxycycline 100 mg bid x 30d w 1 refill on 07/11/24. Pt states she never started it due to hx severe nausea from Doxy and bc she did not agree that it was indicated. Cx 11/10/23 50-100k GBS. Tx by Jeferson santiago Macrobid, then switched to Amoxicillin. Cx 03/04/24 nl maryellen, 1-9k GBS. Tx by Jeferson santiago Augmentin. Cx 04/14/24 - nl maryellen. Tx'd by Marty santiago Doxy x [address] wo con 04/14/24 shows 2mm L renal stone w/o hydro. I agree w pt, I do not feel long course abx indicated at this time since multiple cx neg and current UA completely neg. Likely more inflammatory than infectious. Recommended bowel regimen, avoid bladder irritants. Ordered: E&M of New Patient Moderate 45-59 Min 00422 Urnls Dip Stick Auto w/o Microscopy POC [id number] Orders: solifenacin, 5 mg = 1 tab(s), Oral, Daily, # 30 tab(s), Refills(s) 11, Pharmacy: [facility]/pharmacy #[id number], 172, cm, 08/08/24 11:35:00 EDT, Height/Length Dosing, 98, kg, 08/08/24 11:35:00 EDT, Weight Dosing Pt has a lot of other medical concerns at the moment (recovering from hysterectomy, planning to see rheumatology for possible Lupus, among other things) does not wish to schedule f/u at this time. Will call if no sx improvement w Vesicare. Otherwise will f/u in 1 yr. Follow-up With When Contact Information GEOVANNI HUDSON PA-C, URL Within 1 year Additional Instructions: Patient Education Overactive Bladder, Adult Problem List/Past Medical History Ongoing ADHD (attenti (more content not included)... Normal [facility] Comment on above: Result Comment: Elec tronically Signed By: GEOVNANI HUDSON PA-C\.br\Date and Time Signed: 08/08/24 12:27 EDT [place] 07-04-2024 L Specimen: [id number] R eceived: 07/05/24 Status: SOUT Req Num: [id number] Spec Type: Surgical Subm Dr: Florin Mccrary Tissues: A Uterus w/ or w/o tubes ovaries except neoplastic or prolap (UTERUS AND CER Procedures: HE/, Gross/Micro L5 Age/ Patient Sex Location Account Attending Physician Julianna Guerra 44/F [facility] [id number] Florin Mccrary SPEC NUM: [id number] RECD: 07/05/24 STATUS: DEL ELLIS NUM: [id number] LACHELLE: 07/04/[address]: Florin Mccrary ENTERED: 07/05/[address] [facility] DR: Mathieu,Lab SPEC TYPE: Surgical DEPT: DONALD BADILLO ORDERED: , Gross/Micro L5 ORDERED: , Gross/Micro L5 Pathological Diagnosis Uterus, cervix, right ovary, and bilateral fallopian tubes, total hysterectomy with right oophorectomy and bilateral salpingectomy: -Cervix with minor degree of chronic cervicitis without dysplasia -Corpus with slightly desynchronize secretory endometrium of the mid phase type, including occasional nuclear stratification and mitosis in the glands without hyperplasia or atypia -Incidental occasional PMN clusters within lumen of rare endometrial glands -Incidental patchy at least moderate adenomyosis -Right ovary with occasional residual cysts (including 1 also containing thrombotic clot within the cystic lumen), 1 very large bulging hemorrhagic corpus luteal cyst (1.7 cm ), and at least 2 small inclusion cyst with cuboidal lining, and a linear aggregate of ovarian endometriosis -Bilateral fimbriated fallopian tubes without significant histopathological findings except 1 small paratubal cyst on the first described tube Clinical Information Menorrhagia, pelvic pain, dyspareunia, dysmenorrhea -------- Specimen: [id number] Received: 07/05/24 Status: DEL Ellis Num: [id number] Spec Type: Surgical Subm Dr: Florin Mccrary Tissues: A Uterus w/ or w/o tubes ovaries except neoplastic or prolap (UTERUS AND CER Procedures: , Gross/Micro L5 -------- Patient: Julianna Guerra [id number] (Continued) -------- Specimen: [id number] Received: 07/05/24 (Continued) Signed (signature on file) Radha Ross MD 07/15/241806 -------- Specimen: [id number] Received: 07/05/24 Status: DEL Ellis Num: [id number] Spec Type: Surgical Subm Dr: Florin Mccrary Tissues: A Uterus w/ or w/o tubes ovaries except neoplastic or prolap (UTERUS AND CER Procedures: , Gross/Micro L5 -------- Patient: Julianna Guerra [id number] (Continued) -------- Specimen: [id number] Received: 07/05/24-5276 (Continued) Gross Description The specimen was received in formalin with the patient's name and uterus and cervix, right ovary, bilateral fallopian tubes and consists of a 126 g uterus and cervix measuring 7.8 from superior to inferior 4.5 cm from anterior to posterior and 7.0 cm from cornu to cornu. Serosal surface is hernandez and pink smooth the cervix has a length of 3.2 cm and a diameter of 2.7 cm. The cervical mucosa is hernandez-oates focally hemorrhagic with a external os measuring 1.4 cm in diameter specimen is bivalved to reveal a endocervical canal measuring 3.2 cm in length. The endometrial cavity measures 3.0 cm from superior to inferior and 1.2 cm from cornu to cornu. The anterior endomyometrium measures 2.1 cm in thickness, and the posterior measures 2.4 cm. The endometrium measures 0.5 cm in thickness throughout and grossly appears thickened. The first unattached fimbriated fallopian tube measures 4.0 cm in length a diameter of 0.6 cm, and the second measures 5.5 cm in length with a diameter of 0.6 cm. The right ovary measures 4.9 x 2.0 x 1.4 cm. The external surface is hernandez-white nodular with a bulging cystic structure measuring 1.7 x 1.0 x 1.0 cm. Sectioning through the exterior cystic structure reveals a normal ovulating cyst. Further sectioning of the right ovary reveals multiple cystic structures ranging in size from 0.1 to 1.1 cm. Sections submitted as follows: A1 anterior cervix A2-A3 anterior endomyometrium A4 posterior cervix A5-A7 posterior endomyometrium A8 admitting representative section of the right ovary A9 admitting representative sections of the exterior ovarian cyst A10 admitting representative sections of the first fallopian tube A11 admitting representative sections of the second fallopian tube DM Microscopic Description Microscopic examinations are performed supporting the above inte (more content not included)... Normal [facility] [place] 05-20-2024 L Specimen: [id number] R eceived: 05/21/24 Status: DEL Ellis Num: [id number] Spec Type: Surgical Subm Dr: Florin Mccrary Tissues: A Endometrium - Biopsy (EMBX) Procedures: HE/2, Gross/Micro L4 Age/ Patient Sex Location Account Attending Physician Julianna Guerra 44/F LABELL [id number] Florin Mccrary SPEC NUM: [id number] RECD: 05/21/24 STATUS: DEL ELLIS NUM: [id number] LACHELLE: 05/20/[address]: Florin Mccrary ENTERED: 05/21/24 [facility] DR: Mathieu,Lab SPEC TYPE: Surgical DEPT: [...] examinations are performed supporting the above interpretation -------- Specimen: [id number] Received: 05/21/24 Status: DEL Ellis Num: [id number] Spec Type: Surgical Subm Dr: Florin Mccrary Tissues: A Endometrium - Biopsy (EMBX) Procedures: Augie ELIZONDO/Micro L4 -------- Patient: Julianna Guerra [id number] (Continued) -------- Specimen: [id number] Received: 05/21/24 (Continued) Signed (signature on file) Radha Ross MD 05/23/241831 -------- Specimen: [id number] Received: 05/21/24 Status: DEL Ellis Num: [id number] Spec Type: Surgical Subm Dr: Florin Mccrary Tissues: A Endometrium - Biopsy (EMBX) Procedures: Augie ELIZONDO/Micro L4 -------- Patient: Julianna Guerra [id number] (Continued) -------- Specimen: [id number] Received: 05/21/24 (Continued) CPT Codes 98217 -------- -------- Specimen: [id number] Received: 05/21/24 Status: DEL Ellis Num: [id number] Spec Type: Surgical Subm Dr: Florin Mccrary Tissues: A Endometrium - Biopsy (EMBX) Procedures: HE/2, Gross/Micro L4 -------- Patient: Julianna Guerra [id number] (Continued) -------- Signed (signature on file) Radha Ross MD 05/23/24 1832 Normal [facility] Physician [facility] US PELVIS TRANSVAGINALon US PELVIS TRANSVAGINAL FINDINGS: [...] 022 MRI Ankle w/o Left HISTORY: Posterior a nkle pain for 8 weeks. Achilles tendinitis. COMPARISON: [...] by Tyler Loza on 09/15/2022 1103 Normal [facility] [employer] XR Chest 2 Views*on 05-05-20 22 XR Chest 2 Views* FINDINGS: Mild diffuse interstitial prominence with peribronchial thickening. No parenchymal consolidation or alveolar infiltrates, pulmonary edema or pleural effusion. No pneumothorax. Normal cardiac silhouette size. Mild mid thoracic dextroscoliosis. IMPRESSION: Parenchymal findings can be consistent with interstitial pneumonia, asthma Report reported and signed by Dayton Graves on 05/05/2022 1225 Normal [facility] Covid-19 PCR ([facility])on 09-06 SARS-CoV-2 (COVID-19) RNA ANTHONY+probe Ql (Unsp spec) Not detected Normal NOT DETECTED [facility] Comment on above: Result Comment: This test is not yet approved or cleared by the [place] FDA. When there are no FDA-approved or cleared tests available, and other criteria are met, FDA can make tests available under an emergency access mechanism called an Emergency Use Authorization (EUA). The EUA for this test is supported by the [place] of Health and Human Service's (HHS's) declaration [...] consistent with SARS-CoV-2. Performed By: #### [facility] #### [facility] [address] [place] [address] Dr. Carolyn Ross CBC auto differentialOrdered By: María Barnes on 07-29-2021 Absolute Eos # 0.10 [employer] Phone: Absolute Immature Granulocyte 0.04 [employer] Phone: Absolute Lymph # 2.71 [employer] Phone: Absolute [place] # 0.97 [employer] Phone: Basophils (Bld) [#/Vol] 10*3/uL [employer] Phone: Basophils/100 WBC (Bld) 0 % 0 - 2 % [employer] Phone: Differential Type NOT REPORTED [employer] Phone: Eosinophils/100 WBC (Bld) 1 % 1 - 4 % [employer] Phone: Hematocrit (Bld) [Volume fraction] 36.2 % Low 36.3 - 47.1 % [employer] Phone: Hemoglobin.gastrointe stinal spec 1 Ql (Stl) 13.0 g/dL 11.9 - 15.1 g/dL [employer] Phone: Immature granulocytes/100 WBC (Bld) 0 % 0 [employer] Phone: Interpretation and review of laboratory results Abnormal [employer] Phone: Lymphocytes/100 WBC (Bld) 26 % 24 - 43 % [employer] Phone: MCH (RBC) [Entitic mass] 27.4 pg 25.2 - 33.5 pg [employer] Phone: MCHC (RBC) [Mass/Vol] 35.9 g/dL High 28.4 - 34.8 g/dL [employer] Phone: MCV (RBC) [Entitic vol] 76.2 fL Low 82.6 - 102.9 fL [employer] Phone: Monocytes/100 WBC (Bld) 9 % 3 - 12 % [employer] Phone: NRBC Automated 0.0 0.0 per 100 WBC [employer] Phone: Platelet distribution width (Bld) [Ratio] 13.2 % 11.8 - 14.4 % [employer] Phone: Platelet Estimate NOT REPORTED [employer] Phone: Platelet mean volume (Bld) [Entitic vol] 11.4 fL 8.1 - 13.5 fL [employer] Phone: Platelets (Bld) [#/Vol] 229 10*3/uL [employer] Phone: RBC (Bld) [#/Vol] 4.75 10*6/uL 3.95 - 5.11 m/uL [employer] Phone: RBC (Bld) [#/Vol] NOT REPORTED [employer] Phone: Segmented neutrophils/100 WBC (Bld) 64 % 36 - 65 % [employer] Phone: Segs Absolute 6.79 [employer] Phone: WBC (Bld) [#/Vol] 10.6 10*3/uL [employer] Phone: WBC (Bld) [#/Vol] NOT REPORTED [employer] Phone: [employer] Phone: CBC with Diffon 07-29-2021 Abs. Basophil <0.03 Normal 0.00-0.20 [facility] Comment on above: Performed By: #### C DP #### [facility] [address] [place] [address] Help Desk Operator: Tico Minaya MD Abs.Imm.Granulocyte 0.04 k/uL Normal 0.00-0.30 [facility] Comment on above: Performed By: #### C DP #### [facility] [address] [place] [address] [place] [address] Help Desk Operator: Tico Minaya MD Abs.Neutrophil (Seg) 6.79 k/uL Normal 1.50-8.10 [facility] Comment on above: Performed By: #### C DP #### [facility] [address] [place] [address] [place] [address] Help Desk Operator: Tico Minaya MD Basophils/100 WBC (Bld) 0 % Normal 0-2 [facility] Comment on above: Performed By: #### C DP #### [address] [place] [address] Help Desk Operator: Tico Minaya MD Eosinophils (Bld) [#/Vol] 0.10 10*3/uL Normal 0.00-0.44 [facility] Comment on above: Performed By: #### C DP #### [address] [place], [place] [address] Help Desk Operator: Tico Minaya MD Eosinophils/100 WBC (Bld) 1 % Normal 1-4 [facility] Comment on above: Performed By: #### C DP #### [address] [place], [place] [address] Help Desk Operator: Tico Minaya MD Erythrocyte distribution width (RBC) [Ratio] 13.2 % Normal 11.8-14.4 [facility] Comment on above: Performed By: #### C DP #### [address] [place], [place] [address] Help Desk Operator: Tico Minaya MD Hematocrit (Bld) [Volume fraction] 36.2 % Low 36.3-47.1 [facility] Comment on above: Performed By: #### C DP #### [facility] [address] [place], [place] 944[address]83 Help Desk Operator: Tico Minaya MD Hemoglobin (Bld) [Mass/Vol] 13.0 g/dL Normal 11.9-15.1 [facility] Comment on above: Performed By: #### C DP #### [facility] [address] [place] [id number] Help Desk Operator: Tico Minaya MD Immature granulocytes/100 WBC (Bld) 0 % Normal 0 [facility] Comment on above: Performed By: #### C DP #### [facility] [address] [place], [place] [id number] Help Desk Operator: Tico Minaya MD Lymphocytes (Bld) [#/Vol] 2.71 10*3/uL Normal 1.10-3.70 [facility] Comment on above: Performed By: #### C DP #### [facility] [address] [place] [address] Dr. [place], [place] 1294483 Help Desk Operator: Tico Minaya MD Lymphocytes/100 WBC (Bld) 26 % Normal 24-43 [facility] Comment on above: Performed By: #### C DP #### [address] [place], [place] 3929183 Help Desk Operator: Tico Minaya MD MCH (RBC) [Entitic mass] 27.4 pg Normal 25.2-33.5 [facility] Comment on above: Performed By: #### C DP #### [facility] [address] [place] [address] Dr. [place], [place] [phone] Help Desk Operator: Tico Minaya MD MCHC (RBC) [Mass/Vol] 35.9 g/dL High 28.4-34.8 [facility] Comment on above: Performed By: #### C DP #### [facility] [address] [place] [address] Dr. [place] [phone] Help Desk Operator: Tico Minaya MD MCV (RBC) [Entitic vol] 76.2 fL Low 82.6-102.9 [facility] Comment on above: Performed By: #### C DP #### [facility] [address] [place], [place] 845[address]83 Help Desk Operator: Tico Minaya MD Monocytes (Bld) [#/Vol] 0.97 10*3/uL Normal 0.10-1.20 [facility] Comment on above: Performed By: #### C DP #### [facility] [address] [place] [address] Help Desk Operator: Tico Minaya MD Monocytes/100 WBC (Bld) 9 % Normal 3-12 [facility] Comment on above: Performed By: #### C DP #### [facility] [address] [place], [place] [address] Help Desk Operator: Tico Minaya MD Neutrophil (Seg) 64 % Normal 36-65 [facility] Comment on above: Performed By: #### C DP #### [facility] [address] [place], [facility]83 Help Desk Operator: Tico Minaya MD NRBC Automated 0.0 per 100 WBC Normal 0.0 [facility] Comment on above: Performed By: #### C DP #### [facility] [address] [place], [place] [address] Help Desk Operator: Tico Minaya MD Platelet mean volume (Bld) [Entitic vol] 11.4 fL Normal 8.1-13.5 [facility] Comment on above: Performed By: #### C DP #### [facility] [address] [place], [place] [phone] Help Desk Operator: Tico Minaya MD Platelets (Bld) [#/Vol] 229 10*3/uL Normal 138-453 [facility] Comment on above: Performed By: #### C DP #### [facility] [address] [place], [place] [phone] Help Desk Operator: Tico Minaya MD RBC (Bld) [#/Vol] 4.75 10*6/uL Normal 3.95-5.11 [facility] Comment on above: Performed By: #### C DP #### [facility] [address] [place] [address] Help Desk Operator: Tico Minaya MD WBC (Bld) [#/Vol] 10.6 10*3/uL Normal 3.5-11.3 [facility] Comment on above: Performed By: #### C DP #### [facility] [address] [place], [place] 8946483 Help Desk Operator: Tico Minaya MD Auto Diff Performed NOT REPORTED Normal [facility] Comment on above: Performed By: #### C DP #### [facility] [address] [place], [facility]83 Help Desk Operator: Tico Minaya MD Platelet Estimate NOT REPORTED Normal [facility] Comment on above: Performed By: #### C DP #### [address] [place], [facility]83 Help Desk Operator: Tico Minaya MD RBC morphology finding Nom (d) NOT REPORTED Normal [facility] Comment on above: Performed By: #### C DP #### [facility] [address] [place], [facility]83 Help Desk Operator: Tico Minaya MD WBC Morphology NOT REPORTED Normal [facility] Comment on above: Performed By: #### C DP #### [address] [place] [address] Help Desk Operator: Tico Minaya MD Cult,Urineon 07-29-2021 Cult,Urine Specimen Description .CLEAN CATCH URINE Special Requests NOT REPORTED Culture NO SIGNIFICANT GROWTH Report Status FINAL 07/29/2021 Normal [facility] Comment on above: Performed By: #### U RC #### [facility] [address] [place] [address] Help Desk Operator: Kvng Soares MD [facility] [address] [place] [address] Help Desk Operator: Tico Minaya MD DRUG SCREEN MULTI URINEOrder ed By: María Barnes on 07-29-2021 Amphetamine Screen, Ur Negative NEGATIVE [facility] Work Phone: Barbiturate Screen, Ur Negative NEGATIVE [facility] Work Phone: [phone] Benzodiazepine Screen, Urine Negative NEGATIVE [facility] Work Phone: Buprenorphine Urine Negative NEGATIVE [facility] Work Phone: Cannabinoid Scrn, Ur Negative NEGATIVE [facility] Work Phone: Cocaine Metabolite, Urine Negative NEGATIVE [facility] Work Phone: [phone] MDMA, Urine NOT REPORTED NEGATIVE [facility] Work Phone: Methadone Screen, Urine Negative NEGATIVE [facility] Work Phone: Methamphetamine, Urine Negative NEGATIVE [facility] Work Phone: Opiates, Urine Negative NEGATIVE [facility] Work Phone: Oxycodone Screen, Ur Negative NEGATIVE [facility] Work Phone: Phencyclidine, Urine Negative NEGATIVE [facility] Work Phone: Propoxyphene, Urine Negative NEGATIVE [facility] Work Phone: Test Information NOT REPORTED [facility] Work Phone: Tricyclic Antidepressants, Urine Negative NEGATIVE [facility] Work Phone: Comment on above: Drug screen results are to be used for medical purposes only. All positive results are unconfirmed. Testing for employment or legal uses should be sent to a reference laboratory for confirmation. [employer] Work Phone: Drug Scr, Abuse, Uron 2020 Amphetamine(s),Ur Negative Normal [facility] Comment on above: Performed By: #### D AU #### [facility] [address] [place] [address] Help Desk Operator: Tico Minaya MD Barbiturate(s),Ur Negative Normal NEG [facility] Comment on above: Performed By: #### D AU #### [facility] [address] [place] [address] Help Desk Operator: Tico Minaya MD Benzodiazepine(s) Negative Normal [facility] Comment on above: Performed By: #### D AU #### [facility] [address] [place], [place] 4348483 Help Desk Operator: Tico Minaya MD Buprenorphrine, Ur Negative Normal [facility] Comment on above: Performed By: #### D AU #### [facility] [address] [place] [address] Help Desk Operator: Tico Minaya MD Cannabinoid(s),Ur Negative [facility] Comment on above: Performed By: #### D AU #### [facility] [address] [place], [place] 3103683 Help Desk Operator: Tico Minaya MD Cocaine Metabolite Negative [facility] Comment on above: Performed By: #### D AU #### [facility] [address] [place] [address] Help Desk Operator: Tico Minaya MD Methadone Ql (U) Negative [facility] Comment on above: Performed By: #### D AU #### [facility] [address] [place], [place] 9958983 Help Desk Operator: Tico Minaya MD Methamphetamine, Ur Negative Normal [facility] Comment on above: Performed By: #### D AU #### [facility] [address] [place] [address] Help Desk Operator: Tico Minaya MD Opiate(s), Ur Negative Normal NEG [facility] Comment on above: Performed By: #### D AU #### [facility] [address] [place], [place] 3183583 Help Desk Operator: Tico Minaya MD Oxycodone, Urine Negative Normal NEG [facility] Comment on above: Performed By: #### D AU #### [facility] [address] [place] [address] Help Desk Operator: Tico Minaya MD Phencyclidine, Ur Negative Normal NEG [facility] Comment on above: Performed By: #### D AU #### [facility] [address] [place], [place] 7072483 Help Desk Operator: Tico Minaya MD Propoxyphene,Urine Negative Normal NEG [facility] Comment on above: Performed By: #### D AU #### [facility] [address] [place] [address] Dr. [place], [place] 6458983 Help Desk Operator: Tico Minaya MD Tricyclic antidepressants Screen Ql (U) Negative Normal NEG [facility] Comment on above: Result Comment: Drug screen results are to be used for medical purposes only. All positive results are unconfirmed. Testing for employment or legal uses should be sent to a reference laboratory for confirmation. Performed By: #### D AU #### [facility] [address] [place], [place] 2501583 Help Desk Operator: Tico Minaya MD Interpretive Info NOT REPORTED Normal [facility] Comment on above: Performed By: #### D AU #### [facility] [address] [place] [address] Dr. [place], [place] [id number] Help Desk Operator: Tico Minaya MD MDMA, Urine NOT REPORTED Normal NEG [facility] Comment on above: Performed By: #### D AU #### [facility] [address] [place] [address] Help Desk Operator: Tico Minaya MD Glucose, Whole BloodOrdered By: María Barnes on 07-29-2021 Glucose [Mass/Vol] 100 mg/dL 74 - 100 mg/dL [facility] Work Phone: [facility] Work Phone: Urinalysis, Routineon 2020 Bilirubin, SemiQt,Ur Negative Normal NEG [facility] Comment on above: Performed By: #### U MICAO, UA #### [facility] [address] [place] [address] Help Desk Operator: Tico Minaya MD Blood, Urine Negative Normal NEG [facility] Comment on above: Performed By: #### U MICAO, UA #### [facility] [address] [place] [address] Help Desk Operator: Tico Minaya MD Clarity (U) CLEAR Normal CLEAR [facility] Comment on above: Performed By: #### U MICAO, UA #### [address] [place] [address] Help Desk Operator: Tico Minaya MD Color (U) YELLOW Normal YEL [facility] Comment on above: Performed By: #### U MICAO, UA #### [facility] [address] [place] [address] Help Desk Operator: Tico Minaya MD Glucose Ql (U) Negative Normal NEG [facility] Comment on above: Performed By: #### U MICAO, UA #### [facility] [address] [place] [address] Help Desk Operator: Tico Minaya MD Ketones Ql (U) Negative Normal NEG [facility] Comment on above: Performed By: #### U MICAO, UA #### [facility] [address] [place], [place] 7058983 Help Desk Operator: Tico Minaya MD Leukocyte esterase Test strip Ql (U) SMALL Abnormal NEG [facility] Comment on above: Performed By: #### U MICAO, UA #### [facility] [address] [place], [place] 7097583 Help Desk Operator: Tico Minaya MD Nitrite,Ur Negative Normal NEG [facility] Comment on above: Performed By: #### U MICAO, UA #### [facility] [address] [place], [place] 6148683 Help Desk Operator: Tico Minaya MD PH,Ur 7.0 Normal 5.0-9.0 [facility] Comment on above: Performed By: #### U MICAO, UA #### [address] [place], [place] 6410483 Help Desk Operator: Tico Minaya MD Protein Ql (U) Negative Normal NEG [facility] Comment on above: Performed By: #### U MICAO, UA #### [facility] [address] [place] [address] Dr. [place], [place] 9076083 Help Desk Operator: Tico Minaya MD Spec. [place],Ur 1.010 Normal 1.010-1.02 0 [facility] Comment on above: Performed By: #### U MICAO, UA #### [facility] [address] [place], [place] 2208583 Help Desk Operator: Tico Minaya MD Urobilinogen,Ur Normal Normal NORM [facility] Comment on above: Performed By: #### U MICAO, UA #### [facility] [address] [place], [place] 2902983 Help Desk Operator: Tico Minaya MD Comment NOT REPORTED Normal [facility] Comment on above: Performed By: #### U MICAO, UA #### [facility] [address] [place], [place] 3361083 Help Desk Operator: Tico Minaya MD Urinalysis,Microon 1 ----- Normal [facility] Comment on above: Performed By: #### U MICAO, UA #### [facility] [address] [place], [place] 6615383 Help Desk Operator: Tico Minaya MD Epithelial cells LM Ql (Urine sed) 5 TO 10 Normal 0-25 [facility] Comment on above: Performed By: #### U MICAO, UA #### [facility] [address] [place], [place] 1917083 Help Desk Operator: Tico Minaya MD Urine RBC's None Normal 0-2 [facility] Comment on above: Performed By: #### U MICAO, UA #### [facility] [address] [place], [place] 9658083 Help Desk Operator: Tico Minaya MD Urine WBC's 0 TO 2 Normal 0-5 [facility] Comment on above: Performed By: #### U MICAO, UA #### [facility] [address] [place] [address] Dr. [place], [place] 5548783 Help Desk Operator: Tico Minaya MD Amorphous sediment LM Ql (Urine sed) NOT REPORTED Normal [facility] Comment on above: Performed By: #### U MICAO, UA #### [facility] [address] [place] [address] Dr. [place], [place] 0976583 Help Desk Operator: Tico Minaya MD Bacteria NOT REPORTED Normal [facility] Comment on above: Performed By: #### U MICAO, UA #### [facility] [address] [place], [place] 8349183 Help Desk Operator: Tico Minaya MD Casts NOT REPORTED Normal [facility] Comment on above: Performed By: #### U MICAO, UA #### [facility] [address] [place], [place] 8457083 Help Desk Operator: Tico Minaya MD Crystals LM Nom (Urine sed) NOT REPORTED Normal [facility] Comment on above: Performed By: #### U SARAHO, UA #### [facility] [address] [place], [place] 4670783 Help Desk Operator: Tico Minaya MD Epithelial, Renal NOT REPORTED Normal 0 [facility] Comment on above: Performed By: #### U MICAO, UA #### [facility] [address] [place], [place] 2693483 Help Desk Operator: Tico Minaya MD Mucus Strands NOT REPORTED Normal [facility] Comment on above: Performed By: #### U MICAO, UA #### [facility] [address] [place], [place] 9998783 Help Desk Operator: Tico Minaya MD Other Observations NOT REPORTED Normal NREQ [facility] Comment on above: Performed By: #### U MICAO, UA #### [facility] [address] [place] [address] Help Desk Operator: Tico Minaya MD Trichomonas NOT REPORTED Normal [facility] Comment on above: Performed By: #### U MICAO, UA #### [facility] [address] [place], [place] 4595983 Help Desk Operator: Tico Minaya MD Yeast NOT REPORTED Normal [facility] Comment on above: Performed By: #### U MICAO, UA #### [facility] [address] [place] [address] Help Desk Operator: Tico Minaya MD Microscopic UrinalysisOrdere d By: María Barnes on 07-27-2021 - [facility] [employer] Phone: Amorphous, UA NOT REPORTED None [facility] [employer] Phone: Bacteria, UA NOT REPORTED None [facility] [employer] Phone: Casts UA NOT REPORTED /LPF [employer] Work Phone: Crystals, UA NOT REPORTED None /HPF [facility] Work Phone: Epithelial Cells UA 5 TO 10 [employer] Work Phone: Mucus, UA NOT REPORTED None [employer] Work Phone: Other Observations UA NOT REPORTED NOT REQ. [facility] [employer] Work Phone: RBC, UA None [employer] Work Phone: Renal Epithelial, UA NOT REPORTED 0 /HPF [facility] Work Phone: Trichomonas, UA NOT REPORTED None [employer] Work Phone: WBC, UA 0 TO 2 [employer] Work Phone: [phone] Yeast, UA NOT REPORTED None [employer] Work Phone: [employer] Work Phone: UrinalysisOrdered By: Bay Barnes on 07-27-2021 Bilirubin Urine Negative NEGATIVE [employer] Work Phone: Color, UA YELLOW YELLOW [employer] Work Phone: [phone] Glucose, Ur Negative NEGATIVE [employer] Work Phone: Interpretation and review of laboratory results Abnormal [employer] Work Phone: Ketones Ql (U) Negative NEGATIVE [employer] Work Phone: Leukocyte esterase Test strip Ql (U) SMALL Abnormal NEGATIVE [employer] Work Phone: Nitrite, Urine Negative NEGATIVE [employer] Work Phone: pH, UA 7.0 [employer] Work Phone: Protein, UA Negative NEGATIVE [employer] Work Phone: Specific [place], UA 1.010 [employer] Work Phone: Turbidity UA CLEAR CLEAR [employer] Phone: Urinalysis Comments NOT REPORTED [facility] [employer] Phone: Urine Hgb Negative NEGATIVE [employer] Phone: Urobilinogen, Urine Normal Normal [employer] Phone: [employer] Phone: CBC auto differentialOrdered By: Selma Sifuentes on 07-21-2021 [employer] # PLEASE DISREGARD RES ULTS. SPECIMEN CONTAMINATED. [employer] Phone: Comment on above: CORRECTED ON 07/21 A T 0451: PREVIOUSLY REPORTED <0.03 Absolute Immature Granulocyte PLEASE DISREGARD RESULTS. SPECIMEN CONTAMINATED. [employer] Phone: Comment on above: CORRECTED ON 07/21 A T 0451: PREVIOUSLY REPORTED <0.03 Absolute Lymph # PLEASE DISREGARD RES ULTS. SPECIMEN CONTAMINATED. [employer] Phone: Comment on above: CORRECTED ON 07/21 A T 0451: PREVIOUSLY REPORTED 1.38 Absolute [place] # PLEASE DISREGARD RES ULTS. SPECIMEN CONTAMINATED. [employer] Phone: Comment on above: CORRECTED ON 07/21 A T 0451: PREVIOUSLY REPORTED 0.48 Basophils (Bld) [#/Vol] PLEASE DISREGARD RESULTS. SPECIMEN CONTAMINATED. 0 - 2 % [employer] Phone: Comment on above: CORRECTED ON 07/21 A T 0451: PREVIOUSLY REPORTED 0 Basophils Absolute PLEASE DISREGARD RES ULTS. SPECIMEN CONTAMINATED. [employer] Phone: Comment on above: CORRECTED ON 07/21 A T 0451: PREVIOUSLY REPORTED <0.03 Differential Type NOT REPORTED [employer] Phone: Eosinophils % PLEASE DISREGARD RES ULTS. SPECIMEN CONTAMINATED. 1 - 4 % [employer] Phone: Comment on above: CORRECTED ON 07/21 A T 0451: PREVIOUSLY REPORTED 0 Hematocrit (Bld) [Volume fraction] PLEASE DISREGARD RESULTS. SPECIMEN CONTAMINATED. 36.3 - 47.1 % [employer] Phone: Comment on above: CORRECTED ON 07/21 A T 0451: PREVIOUSLY REPORTED 20.1 Hemoglobin.gastrointe stinal spec 1 Ql (Stl) PLEASE DISREGARD RESULTS. SPECIMEN CONTAMINATED. 11.9 - 15.1 g/dL [employer] Phone: Comment on above: CORRECTED ON 07/21 A T 0451: PREVIOUSLY REPORTED 6.8 Immature Granulocytes PLEASE DISREGARD R ESULTS. SPECIMEN CONTAMINATED. 0 % [employer] Phone: Comment on above: CORRECTED ON 07/21 A T 0451: PREVIOUSLY REPORTED 0 Lymphocytes (Bld) [#/Vol] PLEASE DISREGARD RESULTS. SPECIMEN CONTAMINATED. 24 - 43 % [employer] Phone: Comment on above: CORRECTED ON 07/21 A T 0451: PREVIOUSLY REPORTED 24 MCH (RBC) [Entitic mass] PLEASE DISREGARD RESULTS. SPECIMEN CONTAMINATED. 25.2 - 33.5 pg [employer] Phone: Comment on above: CORRECTED ON 07/21 A T 0451: PREVIOUSLY REPORTED 27.6 MCHC (RBC) [Mass/Vol] PLEASE DISREGARD R ESULTS. SPECIMEN CONTAMINATED. 28.4 - 34.8 g/dL [employer] Phone: Comment on above: CORRECTED ON 07/21 A T 0451: PREVIOUSLY REPORTED 33.8 MCV (RBC) [Entitic vol] PLEASE DISREGARD RESULTS. SPECIMEN CONTAMINATED. 82.6 - 102.9 fL [employer] Phone: Comment on above: CORRECTED ON 07/21 A T 0451: PREVIOUSLY REPORTED 81.7 Monocytes (Bld) [#/Vol] PLEASE DISREGARD RESULTS. SPECIMEN CONTAMINATED. 3 - 12 % [employer] Phone: Comment on above: CORRECTED ON 07/21 A T 0451: PREVIOUSLY REPORTED 8 NRBC Automated NOT REPORTED 0.0 per 100 WBC [employer] Phone: Platelet distribution width (Bld) [Ratio] PLEASE DISREGARD RESULTS. SPECIMEN CONTAMINATED. 11.8 - 14.4 % [employer] Phone: Comment on above: CORRECTED ON 07/21 A T 0451: PREVIOUSLY REPORTED 13.2 Platelet Estimate NOT REPORTED [employer] Phone: Platelet mean volume (Bld) [Entitic vol] PLEASE DISREGARD RESULTS. SPECIMEN CONTAMINATED. 8.1 - 13.5 fL [employer] Phone: Comment on above: CORRECTED ON 07/21 A T 0451: PREVIOUSLY REPORTED 11.2 Platelets (Bld) [#/Vol] PLEASE DISREGARD RESULTS. SPECIMEN CONTAMINATED. [employer] Phone: Comment on above: CORRECTED ON 07/21 A T 0451: PREVIOUSLY REPORTED 129 RBC (Bld) [#/Vol] PLEASE DISREGARD RES ULTS. SPECIMEN CONTAMINATED. 3.95 - 5.11 m/uL [employer] Phone: Comment on above: CORRECTED ON 07/21 A T 0451: PREVIOUSLY REPORTED 2.46 RBC (Bld) [#/Vol] NOT REPORTED [employer] Phone: Seg Neutrophils PLEASE DISREGARD RES ULTS. SPECIMEN CONTAMINATED. 36 - 65 % [employer] Phone: Comment on above: CORRECTED ON 07/21 A T 0451: PREVIOUSLY REPORTED 68 Segs Absolute PLEASE DISREGARD RES ULTS. SPECIMEN CONTAMINATED. [employer] Phone: Comment on above: CORRECTED ON 07/21 A T 0451: PREVIOUSLY REPORTED 3.95 WBC (Bld) [#/Vol] PLEASE DISREGARD RES ULTS. SPECIMEN CONTAMINATED. [employer] Phone: Comment on above: CORRECTED ON 07/21 A T 0451: PREVIOUSLY REPORTED 5.9 WBC (Bld) [#/Vol] NOT REPORTED [facility] Work Phone: [facility] [employer] Work Phone: CBC with Diffon 07-21-2021 Abs. Basophil PLEASE DISREGARD RES ULTS. SPECIMEN CONTAMINATED. Normal 0.00-0.20 [facility] Comment on above: Result Comment: MARIPOSA ECTED ON 07/21 AT 0451: PREVIOUSLY REPORTED <0.03 Performed By: #### C DP #### [facility] [address] [place] [address] Help Desk Operator: Tico Minaya MD Abs. Eosinophil PLEASE DISREGARD RES ULTS. SPECIMEN CONTAMINATED. Normal 0.00-0.44 [facility] Comment on above: Result Comment: MARIPOSA ECTED ON 07/21 AT 0451: PREVIOUSLY REPORTED <0.03 Performed By: #### C DP #### [facility] [address] [place] [address] Help Desk Operator: Tico Minaya MD Abs. Lymph PLEASE DISREGARD RES ULTS. SPECIMEN CONTAMINATED. Normal 1.10-3.70 [facility] Comment on above: Result Comment: MARIPOSA ECTED ON 07/21 AT 0451: PREVIOUSLY REPORTED 1.38 Performed By: #### C DP #### [address] [place] [address] Help Desk Operator: Tico Minaya MD Abs. Monocyte PLEASE DISREGARD RES ULTS. SPECIMEN CONTAMINATED. Normal 0.10-1.20 [facility] Comment on above: Result Comment: MARIPOSA ECTED ON 07/21 AT 0451: PREVIOUSLY REPORTED 0.48 Performed By: #### C DP #### [facility] [address] [place] [address] Help Desk Operator: Tico Minaya MD Abs.Imm.Granulocyte PLEASE DISREGARD RES ULTS. SPECIMEN CONTAMINATED. Normal 0.00-0.30 [facility] Comment on above: Result Comment: MARIPOSA ECTED ON 07/21 AT 0451: PREVIOUSLY REPORTED <0.03 Performed By: #### C DP #### [facility] [address] [place], [place] [id number] Help Desk Operator: Tico Minaya MD Abs.Neutrophil (Seg) PLEASE DISREGARD RE SULTS. SPECIMEN CONTAMINATED. Normal 1.50-8.10 [facility] Comment on above: Result Comment: MARIPOSA ECTED ON 07/21 AT 0451: PREVIOUSLY REPORTED 3.95 Performed By: #### C DP #### [facility] [address] [place] [address] Help Desk Operator: Tico Minaya MD Basophil PLEASE DISREGARD RES ULTS. SPECIMEN CONTAMINATED. Normal 0-2 [facility] Comment on above: Result Comment: MARIPOSA ECTED ON 07/21 AT 0451: PREVIOUSLY REPORTED 0 Performed By: #### C DP #### [facility] [address] [place] [address] Dr[address] [place], [place] [phone] Help Desk Operator: Tico Minaya MD Eosinophil PLEASE DISREGARD RES ULTS. SPECIMEN CONTAMINATED. Normal 1-4 [facility] Comment on above: Result Comment: MARIPOSA ECTED ON 07/21 AT 0451: PREVIOUSLY REPORTED 0 Performed By: #### C DP #### [facility] [address] [place] [address] [place] [place], [place] [id number] Help Desk Operator: Tico Minaya MD Hematocrit PLEASE DISREGARD RES ULTS. SPECIMEN CONTAMINATED. Normal 36.3-47.1 [facility] Comment on above: Result Comment: MARIPOSA ECTED ON 07/21 AT 0451: PREVIOUSLY REPORTED 20.1 Performed By: #### C DP #### [facility] [address] [place] [address] [place], [place] [phone] Help Desk Operator: Tico Minaya MD Hemoglobin PLEASE DISREGARD RES ULTS. SPECIMEN CONTAMINATED. Normal 11.9-15.1 [facility] Comment on above: Result Comment: MARIPOSA ECTED ON 07/21 AT 0451: PREVIOUSLY REPORTED 6.8 Performed By: #### C DP #### [facility] [address] [place], [place] [phone] Help Desk Operator: Tico Minaya MD [facility] PLEASE DISREGARD RE SULTS. SPECIMEN CONTAMINATED. Normal 0 [facility] Comment on above: Result Comment: MARIPOSA ECTED ON 07/21 AT 0451: PREVIOUSLY REPORTED 0 Performed By: #### C DP #### [facility] [address] [place], [place] [phone] Help Desk Operator: Tico Minaya MD [facility] PLEASE DISREGARD RES ULTS. SPECIMEN CONTAMINATED. Normal 24-43 [facility] Comment on above: Result Comment: MARIPOSA ECTED ON 07/21 AT 0451: PREVIOUSLY REPORTED 24 Performed By: #### C DP #### [facility] [address] [place] [address] [place], [place] [id number] Help Desk Operator: Tico Minaya MD [facility] PLEASE DISREGARD RES ULTS. SPECIMEN CONTAMINATED. Normal 25.2-33.5 [facility] Comment on above: Result Comment: MARIPOSA ECTED ON 07/21 AT 0451: PREVIOUSLY REPORTED 27.6 Performed By: #### C DP #### [address] [place], [place] [phone] Help Desk Operator: Tico Minaya MD [facility] PLEASE DISREGARD RES ULTS. SPECIMEN CONTAMINATED. Normal 28.4-34.8 [facility] Comment on above: Result Comment: MARIPOSA ECTED ON 07/21 AT 0451: PREVIOUSLY REPORTED 33.8 Performed By: #### C DP #### [facility] [address] [place] [address] Help Desk Operator: Tico Minaya MD [facility] PLEASE DISREGARD RES ULTS. SPECIMEN CONTAMINATED. Normal 82.6-102.9 [facility] Comment on above: Result Comment: MARIPOSA ECTED ON 07/21 AT 0451: PREVIOUSLY REPORTED 81.7 Performed By: #### C DP #### [facility] [address] [place] [address] Help Desk Operator: Tico Minaya MD Monocyte PLEASE DISREGARD RES ULTS. SPECIMEN CONTAMINATED. Normal 3-12 [facility] Comment on above: Result Comment: MARIPOSA ECTED ON 07/21 AT 0451: PREVIOUSLY REPORTED 8 Performed By: #### C DP #### [facility] [address] [place], [place] [phone] Help Desk Operator: Tico Minaya MD [facility] PLEASE DISREGARD RES ULTS. SPECIMEN CONTAMINATED. Normal 8.1-13.5 [facility] Comment on above: Result Comment: MARIPOSA ECTED ON 07/21 AT 0451: PREVIOUSLY REPORTED 11.2 Performed By: #### C DP #### [facility] [address] [place], [place] [phone] Help Desk Operator: Tico Minaya MD Neutrophil (Seg) PLEASE DISREGARD RES ULTS. SPECIMEN CONTAMINATED. Normal 36-65 [facility] Comment on above: Result Comment: MARIPOSA ECTED ON 07/21 AT 0451: PREVIOUSLY REPORTED 68 Performed By: #### C DP #### [facility] [address] [place] [address] [place], [place] [phone] Help Desk Operator: Tico Minaya MD Platelet Count PLEASE DISREGARD RES ULTS. SPECIMEN CONTAMINATED. Normal 138-453 [facility] Comment on above: Result Comment: MARIPOSA ECTED ON 07/21 AT 0451: PREVIOUSLY REPORTED 129 Performed By: #### C DP #### [facility] [address] [place], [place] [phone] Help Desk Operator: Tico Minaya MD RBC Count PLEASE DISREGARD RES ULTS. SPECIMEN CONTAMINATED. Normal 3.95-5.11 [facility] Comment on above: Result Comment: MARIPOSA ECTED ON 07/21 AT 0451: PREVIOUSLY REPORTED 2.46 Performed By: #### C DP #### [facility] [address] [place], [place] [phone] Help Desk Operator: Tico Minaya MD RDW PLEASE DISREGARD RES ULTS. SPECIMEN CONTAMINATED. Normal 11.8-14.4 [facility] Comment on above: Result Comment: MARIPOSA ECTED ON 07/21 AT 0451: PREVIOUSLY REPORTED 13.2 Performed By: #### C DP #### [facility] [address] [place] [address] Help Desk Operator: Tico Minaya MD WBC Count PLEASE DISREGARD RES ULTS. SPECIMEN CONTAMINATED. Normal 3.5-11.3 [facility] Comment on above: Result Comment: MARIPOSA ECTED ON 07/21 AT 0451: PREVIOUSLY REPORTED 5.9 Performed By: #### C DP #### [facility] [address] [place] [address] [place] [address] Help Desk Operator: Tico Minaya MD Abs. Basophil <0.03 Normal 0.00-0.20 [facility] Comment on above: Performed By: #### C DP #### [facility] [address] [place] [address] [place] [address] Help Desk Operator: Tico Minaya MD Abs. Eosinophil <0.03 Normal 0.00-0.44 [facility] Comment on above: Performed By: #### C DP #### [facility] [address] [place] [address] [place] [address] Help Desk Operator: Tico Minaya MD Abs.Imm.Granulocyte 0.09 k/uL Normal 0.00-0.30 [facility] Comment on above: Performed By: #### C DP #### [facility] [address] [place] [address] [place] [address] Help Desk Operator: Tico Minaya MD Abs.Neutrophil (Seg) 11.03 k/uL High 1.50-8.10 [facility] Comment on above: Performed By: #### C DP #### [facility] [address] [place] [address] Dr[place], [place] [phone] Help Desk Operator: Tico Minaya MD Basophils/100 WBC (Bld) 0 % Normal 0-2 [facility] Comment on above: Performed By: #### C DP #### [facility] [address] [place] [address] Help Desk Operator: Tico Minaya MD Eosinophils/100 WBC (Bld) 0 % Low 1-4 [facility] Comment on above: Performed By: #### C DP #### [facility] [address] [place], [place] [address] Help Desk Operator: Tico Minaya MD Erythrocyte distribution width (RBC) [Ratio] 13.2 % Normal 11.8-14.4 [facility] Comment on above: Performed By: #### C DP #### [address] [place], [facility]83 Help Desk Operator: Tico Minaya MD Hematocrit (Bld) [Volume fraction] 37.3 % Normal 36.3-47.1 [facility] Comment on above: Performed By: #### C DP #### [address] [place], [facility]83 Help Desk Operator: Tico Minaya MD Hemoglobin (Bld) [Mass/Vol] 13.1 g/dL Normal 11.9-15.1 [facility] Comment on above: Performed By: #### C DP #### [address] [place], [place] [address] Help Desk Operator: Tico iMnaya MD Immature granulocytes/100 WBC (Bld) 1 % High 0 [facility] Comment on above: Performed By: #### C DP #### [address] [place] [address] Help Desk Operator: Tico Minaya MD Lymphocytes (Bld) [#/Vol] 2.10 10*3/uL Normal 1.10-3.70 [facility] Comment on above: Performed By: #### C DP #### [facility] [address] [place], [place] [phone] Help Desk Operator: Tcio Minaya MD Lymphocytes/100 WBC (Bld) 15 % Low 24-43 [facility] Comment on above: Performed By: #### C DP #### [facility] [address] [place], [place] [phone] Help Desk Operator: Tico Minaya MD MCH (RBC) [Entitic mass] 27.6 pg Normal 25.2-33.5 [facility] Comment on above: Performed By: #### C DP #### [address] [place], [place] [phone] Help Desk Operator: Tico Minaya MD MCHC (RBC) [Mass/Vol] 35.1 g/dL High 28.4-34.8 [facility] Comment on above: Performed By: #### C DP #### [address] [place], [facility]83 Help Desk Operator: Tico Minaya MD MCV (RBC) [Entitic vol] 78.7 fL Low 82.6-102.9 [facility] Comment on above: Performed By: #### C DP #### [address] [place], [place] [phone] Help Desk Operator: Tico Minaya MD Monocytes (Bld) [#/Vol] 0.82 10*3/uL Normal 0.10-1.20 [facility] Comment on above: Performed By: #### C DP #### [facility] [address] [place] [address] [place] [place], [place] [phone] Help Desk Operator: Tico Minaya MD Monocytes/100 WBC (Bld) 6 % Normal 3-12 [facility] Comment on above: Performed By: #### C DP #### [facility] [address] [place], [place] 1028983 Help Desk Operator: Tico Minaya MD Neutrophil (Seg) 79 % High 36-65 [facility] Comment on above: Performed By: #### C DP #### [facility] [address] [place] [address] Help Desk Operator: Tico Minaya MD NRBC Automated 0.0 per 100 WBC Normal 0.0 [facility] Comment on above: Performed By: #### C DP #### [facility] [address] [place], [facility]83 Help Desk Operator: Tico Minaya MD Platelet mean volume (Bld) [Entitic vol] 10.8 fL Normal 8.1-13.5 [facility] Comment on above: Performed By: #### C DP #### [facility] [address] [place], [place] 0168383 Help Desk Operator: Tico Minaya MD Platelets (Bld) [#/Vol] 250 10*3/uL Normal 138-453 [facility] Comment on above: Performed By: #### C DP #### [address] [place] [address] Help Desk Operator: Tico Minaya MD RBC (Bld) [#/Vol] 4.74 10*6/uL Normal 3.95-5.11 [facility] Comment on above: Performed By: #### C DP #### [address] [place], [place] [address] Help Desk Operator: Tico Minaya MD WBC (Bld) [#/Vol] 14.1 10*3/uL High 3.5-11.3 [facility] Comment on above: Performed By: #### C DP #### [facility] [address] [place], [place] [phone] Help Desk Operator: Tico Minaya MD Auto Diff Performed NOT REPORTED Normal [facility] Comment on above: Performed By: #### C DP #### [facility] [address] [place], [place] 1504683 Help Desk Operator: Tico Minaya MD Platelet Estimate NOT REPORTED Normal [facility] Comment on above: Performed By: #### C DP #### [facility] [address] [place], [place] [phone] Help Desk Operator: Tico Minaya MD RBC morphology finding Nom (Bld) NOT REPORTED Normal [facility] Comment on above: Performed By: #### C DP #### [facility] [address] [place], [place] [phone] Help Desk Operator: Tico Minaya MD WBC Morphology NOT REPORTED Normal [facility] Comment on above: Performed By: #### C DP #### [facility] [address] [place], [place] 6193783 Help Desk Operator: Tico Minaya MD NRBC Automated NOT REPORTED Normal 0.0 [facility] Comment on above: Performed By: #### C DP #### [facility] [address] [place], [place] 0196083 Help Desk Operator: Tico Minaya MD Glucose, Whole BloodOrdered By: Selma Sifuentes on 07-21-2021 Glucose [Mass/Vol] 107 mg/dL High 74 - 100 mg/dL [employer] Phone: Interpretation and review of laboratory results Abnormal [employer] Phone: [employer] Phone: Glucose [Mass/Vol] 111 mg/dL High 74 - 100 mg/dL [employer] Phone: Interpretation and review of laboratory results Abnormal [employer] Phone: [employer] Phone: TYPE AND SCREENOrdered By: Dewayne Sifuentes on 07-21-2021 ABO/Rh Positive [employer] Phone: Arm Band Number [id number] [employer] Phone: Expiration Date 07/23/2021,2359 [employer] Phone: [employer] Phone: Type + Screenon 07-21-2021 Type + Screen Sample Expiration 07/23/2021,2359 Arm Band Number [id number] ABO/Rh(D) B POSITIVE Antibody Screen NEGATIVE Normal [facility] Comment on above: Performed By: #### T YS #### [facility] [address] [place] [address] Help Desk Operator: Tico Minaya MD CBC auto differentialOrdered By: Selma Sifuentes on 07-20-2021 Absolute Eos # <0.03 [employer] Phone: Absolute Immature Granulocyte 0.09 [employer] Phone: Absolute Lymph # 2.10 [employer] Phone: Absolute [place] # 0.82 [employer] Phone: Basophils (Bld) [#/Vol] 10*3/uL [employer] Phone: [phone] Basophils/100 WBC (Bld) 0 % 0 - 2 % [employer] Phone: Differential Type NOT REPORTED [employer] Phone: Eosinophils/100 WBC (Bld) 0 % Low 1 - 4 % [employer] Phone: Hematocrit (Bld) [Volume fraction] 37.3 % 36.3 - 47.1 % [employer] Phone: Hemoglobin.gastrointe stinal spec 1 Ql (Stl) 13.1 g/dL 11.9 - 15.1 g/dL [employer] Phone: Immature granulocytes/100 WBC (Bld) 1 % High 0 [employer] Phone: Interpretation and review of laboratory results Abnormal [employer] Phone: Lymphocytes/100 WBC (Bld) 15 % Low 24 - 43 % [employer] Phone: MCH (RBC) [Entitic mass] 27.6 pg 25.2 - 33.5 pg [employer] Phone: MCHC (RBC) [Mass/Vol] 35.1 g/dL High 28.4 - 34.8 g/dL [employer] Phone: MCV (RBC) [Entitic vol] 78.7 fL Low 82.6 - 102.9 fL [employer] Phone: Monocytes/100 WBC (Bld) 6 % 3 - 12 % [employer] Phone: NRBC Automated 0.0 0.0 per 100 WBC [employer] Phone: Platelet distribution width (Bld) [Ratio] 13.2 % 11.8 - 14.4 % [employer] Phone: Platelet Estimate NOT REPORTED [employer] Phone: Platelet mean volume (Bld) [Entitic vol] 10.8 fL 8.1 - 13.5 fL [employer] Phone: Platelets (Bld) [#/Vol] 250 10*3/uL [employer] Phone: RBC (Bld) [#/Vol] 4.74 10*6/uL 3.95 - 5.11 m/uL [employer] Phone: RBC (Bld) [#/Vol] NOT REPORTED [employer] Phone: Segmented neutrophils/100 WBC (Bld) 79 % High 36 - 65 % [employer] Phone: Segs Absolute 11.03 High [employer] Phone: WBC (Bld) [#/Vol] 14.1 10*3/uL High [facility] [employer] Phone: WBC (Bld) [#/Vol] NOT REPORTED [facility] Phone: [facility] Phone: CBC with Diffon 07-20-2021 Auto Diff Performed NOT REPORTED Normal [facility] Comment on above: Performed By: #### C DP #### [facility] [address] [place] [address] Help Desk Operator: Tico Minaya MD Platelet Estimate NOT REPORTED Normal [facility] Comment on above: Performed By: #### C DP #### [facility] [address] [place] [address] Help Desk Operator: Tico Minaya MD RBC morphology finding Nom (Bld) NOT REPORTED Normal [facility] Comment on above: Performed By: #### C DP #### [facility] [address] [place] [address] Help Desk Operator: Tico Minaya MD WBC Morphology NOT REPORTED Normal [facility] Comment on above: Performed By: #### C DP #### [facility] [address] [place] [address] Help Desk Operator: Tico Minaya MD Glucose, Whole BloodOrdered By: Selma Sifuentes on 07-20-2021 Glucose [Mass/Vol] 98 mg/dL 74 - 100 mg/dL [facility] Phone: [facility] Phone: Microscopic UrinalysisOrdere d By: Selma Sifuentes on 07-20-2021 - [facility] Phone: Amorphous, UA NOT REPORTED None [facility] Phone: Bacteria, UA TRACE Abnormal None [facility] Phone: Casts UA NOT REPORTED /LPF [employer] Work Phone: [phone] Crystals, UA NOT REPORTED None /HPF [facility] Work Phone: Epithelial Cells UA 10 TO 20 [employer] Work Phone: Interpretation and review of laboratory results Abnormal [employer] Work Phone: Mucus, UA NOT REPORTED None [employer] Work Phone: Other Observations UA NOT REPORTED NOT REQ. [facility] [employer] Work Phone: RBC, UA 0 TO 2 [employer] Work Phone: Renal Epithelial, UA NOT REPORTED 0 /HPF [facility] Work Phone: Trichomonas, UA NOT REPORTED None [employer] Work Phone: WBC, UA 0 TO 3 [employer] Work Phone: Yeast, UA NOT REPORTED None [employer] Work Phone: [employer] Work Phone: UrinalysisOrdered By: Peewee Sifuentes on 07-20-2021 Bilirubin Urine Negative NEGATIVE [employer] Phone: Color, UA YELLOW YELLOW [employer] Work Phone: [phone] Glucose, Ur Negative NEGATIVE [employer] Work Phone: Interpretation and review of laboratory results Abnormal [employer] Work Phone: Ketones Ql (U) 2+ Abnormal NEGATIVE [employer] Work Phone: Leukocyte esterase Test strip Ql (U) Negative NEGATIVE [employer] Work Phone: Nitrite, Urine Negative NEGATIVE [employer] Work Phone: pH, UA 6.0 [employer] Work Phone: Protein, UA Negative NEGATIVE [employer] Work Phone: Specific [place], UA 1.020 [facility] [employer] Work Phone: Turbidity UA CLEAR CLEAR [facility] Work Phone: Urinalysis Comments NOT REPORTED [facility] [employer] Work Phone: Urine Hgb Negative NEGATIVE [facility] Phone: Urobilinogen, Urine Normal Normal [facility] [employer] Work Phone: [facility] [employer] Work Phone: Urinalysis, Routineon 2020 Bilirubin, SemiQt,Ur Negative Normal NEG [facility] Comment on above: Performed By: #### U MICAO, UA #### [facility] [address] [place] [address] Help Desk Operator: Tico Minaya MD Blood, Urine Negative Normal NEG [facility] Comment on above: Performed By: #### U MICAO, UA #### [facility] [address] [place] [address] Help Desk Operator: Tico Minaya MD Clarity (U) CLEAR Normal CLEAR [facility] Comment on above: Performed By: #### U MICAO, UA #### [facility] [address] [address] [place] [address] Help Desk Operator: Tico Minaya MD Color (U) YELLOW Normal YEL [facility] Comment on above: Performed By: #### U MICAO, UA #### [facility] [address] [place] [address] Help Desk Operator: Tico Minaya MD Glucose Ql (U) Negative Normal NEG [facility] Comment on above: Performed By: #### U MICAO, UA #### [facility] [address] [place] [address] Help Desk Operator: Tico Minaya MD Ketones Ql (U) 2+ Abnormal NEG [facility] Comment on above: Performed By: #### U MICAO, UA #### [facility] [address] [place], [place] [id number] Help Desk Operator: Tico Minaya MD Leukocyte esterase Test strip Ql (U) Negative Normal NEG [facility] Comment on above: Performed By: #### U MICAO, UA #### [facility] [address] [place], [place] [id number] Help Desk Operator: Tico Minaya MD Nitrite,Ur Negative Normal NEG [facility] Comment on above: Performed By: #### U MICAO, UA #### [facility] [address] [place] [address] [place] [place], [place] [id number] Help Desk Operator: Tico Minaya MD PH,Ur 6.0 Normal 5.0-9.0 [facility] Comment on above: Performed By: #### U MICAO, UA #### [facility] [address] [place] [address] [place] [place], [place] [id number] Help Desk Operator: Tico Minaya MD Protein Ql (U) Negative Normal NEG [facility] Comment on above: Performed By: #### U MICAO, UA #### [facility] [address] [place] [address] Dr[address] [place], [place] [id number] Help Desk Operator: Tico Minaya MD Spec. [place],Ur 1.020 Normal 1.010-1.02 0 [facility] Comment on above: Performed By: #### U MICAO, UA #### [facility] [address] [place], [place] [id number] Help Desk Operator: Tico Minaya MD Urobilinogen,Ur Normal Normal NORM [facility] Comment on above: Performed By: #### U MICAO, UA #### [facility] [address] [place], [place] [id number] Help Desk Operator: Tico Minaya MD Comment NOT REPORTED Normal [facility] Comment on above: Performed By: #### U SARAHO, UA #### [facility] [address] [place], [place] [id number] Help Desk Operator: Tico Minaya MD Urinalysis,Microon 1 ----- Normal [facility] Comment on above: Performed By: #### U SARAHO, UA #### [facility] [address] [place], [place] [id number] Help Desk Operator: Tico Minaya MD Bacteria TRACE Abnormal [facility] Comment on above: Performed By: #### U SARAHO, UA #### [facility] [address] [place], [place] [id number] Help Desk Operator: Tico Minaya MD Epithelial cells LM Ql (Urine sed) 10 TO 20 Normal 0-25 [facility] Comment on above: Performed By: #### U SARAHO, UA #### [facility] [address] [place], [place] [id number] Help Desk Operator: Tico Minaya MD Urine RBC's 0 TO 2 Normal 0-2 [facility] Comment on above: Performed By: #### U SARAHO, UA #### [facility] [address] [place], [place] [id number] Help Desk Operator: Tico Minaya MD Urine WBC's 0 TO 3 Normal 0-5 [facility] Comment on above: Performed By: #### U MICAO, UA #### [facility] [address] [place], [place] [id number] Help Desk Operator: Tico Minaya MD Amorphous sediment LM Ql (Urine sed) NOT REPORTED Normal [facility] Comment on above: Performed By: #### U MICAO, UA #### [facility] [address] [place], [place] [id number] Help Desk Operator: Tico Minaya MD Casts NOT REPORTED Normal [facility] Comment on above: Performed By: #### U SARAHO, UA #### [facility] [address] [place], [place] [id number] Help Desk Operator: Tico Minaya MD Crystals LM Nom (Urine sed) NOT REPORTED Normal [facility] Comment on above: Performed By: #### U SARAHO, UA #### [facility] [address] [place] [address] Help Desk Operator: Tico Minaya MD Epithelial, Renal NOT REPORTED Normal 0 [facility] Comment on above: Performed By: #### U SARAHO, UA #### [facility] [address] [place], [place] [id number] Help Desk Operator: Tico Minaya MD Mucus Strands NOT REPORTED Normal [facility] Comment on above: Performed By: #### U ELLIOT, UA #### [address] [place], [place] [id number] Help Desk Operator: Tico Minaya MD Other Observations NOT REPORTED Normal NREQ [facility] Comment on above: Performed By: #### U SARAHO, UA #### [address] [place], [place] [id number] Help Desk Operator: Tico Minaya MD Trichomonas NOT REPORTED Normal [facility] Comment on above: Performed By: #### U SARAHO, UA #### [facility] [address] [place] [address] Dr. [place], [place] [id number] Help Desk Operator: Tico Minaya MD Yeast NOT REPORTED Normal [facility] Comment on above: Performed By: #### U ELLIOT, UA #### [facility] [address] [place], [place] [id number] Help Desk Operator: Tico Minaya MD GBS, External ResultOrdered By: Selma Sifuentes on 07-19-2021 GBS, External Result Negative [facility] Work Phone: [employer] Phone: ABO, External ResultOrdered By: Historical Provider on 12-29-2020 ABO, External Result Positive [employer] Phone: HIV ScreenOrdered By: Peewee Sifuentes on 12-29-2020 HIV Ag/Ab Non-Reactive [facility] Phone: N. GONORRHOEAE CULTUREOrdere d By: Selma Sifuentes on 12-29-2020 Culture, Gonorrhoeae Not detected [facility] Phone: No Panel InformationOrdered By: Historical Provider on 12-29-2020 [employer] Phone: No Panel InformationOrdered By: Selma Sifuentes on 12-29-2020 [employer] Phone: PROFILE IOrdered By : Selma Sifuentes on 12-29-2020 ABO/Rh Positive [facility] Phone: Hepatitis B Surface Ag Non-Reactive [facility] Phone: Rubella virus IgG Ql (S) Immune [facility] Phone: T. pallidum, IgG Non-Reactive [facility] Phone: Comment on above: RPR CBC AUTO DIFFon 10-27-2020 Basophils (Bld) [#/Vol] 0.0 103/ul Normal 0.0-0.1 [facility] Comment on above: Performed By: #### C BC #### [facility] [address] [place], [place] [address] Case Judith Basophils/100 WBC (Bld) 0.2 % Normal 0.2-2.0 [facility] Comment on above: Performed By: #### C BC #### [facility] [address] [place], [place] [address] [place] Eosinophils (Bld) [#/Vol] 0.1 103/ul Normal 0.0-0.7 [facility] Comment on above: Performed By: #### C BC #### [facility] [address] [place], [place] [id number] Case [place] Eosinophils/100 WBC (Bld) 1.2 % Normal 0.9-7.0 [facility] Comment on above: Performed By: #### C BC #### [facility] [address] [place], [place] [id number] [place] Erythrocyte distribution width (RBC) [Ratio] 12.5 % Normal 11.0-15.0 [facility] Comment on above: Performed By: #### C BC #### [facility] [address] [place], [place] [id number] [place] Hematocrit (Bld) [Volume fraction] 40.1 % Normal 36.0-48.0 [facility] Comment on above: Performed By: #### C BC #### [facility] [address] [place], [place] [id number] [place] Hemoglobin (Bld) [Mass/Vol] 14.3 g/dL Normal 12.0-16.0 [facility] Comment on above: Performed By: #### C BC #### [facility] [address] [place], [place] [address] [place] IG # 0.04 10e3/ul Critically high 0.00-0.03 [facility] Comment on above: Performed By: #### C BC #### [facility] [address] [place], [place] [id number] Case [place] IG % 0.4 % Normal 0.0-0.5 [facility] Comment on above: Performed By: #### C BC #### [facility] [address] [place], [place] [id number] [place] Lymphocytes (Bld) [#/Vol] 3.8 103/ul Normal 1.2-3.8 [facility] Comment on above: Performed By: #### C BC #### [facility] [address] [place], [place] [id number] [place] Lymphocytes/100 WBC (Bld) 36.2 % Normal 20.5-60.0 [facility] Comment on above: Performed By: #### C BC #### [facility] [address] [place] [address] Case [place] MANUAL DIFF REQ NO Normal [facility] Comment on above: Performed By: #### C BC #### [facility] [address] [place] [address] Caes Judith MCH (RBC) [Entitic mass] 28.1 pg Normal 26.7-34.0 [facility] Comment on above: Performed By: #### C BC #### [facility] [address] [place] [address] Case Judith MCHC (RBC) [Mass/Vol] 35.7 g/dL Critically high 29.9-35.2 [facility] Comment on above: Performed By: #### C BC #### [facility] [address] [place], [place] [id number] [place] Judith MCV (RBC) [Entitic vol] 78.9 fL Critically low 81.0-99.0 [facility] Comment on above: Performed By: #### C BC #### [facility] [address] [place], [place] [address] [place] Monocytes (Bld) [#/Vol] 1.1 103/ul Critically high 0.3-0.8 [facility] Comment on above: Performed By: #### C BC #### [facility] [address] [place], [place] [address] [place] Monocytes/100 WBC (Bld) 10.3 % Normal 1.7-12.0 [facility] Comment on above: Performed By: #### C BC #### [facility] [address] [place] [address] [place] Neutrophils (Bld) [#/Vol] 5.4 103/ul Normal 1.4-6.5 [facility] Comment on above: Performed By: #### C BC #### [facility] [address] [place], [place] [address] [place] Neutrophils/100 WBC (Bld) 51.7 % Normal 43.0-75.0 [facility] Comment on above: Performed By: #### C BC #### [facility] [address] [place], [place] [id number] Casekrysten Wong Platelet mean volume (Bld) [Entitic vol] 9.7 fL Normal 9.5-13.5 [facility] Comment on above: Performed By: #### C BC #### [facility] [address] [place], [place] [address] Casekrysten Wong Platelets (Bld) [#/Vol] 321 103/ul Normal 150-450 [facility] Comment on above: Performed By: #### C BC #### [facility] [address] [place] [address] Casekrysten Wong RBC (Bld) [#/Vol] 5.08 106/ul Normal 4.20-5.40 [facility] Comment on above: Performed By: #### C BC #### [facility] [address] [place], [place] [address] Casekrysten Wong WBC (Bld) [#/Vol] 10.4 103/ul Normal 4.0-11.0 [facility] Comment on above: Performed By: #### C BC #### [facility] [address] [place], [place] [address] Casekrysten Wong ER URINE PROFILEon 0 Bilirubin [Mass/Vol] Negative Normal NEGATIVE [facility] Comment on above: Performed By: #### E RUR #### [facility] [address] [place], [place] [id number] Casekrysten Wong BLOOD Negative Normal NEGATIVE [facility] Comment on above: Performed By: #### E RUR #### [facility] [address] [place], [place] [id number] Casekrysten Lemonen Clarity (U) CLEAR Normal CLEAR [facility] Comment on above: Performed By: #### E RUR #### [facility] [address] [place], [place] [id number] [place] Color (U) LT. YELLOW Normal YELLOW [facility] Comment on above: Performed By: #### E RUR #### [facility] [address] [place], [place] [address] [place] Judith ERUAHD A micrscopic examina tion will be performed if indicated. Normal [facility] Comment on above: Performed By: #### E RUR #### [facility] [address] [place] [address] Case Judith Glucose [Mass/Vol] Negative Normal NEGATIVE [facility] Comment on above: Performed By: #### E RUR #### [facility] [address] [place] [address] Case Judith Ketones Ql (U) Negative Normal NEGATIVE [facility] Comment on above: Performed By: #### E RUR #### [facility] [address] [place] [address] Case [place] Nitrite Ql (U) Negative Normal NEGATIVE [facility] Comment on above: Performed By: #### E RUR #### [facility] [address] [place] [address] Case Judith pH (Bld) 6.0 Normal 5-9 [facility] Comment on above: Performed By: #### E RUR #### [facility] [address] [place] [address] Case Judith Protein (U) [Mass/Vol] Negative Normal NEGATIVE/ TRACE [facility] Comment on above: Performed By: #### E RUR #### [facility] [address] [place] [address] Case Judith SPEC GRAVITY >=1.030 Abnormal 1.005-<=1. 025 [facility] Comment on above: Performed By: #### E RUR #### [facility] [address] [place] [address] Case Judith UR MICRO IND NOT INDICATED Normal [facility] Comment on above: Performed By: #### E RUR #### [facility] [address] [place], [place] [address] [place] Urobilinogen Qn (U) 0.2 EU/dl Normal 0.2 - 1.0 [facility] Comment on above: Performed By: #### E RUR #### [facility] [address] [place] [address] Case Lemonen WBC (Bld) [#/Vol] Negative Normal NEGATIVE [facility] Comment on above: Performed By: #### E RUR #### [facility] [address] [place], [place] [address] Case Wong URon 10-27-2020 , QUAL Negative Normal NEGATIVE [facility] Comment on above: Performed By: #### P REGU #### [facility] [address] [place], [place] [address] Case Wong PROF 14(COMP METB)on 020 Albumin [Mass/Vol] 3.7 g/dL Normal 3.5-5.0 [facility] Comment on above: Performed By: #### C MP #### [facility] [address] [place], [place] [address] Case Wong Albumin/Globulin [Mass ratio] 1.1 {ratio} Normal [facility] Comment on above: Performed By: #### C MP #### [facility] [address] [place] [address] Casekrysten Wong ALP [Catalytic activity/Vol] 62 U/L Normal 38-126 [facility] Comment on above: Performed By: #### C MP #### [facility] [address] [place] [address] Casekrysten Wong ALT [Catalytic activity/Vol] 36 U/L Normal 9-52 [facility] Comment on above: Performed By: #### C MP #### [facility] [address] [place], [place] [address] Case Wong Anion gap [Moles/Vol] 15.4 mmol/L Normal [facility] Comment on above: Performed By: #### C MP #### [facility] [address] [place], [place] [address] Casekrysten Wong AST [Catalytic activity/Vol] 17 U/L Normal 14-36 [facility] Comment on above: Performed By: #### C MP #### [facility] [address] [place] [address] Case Wong Bilirubin Ql (U) 0.4 mg/dL Normal 0.2-1.3 [facility] Comment on above: Performed By: #### C MP #### [facility] [address] [place] [address] [place] Calcium [Mass/Vol] 8.4 mg/dL Normal 8.4-10.2 [facility] Comment on above: Performed By: #### C MP #### [facility] [address] [place] [address] [place] Chloride [Moles/Vol] 103 mmol/L Normal 98-107 [facility] Comment on above: Performed By: #### C MP #### [facility] [address] [place] [address] [place] CO2 [Moles/Vol] 25.5 mmol/L Normal 22.0-30.0 [facility] Comment on above: Performed By: #### C MP #### [facility] [address] [place] [address] [place] Creatinine [Mass/Vol] 0.88 mg/dL Normal 0.52-1.04 [facility] Comment on above: Performed By: #### C MP #### [facility] [address] [place] [address] [place] EGFR-AF EMIRATI >60 Normal >=60 [facility] Comment on above: Performed By: #### C MP #### [facility] [address] [place] [address] [place] EGFR-NON AF EMIRATI >60 Normal >=60 [facility] Comment on above: Performed By: #### C MP #### [facility] [address] [place] [address] [place] Judith Globulin (S) [Mass/Vol] 3.3 g/dL Normal [facility] Comment on above: Performed By: #### C MP #### [facility] [address] [place] [address] [place] Judith Glucose [Mass/Vol] 105 mg/dL Normal 74-106 [facility] Comment on above: Performed By: #### C MP #### [facility] [address] [place] [address] [place] Judith Potassium [Moles/Vol] 3.9 mmol/L Normal 3.4-5.0 [facility] Comment on above: Performed By: #### C MP #### [facility] [address] [place] [address] Case Judith Protein [Mass/Vol] 7.0 g/dL Normal 6.1-8.2 [facility] Comment on above: Performed By: #### C MP #### [facility] [address] [place] [address] [place] Sodium [Moles/Vol] 140 mmol/L Normal 137-145 [facility] Comment on above: Performed By: #### C MP #### [facility] [address] [place] [address] [place] Urea nitrogen [Mass/Vol] 11.0 mg/dL Normal 7.0-17.0 [facility] Comment on above: Performed By: #### C MP #### [facility] [address] [place] [address] Case Wong Urea nitrogen/Creatinine [Mass ratio] 12.5 mg/mg Normal [facility] Comment on above: Performed By: #### C MP #### [facility] [address] [place] [id number] Case Wong XR CHEST 1 Von 10-27-2020 XR CHEST 1 V EXAMINATION: XR CHES T 1 V HISTORY: CHEST PAIN, UNSPECIFIED ; [...] by: OLY BIRD Date: 2020-10-27 12:04 Normal [facility] Vital Signs Date Time Vital Sign Value Performing Clinician Facility 08-08-2024 11:24-0400 Blood Pressure Location GEOVANNI TRISTAN [facility] 08-08-2024 11:24-0400 Diastolic blood pressure 78 mm[Hg] GEOVANNI TRISTAN [facility] 08-08-2024 11:24-0400 Heart rate 106 /min GEOVANNI TRISTAN [facility] 08-08-2024 11:24-0400 Respiratory rate 18 /min GEOVANNI TRISTAN [facility] 08-08-2024 11:24-0400 Systolic blood pressure 116 mm[Hg] GEOVANNI TRISTAN [facility] 07-31-2021 07:46-0400 Body temperature 98.71 [degF] María Pool INDUSTRIAL MAINTENANCE MANAGER - CNM Work Phone: [employer] Work Phone: 07-31-2021 07:46-0400 Diastolic blood pressure 78 mm[Hg] María Pool INDUSTRIAL MAINTENANCE MANAGER - CNM Work Phone: [employer] Work Phone: 07-31-2021 07:46-0400 Heart rate 72 /min María Pool INDUSTRIAL MAINTENANCE MANAGER - CNM Work Phone: [employer] Work Phone: 07-31-2021 07:46-0400 Respiratory rate 16 /min María Pool INDUSTRIAL MAINTENANCE MANAGER - CNM Work Phone: [employer] Work Phone: 07-31-2021 07:46-0400 Systolic blood pressure 135 mm[Hg] María Pool INDUSTRIAL MAINTENANCE MANAGER - CNM Work Phone: [employer] Work Phone: 07-29-2021 04:02-0400 Body height 170.2 cm María Pool INDUSTRIAL MAINTENANCE MANAGER - CNM Work Phone: [employer] Work Phone: 07-29-2021 04:02-0400 Body mass index (BMI) [Ratio] 41.04 kg/m2 María Pool INDUSTRIAL MAINTENANCE MANAGER - CNM Work Phone: [employer] Work Phone: 07-29-2021 04:02-0400 Body weight 118.84 kg María Pool INDUSTRIAL MAINTENANCE MANAGER - CNM Work Phone: [employer] Work Phone: 07-28-2021 00:21-0400 Diastolic blood pressure 86 mm[Hg] Selma Sifuentes INDUSTRIAL MAINTENANCE MANAGER - CNM Work Phone: [employer] Work Phone: 07-28-2021 00:21-0400 Heart rate 63 /min Selma Sifuentes INDUSTRIAL MAINTENANCE MANAGER - CNM Work Phone: [employer] Work Phone: 07-28-2021 00:21-0400 Systolic blood pressure 140 mm[Hg] Selma Sifuentes INDUSTRIAL MAINTENANCE MANAGER - CNM Work Phone: [employer] Work Phone: 07-27-2021 23:08-0400 Respiratory rate 17 /min Selma Sifuentes INDUSTRIAL MAINTENANCE MANAGER - CNM Work Phone: [employer] Work Phone: 07-27-2021 22:36-0400 Body height 170.2 cm Selma Fuenteso INDUSTRIAL MAINTENANCE MANAGER - CNM Work Phone: [employer] Work Phone: 07-27-2021 22:36-0400 Body mass index (BMI) [Ratio] 41.5 kg/m2 Selma Sifuentes INDUSTRIAL MAINTENANCE MANAGER - CNM Work Phone: [employer] Work Phone: 07-27-2021 22:36-0400 Body weight 120.2 kg Selma Sifuentes APRN - CNM Work Phone: [employer] Work Phone: 07-27-2021 22:18-0400 Body temperature 98.01 [degF] Selma Sifuentes APRN - CNM Work Phone: [employer] Work Phone: 07-21-2021 12:20-0400 Body temperature 98.01 [degF] Selma Sifuentes INDUSTRIAL MAINTENANCE MANAGER - CNM Work Phone: [employer] Work Phone: 07-21-2021 12:20-0400 Diastolic blood pressure 75 mm[Hg] Selma Sifuentes APRN - CNM Work Phone: [employer] Work Phone: 07-21-2021 12:20-0400 Heart rate 86 /min Selma Sifuentes APRN - CNM Work Phone: [employer] Work Phone: 07-21-2021 12:20-0400 Respiratory rate 20 /min Selma Sifuentes APRN - CNM Work Phone: [employer] Work Phone: 07-21-2021 12:20-0400 Systolic blood pressure 130 mm[Hg] Selma Sifuentes APRN - CNM Work Phone: [employer] Work Phone: 07-20-2021 14:45-0400 Body height 170.2 cm Selma Sifuentes APRN - CNM Work Phone: [employer] Work Phone: 07-20-2021 14:45-0400 Body mass index (BMI) [Ratio] 41.5 kg/m2 Selma Sifuentes APRN - CNM Work Phone: [employer] Work Phone: 07-20-2021 14:45-0400 Body weight 120.2 kg Selma Maria INDUSTRIAL MAINTENANCE MANAGER - CNM Work Phone: [facility] Work Phone: Encounters Encounter Date Encounter Type Care Provider Facility Start: 08-08-2024 End: 08-08-2024 ambulatory GEOVANNI HUDSON Facility: [facility] Start: 08-08-2024 End: 08-08-2024 Patient encounter procedure GEOVANNI HUDSON [facility] Start: 07-16-2024 ambulatory GEOVANNI HUDSON Facility :[facility] Start: 07-11-2024 End: 07-11-2024 ambulatory YEIMI TERAN Not Available Start: 07-04-2024 End: 07-04-2024 ambulatory Florin Demetra Facility:[facility] Start: 06-07-2024 End: 06-07-2024 ambulatory MARYCARMEN NAYAK Not Available Start: 05-20-2024 End: 05-20-2024 Departed Referred DO Florin Demetra Work Phone: [facility] Start: 05-20-2024 End: 05-20-2024 ambulatory FLORIN DEMETRA [facility] Work Phone: Start: 04-15-2024 End: 04-15-2024 ambulatory MARYCARMEN ZAMORAER Not Available Start: 04-10-2024 End: 04-10-2024 ambulatory MARYCARMEN Jara STEPHANI Not Available Start: 04-09-2024 End: 04-09-2024 ambulatory DEB SHORT Not Available Start: 04-08-2024 End: 04-08-2024 ambulatory MARYCARMEN Jara STEPHANI Not Available Start: 04-02-2024 End: 04-02-2024 ambulatory FLORIN DEMETRA Not Available Start: 03-13-2024 End: 03-13-2024 ambulatory SELMA SIFUENTES Not Available Start: 03-11-2024 End: 03-11-2024 ambulatory MARICHUY SKY Not Available Start: 03-04-2024 End: 03-04-2024 ambulatory MAGALIE PEÑALOZA Not Available Start: 12-18-2023 Telephone encounter Marycarmen ron MD Work Phone: [facility] Start: 11-09-2023 End: 11-09-2023 ambulatory MAGALIE PEÑALOZA Not Available Start: 09-24-2021 End: 09-24-2021 ambulatory MITA GONZALES Facility:[facility] Start: 07-29-2021 End: 07-31-2021 Evaluation and management of inpatient MARÍA Jerry [facility] Start: 07-29-2021 End: 07-31-2021 Evaluation and management of inpatient María Edwards Caraway INDUSTRIAL MAINTENANCE MANAGER - CNM Work Phone: [facility] Start: 07-28-2021 End: 07-28-2021 ambulatory [facility] Start: 07-27-2021 End: 07-28-2021 Subsequent hospital visit by physician Selma Sifuentes INDUSTRIAL MAINTENANCE MANAGER - CNM Work Phone: [facility] Start: 07-20-2021 End: 07-21-2021 Evaluation and management of inpatient [facility] Start: 07-20-2021 End: 07-21-2021 Evaluation and management of inpatient Selma Sifuentes INDUSTRIAL MAINTENANCE MANAGER - CNM Work Phone: [facility] Labor and Delivery Start: 10-27-2020 End: 10-27-[address] OLY BIRD Facility:H1 Start: 10-27-2020 End: 10-27-2020 Patient encounter procedure RINKU NAJERA Facility:H1 Procedures Date Procedure Procedure Detail Performing Clinician Start: 07-04-2024 Hysterectomy GEOVANNI HUDSON Start: 03-22-2023 Microscopic observation [Identifier] in Cervix by Cyto stain Marycarmen Nayak MD Work Phone: Start: 02-08-2023 Mammography Marycarmen Nayak MD Work Phone: Start: 07-29-2021 GLUCOSE, WHOLE BLOOD María Barnes INDUSTRIAL MAINTENANCE MANAGER - CNM Work Phone: Start: 07-29-2021 Drug screen class list a María Edwards Pool INDUSTRIAL MAINTENANCE MANAGER - CNM Work Phone: Start: 07-29-2021 Blood count complete auto&auto difrntl wbc María Barnes INDUSTRIAL MAINTENANCE MANAGER - CNM Work Phone: Start: 07-27-2021 Urinalysis microscopic only María E P ool INDUSTRIAL MAINTENANCE MANAGER - CNM Work Phone: Start: 07-27-2021 Urnls dip stick/tablet rgnt auto w/o microscopy María Edwards Pool INDUSTRIAL MAINTENANCE MANAGER - CNM Work Phone: Start: 07-21-2021 GLUCOSE, WHOLE BLOOD Selma Sifuentes INDUSTRIAL MAINTENANCE MANAGER - CNM Work Phone: Start: 07-21-2021 GLUCOSE, WHOLE BLOOD Selma Sifuentes INDUSTRIAL MAINTENANCE MANAGER - CNM Work Phone: Start: 07-21-2021 Antibody screen Selma Sifuentes INDUSTRIAL MAINTENANCE MANAGER - CNM Work Phone: Start: 07-20-2021 Blood count complete auto&auto difrntl wbc Selma Sifuentes INDUSTRIAL MAINTENANCE MANAGER - CNM Work Phone: Start: 07-20-2021 GLUCOSE, WHOLE BLOOD Selma Sifuentes INDUSTRIAL MAINTENANCE MANAGER - CNM Work Phone: Start: 07-20-2021 Blood count complete auto&auto difrntl wbc Selma Sifuentes INDUSTRIAL MAINTENANCE MANAGER - CNM Work Phone: Start: 07-20-2021 Blood typing serologic abo Selma Sifuentes INDUSTRIAL MAINTENANCE MANAGER - CNM Work Phone: Start: 07-20-2021 Urinalysis microscopic only Selma malone INDUSTRIAL MAINTENANCE MANAGER - CNM Work Phone: Start: 07-20-2021 Urnls dip stick/tablet rgnt auto w/o microscopy Selma Sifuentes INDUSTRIAL MAINTENANCE MANAGER - CNM Work Phone: Start: 07-19-2021 GBS, EXTERNAL RESULT Selma Floro INDUSTRIAL MAINTENANCE MANAGER - CNM Work Phone: Start: 12-29-2020 ABO, EXTERNAL RESULT Historical Provider Start: 12-29-2020 Antibody hiv-1&hiv-2 single result Yovanny Sifuentes INDUSTRIAL MAINTENANCE MANAGER - CNM Work Phone: Start: 12-29-2020 Antibody screen Selma Sifuentes INDUSTRIAL MAINTENANCE MANAGER - CNM Work Phone: Start: 12-29-2020 Chlamydia culture Selma Sifuentes INDUSTRIAL MAINTENANCE MANAGER - CNM Work Phone: Start: 12-29-2020 Iaadiadoo neisseria gonorrhoeae Selma Sifuentes INDUSTRIAL MAINTENANCE MANAGER - CNM Work Phone: Start: 03-06-2016 Colonoscopy GEOVANNI HUDSON Start: 03-06-2016 Esophagogastroduodenoscopy GEOVANNI PERR Bryce Comment on above: with bx Start: 03-06-2016 Umbilical hernia (disorder) GEOVANNI HERNANDEZ RY Comment on above: repair Ankle region structu re (body structure) GEOVANNI HUDSON Comment on above: achilles tendon Cholecystectomy GEOVANNI MCGOWAN Plan of Treatment Date Care Activity Detail [...] 07-07-2021 Influenza vaccination Flu vaccine (# 1) [employer] Work Phone: Start: 2021 Diabetes screen Diabetes screen [facility] [employer] Work Phone: Start: 2021 Lipid panel Lipid screen [facility] Work Phone: Start: 2011 Screening for malign ant neoplasm of cervix [facility] Phone: Start: 2002 Screening for malign ant neoplasm of cervix Pap smear [employer] Phone: Start: 2000 DTaP/Tdap/Td vaccine (1 - Tdap) DTaP/Tdap/Td vaccine (1 - Tdap) [facility] Phone: Start: 1993 COVID-19 Vaccine (1) COVID-19 Vaccin e (1) [facility] Phone: Start: 1982 Varicella vaccine (1 of 2 - 2-dose childhood series) Varicella vaccine (1 of 2 - 2-dose childhood series) [facility] Phone: Start: 1981 Hepatitis C screening Hepatitis C sc reen [employer] Phone: End: 07-20-2021 Bacteria identified in Urine by Culture Urine culture Microbiology Routine One Time for 1 Occurrences starting 07/20/2021 until 07/20/2021 [employer] Phone: Comment on above: One Time for 1 Occur rences starting 07/20/2021 until 07/20/2021 End: 07-27-2021 Bacteria identified in Urine by Culture Urine culture Microbiology Routine One Time for 1 Occurrences starting 07/27/2021 until 07/27/2021 [facility] Phone: Comment on above: One Time for 1 Occur rences starting 07/27/2021 until 07/27/2021 Bacteria identified in Urine by Culture Urine culture Microbiology [employer] Label Print 07/27/2021 10:30 PM EDT [facility] Phone: Glucose [Mass/volume ] in Serum or Plasma POCT glucose Point of Care Testing Routine TID until discontinued starting 07/21/2021 [employer] Phone: Comment on above: TID until discontinu ed starting 07/21/2021 Nonrebreather mask oxygen [facility] Phone: Comment on above: As directed - RT (CT N) until discontinued starting 07/20/2021 As directed - RT (CT N) until discontinued starting 07/27/2021 End: 07-29-2021 RHOGAM RHOGAM Blood Bank Routine One Time for 1 Occurrences starting 07/29/2021 until 07/29/2021 [employer] Phone: Comment on above: One Time for 1 Occur rences starting 07/29/2021 until 07/29/2021 End: 07-20-2021 SVE SVE Point of Care Testing Routine One Time for 1 Occurrences starting 07/20/2021 until 07/20/2021 [employer] Phone: Comment on above: One Time for 1 Occur rences starting 07/20/2021 until 07/20/2021 End: 07-27-2021 SVE SVE Point of Care Testing Routine One Time for 1 Occurrences starting 07/27/2021 until 07/27/2021 [facility] Phone: Comment on above: One Time for 1 Occur rences starting 07/27/2021 until 07/27/2021 End: 07-27-2021 Urinalysis Urinalysis Lab Routine One Time for 1 Occurrences starting 07/27/2021 until 07/27/2021 [employer] Phone: Comment on above: One Time for 1 Occur rences starting 07/27/2021 until 07/27/2021 Immunizations Immunization Date Immunization Notes Care Provider Fa ciliwero 07-29-2021 diphtheria, tetanus toxoids and acellular pertussis vaccine, unspecified formulation María Pool INDUSTRIAL MAINTENANCE MANAGER - CNM Work Phone: [employer] Work Phone: 07-29-2021 measles, mumps and rubella virus vaccine María Pool INDUSTRIAL MAINTENANCE MANAGER - CNM Work Phone: [employer] Phone: 06-30-2021 tetanus toxoid, redu graciela diphtheria toxoid, and acellular pertussis vaccine, adsorbed Marycarmen Nayak MD Work Phone: [facility] Healthcare Payers Date Payer Category Payer Self-pay 2024 Unknown [id number] 2023 Unknown [id number] 2023 Medicaid [employer] [place] [employer] [id number] 2023-Present [address] [place] [address] [id number] 2020 Unknown [id number] [id number] 1981 Unknown [id number] 2.16.840.1.855526.3.579.2.593 1981 Unknown [id number] 2.16.840.1.963615.3.579.2.173 1981 Unknown [id number] 2.16.840.1.968019.3.579.2.173 1981 Unknown [id number] 2.16.840.1.610564.3.579.2.173 1981 Unknown [id number] 2.16.840.1.921519.3.579.2.593 1981 Unknown [id number] 2.16.840.1.688309.3.579.2.1259 1981 Unknown [id number] 2.16.840.1.751587.3.579.2.1259 1981 Unknown [id number] 2.16.840.1.979639.3.579.2.1259 1981 Unknown [id number] 2.16.840.1.819578.3.579.2.9 1981 Unknown [id number] 2.16.840.1.129085.3.579.2.9 1981 Unknown [id number] 2.16.840.1.873800.3.579.2.9 1981 Unknown [id number] 2.16.840.1.489980.3.579.2.1258 1981 Unknown [id number] 2.16.840.1.497885.3.579.2.1258 1981 Unknown [id number] 2.16.840.1.549920.3.579.2.1258 1981 Unknown [id number] 2.16.840.1.829758.3.579.2.1258 1981 Unknown [id number] 2.16.840.1.954553.3.579.2.1258 1981 Unknown [id number] 2.16.840.1.569497.3.579.2.1258 1981 Unknown [id number] 2.16.840.1.755591.3.579.2.727 1959 Unknown [id number] Unknown [id number] 2.16.840.1.315938.3.579.2.531 Unknown [id number] 2.16.840.1.521527.3.579.2.531 Social History Date Type Detail Facility Start: 07-20-2021 End: 04-13-2023 Tobacco smoking status [facility] Former smoker [employer] Phone: Start: 11-06-1994 End: 07-20-2020 History of tobacco use Current smoker [facility] Start: 07-20-2021 End: 04-13-2023 Tobacco use and exposure Never used [employer] Start: 07-20-2021 End: 07-29-2021 Alcohol intake Lifetime non-drinker (finding) [facility] Phone: Start: 07-20-2021 History SDOH Alcohol Frequency 1 [facility] Phone: Start: 11-22-2020 [facility] Phone: Start: 1980 Sex Assigned At Not on file [facility] [facility] Phone: Exposure to SARS-CoV -2 (event) Not sure [facility] Start: 11-06-1994 End: 11-06-2019 History of tobacco [...] Healthcare Start: 1980 Sex Assigned At Female [facility] Start: 08-08-2024 Tobacco smoking status Light tobacco smoker (finding) [facility] Functional Status Date Assessment Result Facility 08-08-2024 Functional Status N/A [facility] Clinical Notes 07-21-2021 to 08-08-2024 Telephone Encounter - Helen Hairston - 12/18/2023 1:05 PM ESTTelephone Encounter - Helen Hairston - 12/18/2023 1:05 PM Selma Boss APRN - [facility] - 07/31/2021 4:03 AM EDT Note Date & Type Note Facility 08-08-2024 Hospital Discharg e instructions Patient Education 08/08/2024 12:26:54 Overactive Bladder, Adult Overactive Bladder, Adult Overactive bladder is a condition in which a person has a sudden and frequent need to urinate. A person might also leak urine if he or she cannot get to the bathroom fast enough (urinary incontinence). Sometimes, symptoms can interfere with work or social activities. What are the causes? Overactive bladder is associated with poor nerve signals between your bladder and your brain. Your bladder may get the signal to empty before it is full. You may also have very sensitive muscles that make your bladder squeeze too soon. This condition may also be caused by other factors, such as: Medical conditions: ?Urinary tract infection. ?Infection of nearby tissues. ?Prostate enlargement. ?Bladder stones, inflammation, or tumors. ?Diabetes. ?Muscle or nerve weakness, especially from these conditions: ?A spinal cord injury. ?Stroke. ?Multiple sclerosis. ?Parkinson's disease. Other causes: ?Surgery on the uterus or urethra. ?Drinking too much caffeine or alcohol. ?Certain medicines, especially those that eliminate extra fluid in the body (diuretics). ?Constipation. What increases the risk? You may be at greater risk for overactive bladder if you: Are an older adult. Smoke. Are going through menopause. Have prostate problems. Have a neurological disease, such as stroke, dementia, Parkinson's disease, or multiple sclerosis (MS). Eat or drink alcohol, spicy food, caffeine, and other things that irritate the bladder. Are overweight or obese. What are the signs or symptoms? Symptoms of this condition include a sudden, strong urge to urinate. Other symptoms include: Leaking urine. Urinating 8 or more times a day. Waking up to urinate 2 or more times overnight. How is this diagnosed? This condition may be diagnosed based on: Your symptoms and medical history. A physical exam. Blood or urine tests to check for possible causes, such as infection. You may also need to see a health care provider who specializes in urinary tract problems. This is called a urologist. How is this treated? Treatment for overactive bladder depends on the cause of your condition and whether it is mild or severe. Treatment may include: Bladder training, such as: ?Learning to control the urge to urinate by following a schedule to urinate at regular intervals. ?Doing Kegel exercises to strengthen the pelvic floor muscles that support your bladder. Special devices, such as: ?Biofeedback. This uses sensors to help you become aware of your body's signals. ?Electrical stimulation. This uses electrodes placed inside the body (implanted) or outside the body. These electrodes send gentle pulses of electricity to strengthen the nerves or muscles that control the bladder. ?Women may use a plastic device, called a pessary, that fits into the vagina and supports the bladder. Medicines, such as: ?Antibiotics to treat bladder infection. ?Antispasmodics to stop the bladder from releasing urine at the wrong time. ?Tricyclic antidepressants to relax bladder muscles. ?Injections of botulinum toxin type A directly into the bladder tissue to relax bladder muscles. Surgery, such as: ?A device may be implanted to help manage the nerve signals that control urination. ?An electrode may be implanted to stimulate electrical signals in the bladder. ?A procedure may be done to change the shape of the bladder. This is done only in very severe cases. Follow these instructions at home: Eating and drinking Make diet or lifestyle changes recommended by your health care provider. These may include: ?Drinking fluids throughout the day and not only with meals. ?Cutting down on caffeine or alcohol. ?Eating a healthy and balanced diet to prevent constipation. This may include: ?Choosing foods that are high in fiber, such as beans, whole grains, and fresh fruits and vegetables. ?Limiting foods that are high in fat and processed sugars, such as fried and sweet foods. Lifestyle Lose weight if needed. Do not use any products that contain nicotine or tobacco. These include cigarettes, chewing tobacco, and vaping devices, such as e-cigarettes. If you need help quitting, ask your health care provider. General instructions Take uhiv-thd-qyikxmg and prescription medicines only as told by your health care provider. If you were prescribed an antibiotic medicine, take it as told by your health care provider. Do not stop taking the antibiotic even if you start to feel better. Use any implants or pessary as told by your health care provider. If needed, wear pads to absorb urine leakage. Keep a log to track how much and when you drink, and when you need to urinate. This will help your health care provider monitor your condition. Keep all follow-up visits. This is important. Contact a health care provider if: You have a fever or chills. Your symptoms do not get better with treatment. Your pain and discomfort get worse. You have more frequent urges to urinate. Get help right away if: You are not able to control your bladder. Summary Overactive bladder refers to a condition in which a person has a sudden and frequent need to urinate. Several conditions may lead to an overactive bladder. Treatment for overactive bladder depends on the cause and severity of your condition. Making lifestyle changes, doing Kegel exercises, keeping a log, and taking medicines can help with this condition. This information is not intended to replace advice given to you by your health care provider. Make sure you discuss any questions you have with your health care provider. Document Revised: 07/12/2021 Document Reviewed: 07/12/2021 [employer] Patient Education 2023 [employer]. Follow Up Care 07/23/2024 12:51:26 With:TRISTAN MONTEJO, GEOVANNI Edwards, MELA Address: When:1 year [facility] 08-08-2024 Note Patient Education Obstetrics and Gynecology Overactive Bladder, Adult Overactive bladder is a condition in which a person has a sudden and frequent need to urinate. A person might also leak urine if he or she cannot get to the bathroom fast enough (urinary incontinence). Sometimes, symptoms can interfere with work or social activities. What are the causes? Overactive bladder is associated with poor nerve signals between your bladder and your brain. Your bladder may get the signal to empty before it is full. You may also have very sensitive muscles that make your bladder squeeze too soon. This condition may also be caused by other factors, such as: ? Medical conditions: ? Urinary tract infection. ? Infection of nearby tissues. ? Prostate enlargement. ? Bladder stones, inflammation, or tumors. ? Diabetes. ? Muscle or nerve weakness, especially from these conditions: ? A spinal cord injury. ? Stroke. ? Multiple sclerosis. ? Parkinson's disease. ? Other causes: ? Surgery on the uterus or urethra. ? Drinking too much caffeine or alcohol. ? Certain medicines, especially those that eliminate extra fluid in the body (diuretics). ? Constipation. What increases the risk? You may be at greater risk for overactive bladder if you: ? Are an older adult. ? Smoke. ? Are going through menopause. ? Have prostate problems. ? Have a neurological disease, such as stroke, dementia, Parkinson's disease, or multiple sclerosis (MS). ? Eat or drink alcohol, spicy food, caffeine, and other things that irritate the bladder. ? Are overweight or obese. What are the signs or symptoms? Symptoms of this condition include a sudden, strong urge to urinate. Other symptoms include: ? Leaking urine. ? Urinating 8 or more times a day. ? Waking up to urinate 2 or more times overnight. How is this diagnosed? This condition may be diagnosed based on: ? Your symptoms and medical history. ? A physical exam. ? Blood or urine tests to check for possible causes, such as infection. You may also need to see a health care provider who specializes in urinary tract problems. This is called a urologist. How is this treated? Treatment for overactive bladder depends on the cause of your condition and whether it is mild or severe. Treatment may include: ? Bladder training, such as: ? Learning to control the urge to urinate by following a schedule to urinate at regular intervals. ? Doing Kegel exercises to strengthen the pelvic floor muscles that support your bladder. ? Special devices, such as: ? Biofeedback. This uses sensors to help you become aware of your body's signals. ? Electrical stimulation. This uses electrodes placed inside the body (implanted) or outside the body. These electrodes send gentle pulses of electricity to strengthen the nerves or muscles that control the bladder. ? Women may use a plastic device, called a pessary, that fits into the vagina and supports the bladder. ? Medicines, such as: ? Antibiotics to treat bladder infection. ? Antispasmodics to stop the bladder from releasing urine at the wrong time. ? Tricyclic antidepressants to relax bladder muscles. ? Injections of botulinum toxin type A directly into the bladder tissue to relax bladder muscles. ? Surgery, such as: ? A device may be implanted to help manage the nerve signals that control urination. ? An electrode may be implanted to stimulate electrical signals in the bladder. ? A procedure may be done to change the shape of the bladder. This is done only in very severe cases. Follow these instructions at home: Eating and drinking ? Make diet or lifestyle changes recommended by your health care provider. These may include: ? Drinking fluids throughout the day and not only with meals. ? Cutting down on caffeine or alcohol. ? Eating a healthy and balanced diet to prevent constipation. This may include: ? Choosing foods that are high in fiber, such as beans, whole grains, and fresh fruits and vegetables. ? Limiting foods that are high in fat and processed sugars, such as fried and sweet foods. Lifestyle ? Lose weight if needed. ? Do not use any products that contain nicotine or tobacco. These include cigarettes, chewing tobacco, and vaping devices, such as e-cigarettes. If you need help quitting, ask your health care provider. General instructions ? Take wnbb-wrr-mhjgiys and prescription medicines only as told by your health care provider. ? If you were prescribed an antibiotic medicine, take it as told by your health care provider. Do not stop taking the antibiotic even if you start to feel better. ? Use any implants or pessary as told by your health care provider. ? If needed, wear pads to absorb urine leakage. ? Keep a log to track how much and when you drink, and when you need to urinate. This will help your health care (more content not included)... [facility] 12-18-2023 Telephone encounter Note Handicappmaty mulligan expires in January, and she is requesting a new rx for this. [facility] 12-18-2023 Miscellaneous Notes Handicappmaty mulligan expires in January, and she is requesting a new rx for this. documented in this encounter [facility] 07-31-2021 History of Presen t illness [...] room for epidural. documented in this encounter [facility] Phone: 07-28-2021 History of Presen t illness Narrative Pt provided with discharge instructions. Pt verbalized understanding regarding home going instructions. Pt was also instructed per CNM to take a hot shower, to get [...] worse. Joi Barnes CNM updated with SVE. CNMarty states to keep patient and recheck in [...] during this time. documented in this encounter [employer] Work Phone: 07-21-2021 History of Presen t illness [...] updated with plan. documented in this encounter [employer] Work Phone: Evaluation + Plan note No data available for this section [facility] Diagnosis Uterine contractions during documented in this encounter [employer] Work Phone: evaluation note* Diagnosis Uterine contractions during (normal spontaneous vaginal delivery) Normal delivery Amniotic fluid leaking Premature rupture of membranes in , unspecified as to episode of care documented in this encounter [employer] Work Phone: evaluation noteNo assessment information available [facility] Work Phone: Hospital Discharge instructions* Instructions* Priya Sanchez RN - 07/21/[address] Ana Cristina Barnes [facility] Dr. Desirae Sullivan CN [address] [facility] [address] [facility] [address] [place] [address] [address] Desirae DIGGS [facility] CN [address] [facility] [place] [id number] [phone] Samra Sifuentes, MSN, INDUSTRIAL MAINTENANCE MANAGER, CNM [place] [id number] [facility] [address] [address] [facility] [address] [facility] [address] Jazmine Boateng CN [address] [place], [place] [id number] Magy Wells CN [address] [place] [address] [place] [address] [phone] ACTIVITY LIMITATIONS: ( )Up and about as [...] LABOR AND DELIVERY . documented in this [facility] [place] [place] [employer] Work Phone: Hospital Discharge instructions* Instructions* Lashon Alarcon, RN - 07/28/[address] Ana Cristina Barnes [facility] Dr. Desirae Sullivan CN [address] [facility] [address] [facility] [address] [place] [address] Desirae Herrera CN [address] [facility] [place] [id number] [phone] Samra Sifuentes, MSN, INDUSTRIAL MAINTENANCE MANAGER, CNM [facility] [address] [facility] [address] [address] [facility] [address] Jazmine Boateng CNM [address] [place] [address] [place] [address] Magy Wells CN [address] [facility] [facility] [place] [address] [place] [address] [phone] ACTIVITY LIMITATIONS: ( x )Up and about [...] LABOR AND DELIVERY . [facility] Work Phone: Hospital Discharge instructions* Instructions* Kristie Houser RN - 07/31/2021 Follow-up with your OB doctor as specified. [facility] OB Department phone: Dr. Ana Cristina Barnes [facility] Dr. Desirae Sullivan [facility] [address] [facility] [address] [facility] [address] [place] [address] [place] DIET Eat a well balanced diet focusing on foods high in fiber and protein. Drink plenty of fluids especially water. To avoid constipation you may take a mild stool softener as recommended by your doctor or environmental scientist. ACTIVITY Gradually increase your activity. Resume exercise regimen only after advice by your doctor or environmental scientist. Avoid lifting anything heavier than a gallon of milk for SIX weeks. Avoid driving until your doctor or environmental scientist has given their approval. Rise slowly from [...] medications as recommended by your doctor or environmental scientist for pain If you develop a warm, red, tender area on your breast or develop a fever contact your OB provider. For moms: If you become engorged, feeding may be more difficult or painful for 1-2 days. You may find it helpful to hand express some milk so that the infant can latch on more easily. While , continue to take your vitamins as directed by your doctor or environmental scientist. Refer to the booklet in the folder/binder for more information. If you feel you need more assistance or have questions, please call Senait Vizcarra IBKRIS, client support consultant, at or the OB department to [...] area in your calf. 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 ACP-Advance Directive ACP-Power of Global Category Manager Latest Code Status on File Code Status [...] and content) DATE CREATED AUTHOR 10/29/2020 [facility] DATE CREATED AUTHOR AUTHOR'S ORGANIZ ATION 08/02/2021 [facility] DATE CREATED AUTHOR AUTHOR'S ORGANIZ ATION 10/04/2021 [facility] DATE CREATED AUTHOR AUTHOR'S ORGANIZ ATION 09/16/2022 [facility] Specialist DATE CREATED AUTHOR AUTHOR'S ORGANIZ ATION 07/12/2024 [facility] EPIC DATE CREATED AUTHOR AUTHOR'S ORGANIZ ATION 07/17/2024 [facility] DATE CREATED AUTHOR AUTHOR'S ORGANIZ ATION 08/10/[address] [facility] Reason for Visit (unrecogniz ed section and content) Reason Comments Contractions Reason Comments Rupture of Membranes Status Reason Specialty Diagnoses / Procedures Referre d By Contact Referred To Contact Diagnoses Uterine contractions during María Barnes APRN - STEVEN [address] [place] [address] [facility] Scheduled Active and Recently Administ ered [...] Kristie Houser, JONH - Reason: Other)2100 (Due) ibuprofen (ADVIL;MOTRIN) tablet 800 mg 800 mg, Oral, EVERY 8 HOURS, First dose on Vera 07/29/21 at 0915, Do not crush or break., 0906 (Given - Provider: Jenny Moore RN)1757 (Given - Provider: Sudha Lee, JONH) 0018 (Given - Provider: Lashon Alarcon RN)0856 (Given - Provider: Miriam Wong RN)1704 (Given - Provider: Sudha Lee, JONH) 0117 [...] First dose on Vera 07/29/21 at 0915, 0915 (Due)2100 (Due) 0856 (Not Given - Provider: Miriam Wong RN - Reason: Loss of IV access)2099 (Due) 0933 (Not Given - Provider: Kristie Houser, JONH - Reason: Loss of IV access)2100 (Due) Afbiruh-Wrdbxs-Fxbil Pertussis (BOOSTRIX) injection 0.5 mL 0.5 mL, [...] - Provider: Kristie Houser RN - Reason: Other)2099 (Due) PRN Medication Order [...] Jenny Moore RN)2000 (Given - Provider: Obdulia Farrell, JONH) [...] Care Teams (unrecognized sec tion and content) Personnel Name: MARYCARMEN NAYAK MD Address: Address: [address] [place] [address]- Programmer Developer Relationship Specialty Start Date End Date Marycarmen Nayak MD [address] [place] [address] [phone] PCP - General Family Medicine 03/15/23 Marycarmen Nayak MD [address] [place] [id number] PCP - [facility] 05/06/23 Kimberlee Yang NP [address] [place] [address] Nurse Practitioner Family Medicine 03/15/23 Team Status: Inactive Member Role Status Dates Florin Mccrary DO Attending Provider Active Start : May 20, 2024 End: May 20, 2024 Goals (unrecognized section and content) Goals may be documented in a n alternate section No data available for this section FOR RECORDS PERTAINING TO PATIENTS WHO [...] BE BASED ON THE PRIMARY CLINICAL RECORDS. [employer] [facility]. provides no warranty or guarantee of the accuracy or completeness of information in this document.
[2024-08-19 12:26] LABS: Basophils Percent Auto 0.3 % (0.2-2.0); Eosinophils Absolute Auto 0.1 10^3/uL (0.0-0.7); Eosinophils Percent Auto 1.9 % (0.9-7.0); Hemoglobin 13.3 g/dL (12.0-16.0); Immature Granulocytes Abs Auto 0.02 10^3/uL (0.00-0.03); Immature Granulocytes Pct Auto 0.3 % (0.0-0.5); Lymphocytes Absolute Auto 2.5 10^3/uL (1.2-3.8); Lymphocytes Percent Auto 36.1 % (20.5-60.0); Mean Corpuscular HGB Conc 35.9 g/dL (29.9-35.2); Mean Corpuscular Hemoglobin 28.7 pg (26.7-34.0); Mean Corpuscular Volume 79.7 fL (81.0-99.0); Mean Platelet Volume 10.1 fL (9.5-13.5); Monocytes Absolute Auto 0.6 10^3/uL (0.3-0.8); Monocytes Percent Auto 8.6 % (1.7-12.0); Neutrophils Absolute Auto 3.6 10^3/uL (1.4-6.5); Neutrophils Percent Auto 52.8 % (43.0-75.0); Platelet Count 291 10^3/uL (150-450); Red Blood Count 4.64 10^6/uL (4.20-5.40); Red Cell Distribution Width 13.6 % (11.0-15.0); White Blood Count 6.8 10^3/uL (4.0-11.0)
[2024-08-19 12:52] LABS: Thyroid Stimulating Hormone 0.348 uIU/mL (0.358-3.740)
[2024-08-19 12:53] LABS: Estimated Average Glucose 108 mg/dL; Glycohemoglobin A1C 5.4 % (4.5-6.2)
[2024-08-19 12:56] LABS: Free T4 0.82 ng/dL (0.76-1.46)
[2024-08-22 12:10] LABS: Calcitriol(1,25 di-OH Vit D) 21.4 pg/mL (24.8-81.5)
== END 2024-08-19 11:33 | disposition home or self-care (01) ==
PROVIDERS: PCP Family Medicine; Visit Provider Obstetrics & Gynecology
DX: R53.82 Chronic fatigue, unspecified (principal); Z98.890 Other specified postprocedural states; E89.41 Symptomatic postprocedural ovarian failure
CPT/HCPCS: 36415; 82652; 82728; 83036; 84439; 84443; 85025

== ENCOUNTER 2025-09-21 21:54 | Emergency (ER) | payer MEDICAID, SELFPAY ==
[2025-09-21 22:08] VITALS: BP 154/96; PULSE 108; TEMP 36.9; O2SAT 100; BMI 27.7
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
--- OUTSIDE RECORDS SUMMARY | 2025-09-21 22:34 | XMS_ITS | CCD ---
Author Organization [facility] Care Team Providers Care Account Information Clerk Name Role Phone RINKU NAJERA Attending Unavailable RINKU NAJERA Admitting Unavailable MITA GONZALES Primary Care Unavailable OLY BIRD Consulting Unavailable RINKU NAJERA Consulting Unavailable Marycarmen Nayak MD Primary Care Provider POOLMARÍA Admitting Unavailable MARÍA BARNES Attending Unavailable MARYCARMEN NAYAK Primary Care Unavailable MARYCARMEN NAYAK Primary Care Unavailable ANA SELMA Admitting Unavailable SELMA SIFUENTES Attending Unavailable MARYCARMEN NAYAK Primary Care Unavailable ANA, SELMA Admitting Unavailable SELMA SIFUENTES Attending Unavailable DR OLY BIRD Consulting Unavailable RINKU NAJERA Admitting Unavailable RINKU NAJERA Attending Unavailable RINKU NAJERA Consulting Unavailable MITA GONZALES Primary Care Unavailable LALI EL Admitting Unavailable LALI EL Consulting Unavailable LALI EL Attending Unavailable Marycarmen Nayak MD Primary Care Provider Trey CHOCOLATE MAKER, Kimberlee R Unavailable Marycarmen Nayak MD Unavailable DO Florin Mccrary Attending Provider Florin Mccrary Attending Unavailable Florin Mccrary Admitting Unavailable Florin Mccrary Attending Unavailable Florin Mccrary Admitting Unavailable GEOVANNI HUDSON Attending Unavailable Florin MCCRARY Referring Unavailable MARYCARMEN NAYAK Primary Care Physician Marycarmen Nayak MD Unavailable Marycarmen Nayak MD Primary Care Provider MARYCARMEN NAYAK Primary Care Unavailable OZZY, RIM S Referring Unavailable OZZY, RIM S Attending Unavailable DODSONCARMELA GALVEZ Attending Unavailable STEPHANI, MARYCARMEN F Referring Unavailable STEPHANI, MARYCARMEN F Primary Care Unavailable STEPHANI, MARYCARMEN F Referring Unavailable STEPHANI, MARYCARMEN F Primary Care Unavailable DODSONCARMELA GALVEZ Attending Unavailable STEPHANI, MARYCARMEN F Referring Unavailable STEPHANI, MARYCARMEN F Primary Care Unavailable Trey CHOCOLATE MAKER, Kimberlee R Unavailable STEPHANI, MARYCARMEN F Primary Care Unavailable SHERRELL ZAFAR Attending Unavailable STEPHANI, MARYCARMEN F Primary Care Unavailable MORENO GRIMALDO Attending Unavailab le STEPHANI, MARYCARMEN F Referring Unavailable STEPHANI, MARYCARMEN F Primary Care Unavailable LAIRDBRAEDN Attending Unavailable LAIRD, BRADEN Santiago Attending Unavailable REDSMALICK Attending Unavailable MAJORSMALICK Referring Unavailable GRAZIANISU Attending Unavailab le STEPHANI, MARCYARMEN F Attending Unavailable GRAZIANI, SU Ferguson Attending Unavailab le STEPHANI, MARYCARMEN F Attending Unavailable GRAZIANI, SU Ferguson Attending Unavailab le STEPHANI, MARYCARMEN F Attending Unavailable STEPHANI, MARYCARMEN F Referring Unavailable FLORIN MCCRARY Attending Unavailable LAIRDBRADEN Referring Unavailable STEPHANI, MARYCARMEN F Referring Unavailable STEPHANI, MARYCARMEN F Attending Unavailable STEPHANI, MARYCARMEN F Attending Unavailable STEPHANI, MARYCARMEN F Referring Unavailable Allergies Allergy ClassificationReported Allergen(s)Allergy TypeDate of OnsetReaction(s) Facility (3 sources)Adhesive TapePropensity to adverse reactions to jyid63-77-2308Qkofg (See Comments)[facility] (5 sources)Latex; Translations: [Latex]Propensity to adverse reactions to drug 52-61-7932Bfio, Swelling (finding)[facility] (20 sources)LatexAllergy to xablkczvh63-24-9453QuifywahQJ[facility] Work Phone: (20 sources)Wound Dressing AdhesivePropensity to adverse sdlvdtjam61-98-1036 [facility] (2 sources)Adhesive bandage; Translations: [Adhesive Bandage]Propensity to adverse reactions (disorder)Burn (disorder)[facility] (2 sources)Doxycycline; Translations: [doxycycline]Drug AllergyNausea (finding) [facility] (2 sources)Adhesive agent; Translations: [ADHESIVE]Propensity to adverse reactions to drug (disorder)02-78-6291UsfGllwlt Repository (2 sources)natural latex rubber; Translations: [LATEX, NATURAL RUBBER]Propensity to adverse reactions to drug (disorder)07-11-9492XrwAfuwkw Repository (20 sources)Pregabalin; Translations: [PREGABALIN]Propensity to adverse -[id number] Healthcare Medications Current Medications MedicationDrug Class(es)DatesSig (Normalized)Sig (Original)acetaminophen 325 mg oral tablet (2 sources)Start: 18-58-7369ryyd 650 mg by mouth every four hours as needed for fever, then take 4000 mg by mouth every twenty-four hours as needed for apqbb104 mg, Oral, EVERY 4 HOURS PRN, Fever, Fever >100.5 F (38 C) or pain 1-10, Starting on Vera 07/29/21 at 0855 Maximum dose of acetaminophen is 4000 mg from all sources in 24 hours. PostpartumStart: 94-98-5093tlxoeccgwocvy (TYLENOL) tablet 650 mgbaclofen 10 mg oral tablet (12 sources)gamma-Aminobutyric Acid-ergic AgonistStart: 04-22-2025 End: 95-84-8560edme 1 tablet by mouth three times dailybaclofen (Lioresal) 10 MG tablet Indications: Lumbosacral radiculopathy at S1 TAKE 1 TABLET BY MOUTH 3 TIMES A DAY 90 tablet 2 07/14/2025 Activebenzocaine 200 mg/ml / menthol 5 mg/ml topical spray (1 source)Standardized Chemical AllergenStart: 50-29-7867hwtpz 1 dose topically twice dailyTopical, 2 TIMES DAILY, First dose on Vera 07/29/21 at 0915 Apply to perineal area. Patient is capable and may self administer at bedside. calcium chloride 0.0014 meq/ml / potassium chloride 0.004 meq/ml / sodium chloride 0.103 meq/ml / sodium lactate 0.028 meq/ml injectable solution (1 source)Start: 34-51-2455nkhmuatn ringers infusioncelecoxib 200 mg oral capsule (20 sources)Nonsteroidal Anti-inflammatory DrugStart: 76-20-8450hidm 1 capsule by mouth in the morningcelecoxib (CeleBREX) 200 MG capsule Take 200 mg by mouth in the morning and 200 mg before bedtime. 05/04/2025 ActiveStart: 03-31-2025 End: 43-06-8181pdaj 1 capsule by mouth in the morningcelecoxib (CeleBREX) 200 MG capsule Indications: Lumbosacral radiculopathy at S1 Take 1 capsule (200 mg) by mouth in the morning and 1 capsule (200 mg) before bedtime. 60 capsule 11 03/31/2025 04/30/2025 ActiveStart: 09-30-2024 End: 88-84-1291bstk 1 capsule by mouth in the morningcelecoxib (CeleBREX) 200 MG capsule Take 200 mg by mouth in the morning and 200 mg before bedtime. 1 11/30/2023 11/20/2024 Discontinued (Therapy completed)Cellulose (18 sources)Start: 01-10-2025 End: 04-13-5633Eoiynuznt powder 01/10/2025 08/27/2025 DiscontinuedStart: 18-57-3426Wqurcfphy powder 01/10/2025 Activecephalexin 500 mg oral capsule (1 source)Cephalosporin AntibacterialStart: 11-24-2024 End: 01-70-2397obhb 1 capsule by mouth in the morning, then take 1 capsule by mouth in the evening, then take 1 capsule by mouth at bedtimecephalexin (Keflex) 500 MG capsule Indications: Acute pharyngitis, unspecified etiology Take 1 capsule (500 mg) by mouth in the morning and 1 capsule (500 mg) in the evening and 1 capsule (500 mg) before bedtime. Do all this for 10 days. 30 capsule 11/24/2024 12/04/2024 Activedexamethasone 2 mg oral tablet (6 sources)CorticosteroidStart: 08-27-2025 End: 57-86-4772hvoZLBVUxihyi (Decadron) 2 MG tablet Indications: Intractable chronic migraine without aura and without status migrainosus , Occipital neuralgia of left side 2mg 3 pills po X3 days,2 pills po daily X3 days , then 1 pill po daily X3 days then stop 9 days 18 pills 18 tablet 08/27/2025 09/06/2025 ActiveStart: 08-27-2025 End: 52-77-0011wbiFPDVBtjxhe sod phos (Decadron) injection 2 mgStart: 08-27-2025 End: 43-89-8163hhkGVXJMfylqo sod phos (Decadron) injection 2 mgStart: 08-27-2025 End: mg (0.5 mL), Injection, Once, On Mon08/27/25 at 0845, For 1 doseStart: 08-27-2025 End: mg (0.5 mL), Injection, Once, On Mon08/27/25 at 0845, For 1 dosediphenhydrAMINE hydrochloride 50 mg oral capsule (3 sources)Histamine-1 Receptor Antagonist End: 49-45-9378mjbh 1 capsule by mouth once daily as needed for sleep diphenhydrAMINE (BENADRYL) 50 MG capsule Take 50 mg by mouth nightly as needed for Itching (sleep) 0 07/31/2021 Discontinued (Stop Taking at Discharge)docusate sodium 100 mg oral capsule (1 source)Start: 91-91-2177lgru 100 mg by mouth twice daily as needed for devrsagfgiso083 mg, Oral, 2 TIMES DAILY PRN, Constipation, Starting on Vera 07/29/21 at 0855 Do not crush or break. Postpartuminsulin glargine 100 unt/ml injectable solution (3 sources)Insulin Analog End: 80-81-6637qchlrqt glargine (LANTUS) 100 UNIT/ML injection vial Inject 35 Units into the skin nightly 0 07/31/2021 Discontinued (Stop Taking at Discharge) lanolin 1000 mg/ml topical cream (2 sources)Start: 99-26-6187bndccbbz lanolin CREA ointment Apply 1 applicator topically as needed for Dry Skin (nipple discomfort) 1 each 3 07/31/2021 Active Start: 11-71-2865Skxpzbg, PRN, Dry Skin, nipple discomfort, Starting on Vera 07/29/21 at 0855, Postpartummegestrol acetate 20 mg oral tablet (5 sources)ProgestinStart: 06-17-2024 End: 32-30-0030xtymegaej (Megace) 20 MG tablet Indications: Irregular periods/menstrual cycles Take 1 tablet 2 times daily for 3 days then take 1 tablet daily for 1 month (36 tablets total) 36 tablet 06/17/2024 07/11/2024 DiscontinuedmetFORMIN hydrochloride 500 mg oral tablet (1 source)BiguanideStart: 04-13-2023 End: 90-75-0344fgpd 1 tablet by mouth in the morningmetFORMIN (Glucophage) 500 MG tablet Indications: Glucose intolerance Take 1 tablet (500 mg) by mouth in the morning and 1 tablet (500 mg) in the evening. Take with meals. 60 tablet 11 04/13/2023 04/12/2024 ActiveNaltrexone HCl, Pain, (Naltrex) 1.5 MG capsule (3 sources)Start: 12-11-2024 End: 63-82-9708nzdf 1 capsule by mouth once dailyNaltrexone HCl, Pain, (Naltrex) 1.5 MG capsule Indications: Complex regional pain syndrome type 1 of left lower extremity Take 1.5 mg by mouth Daily 30 capsule 11 12/11/2024 01/10/2025 Active nitrofurantoin, macrocrystals 25 mg / nitrofurantoin, monohydrate 75 mg oral capsule (4 sources)Nitrofuran AntibacterialStart: 04-07-2025 End: 38-08-4607wqtd 1 capsule by mouth in the morningnitrofurantoin, macrocrystal-monohydrate, (Macrobid) 100 MG capsule Indications: Acute cystitis without hematuria Take 1 capsule (100 mg) by mouth in the morning and 1 capsule (100 mg) before bedtime. Do all this for 7 days. 14 capsule 04/07/2025 04/14/2025 Activeomeprazole 40 mg delayed release oral capsule (5 sources)Proton Pump InhibitorStart: 04-15-2024 End: 16-19-8952nsld 1 capsule by mouth before mealtimeomeprazole (PriLOSEC) [address] capsule Indications: Acute gastritis without hemorrhage, unspecified gastritis type Take 1 capsule (40 mg) by mouth in the morning. Take before meals. Do not crush or chew.. 30 capsule 04/15/2024 07/11/2024 Discontinued phenazopyridine hydrochloride 200 mg delayed release oral tablet (4 sources)Start: 11-21-2024 End: 98-30-6684pbpw 1 tablet by mouth three times daily as needed for muscle spasmsphenazopyridine (Pyridium) 200 MG tablet Indications: Dysuria Take 1 tablet (200 mg) by mouth 3 (three) times a day as needed for bladder spasms for up to 3 days 10 tablet 11/21/2024 11/24/2024 Activepolyethylene glycol 3350 94137 mg powder for oral solution (4 sources)Osmotic LaxativeStart: 09-11-2024 End: 42-13-2611aokdcslhbizi glycol, PEG, 3350 (MiraLax) 17 GM/SCOOP powder Indications: Constipation, unspecified constipation type Take 17 g by mouth Daily for 3 days 527 g 2 09/11/2024 09/14/2024 ActivePrenatal Vit-Fe Fumarate-FA ( VITAMIN PO) (3 sources) Vit-Fe Fumarate-FA ( VITAMIN PO) Take by mouth daily 0 Activerho(d) immune globulin, human 1500 unt prefilled syringe (1 source)Human Immunoglobulin GStart: 15-94-9626587 mcg, IntraMUSCular, PRN, if mom negative and baby positive, Starting on Vera 07/29/21 at 0855, For 1 dose, Postpartum3 ml sodium chloride 9 mg/ml injection (3 sources)Start: mL, IntraVENous, EVERY 12 HOURS SCHEDULED (2 times per day), First dose on Vera 07/29/21 at 0915, PostpartumStart: 07-29-2021 take 10 mL intravenously once10 mL, IntraVENous, PRN, Line Care, Starting on Vera 07/29/21 at 0855 After every IV line use PostpartumStart: 01-74-4725rssq 25 mL intravenously every hour as cbvhed99 mL, IntraVENous, at 100 mL/hr, PRN, If patient receiving piggyback infusions without ordered maintenance IV fluids or with frequent/long duration piggyback infusions, Starting on Vera 07/29/21 at 0855 Administer at the same rate as the piggyback being infused. sulfamethoxazole 800 mg / trimethoprim 160 mg oral tablet (6 sources)Dihydrofolate Reductase Inhibitor Antibacterial, Sulfonamide AntimicrobialStart: 12-09-2024 End: 05-89-6383ipje 1 tablet by mouth once in the morning, then take 1 tablet by mouth once at bedtimesulfamethoxazole-trimethoprim (Bactrim DS) 800-160 MG per tablet Indications: Urinary tract infection without hematuria, site unspecified Take 1 tablet by mouth in the morning and 1 tablet before bedtime. Do all this for 7 days. 14 tablet 12/09/2024 12/16/2024 ActiveStart: 11-22-2024 End: 17-48-7040mihc 1 tablet by mouth once in the morning, then take 1 tablet by mouth once at bedtimesulfamethoxazole-trimethoprim (Bactrim DS) 800-160 MG per tablet Indications: Acute cystitis without hematuria Take 1 tablet by mouth in the morning and 1 tablet before bedtime. Do all this for 7 days. 14 tablet 11/22/2024 11/29/2024 ActiveSUMAtriptan 100 mg oral tablet (20 sources)Serotonin-1b and Serotonin-1d Receptor AgonistStart: 03-12-2025 End: 81-31-6531ddus 1 tablet by mouth onceSUMAtriptan (Imitrex) 100 MG tablet Indications: Intractable chronic migraine without aura and withstatus migrainosus Take 1 tablet (100 mg) by mouth 1 (one) time if needed for migraine (march repeat x1) 9 tablet 3 03/12/2025 08/27/2025 Discontinuedtopiramate 200 mg oral tablet (20 sources)Start: 61-36-5673yrtp 1 tablet by mouth in the morningtopiramate (Topamax) 50 MG tablet Indications: Complex regional pain syndrome I, unspecified , Intractable chronic migraine without aura and with status migrainosus Take 50 mg by mouth in the morningand 50 mg before bedtime. 60 tablet 11 03/12/2025 ActiveStart: 03-12-2025 End: 87-68-5108bvfd 1 tablet by mouth in the morningtopiramate (Topamax) 200 MG tablet Indications: Complex regional pain syndrome I, unspecified , Intractable chronic migraine without aura and with status migrainosus Take 1 tablet (200 mg) by mouth in the morning and 1 tablet (200 mg) before bedtime. 60 tablet 11 03/12/2025 ActiveStart: 01-02-2025 End: 81-92-8094ofox 2 tablets by mouth at bedtimetopiramate (Topamax) 100 MG tablet Indications: Complex regional pain syndrome I, unspecified TAKE 2 TABLETS (200 MG) BY MOUTH AT BEDTIME NEEDS APPOINTMENT. LAST SEEN 02/2023. 60 tablet 3 01/02/2025 04/09/2025 DiscontinuedStart: 08-28-2024 End: 69-66-5322rasx 4 tablets by mouth at bedtimetopiramate (Topamax) 100 MG tablet Indications: Complex regional pain syndrome I, unspecified Take 4 tablets (400 mg) by mouth at bedtime 120 tablet 11 08/28/2024 01/02/2025 Discontinued Start: 23-65-5640cqcd 1 tablet by mouth once dailytopiramate 100 mg Tab 100 mg = 1 tab(s), Oral, Daily, Refills(s) 0 Start Date: 08/08/24 Status: OrderedStart: 04-09-2024 End: 03-45-1784ateg 3 tablets by mouth at bedtimetopiramate (Topamax) 100 MG tablet Indications: Complex regional pain syndrome I, unspecified Take 3 tablets (300 mg) by mouth at bedtime 270 tablet 3 04/09/2024 04/09/2025 ActiveStart: 64-03-7344dudg 2 tablets by mouth once daily at bedtimetopiramate (Topamax) 100 MG tablet Indications: Complex regional pain syndrome I, unspecified TAKE 2 TABLET BY MOUTH ONCE DAILY AT BEDTIME FOR 30 DAYS 60 tablet 6 10/12/2023 Active traZODone hydrochloride 300 mg oral tablet (20 sources)Serotonin Reuptake InhibitorStart: 88-99-3010reot 1 tablet by mouth at bedtimetraZODone (Desyrel) 300 MG tablet Take 300 mg by mouth at bedtime 08/25/2025 ActiveStart: 03-19-2025 End: 31-44-5427imxi 1 tablet by mouth at bedtimetraZODone (Desyrel) 150 MG tablet Take 150 mg by mouth at bedtime 03/19/2025 08/25/2025 Discontinued (Med list cleanup)Start: 08-04-2023 End: 04-33-2064fejv 1-2 tablets by mouth every hour at bedtimetraZODone (Desyrel) 50 MG tablet Indications: Adjustment disorder with depressed mood (CMS/HCC) TAKE 1-2 TABLETS BY MOUTH ONE HOUR PRIOR TO BEDTIME 60 tablet 11 11/11/2024 04/04/2025 Discontinued (Med list cleanup)vilazodone hydrochloride 40 mg oral tablet (1 source)Start: 98-22-3072fjbx 1 tablet by mouth in the morningViibryd 40 MG tablet Take 40 mg by mouth in the morning. 0 10/13/2023 Activewitch bryant 500 mg/ml medicated pad (1 source)Start: 14-10-4137blsdz 1 dose topically twice dailyTopical, 2 TIMES DAILY, First dose on Vera 07/29/21 at 0915 Apply to perineal area. Patient is capable and may self administer at bedside. Completed/Discontinued Medications MedicationDrug Class(es)DatesSig (Normalized)Sig (Original)acetaminophen 325 mg / oxyCODONE hydrochloride 5 mg oral tablet (17 sources)Opioid AgonistStart: 07-04-2024 End: 06-58-2334agor 1 tablet by mouth every six hoursoxyCODONE-acetaminophen (Percocet) 5-325 MG tablet Take 1 tablet by mouth every 6 (six) hours 07/04/2024 09/02/2024 Discontinued (Other)amitriptyline hydrochloride 10 mg oral tablet (2 sources)Tricyclic AntidepressantStart: 09-30-2024 End: 41-25-0570sxyx 1 tablet by mouth at bedtimeamitriptyline (Elavil) 10 MG tablet Take 10 mg by mouth at bedtime 09/30/2024 11/20/2024 Discontinued (Therapy completed)24 hr amphetamine aspartate 7.5 mg / amphetamine sulfate 7.5 mg / dextroamphetamine saccharate 7.5 mg / dextroamphetamine sulfate 7.5 mg extended release oral capsule (20 sources)Central Nervous System StimulantStart: 51-65-3650mgsw 1 capsule by mouth once daily in the morningamphetamine-dextroamphetamine 30 mg ER Cap 30 mg = 1 cap(s), Oral, qAM, TAKE 1 CAPSULE BY MOUTH ONCE DAILY Start Date: 08/08/24 Status: OrderedStart: 45-86-8497vgjjdsdwjsp-dextroamphetamine (Adderall) 10 MG tablet 03/22/2024 ActiveStart: 44-05-5629xbih 1 capsule by mouth every twenty- four hours in the morningamphetamine-dextroamphetamine XR (Adderall XR) 30 MG 24 hr capsule Indications: Attention deficit hyperactivity disorder (ADHD), combined type Take 1 capsule (30 mg) by mouth in the morning. Do not crush or chew. . 30 capsule 06/21/2023 Activeonabotulinumtoxina 200 unt injection (11 sources)Acetylcholine Release InhibitorStart: 07-11-2025 End: 23-69-2382arcqgxmwanjzjqeboB (Botox) injection 200 UnitsStart: 07-11-2025 End: 02-99-1228biurbc 200 [IU] by intramuscular injection ahds833 Units, Intramuscular, Once, On Mon07/11/25 at 1015, For 1 dose, Charging context for this clinic-administered medication: Medically Necessary/InsuranceStart: 56-19-3990brvqhqrmmonpbhvxeV (Botox 200u vial IJ Soln) 200 units injection Indications: Intractable chronic migraine without aura and without status migrainosus Inject 200 units of Botox intramuscular into face and neck muscles every 90 days for chronic migraines 1 each 3 05/27/2025 Activebupivacaine hydrochloride 5 mg/ml injectable solution (4 sources)Amide Local AnestheticStart: 08-27-2025 End: 99-83-2941cckpmjddeqa (Marcaine) 0.5 % injection 2.5 mgStart: 08-27-2025 End: 63-60-7526mmpsuacpfha (Marcaine) 0.5 % injection 2.5 mgStart: 08-27-2025 End: .5 mg (0.5 mL), Injection, Once, On Mon08/27/25 at 0845, For 1 doseStart: 08-27-2025 End: .5 mg (0.5 mL), Injection, Once, On Mon08/27/25 at 0845, For 1 dosecholecalciferol 0.05 mg oral tablet (20 sources)Vitamin DStart: 08-29-2024 End: 34-85-6465qkyn 1 tablet by mouth once dailycholecalciferol (Vitamin D-3) 50 MCG (2000 UT) tablet Indications: Low vitamin D level Take 1 tablet (50 mcg) by mouth Daily 30 tablet 08/29/2024 03/12/2025 Discontinued (Therapy completed) doxycycline hyclate 100 mg oral capsule (17 sources)Tetracycline-class DrugStart: 07-11-2024 End: 58-13-1514fbpgrdsaihx (Vibramycin) 100 MG capsule Indications: Cystitis Take 1 capsule (100 mg) by mouth in the morning and 1 capsule (100 mg) before bedtime. Take with at least 8 ounces (large glass) of water, do not lie down for 30 minutes after. 60 capsule 1 07/11/2024 09/02/2024 Discontinued (Other) fluconazole 150 mg oral tablet (2 sources)Azole AntifungalStart: 08-25-2025 End: 34-12-4439caih 1 tablet by mouth oncefluconazole (Diflucan) 150 MG tablet Indications: Acute vaginitis Take 1 tablet (150 mg) by mouth 1(one) time for 1 dose 1 tablet 08/25/2025 08/25/2025 Expiredibuprofen 800 mg oral tablet (19 sources)Nonsteroidal Anti-inflammatory DrugStart: 07-04-2024 End: 39-87-3358wmaz 1 tablet by mouth every eight hoursibuprofen 800 MG tablet Take 800 mg by mouth every 8 (eight) hours 07/04/2024 09/02/2024 Discontinued (Other)Start: 88-58-2977alcm 1 tablet by mouth every eight hoursibuprofen (ADVIL;MOTRIN) 800 MG tablet Take 1 tablet by mouth every 8 hours 120 tablet 3 07/31/2021ctiveStart: 95-69-4688pqjy 800 mg by mouth every eight mg, Oral, EVERY 8 HOURS, First dose on Vera 07/29/21 at 0915 Do not crush or break. Postpartummethocarbamol 500 mg oral tablet (15 sources)Muscle RelaxantStart: 09-30-2024 End: 74-64-7789ulkz 1 tablet by mouth at bedtimemethocarbamol (Robaxin) 500 MG tablet Take 500 mg by mouth at bedtime 09/30/2024 03/12/2025 Discontinued (Therapy completed)24 hr methylphenidate hydrochloride 54 mg extended release oral tablet (1 source)Central Nervous System Stimulant End: 54-05-4971sjdj 1 tablet by mouth once daily in the morningmethylphenidate (CONCERTA) 54 MG CR tablet Take 54 mg by mouth every morning. 0 07/20/2021 Discontinued (LIST CLEANUP)1 ml nalbuphine hydrochloride 10 mg/ml injection (4 sources)Opioid Agonist/AntagonistStart: 07-29-2021 End: 08-08-5432ensfojvrtc (NUBAIN) injection 10 mgStart: 07-20-2021 End: 13-53-4591ozdhiusgcn (NUBAIN) injection 20 mgStart: 07-20-2021 End: 98-07-2537onzennkyfi (NUBAIN) injection 5 mgNIFEdipine 30 mg osmotic 24 hr extended release oral tablet (20 sources)Dihydropyridine Calcium Channel BlockerStart: 08-29-2024 End: 53-77-5162atwp 1 tablet by mouth once dailyNIFEdipine XL (Procardia XL) 30 MG 24 hr tablet Indications: Raynaud's phenomenon without gangrene Take 1 tablet (30 mg) by mouth Daily Do not crush, chew, or split. 30 tablet 11 08/29/2024 03/12/2025 Discontinued (Therapy completed)OLANZapine 2.5 mg oral tablet (15 sources)Atypical Antipsychotic End: 61-35-2672foto 1.25 mg by mouth at bedtimeOLANZapine (ZyPREXA) 2.5 MG tablet Take 1.25 mg by mouth at bedtime 03/12/2025 Discontinued (Therapy completed)ondansetron 4 mg disintegrating oral tablet (16 sources)Serotonin-3 Receptor AntagonistStart: 11-15-2024 End: 50-71-8609cvtz 1 tablet by mouth every eight hours as neededondansetron ODT (Zofran-ODT) 4 MG disintegrating tablet Take 4 mg by mouth every 8 (eight) hours ifneeded 11/15/2024 03/12/2025 Discontinued (Therapy completed)Start: 52-27-0062fwxqugqobqv (ZOFRAN) injection 4 mgoxytocin (PITOCIN) 30 units in 500 mL infusion Override Pull (1 source)Start: 07-29-2021 End: 82-15-7530yxgflsdv (PITOCIN) 30 units in 500 mL infusion Override Pull rimegepant 75 mg disintegrating oral tablet (20 sources)Start: 12-22-2022 End: 94-36-6377Zeqsdi 75 MG tablet dispersible 12/22/2022 09/02/2024 Discontinued (Other)solifenacin succinate 5 mg oral tablet (15 sources)Cholinergic Muscarinic AntagonistStart: 08-08-2024 End: 63-92-4270akmh 1 tablet by mouth once dailysolifenacin (VESIcare) 5 MG tablet Take 5 mg by mouth Daily 08/08/2024 09/02/2024 Discontinued (Other) tiZANidine 4 mg oral tablet (15 sources)Central alpha-2 Adrenergic AgonistStart: 11-20-2024 End: 90-12-2201kcqj 1 tablet by mouth every eight hours for muscle spasms tiZANidine (Zanaflex) 4 MG tablet Indications: Myalgia Take 1 tablet (4 mg) by mouth every 8 (eight) hours if needed for muscle spasms for up to 10 days 30 tablet 11/20/2024 03/12/2025 Discontinued (Therapy completed)24 hr venlafaxine 75 mg extended release oral capsule (13 sources)Serotonin and Norepinephrine Reuptake InhibitorStart: 10-15-2024 End: 42-24-4446jcab 1 capsule by mouth once dailyvenlafaxine XR (Effexor XR) 75 MG 24 hr capsule Take 75 mg by mouth Daily 10/15/2024 11/20/2024 Discontinued (Therapy completed)Start: 09-30-2024 End: 43-31-8162mieu 1 capsule by mouth every twenty-four hours in the morning venlafaxine XR (Effexor XR) 37.5 MG 24 hr capsule Take 37.5 mg by mouth in the morning. 09/30/2024 12/11/2024 Discontinued (Therapy completed) Problems Active Problems Problem ClassificationProblemDateDocumented DateEpisodic/ChronicAbdominal pain (12 sources)Upper abdominal pain; Translations: [Upper abdominal pain, unspecified]89-79-6482XgojbqtwPpegkenxnu disorders (20 sources)Adjustment disorder with depressed mood; Translations: [Adjustment disorder with depressed mood]Onset: 153373-80-9973SaalqmpGxkzxzw disorders (20 sources)Posttraumatic stress disorder; Translations: [Post-traumatic stress disorder, unspecified]Onset: 525189-88-8188WtgzgkgSwzlwmynj-hywwggq, conduct, and disruptive behavior disorders (20 sources)Attention deficit hyperactivity disorder, combined type; Translations: [Attention-deficit hyperactivity disorder, combined type]Onset: 049203-85-0915ZjdzooaKbrfuumtu-kcbgoma, conduct, and disruptive behavior disorders (1 source)Attention deficit hyperactivity ekfzibvs00-60-5010CrwfdabKvqoydqfcrdkt symptoms and ill-defined conditions (2 sources)Mixed incontinence; Translations: [Incontinence]Onset: 08-08-2024 ChronicGenitourinary symptoms and ill-defined conditions (5 sources)Dysuria; Translations: [Dysuria]32-29-0930LtqyvnsuCsdclryt; including migraine (20 sources)Migraine; Translations: [Migraine, unspecified, not intractable, without status migrainosus]Onset: 091046-80-0060UskgzxgIybcoyqy; including migraine (2 sources)Acute headache; Translations: [Acute nonintractable headache, unspecified headache type]80-89-2955KzbqhcsbQbkkpbmj; including migraine (1 source)Headache; including migraine; Translations: [HEADACHE UNSPECIFIED] Onset: 92-96-1402Qpmtg valve disorders (5 sources)Systolic murmur; Translations: [Cardiac murmur, unspecified]Onset: 158709-92-9667SbdzoogfIzddmvwlizfc diseases of female pelvic organs (2 sources)Acute vaginitis; Translations: [Acute vaginitis]93-81-4033Zqwbkyun Malaise and fatigue (3 sources)Fatigue; Translations: [Chronic fatigue, unspecified]Onset: 413242-09-2518IykmumlTvtxmiqpv disorders (20 sources)Amenorrhea; Translations: [Amenorrhea, unspecified]Onset: 11-09-2023 50-10-0797UplehwmWpifwxcrswxgl mental health disorders (20 sources)Primary insomnia; Translations: [Primary insomnia]Onset: 11-09-2023 11-50-9413QjdlqgjBqgb disorders (20 sources)Mild bipolar II disorder, most recent episode major depressive; Translations: [Bipolar II disorder]Onset: hronic Noninfectious gastroenteritis (4 sources)Chronic diarrhea; Translations: [Noninfective gastroenteritis and colitis, unspecified]88-12-5735NqchtdqrFmmoatdudff chest pain (4 sources)Chest pain, unspecified; Translations: [CHEST PAIN UNSPECIFIED]Onset: 44-13-0517XsqwbbutEeodi acquired deformities (20 sources)Equinus contracture of the ankle; Translations: [Contracture, unspecified ankle]Onset: 590563-00-0627PmyuzttRacuw acquired deformities (1 source)Acquired deformity of lower limb; Translations: [Other specified acquired deformities of left lowerleg]Onset: 545225-29-2506DslzybhrWeyxv aftercare (6 sources)Surgical follow-up; Translations: [Encounter for follow-up examination after completed treatment for conditions other than malignant neoplasm]68-43-7847KfmfjmjhNidjd circulatory disease (2 sources)Raynaud's phenomenon; Translations: [Raynaud's syndrome without gangrene]92-05-4164DuudbhbBwssj connective tissue disease (10 sources)Muscle pain; Translations: [Myalgia, unspecified site]08-29-2024 EpisodicOther connective tissue disease (1 source)Fibromyalgia; Translations: [Fibromyalgia]Onset: 96-80-8525Zdpdvibr Other endocrine disorders (20 sources)Polycystic ovary syndrome; Translations: [Polycystic ovarian syndrome]Onset: 219148-12-7454MuuwmknRytid endocrine disorders (1 source)Polycystic etgjr13-10-7112WemfzjzYjjhv eye disorders (2 sources)Constant exophthalmos; 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, bilateral]31-99-5432YqjkumtWsyhx female genital disorders (1 source)History of abnormal cervical Papanicolaou lrefr91-12-5734QxrszlwwMxuny female genital disorders (2 sources)Vaginal odor; Translations: [Other specified noninflammatory disorders of vagina]63-71-9744TkuvwwswUasyj gastrointestinal disorders (6 sources)Slow transit constipation; Translations: [Slow transit constipation] 99-51-2356JkqbzhcoIxdbb gastrointestinal disorders (1 source)Constipation; Translations: [Constipation, unspecified]09-11-2024 EpisodicOther gastrointestinal disorders (2 sources)Abdominal bloating; Translations: [Abdominal distension (gaseous)] 58-93-7582YumiqutiYeiyo infections; including parasitic (1 source)Recurrent infectious disease; Translations: [Unspecified infectious disease]75-26-4517JsiefjxiLbgwh infections; including parasitic (1 source)Unspecified infectious disease; Translations: [Recurrent infections] Onset: 24-25-8896NsnaszsuAnqfl inflammatory condition of skin (1 source)Pruritus, unspecified; Translations: [PRURITUS UNSPECIFIED]Onset: 39-22-1413NtjzzhhjSmmla nervous system disorders (9 sources)Complex regional pain syndrome type I of left lower limb; Translations: [Complex regional pain syndrome I of left lower limb]Onset: 918627-55-2235KtrmijeVojhw nervous system disorders (20 sources)Chronic pain syndrome; Translations: [Chronic pain syndrome]Onset: 689895-41-8440BvfidejOsxfw nervous system disorders (20 sources)Complex regional pain syndrome type I; Translations: [Complex regional pain syndrome I, unspecified]Onset: 345350-46-6324TenhsjpIpsax non-traumatic joint disorders (6 sources)Joint pain; Translations: [Pain in unspecified joint]08-29-2024 EpisodicOther non-traumatic joint disorders (4 sources)Multiple joint pain; Translations: [Pain in unspecified joint] 33-80-5377BgqglwxuJtmuc screening for suspected conditions (not mental disorders or infectious disease) (5 sources)Thyroid function tests abnormal; Translations: [Abnormal results of thyroid function studies]56-57-1118PvaiajvhJrgyl upper respiratory disease (1 source)Nasal congestion; Translations: [NASAL CONGESTION]Onset: 10-02-2021 EpisodicOther upper respiratory disease (1 source)Other diseases of pharynx; Translations: [OTHER DISEASES OF PHARYNX] Onset: 45-64-5711VzfgyxapTdeqp upper respiratory infections (5 sources)Acute pharyngitis; Translations: [Acute pharyngitis, unspecified] 30-18-8009ElavcbbyGugnkd media and related conditions (2 sources)Otitis media of left ear; Translations: [Unspecified nonsuppurative otitis media, left ear]63-50-2561PnvvsxhqIcbjhoou codes; unclassified (1 source)Sleep cnepd58-31-8785DhadmczIeukldki codes; unclassified (1 source)Livedo reticularis; Translations: [Pallor]97-05-1747TwkdlyldHgimauny codes; unclassified (1 source)Diffuse pain; Translations: [Pain, unspecified]51-39-1365Cfkyggdg Spondylosis; intervertebral disc disorders; other back problems (3 sources)Inflammation of sacroiliac joint; Translations: [Sacroiliitis, not elsewhere classified]Onset: 945241-33-1937RkxyortHowaqtvlsnj; intervertebral disc disorders; other back problems (20 sources)Lumbar radiculopathy; Translations: [Radiculopathy, lumbar region] Onset: 790068-33-7074EccirwujEztifhf disorders (5 sources)Acquired hypothyroidism; Translations: [Hypothyroidism, unspecified] 18-42-3641IrspchiWukeernrwrkq (3 sources)CONTACT W/AND (SUSP) EXPOS COVID-19; Translations: [CONTACT W/AND (SUSP) EXPOS COVID-19]Onset: 37-16-7618Vmibalvjoaad (20 sources)Patient on antidepressant monitoring planOnset: Unclassified (1 source)Arm NumbnessOnset: 46-95-7182Ysupzyo tract infections (7 sources)Cystitis; Translations: [Cystitis, unspecified without hematuria] Onset: 76-54-3039Ztjeyitw Past or Other Problems Problem ClassificationProblemDateDocumented DateEpisodic/ChronicAbdominal hernia (20 sources)Umbilical hernia; Translations: [Umbilical hernia without obstruction or gangrene]Onset: 154532-48-7153TvzxjamiAcadwmcm foot deformities (20 sources)Acquired equinus deformity of foot; Translations: [Other acquired deformities of right foot]Onset: 324731-94-5371DvdsvfbvFzsfelh tract disease (20 sources)Biliary calculus; Translations: [Calculus of gallbladder without cholecystitis without obstruction]Onset: 830180-02-9637JxmtqsiyObzcckirpx associated with dizziness or vertigo (20 sources)Vertigo of central origin; Translations: [Vertigo of central origin] Onset: 496445-61-8570ZvojxrtpRjysowtn or abnormal glucose tolerance complicating ; childbirth; or the puerperium (20 sources)Gestational diabetes mellitus; Translations: [Gestational diabetes mellitus in , insulin controlled]Onset: 262009-28-5916Qetrtnsr distress and abnormal forces of labor (20 sources)Finding of uterine contractions; Translations: [Other uterine inertia]Onset: 19-87-2896OzlbztfiVlontubwteufa and screening for infectious disease (20 sources)Anti-nuclear factor positive; Translations: [Other specified abnormal immunological findings in serum]Onset: 122737-76-7032Fbtlsixg Malaise and fatigue (1 source)Weakness; Translations: [Weakness]Onset: 93-44-1280RcrbzlvrLifl disorders (20 sources)Mood disordersOnset: 851429-68-9778Hwqymkpdeufn breast conditions (20 sources)Galactorrhea not associated with childbirth; Translations: [Galactorrhea not associated with childbirth]Onset: 274165-57-9357Miszvehi Other acquired deformities (20 sources)Acquired deformity of lower leg; Translations: [Other specified acquired deformities of left lower leg]Onset: 251305-19-2501BhdunsmiMnnnx complications of (20 sources)Multigravida of advanced maternal age; Translations: [Supervision of elderly multigravida, unspecified trimester]Onset: 11-09-2023 Resolved: 578136-31-1425XodgvloxJgeob connective tissue disease (20 sources)Calcaneal spur of right foot; Translations: [Calcaneal spur, right foot]Onset: 512495-22-1481OejagggbWofsn connective tissue disease (20 sources)Left achilles tendonitis; Translations: [Achilles tendinitis, left leg]Onset: 210420-01-1496NqbsftjpYfchi connective tissue disease (20 sources)Pain in right foot; Translations: [Pain in right foot]Onset: 592938-32-6978TaywsrvrQkvis female genital disorders (20 sources)Disorder of female genital organs; Translations: [Unspecified condition associated with female genital organs and menstrual cycle]Onset: 313418-14-1324UscvwoefKnacc gastrointestinal disorders (1 source)DiarrheaOnset: 45-05-8947TyzaahmqArfhj nervous system disorders (20 sources)Incoordination; Translations: [Unspecified lack of coordination] Onset: 111534-33-2182RqkpsidyNxkkm nervous system disorders (20 sources)Numbness; Translations: [Anesthesia of skin]Onset: 04-09-2024 96-20-3175TkapqoxxGkxez and delivery including normal (20 sources)Delivery normal; Translations: [Encounter for full-term uncomplicated delivery]Onset: 11-09-2023 Resolved: 54-73-5632XzjfljjoLwlmd skin disorders (20 sources)Alopecia areata; Translations: [Alopecia areata, unspecified]Onset: 966822-57-5629UarhwkwxGikmlttjukwdws and other problems of amniotic cavity (20 sources)Amniotic fluid leaking; Translations: [Premature rupture of membranes, unspecified as to length of time between rupture and onset of labor, unspecified weeks of gestation]Onset: 11-09-2023 Resolved: 07-94-7216NsoxxbqbNycpmwum codes; unclassified (20 sources)Gestation period, 37 weeks; Translations: [37 weeks gestation of ]Onset: 11-09-2023 Resolved: 844596-16-5676OfcnfazzXyxgzeasolbo (1 source)CONTACT W/AND (SUSP) EXPOS COVID-19; Translations: [CONTACT W/AND (SUSP) EXPOS COVID-19]Onset: 09-24-2021 Results Test NameValueInterpretationReference RangeFacilityUrinalysis macro (dipstick) panel (U)on 97-67-9967Lpxlzspuj, UANegativeNegative - 4(70) +++ mg/dLNOMS HealthcareBlood, UANegativeNegative - 50 Phil/mcLNOMS HealthcareClarity, UAClear NOMS HealthcareColor, UALight YellowNOMS HealthcareGlucose, UANegativeNegative - 2000(110) ++++ mg/dLNOMS HealthcareInterpretation and review of laboratory resultsNormalNOMS HealthcareKetones, UANegativeNegative - 160(16) ++++ mg/dLNOMS HealthcareLeukocytes, UATraceNegative - 500+++ Reji/mcLNOMS HealthcareNitrite, UA NegativeNegative - PositiveNOMS HealthcarepH, UA6.05 - 9NOMS HealthcareProtein, UANegativeNegative - 1999(20) ++++ mg/dLNOMS HealthcareSpec Grav, UA1.0051 - 1.03NOOR HealthcareUrobilinogen, UA0.20.2 - 12 mg/dLNOResearch Medical Center HealthcareBacteria identified Cx Nom (U)on 31-87-2795Syaayqqbqf (U)AdequateNOOR HealthcareBacteria identified Cx Nom (Isol)SEE NOTENOMS HealthcareComment on above: Mixed genital maryellen isolated. These superficial bacteria are not indicative of a urinary tract infection. No further organism identification is warranted on this specimen. If clinically indicated, recollect clean-catch, mid-stream urine and transfer immediately to Urine Culture Transport Tube. Internal identifier for [id number] HealthcareSpecimen source Nom (Unsp spec)URINEGolden Valley Memorial HospitalSTATUSFINALGolden Valley Memorial HospitalPerforming Organization Information Site ID: QPT Name: [facility] Address: [address] [place] [address], [address] [place] [id number] Director: Doc Osman MD[facility] HealthcareLaboratory - Chemistry and Chemistry - challengeon 77-16-6755Ectbarx [Mass/Vol]4.7 g/dL3.6 - 5.1 g/dL NOMS HealthcareAlbumin/Globulin [Mass ratio]2.2 {ratio}NOMS HealthcareALP [Catalytic activity/Vol]58 U/L31 - 125 U/LNOMS HealthcareALT [Catalytic activity/Vol]14 U/L6 - 29 U/LNOMS HealthcareAST [Catalytic activity/Vol]13 U/L10 - 30 U/LNOMS HealthcareBilirubin [Mass/Vol]0.3 mg/dL0.2 - 1.2 mg/dLNOOR HealthcareCalcium [Mass/Vol]8.7 mg/dL8.6 - 10.2 mg/dLNOOR HealthcareChloride [Moles/Vol]111 mmol/LHigh98 - 110 mmol/LNOMS HealthcareCO2 [Moles/Vol]18 mmol/L Low20 - 32 mmol/LNOMS HealthcareCreatinine [Mass/Vol]0.93 mg/dL0.50 - 0.99 mg/dL NOMS HealthcareGFR/1.73 sq M.predicted among non-blacks MDRD (S/P/Bld) [Vol rate/Area]78 mL/min/{1.73_m2}> OR = 60 mL/min/1.01u9GBBI HealthcareGlobulin (S) [Mass/Vol]2.1 g/dLNOOR HealthcareGlucose [Mass/Vol]115 mg/yDZjzf98 - 99 mg/dL [facility] HealthcareComment on above: Fasting reference interval For someone without known diabetes, a glucose value between 100 and 125 mg/dL is consistent with prediabetes and should be confirmed with a follow-up test. Potassium [Moles/Vol]3.9 mmol/L3.5 - 5.3 mmol/LNOMS HealthcareProtein [Mass/Vol] 6.8 g/dL6.1 - 8.1 g/dLNOOR HealthcareSodium [Moles/Vol]138 mmol/L135 - 146 mmol/LNNORMAN [facility] HealthcareTSH Qn1.11 m[IU]/LmIU/[facility] HealthcareComment on above: Reference Range > or = 20 Years 0.40-4.50 Ranges First trimester 0.26-2.66 Second trimester 0.55-2.73 Third trimester 0.43-2.91 Urea nitrogen [Mass/Vol]11 mg/dL7 - 25 mg/dLNOOR HealthcareUrea nitrogen/Creatinine [Mass ratio]SEE NOTE:[facility] HealthcareComment on above:Not Reported: BUN and Creatinine are within reference range. Laboratory - Hematology and Cell countson 51-67-9489BXM (Bld) [Velocity]2 mm/h< OR = 20NOAudrain Medical CenterLaboratory - Serology - non-microon 32-41-9034Jteqnni Ab IF (S) [Titer]1:320HightiterGolden Valley Memorial HospitalComment on above:Reference Range <1:40 Negative 1:40-1:80 Low Antibody Level >1:80 Elevated Antibody Level Nuclear Ab IF Ql (S)PositiveAbnormalNEGATIVEGolden Valley Memorial HospitalComment on above:VALERIANO IFA is a first line screen for detecting the presence of up to approximately 150 autoantibodies in various autoimmune diseases. A positive VALERIANO IFA result is suggestive of autoimmune disease and reflexes to titer and pattern. Further laboratory testing may be considered if clinically indicated. For additional information, please refer to http://education.TapTrack/faq/HHD978 (This link is being provided for informational/ educational purposes only.) Nuclear Ab pattern IF (S) [Interp]Nuclear, Dense Fine SpeckledAbnormalNOMS HealthcareComment on above:Dense fine speckled pattern is seen in normal individuals and rarely associated with systemic lupus erythematosis (SLE), Sjogren's syndrome and systemic sclerosis. AC-2: Dense Fine Speckled International Consensus on VALERIANO Patterns (https://doi.org/10.1515/bvzj-5314-8204) No Panel Informationon 77-71-2570Silghqlszhnoyb and review of laboratory results AbnormalNOOR HealthcarePerforming Organization Information Site ID: QPT Name: [facility] Address: [facility] [address], [address] [place] [phone] Director: Doc Osman MD[facility] HealthcareUrinalysis macro (dipstick) panel (U)on 71-80-7025Gvzivllke, UANegativeNegative - 4(70) +++ mg/dL N[facility]S HealthcareBlood, UANegativeNegative - 50 Phil/mcLNOOR HealthcareClarity, UA TurbidNOMS HealthcareColor, UAAmberNOOR HealthcareGlucose, UANegativeNegative - 2000(110) ++++ mg/dLLAKEVIEW HOSPITAL HealthcareInterpretation and review of laboratory resultsAbnormalNOOR HealthcareKetones, UANegativeNegative - 160(16) ++++ mg/dL NOMS HealthcareLeukocytes, UATraceNegative - 500+++ Reji/mcLNOOR Healthcare Nitrite, UANegativeNegative - PositiveNOMS HealthcarepH, UA75 - 9NOOR Healthcare Protein, UA1+Negative - 2000(20) ++++ mg/dLNOOR HealthcareSpec Grav, UA1.0051 - 1.03NOOR HealthcareUrobilinogen, UA0.20.2 - 12 mg/dLNOAudrain Medical CenterNOOR HealthcareLaboratory - Microbiology and Antimicrobial susceptibilityon 20-38-6397DCSX-CoV-2 (COVID-19) RNA ANTHONY+probe Ql (Unsp spec)NegativeNOOR HealthcareNo Panel Informationon 00-75-1525ISO ANegativeNOMS HealthcareFLU B NegativeNOOR HealthcareInterpretation and review of laboratory resultsNormalGeneral [facility] HealthcareUrinalysis macro (dipstick) panel (U)on 04-04-2025 Bilirubin, UANegativeNegative - 4(70) +++ mg/dLNOMS HealthcareBlood, UANegative Negative - 50 Phil/mcLNOOR HealthcareClarity, UACloudyNOMS HealthcareColor, UA YellowNOMS HealthcareGlucose, UANegativeNegative - 1999(110) ++++ mg/dLNOMS HealthcareInterpretation and review of laboratory resultsNormalNOOR Healthcare Ketones, UANegativeNegative - 160(16) ++++ mg/dLNOMS HealthcareLeukocytes, UA NegativeNegative - 500+++ Reji/mcLNOMS HealthcareNitrite, UANegativeNegative - PositiveNOMS HealthcarepH, UA6.55 - 9NOMS HealthcareProtein, UANegativeNegative - 2000(20) ++++ mg/dLNOMS HealthcareSpec Grav, UA1.0151 - 1.03NOMS Healthcare Urobilinogen, UA1.00.2 - 12 mg/dLNOMS HealthcareNOMS HealthcareXR ABDOMEN 1 VIEW on 43-01-1382HU ABDOMEN 1 VIEWTITLE OF EXAM: XR ABDOMEN 1 VIEW REASON FOR EXAM: Mid abdominal pain, nausea. TECHNIQUE: 2 radiographs of the abdomen COMPARISONS: Abdomen radiographs 08/29/2024 FINDINGS: Physiologic quantity and distribution of bowel gas and colonic stool. No abnormal bowel dilation. Right upper quadrant surgical clips reflect prior cholecystectomy. No appreciable/radiopaque urolithiasis. No acute osseous or focal soft tissue abnormality. IMPRESSION: No radiographically appreciable acute abnormality of the contents of the abdomen and pelvis. DICTATED ON: 04/04/2025 1:48 PM This report has been electronically signed and approved by the interpreting radiologist.NormalNot Bctcgcdqa13xx 86-93-441349Ztnpne patient to schedule a new patient appointment with [facility] Endocrinology for Constant exophthalmos of both eyes . Result:left voicemailNormalUniversity of South Texas Spine & Surgical HospitalUS PELVISon [id number] PELVISTITLE OF EXAM: US PELVIS REASON FOR EXAM: Right pelvic pain TECHNIQUE: Grayscale and color ultrasound evaluation of the pelvis. COMPARISON: CT abdomen/pelvis 11/15/2024 FINDINGS: Measurements: Left ovary: 1.9 x 1.2 x 2.1 cm The uterus is surgically absent. The right ovary is surgically absent. The left ovary is a questionably visualized, without associated mass, cyst, or other abnormality. There is no urinary bladder wall thickening. Anechoic luminal contents. No appreciable free fluid in the pelvis. No concerning adnexal mass visualized. IMPRESSION: Sonographically normal evaluated structures of the pelvis. DICTATED ON: 11/25/2024 2:57 PM This report has been electronically signed and approved by the interpreting radiologist.NormalNot AvailableCBC AND AUTO DIFFon 54-15-1709YTNNQZTP BASOPHIL 0.0 X10E9/LNormal0.0-0.2[facility] Medical CenterComment on above:Performed By: #### CBCA, 72932-9, CMP, 1988-03, , 10445-2, THYR #### [facility] ([id number]) [address] [place] [address] #### 02672-7 #### [facility] ([id number]) [address], [address] [place], [place] [address]IXJTAZPS NEUTROPHIL7.0 X10E9/LHigh1.5-6.6[facility] Allen HospitalComment on above:Performed By: #### CBCA, 80619-4, CMP, 1988-03, , 96202-5, THYR #### [facility] ([id number]) [address] [place] [address] #### 51771-8 #### [facility] ([id number]) [address], [address] [place], [place] [address]Qvqlzpiqq/100 WBC (Bld)0.1 %NormalMercy Health Allen Hospital Comment on above:Performed By: #### CBCA, 25163-9, CMP, 1988-03, , 62336- 7, THYR #### [facility] ([id number]) [address] [place] [address] #### 52060-8 #### [facility] ([id number]) [address], [address] [place], [place] [address]Qyasrrjajen (Bld) [#/Vol]0.0 10*3/uLNormal0.0-0.4Mer[facility] Allen HospitalComment on above:Performed By: #### CBCMalena, 61038-3, CMP, 1988-03, , 32083-3, THYR #### [facility] ([id number]) [address] [place] [address] #### 71105-0 #### [facility] ([id number]) [address] [facility], [address] [place], [place] [address]Oagnxzbqtzs/100 WBC (Bld)0.0 %NormalProSt. Luke'S Health – [facility] Comment on above:Performed By: #### LULA, 66119-2, CMP, 1988-03, , 54219- 7, THYR #### [facility] ([id number]) [address] [place] [address] #### 86125-3 #### [facility] ([id number]) [address] [facility] [facility] [address] [place], [place] [address]Zggxfxmsoth distribution width (RBC) [Ratio]14.4 %Normal 11.5-15.0ProSt. Luke'S Health – Baylor St. Luke'S Medical CenterComment on above:Performed By: #### CBCMalena, 85229-1, CMP, 1988-03, , 25848-8, THYR #### [facility] ([id number]) [address] [place] [address] #### 25072-9 #### [facility] ([id number]) [address] [facility], [address] [place], [place] [address]Tcscplhbtz (Bld) [Volume fraction]41.3 %Zjoiba96-03RhnAwrwveSt. Luke'S Health – Baylor St. Luke'S Medical CenterComment on above:Performed By: #### CBCA, 90270-3, CMP, 1988-03, , 59434-6, THYR #### [facility] ([id number]) [address] [place] [address] #### 96454-2 #### [facility] ([id number]) [address] [facility], [address] [place], [place] [address]Arjqfoqyib (Bld) [Mass/Vol]14.4 g/qRAngbyh33.7-15.5POhioHealth Southeastern Medical CenterComment on above:Performed By: #### CBCA, 63903-6, CMP, 1988-03, , 64969-1, THYR #### [facility] ([id number]) [address] [place] [address] #### 27472-3 #### [facility] ([id number]) [address] [facility] [facility], [address] [place], [place] [address]Hjcehuicaqs (Bld) [#/Vol]2.0 10*3/uLNormal1.0-3.5POhioHealth Southeastern Medical CenterComment on above:Performed By: #### CBCA, 68012-6, CMP, 1988-03, , 78526-2, THYR #### [facility] ([id number]) [address] [place] [address] 287[address] #### 14138-1 #### [facility] ([id number]) [address] [facility] [facility], [address] [place], [place] [address]Tvbvwltesgs/100 WBC (Bld)21.6 %NormalProGuernsey Memorial Hospitalca [facility] Comment on above:Performed By: #### CBCA, 86767-0, CMP, 1988-03, , 82582- 7, THYR #### [facility] ([id number]) [address] [place] [address] 19990 #### 85342-8 #### [facility] ([id number]) [address] [place], [place] [address]PGG (RBC) [Entitic mass]28.8 uwUcqxhc30-28GutBnqhpxSt. Luke'S Health – Baylor St. Luke'S Medical CenterComment on above:Performed By: #### LULA, 77154-0, CMP, 1988-03, , 39684-2, THYR #### [facility] ([id number]) [address] [place] [address] 179[address] #### 20242-6 #### [facility] ([id number]) [address], [address] [place], [place] [address]RYJC (RBC) [Mass/Vol]34.9 g/kYTqkndk36-36OnsMlwrliSt. Luke'S Health – Baylor St. Luke'S Medical CenterComment on above:Performed By: #### LULA, 92499-7, CMP, 1988-03, , 16062-4, THYR #### [facility] ([id number]) [address] [place] [address] 83633 #### 01893-4 #### [facility] ([id number]) [address], [address] [place], [place] [address]KSZ (RBC) [Entitic vol]83 zAOwassh67-586AkwIigexi Fremont HospitalComment on above:Performed By: #### LULA, 94308-4, CMP, 1988-03, , 54471-8, THYR #### [facility] ([id number]) [address] [place] [address] 27862 #### 00174-9 #### [facility] ([id number]) [address], [address] [place], [place] [address]Qzqdxjdpm (Bld) [#/Vol]0.4 10*3/uLNormal0-0.9ProSt. Luke'S Health – Baylor St. Luke'S Medical CenterComment on above:Performed By: #### CBCA, 97172-0, CMP, 1988-03, , 63554-7, THYR #### [facility] ([id number]) [address] [place] [address] 84748 #### 02593-3 #### [facility] ([id number]) [address], [address] [place], [place] [address]Sshxovflq/100 WBC (Bld)4.6 %[facility] Comment on above:Performed By: #### CBCA, 53039-0, CMP, 1988-03, , 57904- 7, THYR #### [facility] ([id number]) [address] [place] [address] 55160 #### 90421-0 #### [facility] ([id number]) [address], [address] [place], [place] [address]Oevkscshfic/100 WBC (Bld)73.7 %[facility] Comment on above:Performed By: #### CBCA, 74446-5, CMP, 1988-03, , 63604- 7, THYR #### [facility] ([id number]) [address] [place] [address] 37359 #### 83806-1 #### [facility] ([id number]) [address], [address] [place], [place] [address]Dlrlqqgw mean volume (Bld) [Entitic vol]8.3 fLNormal7-12 [facility] CenterComment on above:Performed By: #### CBCA, 47524-8, CMP, 1988-03, , 08475-2, THYR #### [facility] ([id number]) [address] [place] [address] 88109 #### 69327-3 #### [facility] ([id number]) [address], [address] [place], [place] [address]Bpqxukylx (Bld) [#/Vol]300 10*3/nJNccboq237-498MmyPfnlbc [facility]remont HospitalComment on above:Performed By: #### LULA, 13093-7, CMP, 1988-03, , 28845-6, THYR #### [facility] ([id number]) [address] [place] [address] 43964 #### 28092-8 #### [facility] ([id number]) [address] [place] [address], [address] [place], [place] [address]YUD COUNT5.00 X10E12/LNormal3.80-5.20[facility] Comment on above:Performed By: #### LULA, 27964-4, CMP, 1988-03, , 41613- 7, THYR #### [facility] ([id number]) [address] [place] [address] 08762 #### 79352-4 #### [facility] ([id number]) [address] [place] [address], [address] [place], [place] [address]DGK (Bld) [#/Vol]9.5 10*3/uLNormal4.0-11.0ProSt. Luke'S Health – Baylor St. Luke'S Medical CenterComment on above:Performed By: #### LULA, 73986-8, CMP, 1988-03, , 82134-8, THYR #### [facility] ([id number]) [address] [place] [address] 74293 #### 10578-0 #### [facility] ([id number]) [address] [place] [address], [address] [place], [place] [address]TBQDIAPNOKQBZ METABOLIC PANELon 65-54-1743Gvooeop [Mass/Vol]4.5 g/dLNormal3.2-5.3POhioHealth Southeastern Medical CenterComment on above:Performed By: #### CBCA, 52363-7, CMP, 1988-03, , 90759-9, THYR #### [facility] ([id number]) [address] [place] [address] 96347 #### 38023-7 #### [facility] ([id number]) [address] [facility], [address] [place], [place] [address]IQU [Catalytic activity/Vol]62 U/GZmrfpg34-280VwxKafsvvSt. Luke'S Health – Baylor St. Luke'S Medical CenterComment on above:Performed By: #### KEVINA, 49921-4, CMP, 1988-03, , 42309-9, THYR #### [facility] ([id number]) [address] [place] [address] 81737 #### 43130-6 #### [facility] ([id number]) [address] [facility], [address] [place], [place] [address]VUC [Catalytic activity/Vol]19 U/LNormal0-31ProMedMadera Community HospitalComment on above:Performed By: #### LULA, 08637-9, CMP, 1988-03, , 85874-0, THYR #### [facility] ([id number]) [address] [place] [address] 14651 #### 79717-6 #### [facility] ([id number]) [address] [facility], [address] [place], [place] [address]Jsztl gap [Moles/Vol]7 mmol/LNormal5-15ProSt. Luke'S Health – Baylor St. Luke'S Medical CenterComment on above:Performed By: #### CBCA, 41282-5, CMP, 1988-03, , 49054-7, THYR #### [facility] ([id number]) [address] [place] [address] 10625 #### 23046-3 #### [facility] ([id number]) [address], [address] [place], [place] [address]YBU [Catalytic activity/Vol]17 U/LNormal0-41ProSt. Luke'S Health – Baylor St. Luke'S Medical CenterComment on above:Performed By: #### LULA, 75718-6, CMP, 1988-03, , 12896-3, THYR #### [facility] ([id number]) [address] [place] [address] 02244 #### 21635-1 #### [facility] ([id number]) [address] [facility], [address] [place], [place] [address]Imsnisubk [Mass/Vol]0.7 mg/dLNormal0.3-1.2POhioHealth Southeastern Medical CenterComment on above:Performed By: #### LULA, 44846-1, CMP, 1988-03, , 42085-1, THYR #### [facility] ([id number]) [address] [place] [address] 49955 #### 92260-4 #### [facility] ([id number]) [address] [facility], [address] [place], [place] [address]Autkwax [Mass/Vol]8.8 mg/dLNormal8.5-10.5POhioHealth Southeastern Medical CenterComment on above:Performed By: #### LULA, 28343-7, CMP, 1988-03, , 16406-4, THYR #### [facility] ([id number]) [address] [place] [address] 71028 #### 01673-4 #### [facility] ([id number]) [address], [address] [place], [place] [address]Tayaayqo [Moles/Vol]112 mmol/YUbgh12-445BluFkputeSt. Luke'S Health – Baylor St. Luke'S Medical CenterComment on above:Performed By: #### LULA, 60745-7, CMP, 1988-03, , 11966-2, THYR #### [facility] ([id number]) [address] [place] [address] 67914 #### 97122-4 #### [facility] ([id number]) [address], [address] [place], [place] [address]FT2 [Moles/Vol]19 mmol/STez29-51IosQyboggOhioHealth Southeastern Medical Center Comment on above:Performed By: #### LULA, 71842-1, CMP, 1988-03, , 24546- 7, THYR #### [facility] ([id number]) [address] [place] [address] 05830 #### 03019-0 #### [facility] ([id number]) [address], [address] [place], [place] [address]Xgmdlotdnn [Mass/Vol]0.90 mg/dLNormal0.40-1.00ProSt. Luke'S Health – Baylor St. Luke'S Medical CenterComment on above:Result Comment: METHOD TRACEABLE TO IDMS STANDARD Performed By: #### LULA, 49483-0, BARRY, 1988-03, , 18628-9, THYR #### [facility] ([id number]) [address] [place] [address] 87470 #### 61735-8 #### [facility] ([id number]) [address], [address] [place], [place] [address]OVM/1.73 sq M.predicted among non-blacks MDRD (S/P/Bld) [Vol rate/Area]81 mL/min/{1.73_m2}Normal>59ProSt. Luke'S Health – Baylor St. Luke'S Medical CenterComment on above:Result Comment: Reported eGFR is based on the CKD-EPI 2020 equation that does not use a race coefficient.Performed By: #### LULA, 67122-8, CMP, 1988-03, , 76429-3, THYR #### [facility] ([id number]) [address] [place] [address] 88409 #### 09463-9 #### [facility] ([id number]) [address], [address] [place], [place] [address]Zvdhwmx [Mass/Vol]106 mg/wUErha03-29FqyOyxetwSt. Luke'S Health – [facility] St[facility] Comment on above:Performed By: #### LULA, 31157-6, CMP, 1988-03, , 12613- 7, THYR #### [facility] ([id number]) [address] [place] [address] 63715 #### 54379-6 #### [facility] ([id number]) [address], [address] [place] [address]Rsphihyuc [Moles/Vol]3.6 mmol/LNormal3.5-5.0ProSt. Luke'S Health – Baylor St. Luke'S Medical CenterComment on above:Performed By: #### LULA, 27620-8, CMP, 1988-03, , 19536-4, THYR #### [facility] ([id number]) [address] [place] [address] 14372 #### 23671-0 #### [facility] ([id number]) [address], [address] [place], [place] [address]Rvugrgp [Mass/Vol]7.0 g/dLNormal6.0-8.0ProSt. Luke'S Health – Baylor St. Luke'S Medical CenterComment on above:Performed By: #### LULA, 95597-2, CMP, 1988-03, , 97118-8, THYR #### [facility] ([id number]) [address] [place] [address] 67633 #### 69823-2 #### [facility] ([id number]) [address], [address] [place], [place] [address]Lennwf [Moles/Vol]138 mmol/KDlojtz676-772TsnXcplev [facility]remont HospitalComment on above:Performed By: #### LULA, 85830-7, CMP, 1988-03, , 12741-2, THYR #### [facility] ([id number]) [address] [place] [address] 25470 #### 66603-1 #### [facility] ([id number]) [address], [address] [place], [place] [address]Zaev nitrogen [Mass/Vol]9 mg/dLNormal5-23ProSt. Luke'S Health – Baylor St. Luke'S Medical CenterComment on above:Performed By: #### LULA, 08834-6, CMP, 1988-03, , 21680-0, THYR #### [facility] ([id number]) [address] [place] [address] 81712 #### 89071-2 #### [facility] ([id number]) [address], [address] [place], [place] [address]PBY [Mass/Vol]on 11-15-2024 REACTIVE PROTEIN0.5 mg/dLNormal 0.000-0.744POhioHealth Southeastern Medical CenterComment on above:Performed By: #### LULA, 23614-7, CMP, 1988-03, , 30511-5, THYR #### [facility] ([id number]) [address] [place] [address] 97866 #### 95916-5 #### [facility] ([id number]) [address], [address] [place], [place] [address]VG ABDOMEN AND PELVIS W CONTon 92-52-7015GV ABDOMEN AND PELVIS W CONTCT ABDOMEN AND PELVIS W CONT CLINICAL INFORMATION: Appendicitis suspected right abdominal pain. TECHNIQUE: Multidetector spiral CT scan of the abdomen and pelvis was performed following the uneventful administration of nonionic intravenous contrast. Coronal and sagittal reformatted images were obtained and reviewed. Automated exposure control was utilized. Oral contrast: None. All CT scans at this facility use dose modulation, iterative reconstruction, and/or weight based dosing when appropriate to reduce radiation dose to as low as reasonably achievable. COMPARISON: CT 07/11/2023 FINDINGS: Quality: Satisfactory Lower chest: * No pleural effusions in lung bases. Liver/spleen biliary: * No focal lesions in liver or spleen. * Cholecystectomy. Adrenals: No focal lesions. Pancreas: No focal lesions. Kidneys & Bladder: * Stable tiny stone left kidney upper pole. * No focal lesions or hydronephrosis. * No bladder wall thickening. Lymph nodes and fluid collections: * No enlarged lymph nodes, abnormal fluid collections, or free air. Bowel: * No bowel dilatation. Normal CT appearance of appendix. Scattered colonic diverticula. Vascular: * No abdominal aortic aneurysm. * Patent origins of celiac and SMA and main portal vein. Soft tissues and bones: * No acute bony abnormality. Miscellaneous: * Surgically absent uterus. IMPRESSION: * No acute abnormality or CT evidence for appendicitis. * Stable tiny stone left kidney. No hydronephrosis. Finalized by Derek Valle MD on 11/15/2024 7:06 PMNormalProSt. Luke'S Health – Baylor St. Luke'S Medical CenterLactate (P tariq) [Moles/Vol]on 66-86-9306QRJELMK W/REFLEX1.5 mmol/LNormal 0.4-2.0Mer[facility] HospitalComment on above:Result Comment: Result did not trigger repeat Lactate, re-order if needed.Performed By: #### LULA, 42666-8, BARRY, 1988-03, 66743-9, 15295-7, THYR #### [facility] ([id number]) [address] [place] [address], [place] [address] #### 47557-7 #### [facility] ([id number]) [address] [facility], [address] [place], [place] [address]PYZSKDNXNec 61-45-7055Uztebyhkz [Mass/Vol]2.0 mg/dLNormal1.8-2.6 Pro[facility]icMen[facility] VA HospitalComment on above:Performed By: #### LULA, 83644-1, CMP, 1988-03, , 48810-5, THYR #### [facility] ([id number]) [address] [place] [address] 93853 #### 33048-0 #### [facility] ([id number]) [address] [facility], [address] [place], [place] [address]LXK MACROSCOPIC NURon 69-49-7773YIFLSXAWG NURNegativeNormalNEG [facility] CenterComment on above:Performed By: #### CBCA, 59023-6, CMP, 1988-03, , 06280-0, THYR #### [facility] ([id number]) [address] [place] [address] 99862 #### 91384-7 #### [facility] ([id number]) [address] [facility], [address] [place], [place] [address]PHZUR/HGB NURNegativeNormalNEGProGuernsey Memorial Hospitalca [facility] Medical CenterComment on above:Performed By: #### CBCA, 65053-2, CMP, 1988-03, , 96265-1, THYR #### [facility] ([id number]) [address] [place] [address] 31920 #### 08331-9 #### [facility] ([id number]) [address] [facility], [address] [place], [place] [address]VDUKFSO NURNegativeNormalNEGProMedica [facility] Medical CenterComment on above:Performed By: #### CBCA, 00795-2, CMP, 1988-03, , 44353-3, THYR #### [facility] ([id number]) [address] [place] [address] 90152 #### 35249-4 #### [facility] ([id number]) [address] [facility], [address] [place], [place] [address]EVSYYVX NURNegativeNormalNEGProSt. Luke'S Health – [facility] St. Luke'S Medical CenterComment on above:Performed By: #### LULA, 31848-6, CMP, 1988-03, , 38643-8, THYR #### [facility] ([id number]) [address] [place] [address] 29954 #### 35703-5 #### [facility] ([id number]) [address] [place] [address], [address] [place], [place] [address]VWUNKPFNG ESTERASE NURNegativeNormalNEGProSt. Luke'S Health – [facility] St. Luke'S Medical CenterComment on above:Performed By: #### LULA, 09126-7, CMP, 1988-03, , 94661-4, THYR #### [facility] ([id number]) [address] [place] [address] 42139 #### 94769-2 #### [facility] ([id number]) [address] [place] [address], [address] [place], [place] [address]PADALXG NURNegativeNormalNEGProSt. Luke'S Health – [facility] St. Luke'S Medical CenterComment on above:Performed By: #### LULA, 65602-0, CMP, 1988-03, , 84778-2, THYR #### [facility] ([id number]) [address] [place] [address] 73351 #### 64769-6 #### [facility] ([id number]) [address] [facility], [address] [place], [place] [address]WB NUR6.3Vbouwf9.0-8.5[facility] CenterComment on above:Performed By: #### LULA, 48669-1, CMP, 1988-03, , 59504-4, THYR #### [facility] ([id number]) [address] [place] [address] 26793 #### 94934-2 #### [facility] ([id number]) [address] [facility], [address] [place], [place] [address]UKNHGNP NURNegativeNormalNEGProSt. Luke'S Health – [facility] St[facility] Luke'S Medical CenterComment on above:Performed By: #### LULA, 36775-3, CMP, 1988-03, , 89168-3, THYR #### [facility] ([id number]) [address] [place] [address] 78418 #### 13130-8 #### [facility] ([id number]) [address] [place] [address], [address] [place], [place] [address]JXOVZKBV GRAVITY NUR1.465Wugbij4.003-1.035ProSt. Luke'S Health – Baylor St. Luke'S Medical CenterComment on above:Performed By: #### LULA, 02069-2, CMP, 1988-03, , 88979-9, THYR #### [facility] ([id number]) [address] [place] [address] 08481 #### 71549-6 #### [facility] ([id number]) [address] [place] [address], [address] [place], [place] [address]LOURBTHVBFTH NUR0.2 eu/dLNormal<1.1POhioHealth Southeastern Medical Center Comment on above:Performed By: #### LULA, 63510-1, CMP, 1988-03, , 87127- 7, THYR #### [facility] ([id number]) [address] [place] [address] 60422 #### 43214-6 #### [facility] ([id number]) [address] [place] [address], [address] [place], [place] [address]E REACTIVE PROTEINon 97-53-3363LUX [Mass/Vol]mg/LNormal 0.000-0.744POhioHealth Southeastern Medical CenterComment on above:Performed By: #### LULA, 51664-2, CMP, 1988-03, , 05359-8, THYR #### [facility] ([id number]) [address] [place] [address] 41547 #### 72799-1 #### [facility] ([id number]) [address], [address] [place], [place] [address]DLW AND AUTO DIFFon 85-35-0020LSNJKGOM BASOPHIL0.0 X10E9/LNormal 0.0-0.2[facility] CenterComment on above:Performed By: #### CBCA, 88454-9, CMP, 1988-03, , 56472-4, THYR #### [facility] ([id number]) [address] [place] [address] 94574 #### 54637-9 #### [facility] ([id number]) [address] [facility], [address] [place], [place] [address]CCHTWMIC NEUTROPHIL3.7 X10E9/LNormal1.5-6.6ProSt. Luke'S Health – Baylor St. Luke'S Medical CenterComment on above:Performed By: #### CBCA, 77159-6, CMP, 1988-03, , 54974-2, THYR #### [facility] ([id number]) [address] [place] [address] 93556 #### 56497-6 #### [facility] ([id number]) [address] [facility], [address] [place], [place] [address]Gtjfbktjh/100 WBC (Bld)0.4 %NormalProSt. Luke'S Health – [facility] Comment on above:Performed By: #### CBCA, 62234-3, CMP, 1988-03, , 55436- 7, THYR #### [facility] ([id number]) [address] [place] [address] 60044 #### 02862-0 #### [facility] ([id number]) [address] [facility], [address] [place], [place] [address]Izrztwoavqa (Bld) [#/Vol]0.0 10*3/uLNormal0.0-0.4Mer[facility] Health Allen HospitalComment on above:Performed By: #### LULA, 21346-3, CMP, 1988-03, , 09529-5, THYR #### [facility] ([id number]) [address] [place] [address] 83494 #### 29289-1 #### [facility] ([id number]) [address] [place] [address], [address] [place], [place] [address]Faawvxxtqlv/100 WBC (Bld)0.6 %NormalProSt. Luke'S Health – [facility]lor [facility] Comment on above:Performed By: #### LULA, 39835-6, CMP, 1988-03, , 72262 7, THYR #### [facility] ([id number]) [address] [place] [address] 48125 #### 89673-8 #### [facility] ([id number]) [address] [place] [address], [address] [place], [place] [address]Kkmehjpokra distribution width (RBC) [Ratio]14.9 %Normal 11.5-15.0ProSt. Luke'S Health – Baylor St. Luke'S Medical CenterComment on above:Performed By: #### LULA, 99887-5, CMP, 1988-03, , 29541-7, THYR #### [facility] ([id number]) [address] [place] [address] 88468 #### 80373-7 #### [facility] ([id number]) [address] [place] [address], [address] [place], [place] [address]Irfgbsxjfs (Bld) [Volume fraction]40.0 %Cqqtvs98-34OceMfyverSt. Luke'S Health – Baylor St. Luke'S Medical CenterComment on above:Performed By: #### CBCMalena, 97309-7, CMP, 1988-03, , 49919-9, THYR #### [facility] ([id number]) [address] [place] [address] 38633 #### 06029-3 #### [facility] ([id number]) [address] [place], [place] [address]Hqlydqjpza (Bld) [Mass/Vol]13.8 g/zSPialwz44.7-15.5POhioHealth Southeastern Medical CenterComment on above:Performed By: #### CBCA, 26845-0, CMP, 1988-03, , 01488-9, THYR #### [facility] ([id number]) [address] [place] [address] 81885 #### 98048-7 #### [facility] ([id number]) [address] [place], [place] [address]Hoziedeuxsv (Bld) [#/Vol]1.9 10*3/uLNormal1.0-3.5POhioHealth Southeastern Medical CenterComment on above:Performed By: #### CBCA, 03214-8, CMP, 1988-03, , 70369-3, THYR #### [facility] ([id number]) [address] [place] [address] 91827 #### 57269-6 #### [facility] ([id number]) [address] [place], [place] [address]Cxxfimktwed/100 WBC (Bld)31.4 %NormalProGuernsey Memorial Hospitalca [facility] Comment on above:Performed By: #### CBCA, 47138-6, CMP, 1988-03, , 85887- 7, THYR #### [facility] ([id number]) [address] [place] [address] 07794 #### 20935-6 #### [facility] ([id number]) [address], [address] [place], [place] [address]FKZ (RBC) [Entitic mass]28.2 puIjwyoo60-56JewKyrysfSt. Luke'S Health – Baylor St. Luke'S Medical CenterComment on above:Performed By: #### LULA, 93481-7, CMP, 1988-03, , 96760-5, THYR #### [facility] ([id number]) [address] [place] [address] #### 82713-6 #### [facility] ([id number]) [address], [address] [place], [place] [address]TLLT (RBC) [Mass/Vol]34.6 g/vECrqyho67-17FqjBdcstoSt. Luke'S Health – Baylor St. Luke'S Medical CenterComment on above:Performed By: #### LULA, 90042-5, CMP, 1988-03, , 87028-9, THYR #### [facility] ([id number]) [address] [place] [address] #### 89088-1 #### [facility] ([id number]) [address], [address] [place], [place] [address]NSB (RBC) [Entitic vol]82 kWTzmhya38-874BatQdsasw Fremont HospitalComment on above:Performed By: #### LULA, 07041-9, CMP, 1988-03, , 20845-5, THYR #### [facility] ([id number]) [address] [place] [address] #### 19219-9 #### [facility] ([id number]) [address], [address] [place], [place] [address]Relrmtxwb (Bld) [#/Vol]0.3 10*3/uLNormal0-0.9ProSt. Luke'S Health – Baylor St. Luke'S Medical CenterComment on above:Performed By: #### CBCA, 05532-9, CMP, 1988-03, , 16219-2, THYR #### [facility] ([id number]) [address] [place] [address] #### 07334-3 #### [facility] ([id number]) [address], [address] [place], [place] [address]Aejocykvh/100 WBC (Bld)5.6 %[facility] Comment on above:Performed By: #### CBCA, 42430-2, CMP, 1988-03, , 52692 7, THYR #### [facility] ([id number]) [address] [place] [address] #### 40770-9 #### [facility] ([id number]) [address] [address], [address] [place], [place] [address]Aksnwsbnpff/100 WBC (Bld)62.0 %[facility] Comment on above:Performed By: #### CBCA, 97831-6, CMP, 1988-03, , 59000 7, THYR #### [facility] ([id number]) [address] [place] [address] #### 35041-6 #### [facility] ([id number]) [address], [address] [place], [place] [address]Npdhgeow mean volume (Bld) [Entitic vol]7.7 fLNormal7-12 [facility] CenterComment on above:Performed By: #### CBCA, 71407-5, CMP, 1988-03, , 61116-9, THYR #### [facility] ([id number]) [address] [place] [address] #### 14053-7 #### [facility] ([id number]) [address], [address] [place], [place] [address]Nvvuamlvi (Bld) [#/Vol]325 10*3/zBHuoydb324-850NbfMxpexm Fremont HospitalComment on above:Performed By: #### LULA, 57782-1, CMP, 1988-03, , 47771-7, THYR #### [facility] ([id number]) [address] [place] [address] #### 84264-8 #### [facility] ([id number]) [address], [address] [place], [place] [address]SAP COUNT4.91 X10E12/LNormal3.80-5.20[facility] Comment on above:Performed By: #### LULA, 42830-5, CMP, 1988-03, , 47948- 7, THYR #### [facility] ([id number]) [address] [place] [address] #### 59319-7 #### [facility] ([id number]) [address] [address], [address] [place], [place] [address]ZWV (Bld) [#/Vol]5.9 10*3/uLNormal4.0-11.0ProSt. Luke'S Health – Baylor St. Luke'S Medical CenterComment on above:Performed By: #### LULA, 50166-3, CMP, 1988-03, , 99641-1, THYR #### [facility] ([id number]) [address] [place] [address] #### 32746-6 #### [facility] ([id number]) [address], [address] [place], [place] [address]ULKBCDZCVILGL METABOLIC PANELon 01-31-6646Zyxncsu [Mass/Vol]4.3 g/dLNormal3.2-5.3POhioHealth Southeastern Medical CenterComment on above:Performed By: #### LULA, 61608-4, CMP, 1988-03, , 76924-3, THYR #### [facility] ([id number]) [address] [place] [address] #### 34649-4 #### [facility] ([id number]) [address], [address] [place], [place] [address]AEN [Catalytic activity/Vol]54 U/SIvbvtr64-423ZcjWquiiuSt. Luke'S Health – [facility]'S Medical CenterComment on above:Performed By: #### LULA, 76641-5, CMP, 1988-03, , 04869-8, THYR #### [facility] ([id number]) [address] [place] [address] 239[address] #### 55261-1 #### [facility] ([id number]) [address], [address] [place], [place] [address]QMO [Catalytic activity/Vol]21 U/LNormal0-31POhioHealth Southeastern Medical CenterComment on above:Performed By: #### LULA, 17470-1, CMP, 1988-03, , 82859-3, THYR #### [facility] ([id number]) [address] [place] [address] 65440 #### 71869-2 #### [facility] ([id number]) [address], [address] [place], [place] [address]Qtvws gap [Moles/Vol]7 mmol/LNormal5-15ProSt. Luke'S Health – [facility]'S Medical CenterComment on above:Performed By: #### LULA, 54173-3, CMP, 1988-03, , 06934-0, THYR #### [facility] ([id number]) [address] [place] [address] 53727 #### 50837-3 #### [facility] ([id number]) [address], [address] [place], [place] [address]BTY [Catalytic activity/Vol]18 U/LNormal0-41ProSt. Luke'S Health – [facility]'S Medical CenterComment on above:Performed By: #### LULA, 63555-7, CMP, 1988-03, , 24442-4, THYR #### [facility] ([id number]) [address] [place] [address] 59557 #### 16135-5 #### [facility] ([id number]) [address] [facility], [address] [place], [place] [address]Odqmobflj [Mass/Vol]0.5 mg/dLNormal0.3-1.2POhioHealth Southeastern Medical CenterComment on above:Performed By: #### LULA, 23810-0, CMP, 1988-03, , 96197-9, THYR #### [facility] ([id number]) [address] [place] [address] 63056 #### 88542-2 #### [facility] ([id number]) [address] [facility], [address] [place], [place] [address]Vmhceay [Mass/Vol]8.7 mg/dLNormal8.5-10.5POhioHealth Southeastern Medical CenterComment on above:Performed By: #### LULA, 56506-0, CMP, 1988-03, , 73981-2, THYR #### [facility] ([id number]) [address] [place] [address] 36[address] #### 21198-8 #### [facility] ([id number]) [address], [address] [place], [place] [address]Sjovvwyr [Moles/Vol]113 mmol/CCajl60-195VdiQnbpbxSt. Luke'S Health – [facility] Luke'S Medical CenterComment on above:Performed By: #### LULA, 36332-5, CMP, 1988-03, , 48540-7, THYR #### [facility] ([id number]) [address] [place] [address] 69464 #### 46808-4 #### [facility] ([id number]) [address], [address] [place], [place] [address]QO4 [Moles/Vol]19 mmol/OGfs93-94WbyOcrhziOhioHealth Southeastern Medical Center Comment on above:Performed By: #### LULA, 22975-6, CMP, 1988-03, , 40921- 7, THYR #### [facility] ([id number]) [address] [place] [address] #### 86434-8 #### [facility] ([id number]) [address], [address] [place], [place] [address]Empqgqadxn [Mass/Vol]0.83 mg/dLNormal0.40-1.00ProSt. Luke'S Health – [facility] Luke'S Medical CenterComment on above:Result Comment: METHOD TRACEABLE TO IDMS STANDARD Performed By: #### LULA, 76280-5, BARRY, 1988-03, , 48001-4, THYR #### [facility] ([id number]) [address] [place] [address] 88076 #### 12480-7 #### [facility] ([id number]) [address], [address] [place], [place] [address]HAK/1.73 sq M.predicted among non-blacks MDRD (S/P/Bld) [Vol rate/Area]90 mL/min/{1.73_m2}Normal>59ProSt. Luke'S Health – [facility] St. Luke'S Medical CenterComment on above:Result Comment: Reported eGFR is based on the CKD-EPI 2020 equation that does not use a race coefficient.Performed By: #### LULA, 74285-4, CMP, 1988-03, , 23568-5, THYR #### [facility] ([id number]) [address] [place] [address] 46220 #### 97834-0 #### [facility] ([id number]) [address], [address] [place] [address]Dwfmwlw [Mass/Vol]108 mg/qUVzbo67-37XsfUgtxpkSt. Luke'S Health – [facility] Comment on above:Performed By: #### LULA, 84951-0, CMP, 1988-03, , 83510- 7, THYR #### [facility] ([id number]) [address] [place] [address] 59[address] #### 11731-4 #### [facility] ([id number]) [address], [address] [place], [place] [address]Wivhbzgim [Moles/Vol]3.7 mmol/LNormal3.5-5.0ProSt. Luke'S Health – [facility] St. Luke'S Medical CenterComment on above:Performed By: #### LULA, 04340-4, CMP, 1988-03, , 55911-1, THYR #### [facility] ([id number]) [address] [place] [address] 76451 #### 73452-7 #### [facility] ([id number]) [address], [address] [place], [place] [address]Yxvehij [Mass/Vol]6.9 g/dLNormal6.0-8.0ProSt. Luke'S Health – [facility] St. Luke'S Medical CenterComment on above:Performed By: #### LULA, 35867-2, CMP, 1988-03, , 98423-3, THYR #### [facility] ([id number]) [address] [place] [address] 42861 #### 35652-6 #### [facility] ([id number]) [address], [address] [place], [place] [address]Vfrvah [Moles/Vol]139 mmol/XKgvwry264-117TpnUwanwiMercy Health Allen HospitalComment on above:Performed By: #### LULA, 97969-7, CMP, 1988-03, , 73523-1, THYR #### [facility] ([id number]) [address] [place] [address] #### 21116-9 #### [facility] ([id number]) [address] [place], [place] [address]Lvhu nitrogen [Mass/Vol]10 mg/dLNormal5-23ProSt. Luke'S Health – [facility] St. Luke'S Medical CenterComment on above:Performed By: #### LULA, 28825-5, [facility], 1988-03, , 03062-5, THYR #### [facility] ([id number]) [address] [place] [address] #### 34137-6 #### [facility] ([id number]) [address], [address] [place], [place] [address]RN BRAIN WO CONTon 68-49-2987BR BRAIN WO CONTCT BRAIN WO CONT Exam: CT brain without contrast. CLINICAL HISTORY: Headache, eye pressure TECHNIQUE: CT brain without intravenous contrast. COMPARISON: CT 06/29/2008 FINDINGS: There is no evidence of acute intracranial bleeding, mass effect, or CT evidence of acute ischemia/infarct. The midline structures are intact, no midline shift. The ventricles and basal cisterns are within normal limits. The brainstem and cerebellum are unremarkable. The visualized intraorbital contents are unremarkable. The paranasal sinuses and mastoid air cells are well aerated. No acute osseous abnormality in the visualized skull base and calvarium. IMPRESSION: No acute intracranial pathology. All CT scans at this facility use dose modulation, iterative reconstruction, and/or weight based dosing when appropriate to reduce radiation dose to as low as reasonably achievable. Finalized by Yong Echols on 09/11/2024 3:21 PMNormalProSt. Luke'S Health – Baylor St. Luke'S Medical CenterCT CERVICAL SPINE WO CONTon 49-31-3797UB CERVICAL SPINE WO CONTCT CERVICAL SPINE WO CONT Clinical history:Neck pain. Radiculopathy. CT cervical spine:09/11/2024 Procedure: Axial images were obtained through the cervical spine. Coronal and sagittal reconstructions were performed. All CT scans at this facility use dose modulation, iterative reconstruction, and/or weight based dosing when appropriate to reduce radiation dose to as low as reasonably achievable. Findings: There is no fracture or focal vertebral deformity. Bone mineralization is within normal limits. There is some loss of intervertebral disc height at C5-C6 with marginal new bone formation and broad-based annular bulging some narrowing of the spinal canal is suggested. There is no definite bony neural foraminal. No paravertebral mass or fluid collection is present IMPRESSION: No acute or focal osseous abnormality evident radiographically. Degenerative changes at C5-C6. Finalized by Hiro Mcarthur MD on 09/11/2024 3:[address] [facility] HospitalCT LUMBAR SPINE WO CONTon 23-31-5977SN LUMBAR SPINE WO CONTCT LUMBAR SPINE WO CONT Study: Ct Lumbar spine History: Low back pain. Numbness. Technique: Axial images from the lower thoracic spine through the lumbar spine were obtained followed by sagittal and coronal reconstructed images. Findings: No fracture or abnormal alignment is appreciated. Spinous processes have a normal appearance and alignment. No acute process. No spondylolysis. No spondylolisthesis. Facet arthrosis is noted at L4 and L5. Disc space heights appear maintained. No sacral fracture is appreciated. SI joints are asymmetric. There is sclerosis noted along the right SI joint. This likely represents sacroiliitis. No erosions are noted. No ankylosis. Impression: Right sacroiliitis. No acute osseous process is noted. Facet arthrosis is also noted.. All CT scans at this facility use dose modulation, iterative reconstruction, and/or weight based dosing when appropriate to reduce radiation dose to as low as reasonably achievable. Finalized by Deanne Browning MD on 09/11/2024 3:[address] [facility] CT THORACIC SPINE WO CONTon 28-25-5827PF THORACIC SPINE WO CONTCT THORACIC SPINE WO CONT History: [Ataxia, nontraumatic. Possible autoimmune pressure behind eyes. Numbness] Procedure: Standard CT of the [breast 6 spine without contrast] was performed. Automatic exposure control was utilized for dosage reduction technique. Appropriate two- dimensional reconstructions were obtained. All CT scans at this facility use dose modulation, iterative reconstruction, and/or weight based dosing when appropriate to reduce radiation dose to as low as reasonably achievable.All CT scans at this facility use dose modulation, iterative reconstruction, and/or weight based dosing when appropriate to reduce radiation dose to as low as reasonably achievable. Findings: [There is no prior thoracic spine CT available for comparison. CT thoracic spine without contrast] demonstrates that the thoracic vertebral bodies have normal height and appearance. There is no compression deformity, destructive abnormality, or obvious acute bony abnormality. There is no bony spinal stenosis there is mild. Dextroconvex thoracic scoliosis Impression: [There is no acute bony abnormality. There is no bony spinal stenosis, compression deformity, or obvious congenital abnormality.] Finalized by Larry Guallpa MD on 09/11/2024 3:32 PMNormalProMethodist Midlothian Medical Center Photometric method (Bld) [Velocity]on 97-91-7445KVF, ERYTHROCYTE SEDIMENTATION RATE<0Fzjmaa6-84XguWucufnMercy Health Allen HospitalComment on above:Result Comment: (LESS THAN)Performed By: #### CBCA, 24512-6, CMP, 1987-, 49092-5, 04294-3, THYR #### [facility] ([id number]) [address] [place] [place] [address], [place] [address] #### 64490-0 #### [facility] ([id number]) [address] [place] [address], [address] [place], [place] [address]Hkrntv D-dimer DDU (PPP) [Mass/Vol]on 09-11-2024 SCKIM477 ng/mL DDUHigh<255Mercy Health Allen HospitalComment on above:Result Comment: Results >=255ng/mL DDU: Results may be indicative of the presence of VTE. The use of the Wells score and further diagnostic tests should be considered. Elevated D-Dimer levels can also be associated with DIC, neoplasm, , trauma and liver disease. Elevated levels of rheumatoid factor may lead to an overestimation of the D-Dimer level.Performed By: #### CBCA, 62212-1, CMP, 1988-03, , 28824-3, THYR #### [facility] ([id number]) [address] [place] [address] 39615 #### 71859-1 #### [facility] ([id number]) [address], [address] [place], [place] [address]WCM ( test) Ql (U)on 17-49-4549Qmra HCG ( test) Ql (U)NegativeNormalNEGProSt. Luke'S Health – [facility] Luke'S Medical CenterComment on above: Performed By: #### 2106-3 #### [facility] ([id number]) [address] [place] [address] 6[address]FTXKDBRGQss 27-51-0226Cusfyrdhx [Mass/Vol]2.0 mg/dLNormal 1.8-2.6ProSt. Luke'S Health – [facility] Luke'S Medical CenterComment on above:Performed By: #### CBCA, 82828-1, CMP, 1988-03, , 69592-6, THYR #### [facility] ([id number]) [address] [place] [address] 82312 #### 77863-2 #### [facility] ([id number]) [address], [address] [place], [place] [address]CFLYRZN PROFILEon 31-18-9406Jhps T4 [Mass/Vol]0.81 ng/dLNormal 0.61-1.60ProSt. Luke'S Health – [facility] Luke'S Medical CenterComment on above:Performed By: #### CBCA, 26905-5, CMP, 1988-03, , 56661-0, THYR #### [facility] ([id number]) [address] [place] [address] 21043 #### 21744-8 #### [facility] ([id number]) [address] [facility], [address] [place], [place] [address]DBJ1.66 uIU/mLNormal0.49-4.67Mer[facility] Health Allen HospitalComment on above:Performed By: #### LUL[place], 52964-0, CMP, 1988-03, , 87644-8, THYR #### [facility] ([id number]) [address] [place] [address] 96454 #### 06907-6 #### [facility] ([id number]) [address] [place] [address], [address] [place], [place] [address]Vpwcgrgc I.cardiac High sensitivity method [Mass/Vol]on HOUR TROP I, HIGH SENSITIVITY<2Normal<16[facility] Comment on above:Performed By: #### LULA, 31274-7, CMP, 1988-03, , 01981- 7, THYR #### [facility] ([id number]) [address] [place] [address] 70767 #### 19392-7 #### [facility] ([id number]) [address] [place] [address], [address] [place], [place] [address]XFWBLXEZ I, HIGH SENSITIVITY<2Normal<16ProSt. Luke'S Health – [facility] St. Luke'S Medical CenterComment on above:Performed By: #### LULA, 09569-5, CMP, 1988-03, , 08249-8, THYR #### [facility] ([id number]) [address] [place] [address] 04413 #### 38024-8 #### [facility] ([id number]) [address] [place] [address], [address] [place], [place] [address]QFYOX CULTUREon 72-45-3664Sforeqnw identified Cx Nom (U)CULTURE RESULTS >100,000 ORGANISMS/ML NORMAL UROGENITAL FLORANormalMercy Health Allen Hospital Comment on above:Performed By: #### LULA, 81995-4, CMP, 1988-03, , 44520- 7, THYR #### [facility] ([id number]) [address] [place] [address], [facility] [place] [address] #### 29350-3 #### [facility] ([id number]) [address] [place] [address], [address] [place], [place] [address]XMB MACROSCOPIC NURon 50-04-3843FZRBIGYMZ NURNegativeNormalNEG [facility] CenterComment on above:Performed By: #### NUM #### [facility] ([id number]) [address] [place] [place] [address], [place], [place] [address]YQQLX/HGB NURNegativeNormalNEGProSt. Luke'S Health – [facility] Luke'S Medical CenterComment on above:Performed By: #### NUM #### [facility] ([id number]) [address] [place] [address]85[address]PGQIDVO NURNegativeNormalNEGProSt. Luke'S Health – [facility] St[facility] Luke'S Medical CenterComment on above:Performed By: #### NUM #### [facility] ([id number]) [address] [place] [address] 013[address]VAVWQCL NURNegativeNormalNEGProSt. Luke'S Health – [facility] Luke'S Medical CenterComment on above:Performed By: #### NUM #### [facility] ([id number]) [address] [place] [address] [place] [address]EGFUSRLHI ESTERASE NURSmallAbnormalNEGProSt. Luke'S Health – [facility] St[facility] Luke'S Medical CenterComment on above:Performed By: #### NUM #### [facility] ([id number]) [address] [place] [address]JXLIPEP NURNegativeNormalNEGProSt. Luke'S Health – [facility] Luke'S Medical CenterComment on above:Performed By: #### NUM #### [facility] ([id number]) [address] [place] [address]XK NUR5.0Qvqfhl9.0-8.5ProMedica [facility] Medical CenterComment on above:Performed By: #### NUM #### [facility] ([id number]) [address] [place], [place] [address]VJBGLSF NURNegativeNormalNEGProSt. Luke'S Health – [facility] Luke'S Medical CenterComment on above:Performed By: #### NUM #### [facility] ([id number]) [address] [place] [address]48[address]XQPCTKCI GRAVITY CARROL<=1.124Ztyddu1.003-1.035ProSt. Luke'S Health – [facility] St. Luke'S Medical CenterComment on above:Performed By: #### NUM #### [facility] ([id number]) [address] [place] [address]CHFFESYDUWZG NUR0.2 eu/dLNormal<1.1POhioHealth Southeastern Medical Center Comment on above:Performed By: #### NUM #### [facility] ([id number]) [address] [place] [address]YG ABDOMEN PELVIS WO IV CONTRASTon 74-93-6638HU ABDOMEN PELVIS WO IV CONTRASTEXAM: CT Abdomen and Pelvis without IV Contrast: REASON FOR EXAM: Abdominal pain, nausea, constipation. COMPARISON: CT abdomen and pelvis July 11, 2023. TECHNIQUE: Axial, coronal and sagittal thin cuts of the abdomen and pelvis were obtained. IV contrast not administered. Oral contrast administered. FINDINGS: Lung bases, base of the heart, pericardium: No abnormalities by CT. Liver: No abnormalities by CT. Gallbladder/Biliary tree: Gallbladder absent. No visible biliary dilatation. Spleen, pancreas: No abnormalities by CT. Adrenals, kidneys: Adrenals without acute abnormality. Right kidney without abnormality. Hyperdensity at the junction of the renal parenchyma and collecting system on the left measuring 2 to 3 mm. Nohydronephrosis. Retroperitoneum: No abnormalities by CT. Small bowel: No dilatation, air-fluid level, free air or ascites is present. Appendix: No abnormalities. Large Bowel: Moderate amount of stool in the colon. Pelvis: Hypodensity left pelvic sidewall measuring 3.6 cm in dimension and 1.3 Hounsfield units. This is developing from the previous exam. A contralateral finding on the right is no longer present. The bladder is partially decompressed. Gynecologic: The uterus is absent. The right ovary is not enlarged. Osseous structures, regional soft tissues: Osseous structures without acute change. Chronic anterior abdominal wall scarring is noted. IMPRESSION, CT Abdomen: 1. No CT evidence of acute bowel pathology within the limitations of the exam. 2. Status post cholecystectomy. 3. Nonobstructing left nephrolithiasis. 4. Moderate amount of stool in the colon. IMPRESSION, CT Pelvis: 1. Status post interval hysterectomy from previous. 2. Right adnexal cyst has resolved. New left simple adnexal cyst. Followup based on clinical. All CT scans at this institution are performed using dose optimization techniques as appropriate for the performed exam including the following: Automated exposure control Adjustment of the mA and/or kV according to patient size Use of iterative reconstruction technique This report is generated using voice recognition reporting ([employer]). On occasion, [facility] erroneously drops words from the report or replaces the spoken word with a similar sounding word. Please call with any questions/concerns regarding the report. Dictated and transcribed 09/10/2024/patrick This report has been electronically signed and approved by the interpreting radiologist.NormalNot AvailableMR BRAIN W AND WO CONTRAST (ROUTINE)on 09-04-2024 MR BRAIN W AND WO CONTRAST (ROUTINE)MR - MRI BRAIN W WO INDICATION: Chronic headaches, dizziness COMPARISON: MR brain January 11, 2023 TECHNIQUE: Sagittal T1, axial T2, axial T2* GRE, axial FLAIR, axial DWI sequences of the brain wereacquired. Postcontrast axial and coronal T1 sequences were also obtained following 10 mL of Vueway contrast. FINDINGS: There is no diffusion abnormality. CEREBRUM: Normal morphology and signal intensity. No mass lesions or hemorrhage. CEREBELLUM: Normal. BRAINSTEM: Normal. VENTRICLES AND EXTRA-AXIAL SPACES: The ventricles are normal in size and symmetric. There are no extra-axial fluid collections. MAJOR ARTERIES/DURAL SINUSES: The dural venous sinuses and arterial structures enhance appropriately. No pathologic enhancement is seen intracranially. SKULL/SCALP: Normal. PARANASAL SINUSES AND MASTOID AIR CELLS: Normal. OTHER: No visible change when compared to the prior MRI. IMPRESSION: Normal MRI of the brain. Dictated on: 09/04/2024 11:14 AM This report has been electronically signed and approved by the interpreting Radiologist. Electronically Signed Sarabjit Escobar D.O. 2024-09-04 11:19:12NormalNot AvailableAntinuclear AB, HE-p Substrate, (VALERIANO by IFA)on 57-23-1114AYB Pattern:Dense Fine SpeckledNormalThe [facility] Comment on above:Result Comment: NOTE Test Performed by: [facility] [address] [place] [address] Team Driver: Pranav Ramos Ph.D.; CLIA# [id number] By: #### 4485- 9, 4498-2, 2156-6, 2531-0, 2132-07 #### [facility] ([id number]) [address] [place] [address], [address] [place] [address] #### NAIFA #### [facility] [employer] ([id number]) [address] [place] [address],VALERIANO Titer:1:320NormalProOhiohealth Pickerington Methodist HospitalComment on above: Performed By: #### 4485-9, 4498-2, 2156-6, 2531-0, 2132-07 #### [facility] ([id number]) [address] [place] [address], [address] [place] [address] #### NAIFA #### [facility] [employer] [facility] [employer] ([id number]) [address] [place] [address],Antinuclear Ab, HEp-2 Substrate, SPositiveAbnormal<1:80 (Negative) [facility] CenterComment on above:Result Comment: NOTE ADDITIONAL INFORMATION Method: Immunofluorescence using HEp-2 cellular substrate.Performed By: #### 4485-9, 4498-2, 2156-6, 2531-0, 2132-07 #### [facility] ([id number]) [address] [place] [address], [address] [place] [address] #### NAIFA #### [facility] ([id number]) [address] [facility],[place] [Catalytic activity/Vol]on 68-13-1448ATU31 U/DMvlxbf55-007VypXfanmuThe University of Toledo Medical CenterComment on above:Performed By: #### 4485-9, 4498-2, 7-6, 2531- 0, 2132-07 #### [facility] ([id number]) [address] [place] [address], [place] [address] #### NAIFA #### [facility] ([id number]) [address] [place] [address],Complement C3 [Mass/Vol]on 90-35-4930MOKRAMHNKE C3142 mg/yZFxpncy15-120 [facility] CenterComment on above:Performed By: #### 4485-9, 4498-2, 2156-6, 2531-0, 2132-07 #### [facility] ([id number]) [address] [place] [address], [place] [address] #### NAIFA #### [facility] ([id number]) [address] [place] [address],Complement C4 [Mass/Vol]on 57-14-6009BHWJGLXNEH C436 mg/rRUhdbcb99-35 [facility] CenterComment on above:Performed By: #### 4485-9, 4498-2, 2156-6, 2531-0, 2132-07 #### [facility] ([id number]) [address] [place] [address] #### NAIFA #### [facility] ([id number]) [address] [place] [address],DNA double strand IgG IF Crithidia luciliae (S) [Titer]on 09-03-2024 Crithidia InterpretationSee NoteNormalProSt. Mary'S Medical Center HospitalComment on above: Result Comment: NOTE Testing for dsDNA antibody by Crithidia IFA was negative. Test Performed by: [facility] [address] [place] [address] Team Driver: Pranav Ramos Ph.D.; CLIA# [id number] By: #### 65024- 4 #### [facility] ([id number]) [address] [place] [address],dsDNA Ab by Vilma IFA, IgG, SNegativeNormalNegativeProMedica Doctors HospitalComment on above:Performed By: #### 38075-0 #### [facility] ([id number]) [address] [place] [address],LDH [Catalytic activity/Vol]on 75-07-3969QEU817 U/VXnhndv434-000 [facility] CenterComment on above:Performed By: #### 4485-9, 4498-2, 7-6, 2531-0, 2132-07 #### [facility] ([id number]) [address] [place] [address], [address] [place] [address] #### NAIFA #### [facility] ([id number]) [address] [place] [address],Laboratory comment Zac (Report)on 95-94-1464VJEBLQZG LAB TESTSent to reference labNormalProGuernsey Memorial Hospitalca Doctors HospitalComuniversity of michigan health on above:Performed By: #### 66814-8 #### [facility] ([id number]) [address] [place] [address],VITAMIN B12on 13-95-3255Txsdjwkrt (Vitamin B12) [Mass/Vol]216 pg/mL Syqzox006-594KsaKgqqgh Doctors HospitalComment on above:Performed By: #### 4485- 9, 4498-2, 7-6, 2-0, 2132-07 #### [facility] LAB ([id number]) [address] [place] [address], [address] [place] [address] #### NAIFA #### [facility] ([id number]) [address] [place] [address],XR ABDOMEN 2 VIEWon 28-21-3612RL ABDOMEN 2 VIEWTITLE OF EXAM: XR - ABDOMEN 2 VIEWS REASON FOR EXAM: Abdominal pain, chronic constipation. TECHNIQUE: 4 radiographs of the abdomen COMPARISONS: None. FINDINGS: Physiologic quantity and distribution of bowel gas and colonic stool. No abnormal bowel dilation. No appreciable/radiopaque urolithiasis. Right upper quadrant surgical clips. Mid lumbar levocurvature. No focal soft tissue abnormality. IMPRESSION: No radiographically apparent acute abnormality of the abdomen. DICTATED ON: 08/29/2024 3:28 PM This report has been electronically signed and approved by the interpreting radiologist. Electronically Signed Ronen Negrete M.D. 2024-08-29 15:29:17NormalNot AvailableC-REACTIVE PROTEINon [id number] [Mass/Vol]0.1 mg/dLNINF - 0.9 mg/dLAdams County Hospital CRP SERPL-MCNCon 63-48-2703LKW CRP SERPL-MCNC0.1 mg/dLNINF - 0.9 mg/dLNOAudrain Medical CenterSpecimen Type: BLOOD SPECIMEN Ordering Facility[facility] Address: [address] [place] [address] [place] [address] Original Ordering Provider: RIVER Gonzalez 01-15-1265MFOZQcawbi Visit (TORRIE) MARIJULIANNA MONTANO ([id number]) 1980 F Date Time Provider Department 08/20/24 1:00 PM RIVER GARDNER During your visit today, we recorded the following information about you: Temperature Pulse Blood pressure Weight 97.4 degrees 92/minute 141/87 101.6 kg River Gardnre MD 08/20/2024 7:50 PM Signed Allergy and Immunology Patient Name: Julianna Guerra Julianna Guerra is a 44 year old female with a PMH of who presents today for evaluation of recurrent infections Patient had a hysterectomy at the end of June After he surgery, the surgeon told her that she has an angry bladder so he referred her to urology. Patient reports that the urologist could not help her . He told her that she does not have an infection in her bladder, and that her bladder is angry and it's an immune problem . Patient then called the patient crew scheduler line and was told to see Allergy Immunology. Patient reports that she has recurrent UTIs and they always need antibiotics. This has been going on for years She is currently not on any antibiotics When asked about other recurrent infections, she does report having recurrent bronchitis (almost 3-4 times a year) but no pneumonias Always needs a antibiotics to help clear it She had COVID pneumonia about a year ago She needed antibiotics for that No history of seasonal allergies She has had a few sinus infections in the past No family history of immunodeficiency or autoimmune diseases Mom from pancreatic cancer Brother has NHL in remission Patient has alopecia areata - tried steroids and they didn't work Patient is worried about having an autoimmune disorder She has mottling of her skin that is persistent and very painful She reports that she is in extreme pain Patient is tearful as she describes the pain Her whole body hurts and aches the whole time All her joints hurt her She is breaking out in random rashes on her arms. She describes them as painful lesions, but not hives Allergic/Infectious Personal History: Nasal polyps: The patient has never had nasal polyps. Asthma: The patient has no history of asthma. Sinusitis: The patient does not suffer from frequent sinopulmonary infections. 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 No past surgical history on file. ALLERGIES: has no allergies on file. FAMILY HISTORY: No family history on file. REVIEW OF SYSTEMS: All systems were reviewed and were negative except as listed in the HPI and above. PHYSICAL EXAM: BP 141/87 Pulse 92 Temp 36.3 ?C (97.4 ?F) Wt 101.6 kg (223 lb 15.8 oz) SpO2 100% There is no height or weight on file to calculate BMI. General: The patient is pleasant, well groomed, in no acute distress, breathing comfortably and interactive with the exam. Head: Normocephalic, atraumatic Eyes: Conjunctiva not injected, no drainage. Lymph: patient with palpable posterior occipital LN Musculoskeletal: Normal muscle tone and gait. Neurologic: Grossly non-focal Psych: Appropriate affect. Dermatologic: No rash, urticaria or excoriations. Patient has livedo reticularis pattern on bilateral thighs and shins She has excoriated papules on bilateral forearms Assessment/Plan: Recurrent infections Recurrent UTI Patient told she has angry bladder . She is possibly referring to Interstitial cystitis. She thought that allergy/immunology specialty can help with her condition. Patient was tearful and angry that she saw the wrong specialist today in clinic. She thought she was seeing an autoimmune specialist. I apologized to the patient and explained that this error does happen frequently. She does have history of recurrent UTIs and recurrent bronchitis. I did explain that I can test her for immunodeficiency today and complete that part of the workup. However she does need to see Urology for management of her interstitial cystitis. Patient also has a lymph node on her posterior neck. We discussed that she should see her PCP for full workup of the LN - C-REACTIVE PROTEIN; Future - SEDIMENTATION RATE, WESTERGREN; Future - IMMUNODEFICIENCY CDC; Future - HUMORAL IMMUNITY PANEL 1; Future - IGG SUBCLASSES BLD; Future - COMPLEMENT DEFICIENCY ASSAY; Future - VALERIANO BLOOD; Future Livedo reticularis Diffuse pain Patient reporting diffuse (more content not included)...NormalBluffton HospitalCOMPLEMENT DEFICIENCY ASSAYon 15-93-2951SYLUUDGUSS DEF ASSAY83.9 U/mL Epyfdk83.7-95.1CBarnesville Hospital on above:Order Comment: Specimen Type: BLOOD SPECIMEN [facility] Address: [address] [place], [place] [address]Zwofvc Comment: Total complement function test is used as an aid in diagnosis of complement deficiencies. It measures the function of the classical pathway including terminal complement components. Clinical correlation is required.Performed By: #### COMPD #### [facility] CLIA [id number] [address] [place] [address] [place] [id number] [place] AMERICACRP SerPl-mCncon 08-20-2024 CRP [Mass/Vol]0.1 mg/dLNormal<0.9CBarnesville Hospital on above: Order Comment: Specimen Type: BLOOD SPECIMEN [facility]ing Facility[facility] Address: [address] [place], [place] [address]Performed By: #### 1987-5 #### [facility] CLIA [id number] [address] [place] [address] [place] AMERICACRP [Mass/Vol]on 08-20-2024 Interpretation and review of laboratory resultsNormalCSouthwest General Health Center DIPHTHER/TETANUS ABon 11-65-5994QKYZTLSAWS AB1.4 IU/mLNormalPomerene Hospital on above:Order Comment: Specimen Type: BLOOD SPECIMEN [facility]ing Facility: [facility] Address: [address] [place], [place] [address]Result Comment: INTERPRETIVE INFORMATION: Diphtheria Ab, IgG Antibody concentration of greater than 0.1 IU/mL is usually considered protective. Responder status is determined according to the ratio of a one month post-vaccination sample to pre-vaccination concentrations of Diphtheria IgG Abs as follows: 1. If the one month post-vaccination concentration is less than 1.0 IU/mL, the patient is considered to be a non-responder. 2. If the post-vaccination concentration is greater than or equal to 1.0 IU/mL, a patient with a ratio of less than 1.5 is a non-responder, a ratio of 1.5 to less than 3.0, a weak responder, and a ratio of 3.0 or greater, a good responder. 3. If the pre-vaccination concentration is greater than 1.0 IU/mL, it may be difficult to assess the response based on a ratio alone. A post-vaccination concentration above 2.5 IU/mL in this case is usually adequate. This test was developed and its performance characteristics determined by [facility]. It has not been cleared or approved by the [place] Food and Drug Administration. This test was performed in a CLIA certified laboratory and is intended for clinical purposes.Performed By: #### DIPTET #### [facility] CLIA [id number] [address] [place], [place] [address]OKXMXAX AB5.3 IU/mLNormalBluffton Hospital Comment on above:Order Comment: Specimen Type: BLOOD SPECIMEN [facility]ing Facility: [facility] Address: [address] [place], [place] [address], [place] [address]Vbvwrn Comment: INTERPRETIVE INFORMATION: Tetanus Ab, IgG Antibody concentration of greater than 0.1 IU/mL is usually considered protective. Responder status is determined according to the ratio of a one-month post-vaccination sample to pre-vaccination concentration of Tetanus IgG Abs as follows: 1. If the one month post-vaccination concentration is less than 1.0 IU/mL, the patient is considered a non-responder. 2. If the post-vaccination concentration is greater than or equal to 1.0 IU/mL, a patient with a ratio of less than 1.5 is a non-responder, a ratio of 1.5 to less than 3.0, a weak responder, and a ratio of 3.0 or greater, a good responder. 3. If the pre-vaccination concentration is greater than 1.0 IU/mL, it may be difficult to assess the response based on a ratio alone. A post-vaccination concentration above 2.5 IU/mL in this case is usually adequate. This test was developed and its performance characteristics determined by [facility]. It has not been cleared or approved by the [place] Food and Drug Administration. This test was performed in a CLIA certified laboratory and is intended for clinical purposes. Performed By: [facility] [address] [place] [address] Metals Sales Representative: Christopher Boone MD, PhD CLIA Number: [id number] By: #### DIPTET #### [facility] CLIA [id number] [address] [place], [place] [address]GJZ Westergren method (Bld) [Velocity]on 13-44-5031ALM (Bld) [Velocity]2 mm/hCleveland ClinicInterpretation and review of laboratory resultsNormalCleveland Keenan Private HospitalESR (Bld) [Velocity]2 mm/hNormal 0-20Bluffton HospitalComment on above:Order Comment: Specimen Type: BLOOD SPECIMEN [facility] Address: [address] [place], [place] [address]Performed By: #### 4537-7 #### [facility] [place] [id number] [address] [place] [address] [place] OF AMERICAIGG SUBCLASS 1,2,3,4on 87-11-8940MvP subclass 1 (S) [Mass/Vol]412.3 mg/vYEmcbmk442.4-928.6CBarnesville Hospital on above:Order Comment: Specimen Type: BLOOD SPECIMEN [facility] Address: [address] [place], [place] [address]Performed By: #### [id number] #### [facility] CLIA [id number] [address] [place] [address] [place] AMERICAIgG subclass 2 (S) [Mass/Vol]399.3 mg/lVKupflc008.8-700.3ClevelOhioHealth Pickerington Methodist Hospital on above:Order Comment: Specimen Type: BLOOD SPECIMEN [facility] Address: [address] [place], [place] [address]Performed By: #### [id number] #### [facility] IA [id number] [address] [place] [address] [place] AMERICAIgG subclass 3 (S) [Mass/Vol]67.2 mg/lIJesaqr24.8-176.1CBarnesville Hospital on above: Order Comment: Specimen Type: BLOOD SPECIMEN [facility] Address: [address] [place], [place] [address]Performed By: #### [id number] #### [facility] IA [id number] [address] [place] [address] [place] AMERICAIgG subclass 4 (S) [Mass/Vol]3.5 mg/dLLow3.9-86.4ClevelOhioHealth Pickerington Methodist Hospital on above:Order Comment: Specimen Type: BLOOD SPECIMEN [facility] Address: [address] [place], [place] [address]Performed By: #### [id number] #### [facility] CLIA [id number] [address] [place] [address] [place] AMERICAIMMUNOGLOBULINS,IGG,IGA,IGM on 26-50-3106EdQ [Mass/Vol]162 mg/tDCthzfn90-040AjfwfaiaaBluffton Hospital Comment on above:Order Comment: Specimen Type: BLOOD SPECIMEN [facility] Address: [address] [place], [place] [address]Performed By: #### SERASHLEY, 2465-3 #### [facility] CLIA [id number] [address] [place] [address] [place] AMERICAIgG [Mass/Vol]881 mg/dL Mhpamm321-2183QuxybhwzhBluffton HospitalComment on above:Order Comment: Specimen Type: BLOOD SPECIMEN [facility] Address: [address] [place], [place] [address]Performed By: #### SERASHLEY, 2465-3 #### [facility] CLIA [id number] [address] [place] [address] [place] AMERICAIgM [Mass/Vol]47 mg/dLNormal 40-230Bluffton HospitalComment on above:Order Comment: Specimen Type: BLOOD SPECIMEN [facility] Address: [address] [place], [place] [address]Performed By: #### SERASHLEY, 2465-3 #### [facility] CLIA [id number] [address] [place] [address] [place] AMERICAIgE SerPl-aCncon 08-20-2024 IgE Qn24.7 kU/lNormal<114.0Bluffton HospitalComuniversity of michigan health on above:Order Comment: Specimen Type: BLOOD SPECIMEN [facility] Address: [address] [place], [place] [address]Performed By: #### 95760-1 #### [facility] CLIA [id number] [address] [facility] [place]PCHDMYYSTVI[place] [id number] [place] AMERICAImmunodeficiency panel FC (Bld)on 28-79-1027IG6 cells (Bld) [#/Vol]1978 cells/hEZyddoz138-0069XjrjwtzrkPomerene Hospital on above:Order Comment: Specimen Type: BLOOD SPECIMEN [facility] Address: [address] [place], [place] [address]Performed By: #### [id number] #### [facility] [id number] [address] [place], [place] [address]TU9 cells/100 cells (Bld)81 %Eipbyu70-58OyprajjmkPomerene Hospital on above:Order Comment: Specimen Type: BLOOD SPECIMEN [facility] Address: [address] [place], [place] [address]Performed By: #### PNE23 #### [facility] [id number] [address] [place], [place] [address]PC5+CD4+ (T4 helper) cells (Bld) [#/Vol]1119 cells/uL Offrgy447-0755WyylixywfBarnesville Hospital on above:Order Comment: Specimen Type: BLOOD SPECIMEN [facility] Address: [address] [place], [place] [address]Performed By: #### PNE23 #### [facility] [id number] [address] [place], [place] [address]KL7+CD4+ (T4 helper) cells/100 cells (Bld)46 %Normal 34-61[facility] on above:Order Comment: Specimen Type: BLOOD SPECIMEN [facility] Address: [address] [place], [place] [address]Performed By: #### PNE23 #### [facility] [id number] [address] [place], [place] [address]II0+CD4+ (T4 helper) cells/CD3+CD8+ (T8 suppressor cells) cells (Bld) [# ratio]1.36 %Normal1.10-3.25[facility] Comment on above:Order Comment: Specimen Type: BLOOD SPECIMEN [facility] Address: [address] [place], [place] [address]Performed By: #### PNE23 #### [facility] CLIA [id number] [address] [place], [place] [address]RA5+CD8+ (T8 suppressor cells) cells (Bld) [#/Vol]824 cells/mSOjaynd762-831DujlpgdkaPomerene Hospital on above:Order Comment: Specimen Type: BLOOD SPECIMEN [facility] Address: [address] [place], [place] [address]Performed By: #### PNE23 #### [facility] [id number] [address] [place], [place] [address]IH5+CD8+ (T8 suppressor cells) cells/100 cells (Bld)34 % Kmmmhm76-31DqwbqmivfPomerene Hospital on above:Order Comment: Specimen Type: BLOOD SPECIMEN [facility] Address: [address] [place], [place] [address]Performed By: #### PNE23 #### [facility] [id number] [address] [place], [place] [address]MN7-OZ66+CD56+ (Natural killer) cells (Bld) [#/Vol]203 cells/cVHemdpf643-176ZcslagiqiBarnesville Hospital on above:Order Comment: Specimen Type: BLOOD SPECIMEN [facility] Address: [address] [place], [place] [address]Performed By: #### PNE23 #### [facility] IA [id number] [address] [place], [place] [address]ZO1-VS65+CD56+ (Natural killer) cells/100 cells (Bld)8 % Normal5-25[facility] on above:Order Comment: Specimen Type: BLOOD SPECIMEN [facility] Address: [address] [place], [place] [address]Performed By: #### [email or web address] #### [facility] CLIA [id number] [address] [place], [place] [address]KA8-IW79+ cells (Bld) [#/Vol]235 cells/rVOdqsax12-307 [facility] on above:Order Comment: Specimen Type: BLOOD SPECIMEN [facility] Address: [address] [place], [place] [address]Performed By: #### PNE23 #### [facility] [id number] [address] [place], [place] [address]YY4-HV64+ cells/100 cells (Bld)10 %Normal5-22[facility] on above:Order Comment: Specimen Type: BLOOD SPECIMEN [facility] Address: [address] [place], [place] [address]Performed By: #### PNE23 #### [facility] [id number] [address] [place], [place] [address]Xu Panel Informationon 27-66-4525Rvtzksfhv ClinicNuclear Ab IA Ql (S)on 02-93-5852TVA SCR QUALNegativeNormalNegativePomerene Hospital on above:Order Comment: Specimen Type: BLOOD SPECIMEN [facility] Address: [address] [place], [place] [address]Result Comment: The qualitative antinuclear antibody screen test performed using the following antigens: dsDNA, Chromatin, Ribosomal P, SS-A 60, SS-A 52, SS-B, Sm, SmRNP, MANUAL TRAINING TEACHER A, MANUAL TRAINING TEACHER 68, Scl- 70, Malinda-1,and Centromere B. Methodology: Multiplex flow immunoassay.Performed By: #### 83003-5 #### [facility] CLIA [id number] [address] [place] [id number] [place] [address] [place] AMERICAPNEUMOCOCCAL IGG ABS, 23 SEROTYPESon 24-55-5316XZFNEO SEROTYPE 1 IGG (P13,PNX)0.78 ug/mLNormalPomerene Hospital on above:Order Comment: Specimen Type: BLOOD SPECIMEN [facility] Address: [address] [place], [place] [address]Performed By: #### [email or web address] #### [facility] [id number] [address] [place], [place] [address]TMMPDH SEROTYPE 10A IGG (PNX)3.91 ug/mLNormalPomerene Hospital on above:Order Comment: Specimen Type: BLOOD SPECIMEN [facility] Address: [address] [place], [place] [address]Performed By: #### [email or web address] #### [facility] CLIA [id number] [address] [place], [place] [address]AENWHX SEROTYPE 11A IGG (PNX)0.20 ug/mLNormalPomerene Hospital on above:Order Comment: Specimen Type: BLOOD SPECIMEN [facility] Address: [address] [place], [place] [address]Performed By: #### [email or web address] #### [facility] CLIA [id number] [address] [place], [place] [address]YPJQGM SEROTYPE 12F IGG (PNX)1.71 ug/mLNormalPomerene Hospital on above:Order Comment: Specimen Type: BLOOD SPECIMEN [facility] Address: [address] [place], [place] [address]Performed By: #### [email or web address] #### [facility] CLIA [id number] [address] [place], [place] [address]XDTEGO SEROTYPE 14 IGG (P7,P13,PNX)7.08 ug/mLNormal [facility] on above:Order Comment: Specimen Type: BLOOD SPECIMEN [facility] Address: [address] [place], [place] [address]Performed By: #### [email or web address] #### [facility] CLIA [id number] [address] [place], [place] [address]OZGPXL SEROTYPE 15B IGG (PNX)4.22 ug/mLNormalPomerene Hospital on above:Order Comment: Specimen Type: BLOOD SPECIMEN [facility] Address: [address] [place], [place] [address]Performed By: #### [email or web address] #### [facility] CLIA [id number] [address] [place], [place] [address]XFXQHM SEROTYPE 17F IGG (PNX)1.85 ug/mLNormalPomerene Hospital on above:Order Comment: Specimen Type: BLOOD SPECIMEN [facility] Address: [address] [place], [place] [address]Performed By: #### [email or web address] #### [facility] CLIA [id number] [address] [place], [place] [address]DDTKEJ SEROTYPE 18C IGG (P7,P13,PNX)2.78 ug/mLNormal [facility] Centerment on above:Order Comment: Specimen Type: BLOOD SPECIMEN [facility] Address: [address] [place], [place] [address]Performed By: #### [email or web address] #### [facility] IA [id number] [address] [place], [place] [address]XDCBSN SEROTYPE 19A IGG (P13,PNX)2.07 ug/mLNormal [facility] on above:Order Comment: Specimen Type: BLOOD SPECIMEN [facility] Address: [address] [place], [place] [address]Performed By: #### [email or web address] #### [facility] IA [id number] [address] [place], [place] [address]KTIVGQ SEROTYPE 19F IGG (P7,P13,PNX)12.17 ug/mLNormal [facility] on above:Order Comment: Specimen Type: BLOOD SPECIMEN [facility] Address: [address] [place], [place] [address]Performed By: #### [email or web address] #### [facility] CLIA [id number] [address] [place], [place] [address]NINZEX SEROTYPE 2 IGG (PNX)2.56 ug/mLNormalPomerene Hospital on above:Order Comment: Specimen Type: BLOOD SPECIMEN [facility] Address: [address] [place], [place] [address]Performed By: #### [email or web address] #### [facility] IA [id number] [address] [place], [place] [address]UGRQHG SEROTYPE 20 IGG (PNX)1.16 ug/mLNormalPremier Health Upper Valley Medical Centerment on above:Order Comment: Specimen Type: BLOOD SPECIMEN [facility] Address: [address] [place], [place] [address]Performed By: #### PNE23 #### [facility] CLIA [id number] [address] [place], [place] [address]YKFMIV SEROTYPE 22F IGG (PNX)1.01 ug/mLNormalPremier Health Upper Valley Medical Centerment on above:Order Comment: Specimen Type: BLOOD SPECIMEN [facility] Address: [address] [place], [place] [address]Performed By: #### [email or web address] #### [facility] CLIA [id number] [address] [place], [place] [address]SRICBI SEROTYPE 23F IGG (P7,P13,PNX)0.79 ug/mLNormal [facility] on above:Order Comment: Specimen Type: BLOOD SPECIMEN [facility] Address: [address] [place], [place] [address]Performed By: #### [email or web address] #### [facility] CLIA [id number] [address] [place], [place] [address]VZASTK SEROTYPE 3 IGG (P13,PNX)1.63 ug/mLNormalPomerene Hospital on above:Order Comment: Specimen Type: BLOOD SPECIMEN [facility] Address: [address] [place], [place] [address]Performed By: #### [email or web address] #### [facility] CLIA [id number] [address] [place], [place] [address]MUBWVP SEROTYPE 33F IGG (PNX)0.48 ug/mLNormalPomerene Hospital on above:Order Comment: Specimen Type: BLOOD SPECIMEN [facility] Address: [address] [place], [place] [address]Performed By: #### [email or web address] #### [facility] CLIA [id number] [address] [place], [place] [address]IXXTZH SEROTYPE 4 IGG (P7,P13,PNX)0.43 ug/mLNormal [facility] on above:Order Comment: Specimen Type: BLOOD SPECIMEN [facility] Address: [address] [place], [place] [address]Performed By: #### [email or web address] #### [facility] CLIA [id number] [address] [place], [place] [address]TDDIPU SEROTYPE 5 IGG (P13,PNX)1.76 ug/mLNormalPremier Health Upper Valley Medical Centerment on above:Order Comment: Specimen Type: BLOOD SPECIMEN [facility] Address: [address] [place], [place] [address]Performed By: #### [email or web address] #### [facility] CLIA [id number] [address] [place], [place] [address]URQKSR SEROTYPE 6B IGG (P7,P13,PNX)0.99 ug/mLNormal [facility] on above:Order Comment: Specimen Type: BLOOD SPECIMEN [facility] Address: [address] [place], [place] [address]Performed By: #### PNE23 #### [facility] CLIA [id number] [address] [place], [place] [address]AOVKMZ SEROTYPE 7F IGG (P13,PNX)0.72 ug/mLNormal [facility] on above:Order Comment: Specimen Type: BLOOD SPECIMEN [facility] Address: [address] [place], [place] [address]Performed By: #### [email or web address] #### [facility] CLIA [id number] [address] [place], [place] [address]EQCIFB SEROTYPE 8 IGG (PNX)0.94 ug/mLNormalPomerene Hospital on above:Order Comment: Specimen Type: BLOOD SPECIMEN [facility] Address: [address] [place], [place] [address]Performed By: #### PNE23 #### [facility] CLIA [id number] [address] [place], [place] [address]RVXJHD SEROTYPE 9N IGG (PNX)1.70 ug/mLNormalPomerene Hospital on above:Order Comment: Specimen Type: BLOOD SPECIMEN Ordering Facility: [facility] Address: [address] [place], [place] [address]Performed By: #### PNE23 #### [facility] CLIA [id number] [address] [place], [place] [address]MXMXUS SEROTYPE 9V IGG (P7,P13,PNX)0.81 ug/mLNormal [facility] on above:Order Comment: Specimen Type: BLOOD SPECIMEN Ordering Facility: [facility] Address: [address] [place], [place] [address]Performed By: #### PNE23 #### [id number] [address] [place], [place] [id number] INTERPRETATIONSee NoteNormalCBarnesville Hospital on above:Order Comment: Specimen Type: BLOOD SPECIMEN Ordering Facility: [facility] Address: [address] [place], [place] [address]Result Comment: INTERPRETIVE INFORMATION: Streptococcus pneumoniae Antibodies, IgG A pre- and postvaccination comparison is required to adequately assess the humoral immune response to the pure polysaccharide Pneumovax 23 (PNX) and/or the protein conjugated Prevnar 7 (P7), Prevnar 13 (P13), Prevnar 20 (P20), and Vaxneuvance (V15) Streptococcus pneumoniae vaccines. Prevaccination samples should be collected prior to vaccine administration. Postvaccination samples should be obtained at least 4 weeks after immunization. Testing of postvaccination samples alone will provide only general immune status of the individual to various pneumococcal serotypes. In the case of pure polysaccharide vaccine, indication of immune system competence is further delineated as an adequate response to at least 50 percent of the serotypes in the vaccine challenge for those 2-5 years of age and to at least 70 percent of the serotypes in the vaccine challenge for those 6-65 years of age. Individual immune response may vary based on age, past exposure, immunocompetence, and pneumococcal serotype. Responder Status Antibody Ratio Nonresponder ........... Less than twofold increase and postvaccination concentration less than 1.3 ug/mL Good responder ......... At least a twofold increase and/or a postvaccination concentration greater than or equal to 1.3 ug/mL A response to 50-70 percent or more of the serotypes in the vaccine challenge is considered a normal humoral response.(Angelia, 2014) Antibody concentration greater than 1.0-1.3 ug/mL is generally considered long-term protection.(Angelia, 2015) References: 1. Angelia MARIEE, Harpal JW, Oakes X, et al. Multilaboratory assessment of threshold versus fold-change algorithms for minimizing analytical variability in multiplexed pneumococcal IgG measurements. Clin Vaccine Immunol. 2014;21(7):982-988. 2. Terry Pink. Use and clinical interpretation of pneumococcal antibody measurements in the evaluation of humoral immune function. Clin Vaccine Immunol. 2015;22(2):148-152. This test was developed and its performance characteristics determined by [employer]. It has not been cleared or approved by the U.S. Food and Drug Administration. This test was performed in a CLIA-certified laboratory and is intended for clinical purposes. Performed By: [facility] [employer] [address] [place] [address] Metals Sales Representative: Christopher Boone MD, PhD CLIA Number: [id number] By: #### PNE23 #### [facility] CLIA [id number] [address] [place] [address]HGO CBC WITH AUTO DIFFon [id number] ABSOLUTE GLBM1TENI HealthcareBasophils/100 WBC (Bld)0.3 %0.2 - 2.0 %[facility] Eosinophils/100 WBC (Bld)1.9 %0.9 - 7.0 %NOM HealthcareErythrocyte distribution width (RBC) [Ratio]13.6 %11.0 - 15.0 %[facility] HealthcareHematocrit (Bld) [Volume fraction]37 %36.0 - 48.0 %[facility] HealthcareHemoglobin (Bld) [Mass/Vol]13.3 g/dL 12.0 - 16.0 g/dLNOMS HealthcareIMMATURE GRANULOCYTES ABS AUTO0.02[facility] Immature granulocytes/100 WBC (Bld)0.3 %0.0 - 0.5 %[facility] HealthcareInterpretation and review of laboratory resultsAbnormalNOMS HealthcareLYMPHOCYTES ABSOLUTE AUTO2.5[facility] HealthcareLymphocytes/100 WBC (Bld)36.1 %20.5 - 60.0 %[facility] HospitalMCH (RBC) [Entitic mass]28.7 pg26.7 - 34.0 pgNOMS [facility] Medical CenterHC (RBC) [Mass/Vol]35.9 g/eNSkxf06.9 - 35.2 g/dLGolden Valley Memorial HospitalMCV (RBC) [Entitic vol] 79.7 fLLow81.0 - 99.0 fLGolden Valley Memorial HospitalMONOCYTES ABSOLUTE AUTO0.6NOAudrain Medical Center Monocytes/100 WBC (Bld)8.6 %1.7 - 12.0 %[facility] HealthcareNEUTROPHILS ABSOLUTE AUTO 3.6NOOR HealthcareNeutrophils/100 WBC (Bld)52.8 %43.0 - 75.0 %[facility] Platelet mean volume (Bld) [Entitic vol]10.1 fL9.5 - 13.5 fLGolden Valley Memorial HospitalTBH EO #0.1[facility] HealthcareTBH [id number] [facility] HospitalTBH RBC4.64NOMS [facility] HospitalTB WBC 6.8NOOR HealthcareCLINISYNCNOMS HealthcareAmbulatory Visit Summaryon 08-08-2024 Ambulatory Visit SummaryAmbulatory Visit Summary JULIANNA GUERRA :1980 Visit Date:08/08/2024 Ambulatory Visit Instructions Your Diagnosis Mixed incontinence Cystitis Your Care Team Attending Physician - GEOVANNI HUDSON PA-C Primary Care Physician - MARYCARMEN NAYAK MD Referring Physician - Florin MCCRARY DO This Is Your Medications List amphetamine-dextroamphetamine (amphetamine-dextroamphetamine 10 mg oral tablet) amphetamine-dextroamphetamine (amphetamine-dextroamphetamine 30 mg ER Cap) solifenacin (Vesicare 5 [...] Mouth Every day Refills: 11 Pickup at [facility]/pharmacy#[id number] Unchanged amphetamine-dextroamphetamine (amphetamine-dextroamphetamine 10 mg oral tablet) 1 TabletsBy Mouth Every day TAKE 0.5-1 TABLET BY MOUTH AT 2 PM Unchanged amphetamine-dextroamphetamine (amphetamine-dextroamphetamine 30 mg ER Cap) 1 Capsules By Mouth Once a day (in the morning) TAKE 1 CAPSULE BY MOUTH ONCE DAILY Unchanged topiramate (topiramate 100 mg Tab) 1 Tablets By Mouth Every day Unchanged trazodone (traZODONE 50 mg Tab) 1 Tablets By Mouth Once a day (at bedtime) TAKE 1-2 TABLETS BY MOUTH ONE HOUR PRIOR TO BEDTIME Pharmacy Information [facility]/pharmacy #[id number]: [address], [place] [phone] Allergies Latex (Swelling) Adhesive Bandage (Burn) doxycycline [...] You may also have very sensitive muscles thatmake your bladder squeeze too soon. This condition [...] and whether it is (more content not included)...[facility] Office/Clinic Noteon [id number] Office/Clinic NoteUrology Office/Clinic Note Chief Complaint New patient cystitis [...] Cx 11/10/23 50-100k GBS. Tx by Jeferson Barajas Cx 03/04/24 nl maryellen, 1-9k GBS. Tx by Jeferson Barajas CT wo con 04/14/24 shows 2mm L [...] profile, but most insurances won't cover without tryinganticholinergics first. Therefore we will start with Vesicare/solifenacin. Pt will start with lowest daily dose and slowly titrate up as pt tolerates. I explained the most common side effects are drymouth, dry eyes, and constipation. We discussed OTC options to help with these side effects. Pt will stop medication and call office if side effects become intolerable. We did discuss that there is adocumented potential side effect of mental status changes/confusion in the elderly, but that this risk is quite low. Pt and I agree that potential benefit outweigh risk at this time. For RYAN recommend PFPT. Provided printed info for self-guided exercises. Ordered: E&M of New Patient Moderate 45-59 Min 41497 2. Cystitis (N30.90: Cystitis, unspecified without hematuria) Referred by Dr. Mccrary due to cystitis noted during [facility] assisted laparoscopic hysterectomy done07/04/24. Prescribed doxycycline 100 mg bid x 30d w 1 refill on 07/11/24. Pt states she never started it due tohx severe nausea from Doxy and bc she [...] E&M of New Patient Moderate 45-59 Min 88121 Urnls Dip Stick Auto w/o Microscopy POC 21157 Orders: solifenacin, 5 mg = 1 tab(s), Oral, Daily, # 30 tab(s), Refills(s) 11, Pharmacy: [facility]/pharmacy #[id number], 172, cm, 08/08/24 11:35:00 EDT, Height/Length Dosing, 98, kg, 08/08/24 11:35:00 EDT, Weight Dosing Pt has a lot of other medical concerns at the moment (recovering from hysterectomy, planning to seerheumatology for possible Lupus, among other things) does not wish to schedule f/u at this time. Will call if no sx improvement w Vesicare. Otherwise will f/u in 1 yr. Follow-up With When Contact Information TRISTAN MONTEJO, MELA SHULTZ Within 1 year Additional Instructions: Patient Education Overactive Bladder, Adult Problem List/Past Medical History Ongoing ADHD (attenti (more content not included)...[facility] Comment on above:Result Comment: Electronically Signed By: GEOVANNI HUDSON PA-C\Date and Time Signed: 08/08/2412:27 EDTALL CBC WITH AUTO DIFFon 07-05-2024 BASOPHILS ABSOLUTE AUTO0.0NOOR HealthcareBasophils/100 WBC (Bld)0.1 %Low0.2 - 2.0 %NOMBoone Hospital CenterEosinophils/100 WBC (Bld)0.2 %Low0.9 - 7.0 %[facility] Erythrocyte distribution width (RBC) [Ratio]13.9 %11.0 - 15.0 %[facility] Hematocrit (Bld) [Volume fraction]33.5 %Low36.0 - 48.0 %[facility] Hemoglobin (Bld) [Mass/Vol]12.1 g/dL12.0 - 16.0 g/dLGolden Valley Memorial HospitalIMMATURE GRANULOCYTES ABS AUTO0.04HighGolden Valley Memorial HospitalImmature granulocytes/100 WBC (Bld) 0.3 %0.0 - 0.5 %[facility] HospitalInterpretation and review of laboratory results AbnormalGolden Valley Memorial HospitalLYMPHOCYTES ABSOLUTE AUTO2.6NOMS [facility] Lymphocytes/100 WBC (Bld)20.3 %Low20.5 - 60.0 %[facility] HospitalH (RBC) [Entitic mass]28.3 pg26.7 - 34.0 pgSullivan County Memorial HospitalHC (RBC) [Mass/Vol]36.1 g/yZNpcv99.9 - 35.2 g/dLSullivan County Memorial HospitalV (RBC) [Entitic vol]78.3 fLLow81.0 - 99.0 fLGolden Valley Memorial HospitalMONOCYTES ABSOLUTE AUTO1.1HighGolden Valley Memorial HospitalMonocytes/100 WBC (Bld) 8.4 %1.7 - 12.0 %[facility] HospitalNEUTROPHILS ABSOLUTE AUTO9.1HighGolden Valley Memorial Hospital Neutrophils/100 WBC (Bld)70.7 %43.0 - 75.0 %[facility] HospitalPlatelet mean volume (Bld) [Entitic vol]9.9 fL9.5 - 13.5 fLGolden Valley Memorial HospitalTBH EO #0.0NOMS [facility] TBH [id number] [facility] RBC4.28NOMS [facility] WBC12.9HighNOAudrain Medical CenterCLINISYNFALL RIVER [facility] HealthcareALL CBC WITH AUTO DIFFon [id number] ABSOLUTE AUTO0.0NOMS HealthcareBasophils/100 WBC (Bld)0.1 %Low0.2 - 2.0 %[facility]OM[facility] HealthcareEosinophils/100 WBC (Bld)1.4 %0.9 - 7.0 %[facility] HospitalErythrocyte distribution width (RBC) [Ratio]13.7 %11.0 - 15.0 %[facility]OM[facility] HealthcareHematocrit (Bld) [Volume fraction]36.4 %36.0 - 48.0 %[facility] HospitalHemoglobin (Bld) [Mass/Vol]13.5 g/dL12.0 - 16.0 g/dLGolden Valley Memorial HospitalIMMATURE GRANULOCYTES ABS AUTO 0.03NOMS [facility] HospitalImmature granulocytes/100 WBC (Bld)0.4 %0.0 - 0.5 %[facility] HealthcareInterpretation and review of laboratory resultsAbnormalNOAudrain Medical Center LYMPHOCYTES ABSOLUTE AUTO2.6NOMS [facility] HospitalLymphocytes/100 WBC (Bld)37.1 %20.5 - 60.0 %[facility] (RBC) [Entitic mass]28.7 pg26.7 - 34.0 pgNOAlvin J. Siteman Cancer Center (RBC) [Mass/Vol]37.1 g/xCEphs54.9 - 35.2 g/dLSullivan County Memorial HospitalV (RBC) [Entitic vol]77.4 fLLow81.0 - 99.0 fLGolden Valley Memorial HospitalMONOCYTES ABSOLUTE AUTO0.5NOAudrain Medical CenterMonocytes/100 WBC (Bld)7.6 %1.7 - 12.0 %[facility] NEUTROPHILS ABSOLUTE AUTO3.7NOAudrain Medical CenterNeutrophils/100 WBC (Bld)53.4 %43.0 - 75.0 %[facility] HospitalPlatelet mean volume (Bld) [Entitic vol]9.1 fLLow9.5 - 13.5 fLGeneral Leonard Wood Army Community Hospital EO #0.1NOMS [facility] [id number] [facility] RBC4.70 NOMSelect Specialty Hospital WBC7.0NOAudrain Medical CenterCLINISYNColleton Medical CenterLon 07-04-2024 Specimen: [id number] Received: 07/05/24 Status: DEL Ellis Num: [id number] Spec Type: Surgical Subm Dr: Florin Mccrary Tissues: A Uterus w/ or w/o tubes ovaries except neoplastic or prolap (UTERUS AND CER Procedures: HE/11, Gross/Micro L5 Age/ Patient Sex Location Account Attending Physician Julianna Guerra 44/F LABELL [id number] Florin Mccrary SPEC NUM: [id number] RECD: 07/05/24 STATUS: DEL ELLIS NUM: [id number] LACHELLE: 07/04/[address]: Florin Mccrary ENTERED: 07/05/[address] [facility] [address]: Mathieu,Lab SPEC TYPE: Surgical DEPT: DONALD BADILLO ORDERED: HE/, Gross/Micro L5 ORDERED: HE, Gross/Micro L5 Pathological Diagnosis Uterus, cervix, right [...] Clinical Information Menorrhagia, pelvic pain, dyspareunia, dysmenorrhea Specimen: [id number] Received: 07/05/24 Status: ADDIEmil Ellis Num: [id number] Spec Type: Surgical Subm Dr: Florin Mccrary Tissues: A Uterus w/ or w/o tubes ovaries except neoplastic or prolap (UTERUS AND CER Procedures: , Gross/Micro L5 Patient: MariJulianna [id number] (Continued) Specimen: [id number] Received: 07/05/24 (Continued) Signed (signature on file) Radha Ross MD 07/15/241806 Specimen: [id number] Received: 07/05/24 Status: DEL Ellis Num: [id number] Spec Type: Surgical Subm Dr: Florin Mccrary Tissues: A Uterus w/ or w/o tubes ovaries except neoplastic or prolap (UTERUS AND CER Procedures: , Gross/Micro L5 Patient: Julianna Guerra [id number] (Continued) Specimen: [id number] Received: 07/05/24-4980 (Continued) Gross Description The specimen was received [...] A4 posterior cervix A5-A7 posterior endomyometrium A8 solar sales representative section of the right ovary A9 solar sales representative sections of the exterior ovarian cyst A10 solar sales representative sections of the first fallopian tube A11 solar sales representative sections of the second fallopian tube DM Microscopic Description Microscopic examinations are performed supporting the above inte (more content not included)...NormalThe Critical Access Hospital Physician GroupLon [id number]: [id number] Received: 05/21/24 Status: DEL Ellis Num: [id number] Spec Type: Surgical Subm Dr: Florin Mccrary Tissues: A Endometrium - Biopsy (EMBX) Procedures: HE/2, Gross/Micro L4 Age/ Patient Sex Location Account Attending Physician Julianna Guerra 44/F [place] [id number] Florin Mccrary SPEC NUM: [id number] RECD: 05/21/24 STATUS: DEL ELLIS NUM: [id number] LACHELLE: 05/20/[address]: Florin Mccrary ENTERED: 05/21/[address] [facility] [address]: Mathieu,Lab SPEC TYPE: Surgical DEPT: DONALD [...] are performed supporting the above interpretation Specimen: [id number] Received: 05/21/24 Status: DEL Ellis Num: [id number] Spec Type: Surgical Subm Dr: Florin Mccrary Tissues: A Endometrium - Biopsy (EMBX) Procedures: HE/Chani, Gross/Micro L4 Patient: Julianna Guerra [id number] (Continued) Specimen: [id number] Received: 05/21/24 (Continued) Signed (signature on file) Radha Ross MD 05/23/241831 Specimen: [id number] Received: 05/21/24 Status: DEL Ellis Num: [id number] Spec Type: Surgical Subm Dr: Florin Mccrary Tissues: A Endometrium - Biopsy (EMBX) Procedures: DEMARCO/ Gross/Micro L4 Patient: Julianna Guerra [id number] (Continued) Specimen: [id number] Received: 05/21/24 (Continued) CPT Codes 40090 Specimen: [id number] Received: 05/21/24 Status: DEL Ellis Num: [id number] Spec Type: Surgical Subm Dr: Florin Mccrary Tissues: A Endometrium - Biopsy (EMBX) Procedures: Gross/Micro L4 Patient: Julianna Guerra [id number] (Continued) Signed (signature on file) Radha Ross MD 05/23/[address] [place] [address] Physician [facility] HospitalI Ankle w/o Lefton [id number] Ankle w/o LeftHISTORY: Posterior ankle pain for 8 weeks. Achilles [...] and signed by Tyler Loza on 09/15/2022 1103NormalNorthopi health care centern [place] [facility] SpecialistXR Chest 2 Views*on [id number] Chest 2 Views*FINDINGS: Mild diffuse interstitial prominence with peribronchial thickening. No parenchymal consolidation or alveolar infiltrates, pulmonary edema or pleural effusion. No pneumothorax. Normal cardiac silhouette size. Mild mid thoracic dextroscoliosis. IMPRESSION: Parenchymal findings can be consistent with interstitial pneumonia, asthma Report reported and signed by Dayton Graves on 05/05/2022 1225NormalNorthopi health care centern [facility] SpecialistCovid-19 PCR (CVDTBH)on 40-56-5070PWWH-CoV-2 (COVID-19) RNA ANTHONY+probe Ql (Unsp spec)Not detectedNormalNOT DETECTEDThe [facility] Comment on above:Result Comment: This test is not yet approved or cleared by the [place] FDA. When there are no FDA-approved or cleared tests available, and other criteria are met, FDA can make tests available under an emergency access mechanism called an Emergency Use Authorization (EUA). The EUA for this test is supported by the [place] of Health and Human Service's (HHS's) declaration that circumstances exist to justify the emergency use of in vitro diagnostics for the detection and/or diagnosis of the virus that causes COVID- 19. This EUA will remain in effect (meaning [...] of clinical signs and symptoms consistent with SARS-CoV-2.Performed By: #### CVDTBH #### [facility] [address] [address] [address] Carolyn [facility]MIDDLESB[facility] auto differentialOrdered By: María Barnes on 07-29-2021 Absolute Eos #0.10[facility] [employer] Phone: absolute Immature Granulocyte0.04[facility] [employer] Phone: absolute Lymph #2.71[facility] [employer] Phone: absolute [place] #0.97[facility] Phone: basophils (Bld) [#/Vol]10*3/uLAvita Health SystemArchipelago Phone: basophils/100 WBC (Bld)0 %0 - 2 %[facility] Phone: differential TypeNOT REPORTEDAvita Health SystemArchipelago Phone: eosinophils/100 WBC (Bld)1 %1 - 4 %[facility] Phone: Hematocrit (Bld) [Volume fraction]36.2 %Low36.3 - 47.1 %[facility] Phone: Hemoglobin.gastrointestinal spec 1 Ql (Stl)13.0 g/dL 11.9 - 15.1 g/dLAvita Health SystemArchipelago Phone: Immature granulocytes/100 WBC (Bld)0 %0[facility] Phone: Interpretation and review of laboratory results AbnormalAvita Health SystemArchipelago Phone: lymphocytes/100 WBC (Bld)26 %24 - 43 %[facility] Phone: MCH (RBC) [Entitic mass]27.4 pg25.2 - 33.5 pgAvita Health SystemArchipelago Phone: MCHC (RBC) [Mass/Vol]35.9 g/tQJwsg45.4 - 34.8 g/dL [facility] Phone: MCV (RBC) [Entitic vol]76.2 fLLow82.6 - 102.9 fLClarity Health Services Phone: Monocytes/100 WBC (Bld)9 %3 - 12 %[facility] Phone: NRBC Automated0.00.0 per 100 WBCClarity Health Services Phone: platelet distribution width (Bld) [Ratio]13.2 %11.8 - 14.4 %[facility] Phone: Platelet EstimateNOT REPORTEDClarity Health Services Phone: Platelet mean volume (Bld) [Entitic vol]11.4 fL8.1 - 13.5 fLAvita Health SystemArchipelago Phone: [phone] (Bld) [#/Vol]229 10*3/uLAvita Health SystemArchipelago Phone: [phone] (Bld) [#/Vol]4.75 10*6/uL3.95 - 5.11 m/Rough Cut FilmsAvita Health SystemArchipelago Phone: [phone] (Bld) [#/Vol]NOT REPORTEDAvita Health SystemArchipelago Phone: Segmented neutrophils/100 WBC (Bld)64 %36 - 65 %[facility] Phone: Segs Absolute6.79[facility] Phone: [phone] (Bld) [#/Vol]10.6 10*3/[place] Phone: [phone] (Bld) [#/Vol]NOT REPORTEDAvita Health SystemArchipelago Phone: [facility] Phone: CBC with Diffon 46-17-0029Bbt. Basophil<0.03Normal 0.00-0.20[facility] Health SystemComment on above:Performed By: #### CDP #### [facility] [address] [place] [address] [place] [address] Team Driver: Keri Cohen.Imm.Granulocyte0.04 k/uLNormal0.00-0.30[facility] Health SystemComment on above:Performed By: #### CDP #### [facility] [address] [place] [address] Team Driver: Keri Cohen.Neutrophil (Seg)6.79 k/uLNormal1.50-8.10[facility] HospitalComment on above:Performed By: #### CDP #### [address] [place] [address] Team Driver: Tico Minaya MDBasophils/100 WBC (Bld)0 %Normal0-2[facility] HospitalComment on above:Performed By: #### CDP #### [address] [place] [address] Team Driver: Tico Minaya MDEosinophils (Bld) [#/Vol]0.10 10*3/uLNormal 0.00-0.44[facility] HospitalComment on above:Performed By: #### CDP #### [address] [place] [address] Team Driver: THERON Cohenosinophils/100 WBC (Bld)1 %Normal1-4[facility] HospitalComment on above:Performed By: #### CDP #### [address] [place] [address] Team Driver: Tico Minaya MDErythrocyte distribution width (RBC) [Ratio]13.2 % Cjexny48.8-14.4[facility] HospitalComment on above:Performed By: #### CDP #### [address] [place] [address] Team Driver: Tico Minaya MDHematocrit (Bld) [Volume fraction]36.2 %Low 36.3-47.1[facility] HospitalComment on above:Performed By: #### CDP #### [address] [place] [id number] Team Driver: Tico Minaya MDHemoglobin (Bld) [Mass/Vol]13.0 g/dLNormal 11.9-15.1MercCleveland Clinic Lutheran Hospital HospitalComment on above:Performed By: #### CDP #### [address] [place], [place] [address] Team Driver: Isabel Cohenture granulocytes/100 WBC (Bld)0 %Alzvts7Tfriu [facility]iffin HospitalComment on above:Performed By: #### CDP #### [address] [place] [address] Team Driver: Yasmeen Cohenmphocytes (Bld) [#/Vol]2.71 10*3/uLNormal 1.10-3.70[facility] HospitalComment on above:Performed By: #### CDP #### [address] [place], [place] [address]83 Team Driver: Yasmeen Cohenmphocytes/100 WBC (Bld)26 %Ydkflr05-49Qpqrd [facility]iffin HospitalComment on above:Performed By: #### CDP #### [address] [place], [place] [id number] Team Driver: MARIA INES Cohen (RBC) [Entitic mass]27.4 daRcqsro80.2-33.5 [facility] HospitalComment on above:Performed By: #### CDP #### [address] [place], [place] [address]83 Team Driver: MARIA INES CohenC (RBC) [Mass/Vol]35.9 g/zOJjkn10.4-34.8[facility] HospitalComment on above:Performed By: #### CDP #### [address] [place] [address] Team Driver: MILLI CohenCV (RBC) [Entitic vol]76.2 fLLow82.6-102.9[facility] HospitalComment on above:Performed By: #### CDP #### [address] [place] [address] Team Driver: MILLI Cohenonocytes (Bld) [#/Vol]0.97 10*3/uLNormal0.10-1.20 [facility] HospitalComment on above:Performed By: #### CDP #### [address] [place] [address] Team Driver: MILLI Cohenonocytes/100 WBC (Bld)9 %Normal3-12MerBlanchard Valley [facility] HospitalComment on above:Performed By: #### CDP #### [address] [place], [place] [address] Team Driver: Marcelo Cohenutrophil (Seg)64 %Pyewhn12-09Oqysr [facility]iffin HospitalComment on above:Performed By: #### CDP #### [address] [place], [facility] Team Driver: Tico Minaya MDNRBC Automated0.0 per 100 WBCNormal0.0[facility] HospitalComment on above:Performed By: #### CDP #### [address] [place] [address] Team Driver: Lawrence Cohenteivone mean volume (Bld) [Entitic vol]11.4 fL Normal8.1-13.5[facility] Health SystemComment on above:Performed By: #### CDP #### [address] [place] [address] Team Driver: VERONICA Cohenlatelets (Bld) [#/Vol]229 10*3/zABttwok662-818 [facility] HospitalComment on above:Performed By: #### CDP #### [address] [place], [place] [id number] Team Driver: Tico Sturtz, MDRBC (Bld) [#/Vol]4.75 10*6/uLNormal3.95-5.11[facility] HospitalComment on above:Performed By: #### CDP #### [facility] [address] [place] [address] Dr[place], [place] [phone] Team Driver: MARCIN Cohen (Bld) [#/Vol]10.6 10*3/uLNormal3.5-11.3MSelect Medical Specialty Hospital [facility] Board[facility], Inc HospitalComment on above:Performed By: #### CDP #### [facility] [address] [place] [address] [place] [address] Team Driver: Debby Cohen PerformedNOT REPORTEDNormalGreene Memorial Hospital HospitalComment on above:Performed By: #### CDP #### [address] [place] [address] Team Driver: Delio Cohen EstimateNOT REPORTEDNormalGreene Memorial Hospital HospitalComment on above:Performed By: #### CDP #### [address] [place] [address] Team Driver: LUIS Cohen morphology finding Nom (Bld)NOT REPORTEDNormal [facility] Health SystemComment on above:Performed By: #### CDP #### [address] [place] [address] Team Driver: MARCIN Cohen MorphologyNOT REPORTEDNormalGreene Memorial Hospital HospitalComment on above:Performed By: #### CDP #### [facility] [address] [place] [address] [place] [address] Team Driver: Kayden Cohen,Urineon [id number],UrineSpecimen Description .CLEAN CATCH URINE Special Requests NOT REPORTED Culture NO SIGNIFICANT GROWTH Report Status FINAL 07/29/2021NormalGreene Memorial Hospital HospitalComment on above: Performed By: #### URC #### [facility] [address] [place] [address] Team Driver: Kvng Soares MD [facility] [address] [place] [address] Team Driver: Tico Minaya, MDDRUG SCREEN MULTI URINEOrdered By: María Barnes on [id number] Screen, UrNegativeNEGATIVEMercy Health Work Phone: barbiturate Screen, UrNegativeNEGATIVEMercy Health Work Phone: benzodiazepine Screen, UrineNegativeNEGATIVEMercy Health Work Phone: buprenorphine UrineNegativeNEGATIVEMercy Health Work Phone: cannabinoid Scrn, UrNegativeNEGATIVEMercy Health Work Phone: cocaine Metabolite, UrineNegativeNEGATIVEMercy Health Work Phone: MDMA, UrineNOT REPORTEDNEGATIVEMercy Health Work Phone: Methadone Screen, UrineNegativeNEGATIVEMercy Health Work Phone: Methamphetamine, UrineNegativeNEGATIVEMercy Health Work Phone: Opiates, UrineNegativeNEGATIVEMercy Health Work Phone: Oxycodone Screen, UrNegativeNEGATIVEMercy Health Work Phone: phencyclidine, UrineNegativeNEGATIVEMercy Health Work Phone: propoxyphene, UrineNegativeNEGATIVEMercy Health Work Phone: Test InformationNOT REPORTEDMercy Health Work Phone: Tricyclic Antidepressants, UrineNegativeNEGATIVEMercy Health Work Phone: comment on above:Drug screen results are to be used for medical purposes only. All positive results are unconfirmed. Testing for employment or legal uses should be sent to a reference laboratory for confirmation. [facility] Work Phone: drug Scr, Abuse, Uron [id number](s),Ur NegativeNormalNEGMercy Wichita HospitalComment on above:Performed By: #### ELIZABETH #### [address] [place] [address] Team Driver: Tico Minaya MDBarbiturate(s),UrNegativeNormalNEGMercy Wichita HospitalComment on above:Performed By: #### ELIZABETH #### [address] [place] [address] Team Driver: Tico Minaya MDBenzodiazepine(s)NegativeNormalNEGMercy Wichita HospitalComment on above:Performed By: #### ELIZABETH #### [address] [place], [facility] Team Driver: Tico Minaya MDBuprenorphrine, UrNegativeNormalNEGMercy Wichita HospitalComment on above:Performed By: #### ELIZABETH #### [address] [place] [address] Team Driver: GILMAR Cohenannabinoid(s),UrNegativeNormalNEGMercy Wichita HospitalComment on above:Performed By: #### ELIZABETH #### [address] [place] [address] Team Driver: GILMAR Cohenocaine MetaboliteNegativeNormalNEGMercy Wichita HospitalComment on above:Performed By: #### ELIZABETH #### [address] [place] [address] Team Driver: MILLI Cohenethadone Ql (U)NegativeNormalNEGMercy Wichita HospitalComment on above:Performed By: #### ELIZABETH #### [address] [place] [address] Team Driver: MILLI Cohenethamphetamine, UrNegativeNormalNEGMercy Wichita HospitalComment on above:Performed By: #### ELIZABETH #### [facility] [address] [place] [address] Dr[place], [place] [id number] Team Driver: Tico Minaya MDOpiate(s), UrNegativeNormalNEGMercy Wichita HospitalComment on above:Performed By: #### ELIZABETH #### [facility] [address] [place] [address] Dr[place], [place] [phone] Team Driver: Tico Minaya MDOxycodone, UrineNegativeNormalNEGMercy Wichita HospitalComment on above:Performed By: #### ELIZABETH #### [address] [place], [place] [id number] Team Driver: VERONICA Cohenhencyclidine, UrNegativeNormalNEGMercy Wichita HospitalComment on above:Performed By: #### ELIZABETH #### [address] [place] [address] Team Driver: VERONICA Cohenropoxyphene,UrineNegativeNormalNEGMercy Wichita HospitalComment on above:Performed By: #### ELIZABETH #### [address] [place], [place] [id number] Team Driver: Tico Minaya MDTricyclic antidepressants Screen Ql (U)Negative NormalNEGMercy Saint Mary'S HospitalComuniversity of michigan health on above:Result Comment: Drug screen results are to be used for medical purposes only. All positive results are unconfirmed. Testing for employment or legal uses should be sent to a reference laboratory for confirmation.Performed By: #### ELIZABETH #### [facility] [address] [place] [address] Dr[place], [place] [id number] Team Driver: Tico Minaya MDInterpretive InfoNOT REPORTEDNormalMercy Wichita HospitalComment on above:Performed By: #### ELIZABETH #### [facility] [address] [place] [address] Dr. [place], [place] 5021683 Team Driver: MILLI CohneDMA, UrineNOT REPORTEDNormalNEGMercy Saint Mary'S HospitalComment on above:Performed By: #### ELIZABETH #### [facility] [address] [place] [address] Dr[place], [place] 3375983 Team Driver: Tico Minaya MDGlucose, Whole BloodOrdered By: María Barnes on [id number] [Mass/Vol]100 mg/dL74 - 100 mg/dLAdams County Regional Medical Center Work Phone: [facility] [employer] Work Phone: Urinalysis, Routineon [id number], SemiQt,Ur NegativeNormalNEGMerBlanchard Valley Health System [facility] HospitalComment on above:Performed By: #### PIPE MEDELLIN #### [facility] [address] [place] [address] [place] [address] Team Driver: Tico Minaya MDBlashish, UrineNegativeNormalLake County Memorial Hospital [facility] West Comment on above:Performed By: #### PIPE MEDELLIN #### [facility] [address] [place] [address] [place] [address] Team Driver: GILMAR Cohenlarity (U)CLEARNormalCLEARHolzer Health System Comment on above:Performed By: #### VIGNESH UA #### [facility] [address] [place] [address] Dr[place], [place] 5062483 Team Driver: GILMAR Cohenolor (U)YELLOWNormalYHolzer Health System Comment on above:Performed By: #### VIGNESH UA #### [facility] [address] [place] [address] Dr[place], [place] 7076383 Team Driver: Yomi Cohen Ql (U)NegativeNormalNEGGreene Memorial Hospital HospitalComment on above:Performed By: #### PIPE MEDELLIN #### [facility] [address] [place] [address] [place] [address] Team Driver: Tico Minaya MDKetones Ql (U)NegativeNormalNEGMercy Wichita HospitalComment on above:Performed By: #### UMICAO, UA #### [facility] [address] [place] [address] [place] [address] Team Driver: Tico Mniaya MDLeukocyte esterase Test strip Ql (U)SMALLAbnormal NEGMercy Saint Mary'S HospitalComment on above:Performed By: #### UMICAO, UA #### [facility] [address] [place] [address] [place] [address] Team Driver: Tico Minaya MDNitrite,UrNegativeNormalNEGHolzer Health System Comment on above:Performed By: #### VIGNESH, UA #### [facility] [address] [place] [address] [place] [address] Team Driver: VERONICA Cohen,Ur7.5Xohozi8.0-9.0Mercy Saint Mary'S HospitalComment on above:Performed By: #### BETTYEO, UA #### [address] [place] [address] Team Driver: Vinicio Cohen Ql (U)NegativeNormalNEGMercy Wichita HospitalComment on above:Performed By: #### UMICAO, UA #### [facility] [address] [place] [address] [place] [address] Team Driver: CAROLYNE Cohenpec. [place],Ur1.346Numilx0.010-1.020Mercy Saint Mary'S HospitalComment on above:Performed By: #### UMICAO, UA #### [facility] [address] [place] [address] [place] [address] Team Driver: Jazmin Cohenbilinogen,UrNormalNormalNORMMercy Wichita HospitalComment on above:Performed By: #### UMICAO, UA #### [facility] [address] [place], [place] 7890883 Team Driver: Reji CohenNOT REPORTEDRegional Medical Center Comment on above:Performed By: #### UMICAO, UA #### [facility] [address] [place] [address] Team Driver: Tico Minaya MDUrinalysis,Microon 07-28-2021-----NormalHolzer Health SystemComment on above:Performed By: #### UMICAO, UA #### [facility] [address] [place], [place] 3390983 Team Driver: Tico Minaya MDEpithelial cells LM Ql (Urine sed)5 TO 10Normal 0-25Holzer Health SystemComment on above:Performed By: #### UMICAO, UA #### [facility] [address] [place] [address] Team Driver: Vee Cohen RBC'sNoneNormal0-2MOhioHealth Doctors Hospital Comment on above:Performed By: #### UMICAO, UA #### [facility] [address] [place], [place] 8970883 Team Driver: Vee Cohen WBC's0 TO 7Gquvia6-0DpmdbHolzer Health System Comment on above:Performed By: #### UMICAO, UA #### [facility] [address] [place], [place] 4861783 Team Driver: Gomez Cohen sediment LM Ql (Urine sed)NOT REPORTED NormalNONEMeBackus HospitalComment on above:Performed By: #### UMICAO, UA #### [facility] [address] [place], [place] 6948683 Team Driver: Brady CohencteriaNOT REPORTEDNormalNONEMeBrentwood Behavioral Healthcare of [facility] HospitalComment on above:Performed By: #### UMICAO, UA #### [facility] [address] [place] [address] Team Driver: GILMAR CohenastsNOT REPORTEDNormalGreene Memorial Hospital Hospital Comment on above:Performed By: #### CHAYITOICAO, UA #### [facility] [address] [place] [address] Team Driver: Whitney Cohen LM Nom (Urine sed)NOT REPORTEDNormalNONE [facility] HospitalComment on above:Performed By: #### BETTYEO, UA #### [facility] [address] [place] [address] Team Driver: Tico Minaya MDEpithelial, RenalNOT UWEERGOJMnjdlz4Axrcw Wichita HospitalComment on above:Performed By: #### UMICAO, UA #### [facility] [address] [place] [address] Team Driver: Marlee Cohenus StrandsNOT REPORTEDNormalNONEMeBrentwood Behavioral Healthcare of Mississippi HospitalComment on above:Performed By: #### UMICAO, UA #### [facility] [address] [place] [address] [place] [address] Team Driver: Cordell Cohen ObservationsNOT REPORTEDNormalNREQAvita Health Systemcy Wichita HospitalComment on above:Performed By: #### UMICAO, UA #### [facility] [address] [place] [address] Team Driver: Angela CohenhomonasNOT REPORTEDNormalNONEMeBrentwood Behavioral Healthcare of [facility] HospitalComment on above:Performed By: #### CHAYITOICAO, UA #### [facility] [address] [place] [address] Team Driver: Johana CohenastNOT REPORTEDNormalNONOhio State University [facility] Comment on above:Performed By: #### UMICAO, UA #### [facility] [address] [place] [address] Team Driver: MILLI Cohenicroscopic UrinalysisOrdered By: María Barnes on 07-27-2021-[facility] Work Phone: amorphous, UANOT REPORTEDNoneMercy Health Work Phone: bacteria, UANOT REPORTEDNoneMercy Health Work Phone: Pasts UANOT REPORTED/LPFMercy Health Work Phone: crystals, UANOT REPORTEDNone /HPFMercy Health Work Phone: epithelial Cells UA5 TO 10[facility] Work Phone: Mucus, UANOT REPORTEDNoneMercy Health Work Phone: Other Observations UANOT REPORTEDNOT REQ.[facility] Work Phone: VBC, UANoneMercy Health Work Phone: renal Epithelial, UANOT REPORTED0 /HPFMercy Health Work Phone: Trichomonas, UANOT REPORTEDNoneMercy Health Work Phone: WBC, UA0 TO 2[facility] Work Phone: Yeast, UANOT REPORTEDNoneMercy Health Work Phone: [facility] Work Phone: UrinalysisOrdered By: María Barnes on 07-27-2021 Bilirubin UrineNegativeNEGATIVEMercy Health Work Phone: color, UAYELLOWYELLOWMercy Health Work Phone: Glucose, UrNegativeNEGATIVEMercy Health Work Phone: Interpretation and review of laboratory results AbnormalMerNano [employer] Engines Work Phone: Ketones Ql (U)NegativeNEGATIVEMerWirelessGate Health Work Phone: leukocyte esterase Test strip Ql (U)SMALLAbnormal NEGATIVEAvita Health SystemWirelessGate Health Work Phone: Nitrite, UrineNegativeNEGATIVEMerWirelessGate Health Work Phone: pH, UA7.0[facility] Work Phone: protein, UANegativeNEGATIVEAvita Health SystemWirelessGate Health Work Phone: specific [place], UA1.010[facility] Work Phone: Turbidity UACLEARCLEARMerWirelessGate Health Work Phone: Urinalysis CommentsNOT REPORTEDMerNano Network Engines Work Phone: Urine HgbNegativeNEGATIVEMerWirelessGate Health Work Phone: Urobilinogen, UrineNormalNormalMercy Health Work Phone: [facility] Work Phone: cBC auto differentialOrdered By: Selma Sifuentes on [id number] Eos #PLEASE DISREGARD RESULTS. SPECIMEN CONTAMINATED.[facility] Phone: comment on above:CORRECTED ON 07/21 AT 0451: PREVIOUSLY REPORTED <0.03Absolute Immature GranulocytePLEASE DISREGARD RESULTS. SPECIMEN CONTAMINATED.[facility] Phone: comment on above:CORRECTED ON 07/21 AT 0451: PREVIOUSLY REPORTED <0.03Absolute Lymph #PLEASE DISREGARD RESULTS. SPECIMEN CONTAMINATED.[facility] Phone: comment on above:CORRECTED ON 07/21 AT 0451: PREVIOUSLY REPORTED 1.38Absolute [place] #PLEASE DISREGARD RESULTS. SPECIMEN CONTAMINATED.[facility] Phone: comment on above:CORRECTED ON 07/21 AT 0451: PREVIOUSLY REPORTED 0.48Basophils (Bld) [#/Vol]PLEASE DISREGARD RESULTS. SPECIMEN CONTAMINATED.0 - 2 %[facility] Phone: comment on above:CORRECTED ON 07/21 AT 0451: PREVIOUSLY REPORTED 0Basophils AbsolutePLEASE DISREGARD RESULTS. SPECIMEN CONTAMINATED.[facility] Phone: comment on above:CORRECTED ON 07/21 AT 0451: PREVIOUSLY REPORTED <0.03Differential TypeNOT REPORTEDClarity Health Services Phone: eosinophils %PLEASE DISREGARD RESULTS. SPECIMEN CONTAMINATED.1 - 4 %[facility] Phone: comment on above:CORRECTED ON 07/21 AT 0451: PREVIOUSLY REPORTED 0Hematocrit (Bld) [Volume fraction]PLEASE DISREGARD RESULTS. SPECIMEN CONTAMINATED.36.3 - 47.1 %[facility] Phone: comment on above:CORRECTED ON 07/21 AT 0451: PREVIOUSLY REPORTED 20.1Hemoglobin.gastrointestinal spec 1 Ql (Stl)PLEASE DISREGARD RESULTS. SPECIMEN CONTAMINATED.11.9 - 15.1 g/dLClarity Health Services Phone: comxtmd on above:CORRECTED ON 07/21 AT 0451: PREVIOUSLY REPORTED 6.8Immature GranulocytesPLEASE DISREGARD RESULTS. SPECIMEN CONTAMINATED.0 %[facility] Phone: comkuwo on above:CORRECTED ON 07/21 AT 0451: PREVIOUSLY REPORTED 0Lymphocytes (Bld) [#/Vol]PLEASE DISREGARD RESULTS. SPECIMEN CONTAMINATED.24 - 43 %[facility] Phone: comment on above:CORRECTED ON 07/21 AT 0451: PREVIOUSLY REPORTED 24MCH (RBC) [Entitic mass]PLEASE DISREGARD RESULTS. SPECIMEN CONTAMINATED.25.2 - 33.5 pgClarity Health Services Phone: comment on above:CORRECTED ON 07/21 AT 0451: PREVIOUSLY REPORTED 27.6MCHC (RBC) [Mass/Vol]PLEASE DISREGARD RESULTS. SPECIMEN CONTAMINATED.28.4 - 34.8 g/dLAvita Health SystemArchipelago Phone: comlwzn on above:CORRECTED ON 07/21 AT 0451: PREVIOUSLY REPORTED 33.8MCV (RBC) [Entitic vol]PLEASE DISREGARD RESULTS. SPECIMEN CONTAMINATED.82.6 - 102.9 MDClarity Health Services Phone: comceax on above:CORRECTED ON 07/21 AT 0451: PREVIOUSLY REPORTED 81.7Monocytes (Bld) [#/Vol]PLEASE DISREGARD RESULTS. SPECIMEN CONTAMINATED.3 - 12 %[facility] Phone: combtar on above:CORRECTED ON 07/21 AT 0451: PREVIOUSLY REPORTED 8NRBC AutomatedNOT REPORTED0.0 per 100 WBCAvita Health SystemArchipelago Phone: platelet distribution width (Bld) [Ratio]PLEASE DISREGARD RESULTS. SPECIMEN CONTAMINATED.11.8 - 14.4 %[facility] Phone: comsmsj on above:CORRECTED ON 07/21 AT 0451: PREVIOUSLY REPORTED 13.2Platelet EstimateNOT [facility] CenterAr[facility] Phone: platelet mean volume (Bld) [Entitic vol]PLEASE DISREGARD RESULTS. SPECIMEN CONTAMINATED.8.1 - 13.5 MDClarity Health Services Phone: comakgb on above:CORRECTED ON 07/21 AT 0451: PREVIOUSLY REPORTED 11.2Platelets (Bld) [#/Vol]PLEASE DISREGARD RESULTS. SPECIMEN CONTAMINATED.[facility] Phone: comhqxz on above:CORRECTED ON 07/21 AT 0451: PREVIOUSLY REPORTED 129RBC (Bld) [#/Vol]PLEASE DISREGARD RESULTS. SPECIMEN CONTAMINATED.3.95 - 5.11 m/[place] Phone: comorrn on above:CORRECTED ON 07/21 AT 0451: PREVIOUSLY REPORTED 2.46RBC (Bld) [#/Vol]NOT REPORTEDMerArchipelago Phone: seg NeutrophilsPLEASE DISREGARD RESULTS. SPECIMEN CONTAMINATED.36 - 65 %[facility] Phone: comment on above:CORRECTED ON 07/21 AT 0451: PREVIOUSLY REPORTED 68Segs AbsolutePLEASE DISREGARD RESULTS. SPECIMEN CONTAMINATED.[facility] Phone: comment on above:CORRECTED ON 07/21 AT 0451: PREVIOUSLY REPORTED 3.95WBC (Bld) [#/Vol]PLEASE DISREGARD RESULTS. SPECIMEN CONTAMINATED.[facility] Phone: comment on above:CORRECTED ON 07/21 AT 0451: PREVIOUSLY REPORTED 5.9WBC (Bld) [#/Vol]NOT REPORTEDAvita Health SystemArchipelago Phone: [facility] SystemAr[facility] Phone: cbc with Diffon [id number]. BasophilPLEASE DISREGARD RESULTS. SPECIMEN CONTAMINATED.Normal0.00-0.20[facility] Comment on above:Result Comment: CORRECTED ON 07/21 AT 0451: PREVIOUSLY REPORTED <0.03Performed By: #### CDP #### [address] [place] [id number] Team Driver: Keri Cohen. EosinophilPLEASE DISREGARD RESULTS. SPECIMEN CONTAMINATED.Normal0.00-0.44Hol[facility] Health SystemComment on above:Result Comment: CORRECTED ON 07/21 AT 0451: PREVIOUSLY REPORTED <0.03Performed By: #### CDP #### [address] [place], [place] 3808183 Team Driver: Keri Cohen. LymphPLEASE DISREGARD RESULTS. SPECIMEN CONTAMINATED.Normal1.10-3.70Hol[facility] Health SystemComment on above:Result Comment: CORRECTED ON 07/21 AT 0451: PREVIOUSLY REPORTED 1.38Performed By: #### CDP #### [address] [place], [facility] Team Driver: Keri Cohen. MonocytePLEASE DISREGARD RESULTS. SPECIMEN CONTAMINATED.Normal0.10-1.20[facility]ichita HospitalComment on above:Result Comment: CORRECTED ON 07/21 AT 0451: PREVIOUSLY REPORTED 0.48Performed By: #### CDP #### [address] [place] [address] Team Driver: Keri Cohen.Imm.GranulocytePLEASE DISREGARD RESULTS. SPECIMEN CONTAMINATED.Normal0.00-0.30[facility] HospitalComment on above: Result Comment: CORRECTED ON 07/21 AT 0451: PREVIOUSLY REPORTED <0.03 Performed By: #### CDP #### [address] [place] [address] Team Driver: Keri Cohen.Neutrophil (Seg)PLEASE DISREGARD RESULTS. SPECIMEN CONTAMINATED.Normal1.50-8.10MerBlanchard Valley Health [facility] HospitalComment on above: Result Comment: CORRECTED ON 07/21 AT 0451: PREVIOUSLY REPORTED 3.95Performed By: #### CDP #### [address] [place] [address] Team Driver: Tico Minaya MDBasophilPLEASE DISREGARD RESULTS. SPECIMEN CONTAMINATED.Normal0-2[facility] HospitalComment on above:Result Comment: CORRECTED ON 07/21 AT 0451: PREVIOUSLY REPORTED 0Performed By: #### CDP #### [address] [place] [address] Team Driver: Tico Minaya MDEosinophilPLEASE DISREGARD RESULTS. SPECIMEN CONTAMINATED.Normal1-4[facility] HospitalComment on above:Result Comment: CORRECTED ON 07/21 AT 0451: PREVIOUSLY REPORTED 0Performed By: #### CDP #### [address] [place], [place] 4037183 Team Driver: Tico Minaya MDHematocritPLEASE DISREGARD RESULTS. SPECIMEN CONTAMINATED.Zzvvus53.3-47.1MercUniversity of Connecticut Health Center/John Dempsey HospitalComment on above:Result Comment: CORRECTED ON 07/21 AT 0451: PREVIOUSLY REPORTED 20.1Performed By: #### CDP #### [facility] [address] [place], [place] 0592183 Team Driver: Tico Minaya MDHemoglobinPLEASE DISREGARD RESULTS. SPECIMEN CONTAMINATED.Vtvcme27.9-15.1[facility]'S HospitalComment on above:Result Comment: CORRECTED ON 07/21 AT 0451: PREVIOUSLY REPORTED 6.8Performed By: #### CDP #### [facility] [address] [place] [address] Dr. [place], [place] [phone] Team Driver: Issac Cohenmature GranulocytePLEASE DISREGARD RESULTS. SPECIMEN CONTAMINATED.Uztabu6EnwsqNorwalk HospitalComment on above:Result Comment: CORRECTED ON 07/21 AT 0451: PREVIOUSLY REPORTED 0Performed By: #### CDP #### [address] [place] [address] Team Driver: Yasmeen CohenmphocytePLEASE DISREGARD RESULTS. SPECIMEN CONTAMINATED.Wrvcwv25-72XxnohNorwalk HospitalComment on above:Result Comment: CORRECTED ON 07/21 AT 0451: PREVIOUSLY REPORTED 24Performed By: #### CDP #### [facility] [address] [place] [address] [place] [address] Team Driver: MILLI CohenCHPLEASE DISREGARD RESULTS. SPECIMEN CONTAMINATED.Vaxpgw15.2-33.5MerNorwalk HospitalComment on above:Result Comment: CORRECTED ON 07/21 AT 0451: PREVIOUSLY REPORTED 27.6Performed By: #### CDP #### [address] [place], [place] [id number] Team Driver: MILLI CohenCHCPLEASE DISREGARD RESULTS. SPECIMEN CONTAMINATED.Sbgiia36.4-34.8[facility] HospitalComment on above:Result Comment: CORRECTED ON 07/21 AT 0451: PREVIOUSLY REPORTED 33.8Performed By: #### CDP #### [facility] [address] [place] [address] Dr. [place], [place] [phone] Team Driver: MILLI CohenCVPLEASE DISREGARD RESULTS. SPECIMEN CONTAMINATED.Jhgrvh98.6-102.9MerBlanchard Valley Health [facility] HospitalComment on above:Result Comment: CORRECTED ON 07/21 AT 0451: PREVIOUSLY REPORTED 81.7Performed By: #### CDP #### [address] [place] [address] Team Driver: MILLI CohenonocytePLEASE DISREGARD RESULTS. SPECIMEN CONTAMINATED.Normal3-12Hol[facility] Health SystemComment on above:Result Comment: CORRECTED ON 07/21 AT 0451: PREVIOUSLY REPORTED 8Performed By: #### CDP #### [address] [place], [place] 2783283 Team Driver: MILLI CohenPVPLEASE DISREGARD RESULTS. SPECIMEN CONTAMINATED.Normal8.1-13.5Hol[facility] Health SystemComment on above:Result Comment: CORRECTED ON 07/21 AT 0451: PREVIOUSLY REPORTED 11.2Performed By: #### CDP #### [address] [place], [place] [id number] Team Driver: Marlon Cohen (Seg)PLEASE DISREGARD RESULTS. SPECIMEN CONTAMINATED.Lcwmpw93-00Turee Tiffin HospitalComment on above:Result Comment: CORRECTED ON 07/21 AT 0451: PREVIOUSLY REPORTED 68Performed By: #### CDP #### [facility] [address] [place] [address] Dr[place], [place] [id number] Team Driver: VERONICA Cohenlatelet CountPLEASE DISREGARD RESULTS. SPECIMEN CONTAMINATED.Freytg123-450Udzsq Tiffin HospitalComment on above:Result Comment: CORRECTED ON 07/21 AT 0451: PREVIOUSLY REPORTED 129Performed By: #### CDP #### [address] [place] [id number] Team Driver: LUIS Cohen CountPLEASE DISREGARD RESULTS. SPECIMEN CONTAMINATED.Normal3.95-5.11MerBl[facility] HospitalComment on above:Result Comment: CORRECTED ON 07/21 AT 0451: PREVIOUSLY REPORTED 2.46Performed By: #### CDP #### [address] [place] [address] Team Driver: RYAN CohenWPLEASE DISREGARD RESULTS. SPECIMEN CONTAMINATED.Lcuzwc35.8-14.4MerBl[facility] HospitalComment on above:Result Comment: CORRECTED ON 07/21 AT 0451: PREVIOUSLY REPORTED 13.2Performed By: #### CDP #### [address] [place] [address] Team Driver: MARCIN Cohen CountPLEASE DISREGARD RESULTS. SPECIMEN CONTAMINATED.Normal3.5-11.3[facility] HospitalComment on above:Result Comment: CORRECTED ON 07/21 AT 0451: PREVIOUSLY REPORTED 5.9Performed By: #### CDP #### [address] [place] [address] Team Driver: Keri Cohen. Basophil<0.95Eagniq7.00-0.20MerBl[facility] HospitalComment on above:Performed By: #### CDP #### [address] [place] [address] Team Driver: Keri Cohen. Eosinophil<0.49Xkrdff2.00-0.44[facility] HospitalComment on above:Performed By: #### CDP #### [address] [place] [id number] Team Driver: Keri Cohen.Imm.Granulocyte0.09 k/uLNormal0.00-0.30MerBl[facility] HospitalComment on above:Performed By: #### CDP #### [address] [place], [place] 1737883 Team Driver: Keri Cohen.Neutrophil (Seg)11.03 k/uLHigh1.50-8.10Mer[facility]ita HospitalComment on above:Performed By: #### CDP #### [address] [place], [facility] Team Driver: Tico Minaya MDBasophils/100 WBC (Bld)0 %Normal0-2[facility] HospitalComment on above:Performed By: #### CDP #### [address] [place], [place] [address]1983 Team Driver: Tico Minaya MDEosinophils/100 WBC (Bld)0 %Low1-4[facility] HospitalComment on above:Performed By: #### CDP #### [address] [place], [facility] Team Driver: Tico Minaya MDErythrocyte distribution width (RBC) [Ratio]13.2 % Ebrgyy29.8-14.4[facility] HospitalComment on above:Performed By: #### CDP #### [address] [place], [facility] Team Driver: Tico Minaya MDHematocrit (Bld) [Volume fraction]37.3 %Normal 36.3-47.1[facility] HospitalComment on above:Performed By: #### CDP #### [address] [place], [place] 0869283 Team Driver: Tico Minaya MDHemoglobin (Bld) [Mass/Vol]13.1 g/dLNormal 11.9-15.1[facility] HospitalComment on above:Performed By: #### CDP #### [address] [place], [facility] Team Driver: Tico Minaya MDImmature granulocytes/100 WBC (Bld)1 %Uqqp9WlswhGreene Memorial Hospital HospitalComment on above:Performed By: #### CDP #### [address] [place] [address] Team Driver: Tico Minaya MDLymphocytes (Bld) [#/Vol]2.10 10*3/uLNormal 1.10-3.70MerBl[facility] HospitalComment on above:Performed By: #### CDP #### [address] [place] [address] Team Driver: Yasmeen Cohenmphocytes/100 WBC (Bld)15 %Lwz04-59Ewkkf Tiffin HospitalComment on above:Performed By: #### CDP #### [address] [place] [address] Team Driver: MILLI CohenCH (RBC) [Entitic mass]27.6 xdZdbudj40.2-33.5 [facility] HospitalComment on above:Performed By: #### CDP #### [address] [place], [place] 1155383 Team Driver: MILLI CohenCHC (RBC) [Mass/Vol]35.1 g/uSJjdj45.4-34.8[facility] HospitalComment on above:Performed By: #### CDP #### [address] [place] [address] Team Driver: MILLI CohenCV (RBC) [Entitic vol]78.7 fLLow82.6-102.9[facility] HospitalComment on above:Performed By: #### CDP #### [address] [place], [place] 4014183 Team Driver: MILLI Cohenonocytes (Bld) [#/Vol]0.82 10*3/uLNormal0.10-1.20 [facility] SystemComment on above:Performed By: #### CDP #### [address] [place] [address] Team Driver: MILLI Cohenonocytes/100 WBC (Bld)6 %Normal3-12[facility] Health SystemComment on above:Performed By: #### CDP #### [facility] [address] [place] [address] [place] [address] Team Driver: Damaris Cohenophil (Seg)79 %Psjd55-62UzjgiHolzer Health System Comment on above:Performed By: #### CDP #### [address] [place] [address] Team Driver: ALEX Cohen Automated0.0 per 100 WBCNormal0.0Hol[facility] Health SystemComment on above:Performed By: #### CDP #### [address] [place] [address] Team Driver: Delio Cohen mean volume (Bld) [Entitic vol]10.8 fL Normal8.1-13.5Hol[facility] Health SystemComment on above:Performed By: #### CDP #### [address] [place] [address] Team Driver: Lawrence Cohentealfred (Bld) [#/Vol]250 10*3/cKPjiqgf466-101 [facility] SystemComment on above:Performed By: #### CDP #### [address] [place] [address] Team Driver: MERCEDES CohenBC (Bld) [#/Vol]4.74 10*6/uLNormal3.95-5.11[facility] Health SystemComment on above:Performed By: #### CDP #### [facility] [address] [place] [address] [place] [address] Team Driver: MARCIN Cohen (Bld) [#/Vol]14.1 10*3/uLHigh3.5-11.3MercC[facility] Clinic Luther[facility] Hospital HospitalComment on above:Performed By: #### CDP #### [address] [place] [address] Team Driver: Debby Cohen Diff PerformedNOT REPORTEDNormalMercy Wichita HospitalComment on above:Performed By: #### CDP #### [address] [place] [address] Team Driver: Delio Cohen EstimateNOT REPORTEDNormalMercy Wichita HospitalComment on above:Performed By: #### CDP #### [address] [place] [address] Team Driver: LUIS Cohen morphology finding Nom (Bld)NOT REPORTEDNormal [facility] HospitalComment on above:Performed By: #### CDP #### [address] [place] [address] Team Driver: MARCIN Cohen MorphologyNOT REPORTEDNormalAvita Health Systemcy Wichita HospitalComment on above:Performed By: #### CDP #### [address] [place] [address] Team Driver: ALEX Cohen AutomatedNOT REPORTEDNormal0.0Avita Health Systemcy Wichita HospitalComment on above:Performed By: #### CDP #### [address] [place] [address] Team Driver: Yomi Cohen, Whole BloodOrdered By: Selma Sifuentes on [id number] [Mass/Vol]107 mg/sUKrzp44 - 100 mg/dLAdams County [facility] Center Work Phone: Interpretation and review of laboratory results AbnormalOhiohealth Van [facility]ert Hospital [employer] Work Phone: [facility] [employer] Work Phone: Glucose [Mass/Vol]111 mg/rKOxvg46 - 100 mg/dLAdams County Regional Medical Center [employer] Phone: Interpretation and review of laboratory results AbnormalOhiohealth Van Wert Hospital [employer] Work Phone: [facility] [employer] Work Phone: TYPE AND SCREENOrdered By: Selma Sifuentes on 07-21-2021 ABO/RhPositiveOhiohealth Van Wert Hospital [employer] Work Phone: arm Band [id number] Health [employer] Phone: expiration Date07/23/2021,2359[facility] [employer] Phone: [facility] Work Phone: Type + Screenon [id number] + ScreenSample Expiration 07/23/2021,2359 Arm Band Number [id number] ABO/Rh(D) B POSITIVE Antibody Screen NEGATIVENormalHolzer Health SystemComment on above:Performed By: #### TYS #### [facility] [address] [place] [address] Team Driver: Tico Minaya [facility] auto differentialOrdered By: Selma Sifuentes on [id number] Eos #<0.03[facility] [employer] Work Phone: absolute Immature Granulocyte0.09[facility] [employer] Work Phone: absolute Lymph #2.10[facility] [employer] Phone: absolute [place] #0.82[facility] [employer] Phone: Dasophils (Bld) [#/Vol]10*3/uLOhiohealth Van Wert Hospital [employer] Work Phone: basophils/100 WBC (Bld)0 %0 - 2 %[facility] Phone: differential TypeNOT REPORTEDAvita Health SystemArchipelago Phone: eosinophils/100 WBC (Bld)0 %Low1 - 4 %[facility] Phone: Hematocrit (Bld) [Volume fraction]37.3 %36.3 - 47.1 % [facility] Phone: Hemoglobin.gastrointestinal spec 1 Ql (Stl)13.1 g/dL 11.9 - 15.1 g/dLAvita Health SystemArchipelago Phone: Immature granulocytes/100 WBC (Bld)1 %Ogsz0WfhraArchipelago Phone: Interpretation and review of laboratory results AbnormalAvita Health SystemArchipelago Phone: lymphocytes/100 WBC (Bld)15 %Low24 - 43 %[facility] Phone: MCH (RBC) [Entitic mass]27.6 pg25.2 - 33.5 pgAvita Health SystemArchipelago Phone: MCHC (RBC) [Mass/Vol]35.1 g/aNOono46.4 - 34.8 g/dL [facility] Phone: MCV (RBC) [Entitic vol]78.7 fLLow82.6 - 102.9 fLAvita Health SystemArchipelago Phone: Monocytes/100 WBC (Bld)6 %3 - 12 %[facility] Phone: NRBC Automated0.00.0 per 100 WBCAvita Health SystemArchipelago Phone: platelet distribution width (Bld) [Ratio]13.2 %11.8 - 14.4 %[facility] Phone: platelet EstimateNOT REPORTEDAvita Health SystemArchipelago Phone: platelet mean volume (Bld) [Entitic vol]10.8 fL8.1 - 13.5 fLAvita Health SystemNano Network Engines Work Phone: Qlatelets (Bld) [#/Vol]250 10*3/uLAvita Health SystemNano Network Engines Work Phone: RBC (Bld) [#/Vol]4.74 10*6/uL3.95 - 5.11 m/HoustonN[employer] Work Phone: RBC (Bld) [#/Vol]NOT REPORTEDAvita Health SystemNano Network Engines Work Phone: Kegmented neutrophils/100 WBC (Bld)79 %High36 - 65 % [facility] Phone: Degs Vbevmdyd42.03[facility] HospitalArchipelago Phone: WBC (Bld) [#/Vol]14.1 10*3/uLLawrence Memorial HospitalArchipelago Phone: WBC (Bld) [#/Vol]NOT REPORTEDAvita Health SystemNano Network Engines Work Phone: [facility] SystemN[facility] Eng[facility] Work Phone: cBC with Diffon [id number] Diff PerformedNOT REPORTEDNoProtestant HospitalComment on above:Performed By: #### CDP #### [facility] [address] [place] [address] [place] [address] Team Driver: Lawrence Cohentelet EstimateNOT REPORTEDNoProtestant HospitalComment on above:Performed By: #### CDP #### [facility] [address] [place] [address] Dr[place], [place] [id number] Team Driver: LUIS Cohen morphology finding Nom (Bld)NOT REPORTEDNoal [facility]zer Health SystemComment on above:Performed By: #### CDP #### [facility] [address] [place] [address] [place], [place] 1385283 Team Driver: MARCIN Cohen MorphologyNOT REPORTEDNoProtestant HospitalComment on above:Performed By: #### CDP #### [facility] [address] [place] [address] Team Driver: Tico Minaya MDGlucose, Whole BloodOrdered By: Selma Sifuentes on [id number] [Mass/Vol]98 mg/dL74 - 100 mg/dLMercy Health Work Phone: [facility] Work Phone: Microscopic UrinalysisOrdered By: Selma Sifuentes on 07-20-2021-[facility] [employer] Work Phone: amorphous, UANOT REPORTEDNoneMercy Health Work Phone: bacteria, UATRACEAbnormalNoneMercy Health Work Phone: casts UANOT REPORTED/LPFMercy Health Work Phone: crystals, UANOT REPORTEDNone /HPFMercy Health Work Phone: epithelial Cells UA10 TO 20[facility] Work Phone: Interpretation and review of laboratory results AbnormalMercy Health Work Phone: Mucus, UANOT REPORTEDNoneMercy Health Work Phone: Other Observations UANOT REPORTEDNOT REQ.[facility] Work Phone: rBC, UA0 TO 2[facility] Work Phone: renal Epithelial, UANOT REPORTED0 /HPFMercy Health Work Phone: Trichomonas, UANOT REPORTEDNoneMercy Health Work Phone: WBC, UA0 TO 3[facility] Work Phone: Yeast, UANOT REPORTEDNoneMercy Health Work Phone: [facility] Work Phone: UrinalysisOrdered By: Selma Sifuentes on 07-20-2021 Bilirubin UrineNegativeNEGATIVEMercy Health Work Phone: color, UAYELLOWYELLOWMercy Health Work Phone: Glucose, UrNegativeNEGATIVEMercy Health Work Phone: Interpretation and review of laboratory results AbnormalMercy Health Work Phone: Ketones Ql (U)2+AbnormalNEGATIVEAvita Health Systemcy Health Work Phone: leukocyte esterase Test strip Ql (U)NegativeNEGATIVE [facility] Work Phone: Nitrite, UrineNegativeNEGATIVEMercy Health Work Phone: pH, UA6.0[facility] Work Phone: protein, UANegativeNEGATIVEMercy Health Work Phone: specific [place], UA1.020[facility] Work Phone: Turbidity UACLEARCLEARMercy Health Work Phone: Urinalysis CommentsNOT REPORTEDMercy Health Work Phone: Urine HgbNegativeNEGATIVEMercy Health Work Phone: Urobilinogen, UrineNormalNormalMercy Health Work Phone: [facility] Work Phone: Urinalysis, Routineon [phone], SemiQt,Ur NegativeNormalNEGMercy Saint Mary'S HospitalComment on above:Performed By: #### PIPE MEDELLIN #### [facility] [address] [place] [address] [place] [address] Team Driver: Macarena Cohen, UrineNegativeNormalLake County Memorial Hospital [facility] West Comment on above:Performed By: #### PIPE MEDELLIN #### [facility] [address] [place] [address] Team Driver: GILMAR Cohenlarity (U)CLEARNormalCLEARHolzer Health System Comment on above:Performed By: #### UMICAO, UA #### [facility] [address] [place], [place] 0218383 Team Driver: GILMAR Cohenolor (U)YELLOWNormalYELMerNorwalk Hospital Comment on above:Performed By: #### UMICAO, UA #### [facility] [address] [place] [address] Team Driver: Tico Minaya MDGlucose Ql (U)NegativeNormalNEGHolzer Health SystemComment on above:Performed By: #### BETTYEO, UA #### [facility] [address] [place], [place] 8358083 Team Driver: Tico Minaya MDKetones Ql (U)2+AbnormalNEGHolzer Health System Comment on above:Performed By: #### BETTYEO, UA #### [facility] [address] [place] [address] Dr[place], [place] 2638383 Team Driver: Tico Minaya MDLeukocyte esterase Test strip Ql (U)NegativeNormal NEGHolzer Health SystemComment on above:Performed By: #### CHAYITOICAO, UA #### [facility] [address] [place], [place] 7495183 Team Driver: Tico Minaya MDNitrite,UrNegativeNormalNEGHolzer Health System Comment on above:Performed By: #### UMICAO, UA #### [facility] [address] [place], [place] 0417283 Team Driver: Tico Minaya [facility],Ur6.3Dphaxx6.0-9.0Holzer Health SystemComment on above:Performed By: #### CHAYITOICAO, UA #### [facility] [address] [place] [address] Team Driver: VERONICA Cohenrotein Ql (U)NegativeNormalNEGHolzer Health SystemComment on above:Performed By: #### VIGNESH, UA #### [facility] [address] [place], [place] 726[address]83 Team Driver: CAROLYNE Cohenpec. [place],Ur1.753Esfukw2.010-1.020[facility] HospitalComment on above:Performed By: #### VIGNESH, UA #### [facility] [address] [place] [address] [place] [address] Team Driver: Jazmin Cohenbilinogen,UrNormalNormalNORMHolzer Health SystemComment on above:Performed By: #### VIGNESH, UA #### [facility] [address] [place] [address] [place] [address] Team Driver: GILMAR CohenomjocelineNOT REPORTEDRegional Medical Center Comment on above:Performed By: #### VIGNESH UA #### [facility] [address] [place] [address] Dr[place], [place] 0486183 Team Driver: Tico Minaya MDUrinalysis,Microon 07-20-2021-----NormalHolzer Health SystemComment on above:Performed By: #### VIGNESH, UA #### [facility] [address] [place] [address] [place] [address] Team Driver: Brady CohencteriaTRACEAbnormOhioHealth [facility]in [facility] Hospital Comment on above:Performed By: #### VIGNESH, UA #### [facility] [address] [place], [place] 5514883 Team Driver: Tico Minaya MDEpithelial cells LM Ql (Urine sed)10 TO 20Normal 0-25Holzer Health SystemComment on above:Performed By: #### VIGNESH UA #### [facility] [address] [place] [address] Team Driver: Vee Cohen RBC's0 TO 0Yahcxj1-6XtyrbOhioHealth Doctors Hospital Comment on above:Performed By: #### UMICAO, UA #### [facility] [address] [place], [place] 7058283 Team Driver: Vee Cohen WBC's0 TO 0Ldsehm0-2Yfngl [facility] Comment on above:Performed By: #### UMICAO, UA #### [facility] [address] [place] [address] Team Driver: Gomez Cohen sediment LM Ql (Urine sed)NOT REPORTED NormalNONEMeBrentwood Behavioral Healthcare of Mississippi HospitalComment on above:Performed By: #### UMICAO, UA #### [facility] [address] [place] [address] Team Driver: GILMAR CohenastsNOT REPORTEDNormMiami Valley Hospital Comment on above:Performed By: #### UMICAO, UA #### [facility] [address] [place] [address] [place] [address] Team Driver: GILMAR Cohenrystals LM Nom (Urine sed)NOT REPORTEDNormalNONE [facility] SystemComment on above:Performed By: #### UMICAO, UA #### [facility] [address] [place] [address] Team Driver: Tico Minaya MDEpithelial, RenalNOT TZFLBPXWFqfcba4Tbbgx Wichita HospitalComment on above:Performed By: #### UMICAO, UA #### [facility] [address] [place], [place] 4539483 Team Driver: MILLI Cohenucus StrandsNOT REPORTEDNormalNONEMeBrentwood Behavioral Healthcare of Mississippi HospitalComment on above:Performed By: #### UMICAO, UA #### [facility] [address] [place], [place] 6005883 Team Driver: Tico Minaya MDOther ObservationsNOT REPORTEDNormalNREQGreene Memorial Hospital HospitalComment on above:Performed By: #### UMICAO, UA #### [facility] [address] [place], [place] 3406583 Team Driver: Tico Minaya MDTrichomonasNOT REPORTEDNormalNONEMeBackus HospitalComment on above:Performed By: #### UMICAO, UA #### [facility] [address] [place], [place] 6265783 Team Driver: Johana CohenastTERENCE REPORTEDNormalNONOhio State University [facility] Comment on above:Performed By: #### UMICAO, UA #### [facility] [address] [place], [place] 1966283 Team Driver: Tico Minaya MDGBS, External ResultOrdered By: Selma Sifuentes on [id number], External ResultNegativeOhiohealth Van [facility] Hospital [facility] Work Phone: [facility] Work Phone: aBO, External ResultOrdered By: Historical Provider on [id number], External ResultPositiveOhiohealth Van Wert Hospital Health Work Phone: HIV ScreenOrdered By: Selma Sifuentes on [id number] Ag/AbNon-ReactiveOhiohealth Van Wert Hospital Health Work Phone: N. GONORRHOEAE CULTUREOrdered By: Selma Sifuentes on 98-25-8924Czuzbvm, GonorrhoeaeNot detectedOhiohealth Van Wert Hospital Health Work Phone: No Panel InformationOrdered By: Historical Provider on [id number] Health Work Phone: no Panel InformationOrdered By: Selma Sifuentes on 48-82-3071Rbusr Health Work Phone: pRENATAL PROFILE IOrdered By: Selma Sifuentes on 56-47-1217PLD/RhPositiveMerWirelessGate Health Work Phone: Hepatitis B Surface AgNon-ReactiveAvita Health SystemNano Network Eng[employer] Work Phone: rubella virus IgG Ql (S)ImmuneMerNano Network [employer] Work Phone: T. pallidum, IgGNon-ReactiveAvita Health SystemNano Network Engines Work Phone: comment on above:RPRCBC AUTO DIFFon 10-27-2020 Basophils (Bld) [#/Vol]0.0 103/ulNormal0.0-0.1The [facility] HospitalComment on above:Performed By: #### CBC #### [facility] [address] [place] [address] Case KarenBasophils/100 WBC (Bld)0.2 %Normal0.2-2.0The [facility] Comment on above:Performed By: #### CBC #### [facility] [address] [address] Case KarenEosinophils (Bld) [#/Vol]0.1 103/ulNormal0.0-0.7The [facility] HospitalComment on above:Performed By: #### CBC #### [facility] [address] [id number] Case KarenEosinophils/100 WBC (Bld)1.2 %Normal0.9-7.0The [facility] Comment on above:Performed By: #### CBC #### [facility] [address] [address] Case KarenErythrocyte distribution width (RBC) [Ratio]12.5 %Dhdoff94.0-15.0The [facility] HospitalComment on above:Performed By: #### CBC #### [facility] [address] [place] [address] Case KarenHematocrit (Bld) [Volume fraction]40.1 %Bvqqfn22.0-48.0The [facility] HospitalComment on above:Performed By: #### CBC #### [facility] [address] [place] [address] Case KarenHemoglobin (Bld) [Mass/Vol]14.3 g/oCSvuhbj71.0-16.0The [facility] HospitalComment on above:Performed By: #### CBC #### [facility] [address] [place] [address] Case KarenIG #0.04 10e3/ulCritically high0.00-0.03The [facility] HospitalComment on above:Performed By: #### CBC #### [facility] [address] [place] [address] Case KarenIG %0.4 %Normal0.0-0.5The [facility] HospitalComment on above: Performed By: #### CBC #### [facility] [address] [place] [address] Case KarenLymphocytes (Bld) [#/Vol]3.8 103/ulNormal1.2-3.8The [facility] HospitalComment on above:Performed By: #### CBC #### [facility] [address] [place] [address] Case KarenLymphocytes/100 WBC (Bld)36.2 %Pmwwql84.5-60.0[facility] Comment on above:Performed By: #### CBC #### [facility] [address] [place] [address] Case KarenMANUAL DIFF REQNONormalThe [facility] HospitalComment on above: Performed By: #### CBC #### [facility] [address] [place] [address] Case KarenMCH (RBC) [Entitic mass]28.1 rxZvnndr53.7-34.0The [facility] Comment on above:Performed By: #### CBC #### [facility] [address] [place] [address] Case KarenMCHC (RBC) [Mass/Vol]35.7 g/dLCritically high29.9-35.2The [facility]ton HospitalComment on above:Performed By: #### CBC #### [facility] [address] [place] [address] Case KarenMCV (RBC) [Entitic vol]78.9 fLCritically low81.0-99.0The [facility] HospitalComment on above:Performed By: #### CBC #### [facility] [address] [place] [address] Case KarenMonocytes (Bld) [#/Vol]1.1 103/ulCritically high0.3-0.8The [facility] HospitalComment on above:Performed By: #### CBC #### [facility] [address] [place] [address] Case KarenMonocytes/100 WBC (Bld)10.3 %Normal1.7-12.0[facility] Comment on above:Performed By: #### CBC #### [facility] [address] [place] [address] Case KarenNeutrophils (Bld) [#/Vol]5.4 103/ulNormal1.4-6.5The [facility] HospitalComment on above:Performed By: #### CBC #### [facility] [address] [place] [address] Case KarenNeutrophils/100 WBC (Bld)51.7 %Tagzft07.0-75.0[facility] Comment on above:Performed By: #### CBC #### [facility] [address] [place] [address] Case KarenPlatelet mean volume (Bld) [Entitic vol]9.7 fLNormal9.5-13.5The [facility] HospitalComment on above:Performed By: #### CBC #### [facility] [address] [place] [address] Case KarenPlatelets (Bld) [#/Vol]321 103/anNhbnpg097-343Mno [facility] Comment on above:Performed By: #### CBC #### [facility] [address] [place] [address] Case KarenRBC (Bld) [#/Vol]5.08 106/ulNormal4.20-5.40The [facility] Comment on above:Performed By: #### CBC #### [facility] [address] [place] [address] Case KarenWBC (Bld) [#/Vol]10.4 103/ulNormal4.0-11.0The [facility] Comment on above:Performed By: #### CBC #### [facility] [address] [place] [address] Case LemonenER URINE PROFILEon 77-75-1021Wizxinhtm [Mass/Vol]NegativeNormal NEGATIVEOhiohealth Mansfield HospitalComment on above:Performed By: #### ERUR #### [facility] [address] [place] [address] Case KarenBLOODNegativeNormalNEGATIVEOhiohealth Mansfield HospitalComment on above: Performed By: #### ERUR #### [facility] [address] [place] [address] Case KarenClarity (U)CLEARNormalCLEAROhiohealth Mansfield HospitalComment on above: Performed By: #### ERUR #### [facility] [address] [place] [address] Case KarenColor (U)LT. YELLOWNormalYELLOWOhiohealth Mansfield HospitalComment on above:Performed By: #### ERUR #### [facility] [address] [place] [address] Case KarenERUAHDA micrscopic examination will be performed if indicated.Normal The [facility] HospitalComment on above:Performed By: #### ERUR #### [facility] [address] [place] [address] Case KarenGlucose [Mass/Vol]NegativeNormalNEGATIVEOhiohealth Mansfield HospitalComment on above:Performed By: #### ERUR #### [facility] [address] [place] [address] Case KarenKetones Ql (U)NegativeNormalNEGATIVEAdena Health System HospitalComment on above:Performed By: #### ERUR #### [facility] [address] [place] [address] Case KarenNitrite Ql (U)NegativeNormalNEGATIVEThe [facility] HospitalComment on above:Performed By: #### ERUR #### [facility] [address] [place] [address] Case KarenpH (Bld)6.8Qciqae1-0Frh [facility] HospitalComment on above:Performed By: #### ERUR #### [facility] [address] [place] [address] Case KarenProtein (U) [Mass/Vol]NegativeNormalNEGATIVE/ TRACEThe [facility] HospitalComment on above:Performed By: #### ERUR #### [facility] [address] [place] [address] Case KarenSPEC GRAVITY>=1.460Uvimyoex1.005-<=1.025The [facility] HospitalComment on above:Performed By: #### ERUR #### [facility] [address] [place] [address] Case KarenUR MICRO INDNOT INDICATEDNormalThe [facility] HospitalComment on above:Performed By: #### ERUR #### [facility] [address] [place] [address] Case KarenUrobilinogen Qn (U)0.2 EU/dlNormal0.2 - 1.0The [facility] Comment on above:Performed By: #### ERUR #### [facility] [address] [place] [address] Case KarenWBC (Bld) [#/Vol]NegativeNormalNEGATIVEThe [facility] HospitalComment on above:Performed By: #### ERUR #### [facility] [address] [place] [address] Case KarenPREGNANCY URon [id number], QUALNegativeNormalNEGATIVEThe [facility] HospitalComment on above:Performed By: #### PREGU #### [facility] [address] [place] [address] Case KarenPROF 14(COMP METB)on 14-36-2336Orautpu [Mass/Vol]3.7 g/dLNormal 3.5-5.0The [facility] HospitalComment on above:Performed By: #### CMP #### [facility] [address] [place] [address] Case KarenAlbumin/Globulin [Mass ratio]1.1 {ratio}NormalThe [facility] Comment on above:Performed By: #### CMP #### [facility] [address] [place] [address] Case KarenALP [Catalytic activity/Vol]62 U/XSkroqv63-674Ndi [facility] Comment on above:Performed By: #### CMP #### [facility] [address] [place] [address] Case KarenALT [Catalytic activity/Vol]36 U/LNormal9-52The [facility] Comment on above:Performed By: #### CMP #### [facility] [address] [place] [address] Case KarenAnion gap [Moles/Vol]15.4 mmol/LNormalThe [facility] HospitalComment on above:Performed By: #### CMP #### [facility] [address] [place] [address] Case KarenAST [Catalytic activity/Vol]17 U/DEmknrj73-97QzkOhiohealth [facility] Hospital Comment on above:Performed By: #### CMP #### [facility] [address] [place] [address] Case KarenBilirubin Ql (U)0.4 mg/dLNormal0.2-1.3The [facility] HospitalComment on above:Performed By: #### CMP #### [facility] [address] [place] [address] Case KarenCalcium [Mass/Vol]8.4 mg/dLNormal8.4-10.2The [facility] Comment on above:Performed By: #### CMP #### [facility] [address] [place] [address] Case KarenChloride [Moles/Vol]103 mmol/TDnvfgh45-951FayOhiohealth [facility]field Hospital Comment on above:Performed By: #### CMP #### [facility] [address] [place] [address] Case KarenCO2 [Moles/Vol]25.5 mmol/WNeuzed68.0-30.0The [facility] Comment on above:Performed By: #### CMP #### [facility] [address] [place] [address] Case KarenCreatinine [Mass/Vol]0.88 mg/dLNormal0.52-1.04[facility] Comment on above:Performed By: #### CMP #### [facility] [address] [place] [address] Case KarenEGFR-AF MALIAN>60Normal>=60The [facility] HospitalComment on above: Performed By: #### CMP #### [facility] [address] [place] [address] Case KarenEGFR-NON AF MALIAN>60Normal>=60The [facility] HospitalComment on above:Performed By: #### CMP #### [facility] [address] [place] [address] Case KarenGlobulin (S) [Mass/Vol]3.3 g/dLNormalThe [facility] HospitalComment on above:Performed By: #### CMP #### [facility] [address] [place] [address] Case KarenGlucose [Mass/Vol]105 mg/vJYdrgrj54-902Oga [facility] HospitalComment on above:Performed By: #### CMP #### [facility] [address] [place] [address] Case KarenPotassium [Moles/Vol]3.9 mmol/LNormal3.4-5.0The [facility] Comment on above:Performed By: #### CMP #### [facility] [address] [place] [address] Case KarenProtein [Mass/Vol]7.0 g/dLNormal6.1-8.2The [facility] HospitalComment on above:Performed By: #### CMP #### [facility] [address] [place], [place] [address] Case KarenSodium [Moles/Vol]140 mmol/OQwaebl950-597Qre [facility] Comment on above:Performed By: #### CMP #### [facility] [address] [place], [place] [address] Case KarenUrea nitrogen [Mass/Vol]11.0 mg/dLNormal7.0-17.0The [facility] HospitalComment on above:Performed By: #### CMP #### [facility] [address] [place], [place] [address] Case KarenUrea nitrogen/Creatinine [Mass ratio]12.5 mg/mgNoMedina HospitalComment on above:Performed By: #### CMP #### [facility] [address] [place], [place] [address] Case KarenXR CHEST 1 Von [id number] CHEST 1 VEXAMINATION: XR CHEST 1 V HISTORY: CHEST PAIN, [...] Electronically authenticated by: OLY BIRD Date: 2020-10-27 12:04[facility] Vital Signs Date TimeVital SignValuePerforming FblyhvbvpVxvutjfd43-95-3919 08:16-0400Body ybsijs866.7 cmJaelvabrockton va medical center Freidaxin [employer]ATE MAKER Work Phone: noAudrain Medical CenterAfrqgcffwc91-05-1872 08:16-0400Body mass index (BMI) [Ratio]27.83 kg/c5Congnjwuovgiovanni Armas [employer]OCOLATE MAKER Work Phone: noAudrain Medical CenterYoggmcigdn65-67-8706 08:16-0400Body nbqhsy46.01 kgJachela Armas [employer]OLATE MAKER Work Phone: noMS Jnhtlntcri89-19-6107 08:16-0400Diastolic blood laksyzap52 mm[Hg]Su Armas CH[employer]OLATE MAKER Work Phone: [facility] HospitalSlqjlsmbfx09-54-4842 08:16-0400Systolic blood mm[Hg]Su Armas [employer]OL[employer] MAKER Work Phone: [facility] HospitalKpobjhskui39-35-9687 17:23-0400Body nfzjig472.2 cmMarycarmen Nayak MD Work Phone: [facility] HospitalBarsaymjdl47-46-1232 17:23-0400Body mass index (BMI) [Ratio]28.91 kg/m2Marycarmen Nayak MD Work Phone: [phone] HospitalIisqgismtu02-78-0242 17:23-0400Body .73 kgMarycarmen Nayak MD Work Phone: [phone] HospitalSvdmbhekrl16-99-9112 17:23-0400Diastolic blood fabercma05 mm[Hg]Marycarmen Nayak MD Work Phone: [phone] HospitalZyaypbcqrm66-06-5785 17:23-0400Heart rate98 /min Marycarmen Nayak MD Work Phone: [phone] HospitalJjegrzknlj91-45-4143 17:23-0400Respiratory rate18 /minMarycarmen Nayak MD Work Phone: [facility] HospitalQshpnjcmup59-42-0222 17:23-2273HuN5% (BldA) [Mass fraction]100 %Marycarmen Nayak MD Work Phone: [phone] HospitalOiliblsvdf81-52-2239 17:23-0400Systolic blood fynskapg425 mm[Hg]Marycarmen Nayak MD Work Phone: [phone] HospitalAdxquwybka14-76-0760 09:53-0400Body mass index (BMI) [Ratio]30.32 kg/a0VzbldxdebtSu Armas [employer] MAKER Work Phone: [facility] HospitalDpgwhtlvfk64-93-6171 09:53-0400Body kaiiae11.82 kgJagiovanni Armas [employer] MAK[employer] Work Phone: [facility] HospitalSiukcemxpz53-59-5215 09:53-0400Diastolic blood mm[Hg]Su Armas [employer] MAKER Work Phone: [facility] HospitalXjoxxlzhtm96-02-3253 09:53-0400Respiratory rate18 /minJacchela Armas [employer] MAKER Work Phone: [facility] HospitalPixafhdxtq34-35-2181 09:53-5878DpL5% (BldA) [Mass fraction]98 %Su Armas CH[employer]OLATE MAKER Work Phone: [facility] HospitalYkjzdoqdfc02-26-4189 09:53-0400Systolic blood ebwplagb458 mm[Hg]Su Armas CHOCOLATE MAKER Work Phone: [facility] HospitalYuctruqfrc57-28-3207 13:46-0400Body wsbzax204.2 cmMarycarmen Nayak MD Work Phone: [phone] HospitalAohblrxpmv78-24-2482 13:46-0400Body mass index (BMI) [Ratio]31.79 kg/m2Marycarmen Nayak MD Work Phone: [phone] HospitalXjidouavsz47-95-0869 13:46-0400Body faotcz64.08 kgMarycarmen Nayak MD Work Phone: [phone] [place], [place] [address]Hfkzmmmmxh04-30-4177 13:46-0400Diastolic blood nscxwois10 mm[Hg]Marycarmen Nayak MD Work Phone: [phone] HospitalSmbdcnmidu51-19-0146 13:46-0400Heart uoil013 /min Marycarmen Nayak MD Work Phone: [phone] HospitalFsahwmlxki71-77-5577 13:46-0400Respiratory rate18 /minMarycarmen Nayak MD Work Phone: [phone] HospitalIppzdldtir81-64-8571 13:46-9154YuC7% (BldA) [Mass fraction]99 %Marycarmen Nayak MD Work Phone: [phone] HospitalZfkzvqhuzx17-61-1139 13:46-0400Systolic blood jbmklocm930 mm[Hg]Marycarmen Nayak MD Work Phone: [phone] HospitalLyfbxnnbnz42-42-7908 13:03-0400Body .2 cmBrelinda Majors [employer] MAKER Work Phone: [phone] [place], [place] [address]Ewztvfyacw69-63-4709 13:03-0400Body mass index (BMI) [Ratio]32.33 kg/t6Ewxnve Majors [employer] MAKER Work Phone: [phone] [place], [place] [address]Pwazzmxtai49-86-4598 13:03-0400Body ogedeu72.62 kgBreann Majors [employer] MA[employer]ER Work Phone: [phone] [place], [place] 6287505-30-2025 13:03-0400Diastolic blood zdwexphk13 mm[Hg]Malick Majors [employer] MAKER Work Phone: [phone] [place], [place] 6287505-30-2025 13:03-0400Heart rate73 /min Malick Majors [employer]OL[employer] MAKER Work Phone: [phone] [place], [place] [address]Hnqqhperna58-41-6825 13:03-0400Respiratory rate18 /minBreann Majors CHOCOLATE MAKER Work Phone: [phone] [place], [place] 6287505-30-2025 13:03-1386FdK7% (BldA) [Mass fraction]99 %Malicklinda Floress [employer] MAKER Work Phone: [phone] [place], [place] 6287505-30-2025 13:03-0400Systolic blood nijzjpjv533 mm[Hg]Malick Majors [employer]ATE MAKER Work Phone: [phone] [place], [place] [address]Pxsemyxlja98-98-9212 10:05-0500Body gcayvv318.2 cmMarycarmen Nayak MD Work Phone: [phone] [place], [place] [address]Hsfjbryuaa83-14-9928 10:05-0500Body mass index (BMI) [Ratio]34.36 kg/m2Marycarmen Nayak MD Work Phone: [phone] [address]-15-2025 10:05-0500Body wmsfzi20.52 kgMarycarmen Nayak MD Work Phone: [phone])[facility] [place] [address]-15-2025 10:05-0500Diastolic blood byckidkb25 mm[Hg]Marycarmen Nayak MD Work Phone: [phone])880-[address] [place], [place] [address]Ygebxqaazh86-92-1839 10:05-0500Heart rate67 /min Marycarmen Nayak MD Work Phone: [facility] HospitalLtksltljdm61-97-7967 10:05-0500Respiratory rate18 /minMarycarmen Nayak MD Work Phone: [phone] [address]Fgolcilphe37-78-6826 10:05-7605PtU8% (BldA) [Mass fraction]96 %Marycarmen Nayak MD Work Phone: [facility] HospitalWbpljctudm25-93-9815 10:05-0500Systolic blood tknaedms710 mm[Hg]Marycarmen Nayak MD Work Phone: [address] [place], [place] [address]Jgmgvlqbcx19-94-8360 14:15-0500Body bgzlev760.2 cmMarycarmen Nayak MD Work Phone: [phone] [place] [address]-08-2024 14:15-0500Body mass index (BMI) [Ratio]33.89 kg/m2Marycarmen Nayak MD Work Phone: [phone] [place] [address]-08-2024 14:15-0500Body dcxfda87.16 kgMarycarmen Nayak MD Work Phone: [address] [place], [place] [address]Mcmdycgpyv95-48-2623 14:15-0500Diastolic blood mm[Hg]Marycarmen Nayak MD Work Phone: [phone] [place] [address]-08-2024 14:15-0500Heart rate72 /min Marycarmen Nayak MD Work Phone: [place] [address]Tacltodvnt96-58-6841 14:15-0500Respiratory rate20 /minMarycarmen Nayak MD Work Phone: [phone] [place] [address]-08-2024 14:15-7682ZnU3% (BldA) [Mass fraction]100 %Marycarmen Nayak MD Work Phone: [place] [address]Qiebsxsrwj56-96-8047 14:15-0500Systolic blood mm[Hg]Marycarmen Nayak MD Work Phone: [place] [address]Cshufbbtlu57-24-5837 13:23-0400Body mass index (BMI) [Ratio]34.14 kg/v4RklrvFlorin Mccrary DO Work Phone: [facility] HospitalGuhnbnvpmb99-45-4521 13:23-0400Body vaefpd93.88 kgCorey Demetra DO Work Phone: [facility] HospitalXewqfjxvej74-27-3289 13:23-0400Diastolic blood mjopqiai15 mm[Hg]Florinyin Novoao DO Work Phone: [place] [address]Ouktxxuqsp18-46-1103 13:23-0400Systolic blood mm[Hg]Florin Novoao DO Work Phone: [place] [address]Dlygtbepoh03-88-3355 14:25-0400Body tffsre647.2 cmMarycarmen Nayak MD Work Phone: [place] [address]Jybppewdzs88-77-0168 14:25-0400Body mass index (BMI) [Ratio]34.46 kg/m2Marycarmen Nayak MD Work Phone: [facility] HospitalKsgocmsygt60-51-5161 14:25-0400Body umlndi90.79 kgMarycarmen Nayak MD Work Phone: [place] [address]Rynmhoooxv42-34-4266 14:25-0400Diastolic blood iuaxymng36 mm[Hg]Marycarmen Nayak MD Work Phone: [facility] HospitalGexukfsaaa55-85-6995 14:25-0400Heart rate90 /min Marycarmen Nayak MD Work Phone: [place] [address]Kumpnqfiga23-18-6473 14:25-0400Respiratory rate18 /minMarycarmen Nayak MD Work Phone: [place] [address]Ophcbxdpeu08-06-7434 14:25-4220ShZ2% (BldA) [Mass fraction]100 %Marycarmen Nayak MD Work Phone: [place] [address]Wzjmhraegm44-60-4485 14:25-0400Systolic blood hkuoymcx556 mm[Hg]Marycarmen Nayak MD Work Phone: [place] [address]Fdnysawssj70-88-8301 11:55-0400Body yrjkzg829.7 Catracho Bro MD Work Phone: [place] [address]Xzmiosmese48-38-0791 11:55-0400Body mass index (BMI) [Ratio]34.06 kg/v1CzaneJeremiah Bro MD Work Phone: [place] [address]Gcshemdwsm51-92-9864 11:55-0400Body dmwfby460.61 kgJeremiah Bro MD Work Phone: [facility] HospitalTvkkplzgha34-99-0454 11:55-0400Diastolic blood mndaidrn52 mm[Hg]Jeremiah Bro MD Work Phone: [facility] HospitalLfwvfiucxh86-37-0805 11:55-0400Heart rate75 /min Jeremiah Bro MD Work Phone: [address] [place], [place] [address]Fzalfmudyk71-31-2166 11:55-0400Respiratory rate16 /minJeremiah Bro MD Work Phone: [place] [address]Kjnoexlrlm01-92-8030 11:55-0400Systolic blood xwkwdsac368 mm[Hg]Jeremiah Bro MD Work Phone: [address] [place], [place] [address]Qgqnxiwffo63-60-8203 11:09-0400Body cykfca632.2 cmBraden Laird MD Work Phone: [phone] [place], [place] [address]Fjpejlfgsw89-08-2170 11:09-0400Body mass index (BMI) [Ratio]34.77 kg/p2FqdmxbgBraden Laird MD Work Phone: [phone] [place], [place] [address]Fqpuunfmde80-03-1509 11:09-0400Body bujpwt036.7 kgBraden Laird MD Work Phone: [phone] [address]Wspkoggnas37-84-5110 12:59-0400Body temperature 97.39 [degF]River Gardner MD Work Phone: [facility]10-15-2024 12:59-0400Body lhuchg480.6 kgRiver Gardner MD Work Phone: [place] [address]-15-2024 12:59-0400Diastolic blood mdwyunmg21 mm[Hg]River Gardner MD Work Phone: [place] [address]-15-2024 12:59-0400Heart rate92 /min River Gardner MD Work Phone: [place] [address]-15-2024 12:59-4461GgB5% (BldA) [Mass fraction]100 %River Gardner MD Work Phone: [facility]10-15-2024 12:59-0400Systolic blood vtzholcz317 mm[Hg]River Gardner MD Work Phone: [facility]10-14-2024 10:56-0400Body mass index (BMI) [Ratio]33.99 kg/h3Riqrh Demetra DO Work Phone: [facility] HospitalIafqvblcky55-83-2675 10:56-0400Body jwpfko09.43 kgCorey Demetra DO Work Phone: [facility] HospitalRknlqwducd41-42-3236 10:56-0400Diastolic blood mvkezzem80 mm[Hg]Florin Demetra DO Work Phone: [facility] HospitalUgmnhracic10-32-3830 10:56-0400Systolic blood ytuuhmcx246 mm[Hg]Florin Demetra DO Work Phone: [facility] HospitalDjrlckguvc55-37-0768 11:24-0400Blood Pressure LocationJENNIFER TRISTAN [facility]10-03-2024 11:24-0400Diastolic blood mm[Hg]GEOVANNI TRISTAN [facility]10-03-2024 11:24-0400Heart xxkq972 /minJENNIFER TRISTAN [facility]10-03-2024 11:24-0400Respiratory rate18 /minJENNIFER TRISTAN [facility]10-03-2024 11:24-0400Systolic blood afpcjbbo677 mm[Hg]GEOVANNI TRISTAN [facility]09-05-2024 09:32-0400Body mass index (BMI) [Ratio]35.55 kg/m2Deanne Bobo TAM Work Phone: [facility] HospitalUlbkkyvhxq11-68-8662 09:32-0400Body cwiejx285.97 kgDeanne Comerlex TAM Work Phone: [facility] HospitalDrhdvnjssn00-29-0317 09:32-0400Diastolic blood pcbxyzaa28 mm[Hg]Deanne Comerlex TAM Work Phone: [facility] HospitalYnpgglvkxo55-21-3419 09:32-0400Systolic blood kslaaran878 mm[Hg]Deanne Comerlex TAM Work Phone: [facility] HospitalTdttrnahep25-86-3945 07:46-0400Body temperature 98.71 [degF]María Pool SENIOR ASP NET DEVELOPER - CNM Work Phone: [facility] [employer] Work Phone: 1(940) 724-178409-25-2021 07:46-0400Diastolic blood twiidiwc09 mm[Hg] María Pool SENIOR ASP NET DEVELOPER - CNM Work Phone: [facility] Work Phone: 1(268) 591-541309-25-2021 07:46-0400Heart rate72 /minKathleen Pool SENIOR ASP NET DEVELOPER - CNM Work Phone: [employer] Work Phone: 1(648) 574-538009-25-2021 07:46-0400Respiratory rate16 /minKathleen Pool SENIOR ASP NET DEVELOPER - CNM Work Phone: [facility] Work Phone: 1(783) 694-896609-25-2021 07:46-0400Systolic blood wcykkfih127 mm[Hg] María Pool SENIOR ASP NET DEVELOPER - CNM Work Phone: [facility] Work Phone: 1(399) 828-575109-23-2021 04:02-0400Body .2 cmKathleen Pool SENIOR ASP NET DEVELOPER - CNM Work Phone: [facility] Work Phone: 1(439) 493-945309-23-2021 04:02-0400Body mass index (BMI) [Ratio] 41.04 kg/g3Dcxporyo Pool SENIOR [employer] NET DEVELOPER - CNM Work Phone: [facility] Work Phone: 1(860) 247-670509-23-2021 04:02-0400Body gwsquk313.84 kgKathleen Pool SENIOR [employer] DEVELOPER - CNM Work Phone: [facility] Work Phone: 1(965) 660-794409-22-2021 00:21-0400Diastolic blood rgleygoi77 mm[Hg] Selma Sifuentes APRN - CNM Work Phone: [facility] Work Phone: 1(920) 207-448109-22-2021 00:21-0400Heart rate63 /minSelma Sifuentes APRN - CNM Work Phone: [facility] [employer] Work Phone: 1(922) 146-558509-22-2021 00:21-0400Systolic blood bvduopxj951 mm[Hg] Selma Sifuentes APRN - CNM Work Phone: [facility] [employer] Work Phone: 1(692) 457-877009-21-2021 23:08-0400Respiratory rate17 /minSelma Sifuentes APRN - CNM Work Phone: [facility] [employer] Work Phone: 1(772) 219-847409-21-2021 22:36-0400Body nygkli157.2 cmVvalencia Sifuentes APRN - CNM Work Phone: [facility] [employer] Work Phone: 1(857) 498-188209-21-2021 22:36-0400Body mass index (BMI) [Ratio]41.5 kg/j8PrwyzaxSelma Sifuentes APRN - CNM Work Phone: [facility] Work Phone: 1(278) 783-686409-21-2021 22:36-0400Body lkotut344.2 kgSelma Sifuentes APRN - CNM Work Phone: [facility] Work Phone: 1(865) 262-305609-21-2021 22:18-0400Body aeeiiyspnmu82.01 [degF] Selma Sifuentes APRN - CNM Work Phone: [facility] Work Phone: 1(485) 803-598509-15-2021 12:20-0400Body xurakuqfvqs18.01 [degF] Selma Sifuentes APRN - CNM Work Phone: [facility] Work Phone: 1(576) 667-101409-15-2021 12:20-0400Diastolic blood dkwxvqfo72 mm[Hg] Selma Sifuentes APRN - CNM Work Phone: [facility] Work Phone: 1(355) 829-583709-15-2021 12:20-0400Heart rate86 /minSelma Sifuentes APRN - CNM Work Phone: [facility] Work Phone: 1(214) 555-987709-15-2021 12:20-0400Respiratory rate20 /minSelma Sifuentes APRN - CNM Work Phone: [facility] [employer] Work Phone: 1(208) 574-298209-15-2021 12:20-0400Systolic blood rdgpaayv087 mm[Hg] Selma Sifuentes APRN - CNM Work Phone: [facility] [employer] Work Phone: 1(244) 234-228909-14-2021 14:45-0400Body ediiyq805.2 cmVvalencia Sifuentes APRN - CNM Work Phone: [facility] Work Phone: 1(736) 763-922209-14-2021 14:45-0400Body mass index (BMI) [Ratio]41.5 kg/n0JdvbfhhSelma Sifuentes APRN - CNM Work Phone: [facility] Work Phone: [phone] [id number] 14:45-0400Body qzixcf983.2 kgSelma Sifuentes APRN - CNM Work Phone: [facility] Work Phone: Encounters Encounter DateEncounter TypeCare ProviderFacilityStart: 08-27-2025 End: 12-99-3345Afmoxu Rm Marty Guanxin CHOCOLATE MAKER Work Phone: noms NEUROLOGYStart: 08-27-2025 End: 26-19-0555Yauhuk flowsViolette Marty Yeungpriyank CHOCOLATE MAKER Work Phone: noms NEUROLOGYStart: 08-27-2025 End: 78-22-3520cqxuwetvehAKQIHOVJAZ Marty Rodolfo AvailableStart: 08-27-2025 End: 89-92-0716Fjwhwh outpatient visit 15 minutesSu Marty Chanda CHOCOLATE MAKER Work Phone: noms [facility] 210Comment on above: Intractable chronic migraine without aura and without status migrainosus (Primary Dx); Occipital neuralgia of left sideStart: 08-26-2025 End: 53-52-7005Jxoofjszs encounterMarycarmen Nayak MD Work Phone: [facility]oms [facility]: 08-25-2025 End: 15-63-9467vxwlhnyuykCAID F BOWERNot AvailableStart: 08-25-2025 End: 52-05-9791Vbcqtm outpatient visit 15 minutesMarycarmen Nayak MD Work Phone: noms [facility] MedicineComment on above: Arthralgia, unspecified joint (Primary Dx); Dysuria; Vaginal odor; Polyarthralgia; Acute vaginitisStart: 07-11-2025 End: 05-78-8805Trsokb Rm Marty Chanda CHOCOLATE MAKER Work Phone: noms NEUROLOGYStart: 07-11-2025 End: 20-64-5718Nbvfnq flowsViolette Marty Yeungpriyank CHOCOLATE MAKER Work Phone: noms NEUROLOGYStart: 07-11-2025 End: 43-55-3941naleotjtgcIYBXEMPFGN Marty Rodolfo AvailableStart: 07-11-2025 End: 52-13-2163Oxcuto outpatient visit 15 minutesSu Armas CHOCOLATE MAKER Work Phone: noms [place] NeurologyComment on above:Abnormal echocardiogram (Primary Dx); Intractable chronic migraine without aura and without status migrainosusStart: 07-04-2025 End: 52-95-0110Dvunakytj encounterMarycarmen Nayak MD Work Phone: NODH [facility] MedicineStart: 06-20-2025 End: 12-08-0337uchhmstovsJKVV F BOWERNorthwestern Medical CenterMedica Van Ness campustart: 05-22-2025 End: 30-18-8096Lzoaaz Jyoti Nayak MD Work Phone: noms FNR FMStart: 05-22-2025 End: 02-27-0651Lxwqxc Jyoti Nayak MD Work Phone: noms FNR FMStart: 05-22-2025 End: 09-78-3509nqmoaaystgAALT F BOWERNot AvailableStart: 05-22-2025 End: 95-89-1294Funngi outpatient visit 25 minutesMarycarmen Nayak MD Work Phone: noms FNR FMComment on above:Systolic murmur (Primary Dx); Dysuria; VALERIANO positive; Myalgia; Chronic diarrheaStart: 04-09-2025 End: 35-44-3446Evgzuk flowsViolette Armas CHOCOLATE MAKER Work Phone: noms NEUROLOGYStart: 04-09-2025 End: 82-67-1867Ltntoo flowsheetSu Armas CHOCOLATE MAKER Work Phone: noms NEUROLOGYStart: 04-09-2025 End: 91-81-5590Ifujoulql encounterSu Armas CHOCOLATE MAKER Work Phone: noms [facility] NEURO 210Start: 04-09-2025 End: 62-31-0865Cguyhr outpatient visit 25 minutesSu Armas CHOCOLATE MAKER Work Phone: noms [facility] NEURO 210Comment on above:Intractable chronic migraine without aura and without status migrainosus (CMS/HCC) (Primary Dx); Complex regional pain syndrome type 1 of left lower extremityStart: 04-09-2025 End: 50-47-5405nejirpvixcPSWYIZHDUC Marty YEUNGCary AvailableStart: 04-04-2025 End: 44-91-1395juztfmfkpsOBCFVM MAJORSNot AvailableStart: 04-04-2025 End: 43-55-5554Aqzluk [facility] CHOCOLATE MAKER Work Phone: NOMS FNR FMStart: 04-04-2025 End: 33-60-4906TsmoyqE[facility] CHOCOLATE MAKER Work Phone: NOSD FNR FMStart: 04-04-2025 End: 44-52-6220Vgzvlv outpatient visit 25 minutesBanner Heart Hospitalchastity CHOCOLATE MAKER Work Phone: noms FNR FMComment on above:Pain of upper abdomen (Primary Dx); Flank pain; Acute nonintractable headache, unspecified headache type; Viral upper respiratory infection; Otitis media with effusion, leftStart: 04-04-2025 End: 58-06-7170viohsylxebBEGCPF MAJORSNot AvailableStart: 03-12-2025 End: 55-06-4074Frshcg Kimi Laird MD Work Phone: noms BM NEUROLOGYStart: 03-12-2025 End: 97-70-7767Thqymq Kimi Laird MD Work Phone: noms BM NEUROLOGYStart: 03-12-2025 End: 46-98-2530Gvpvxx outpatient visit 15 minutesBraden Laird MD Work Phone: noms SWS NEURComment on above:Intractable chronic migraine without aura and with status migrainosus (CMS/HCC) (Primary Dx); Complex regional pain syndrome I, unspecifiedStart: 03-12-2025 End: 14-31-0456esqlanufpyABSBHKT W BAUERNot AvailableStart: 01-02-2025 End: 80-78-2804UcpmoaLgycfmincn Marty Yeungpriyank CHOCOLATE MAKER Work Phone: noms [facility] NEURO 210Comment on above:Complex regional pain syndrome I, unspecifiedStart: 12-11-2024 End: 60-41-9296Mkxfyk flowsheetFelicia C Windnagel CHOCOLATE MAKER Work Phone: noms BM NEUROLOGYStart: 12-11-2024 End: 81-04-2317Ygughl flowsheetFelicia C Windnagel CHOCOLATE MAKER Work Phone: noms BM NEUROLOGYStart: 12-11-2024 End: 55-89-7108jvcnupqmqrMEXRPQE W BAUERNot AvailableStart: 12-11-2024 End: 13-44-7627Bqhskh outpatient visit 25 minutesBredejan Laird MD Work Phone: noms SWS NEURComment on above:Complex regional pain syndrome type 1 of left lower extremity (Primary Dx)Start: 12-06-2024 End: 73-16-1750onmsuflrqwITBSOXC BAUERNot AvailableStart: 12-06-2024 End: 46-09-8502Ulvlbcdgx Char Nayak MD Work Phone: NOMS FNR FMComment on above:Constant exophthalmos of both eyes (Primary Dx); Urinary tract infection without hematuria, site unspecifiedStart: 11-25-2024 End: 16-53-6186avwimlkraqMVSH F BOWERNot AvailableStart: 11-24-2024 End: 94-36-4645Sbomua Lewis Nayak MD Work Phone: NOMS FNR FMComment on above:Acute cystitis without hematuria (Primary Dx); Acute pharyngitis, unspecified etiologyStart: 11-22-2024 End: 63-08-1694Ixkyrv Lewis Nayak MD Work Phone: NOMS FNR FMComment on above:Acute cystitis without hematuria (Primary Dx)Start: 11-21-2024 End: 43-10-1215Aktvil Lewis Nayak MD Work Phone: NOMS FNR FMComment on above:Dysuria (Primary Dx)Start: 11-20-2024 End: 77-92-0024Yaxyru Jyoti Nayak MD Work Phone: NOMS FNR FMStart: 11-20-2024 End: 09-50-3078Xqyosn Jyoti Nayak MD Work Phone: NOMS FNR FMStart: 11-20-2024 End: 06-44-9295nufdxgschlWWOW F BOWERNot AvailableStart: 11-20-2024 End: 11-34-7155Ylwgzk outpatient visit 25 minutesMarycarmen Nayak MD Work Phone: NOMS FNR FMComment on above:Abdominal bloating (Primary Dx); Pelvic pain; Myalgia; VALERIANO positive; Acute pharyngitis, unspecified etiologyStart: 11-15-2024 End: 91-27-7824Lvhtsyute department patient visitMARYCARMEN NAYAKProGuernsey Memorial Hospitalca Houston HospitalStart: 11-11-2024 End: 71-61-0649ZcmixxQelf F Bower MD Work Phone: NOMS FNR FMComment on above:Adjustment disorder with depressed mood (CMS/HCC)Start: 09-30-2024 End: 55-29-8829vubqpzgdzkVXCGLB N MUSTAFAProMedica South Range HospitalStart: 09-13-2024 End: 31-21-0826Wknugg outpatient visit 15 minutesMarycarmen Nayak MD Work Phone: NOMS FNR FMComment on above:Sacroiliitis (CMS/HCC) (Primary Dx); Anxiety; VALERIANO positiveStart: 09-13-2024 End: 43-58-4678jczwsgmgesOQBW F BOWERNot AvailableStart: 09-13-2024 End: 42-57-9468Oughak Jyoti Nayak MD Work Phone: NOMS FNR FMStart: 09-13-2024 End: 51-59-4019Ojjaoe Jyoti Nayak MD Work Phone: NOTR FNR FMStart: 09-11-2024 End: 08-81-3486Bzaywy OnlyMarycarmen Nayak MD Work Phone: NONQ FNR FMComment on above:Constipation, unspecified constipation type (Primary Dx)Start: 09-11-2024 End: 51-14-5478Hlpoodyzo department patient visitMARYCARMEN [facility] Houston HospitalStart: 09-10-2024 End: 50-67-7535yufpubbbfaMTWA Marek Carlton AvailableStart: 09-04-2024 End: 34-29-8826Kncmenqnr encounterMarycarmen Nayak MD Work Phone: noms FNR FMStart: 09-04-2024 End: 40-56-1279fvagelnjgzZCPILHT Dorina Paloma AvailableStart: 09-03-2024 End: 68-63-0800exwmmnmmwuTVAP F BOWERProtestant Deaconess Hospital HospitalStart: 09-02-2024 End: 45-62-2746edeoqzcwmvJLPAY FAZIONot AvailableStart: 09-02-2024 End: 75-47-1541Wbtela follow up visit related to original pxCorey Demetra DO Work Phone: noms BCP OBComment on above:Postop checkStart: 08-29-2024 End: 19-46-5265fhdlwqqwyzPHCD F BOWERNot AvailableStart: 08-29-2024 End: 46-49-8503Ehrajw outpatient visit 25 minutesMarycarmen Nayak MD Work Phone: NOJH FNR FMComment on above:Raynaud's phenomenon without gangrene (Primary Dx); Myalgia; Arthralgia, unspecified joint; Low vitamin D level; Pain of upper abdomen; Slow transit constipationStart: 08-29-2024 End: 32-90-8504Xckjab Jyoti Nayak MD Work Phone: NOYD FNR FMStart: 08-29-2024 End: 70-76-1767Wlnqun Jyoti Nayak MD Work Phone: noms FNR FMStart: 08-26-2024 End: 15-91-5370Lkqqrz Lorraine Bro MD Work Phone: noms SH ENDOCRINOLOGYStart: 08-26-2024 End: 45-84-3173Prbtsh Lorraine Bro MD Work Phone: noms SH ENDOCRINOLOGYStart: 08-26-2024 End: 63-68-8650Cmrqkb outpatient new 30 minutesJeremiah Bro MD Work Phone: noms SH ENDOCRINOLOGYComment on above:Abnormal thyroid function test (Primary Dx); Acquired hypothyroidism (CMS/HCC)Start: 08-23-2024 End: 93-67-0345Kqvlma Kimi Laird MD Work Phone: noms BM NEUROLOGYStart: 08-23-2024 End: 90-49-9681Glrmgl Kimi Laird MD Work Phone: noms NEUROLOGYStart: 08-23-2024 End: 76-56-0382Xporbs outpatient visit 25 minutesBraden Laird MD Work Phone: noms SWS NEURComment on above:Acquired hypothyroidism (CMS/HCC) (Primary Dx); Complex regional pain syndrome type 1 of left lower extremity; New daily persistent headacheStart: 08-20-2024 End: 73-23-0106Njtwcsmxk Result EncounterGeneric External Data ProviderNOMS External Department UnsolicitedStart: 08-20-2024 End: 79-74-1041Twpwjfpah Result EncounterGeneric External Data ProviderNOMS External Department UnsolicitedStart: 08-20-2024 End: 98-50-8025siphxufgmvDEFQ F BOWERFacility:[facility] Hospitaltart: 08-20-2024 End: 41-91-5286Raclfu outpatient new 45 minutesRiver Gardner MD Work Phone: AllergyComment on above:Recurrent infections (Primary Dx); Livedo reticularis; Recurrent UTI; Diffuse painStart: 08-19-2024 End: 16-80-8576Yagcra flowsheetCorey Demetra DO Work Phone: noms BCP OBStart: 08-19-2024 End: 69-00-2346Lyeleu flowsheetCorey Demetra DO Work Phone: noms BCP OBStart: 08-19-2024 End: 10-80-6156Avdciujpp Result EncounterGeneric External Data ProviderNOMS External Department UnsolicitedStart: 08-19-2024 End: 76-61-6436Hpixsx follow up visit related to original pxCorey Demetra DO Work Phone: noms [facility] OBComment on above:Postop check; Chronic fatigueStart: 08-08-2024 End: 42-18-1700xeusarjtywIPTIVQUZ E PERRYFacility:EU BellevueStart: 08-08-2024 End: 28-32-1099Cpjldtu encounter procedureJENNIFER E TRISTAN [facility] [place] start: 81-40-6449lrlsbwpygdLJZZMJKB PERRYFacility:EU BellevueStart: 07-11-2024 End: 00-58-5072Imfdif Kana TAM Work Phone: noms BCP OBStart: 07-11-2024 End: 25-92-5537Lshqck Kana TAM Work Phone: noMS BCP OBStart: 07-11-2024 End: 77-08-2288Uhtlpa follow up visit related to original Dominguez TAM Work Phone: noms BCP OBComment on above:Cystitis; Postoperative examinationStart: 07-05-2024 End: 89-78-9978Vaaqbldiw Result EncounterGeneric External Data ProviderNOMS External Department UnsolicitedStart: 07-05-2024 End: 41-75-4246Yzohmlqev Result EncounterGeneric External Data ProviderNOMS External Department UnsolicitedStart: 07-04-2024 End: 61-21-6359tdwzzsvgiwRnxcn FazioFacility:[facility] Start: 07-04-2024 End: 08-33-1551Zkmpopwdw Result EncounterCorey Demetra DO Work Phone: noms External Department UnsolicitedStart: 07-04-2024 End: 25-12-5923Emovgpcmq Result EncounterCorey Demetra DO Work Phone: NOMS External Department UnsolicitedStart: 05-20-2024 End: 18-62-7012rxyelwecrzShvuw FaZanesville City [facility] Work Phone: Start: 05-20-2024 End: 33-00-8772Lwtajniu ReferredDO Florin Demetra Work Phone: [facility]-LAB Path Spec Mathieu HospStart: 58-68-3881Ybwruaulb encounterMarycarmen Nayak MD Work Phone: noms FNR FMStart: 09-24-2021 End: 07-82-7053ajvmvlxjyqIBH NAVRATILFacility:X5Moncj: 07-29-2021 End: 36-05-8295Ixaurhxbrx and management of inpatientKATHLEEN E POOLMercy Wichita HospitalStart: 07-29-2021 End: 20-08-2400Iumfgmxzsy and management of inpatientKathleen E Pool JAMMIE - STEVEN Work Phone: mthz Labor and DeliveryStart: 07-28-2021 End: 61-82-3263efopenhmjlVLCI F ROSANNAercy Wichita HospitalStart: 07-27-2021 End: 65-49-4894Jkgxfgtoea hospital visit by Jayme Hillman CNM Work Phone: mthz Labor and DeliveryStart: 07-20-2021 End: 17-34-6395Vjurhwfcge and management of inpatientMARY F NOAHERMercy Carlos Alberto HospitalStart: 07-20-2021 End: 77-07-7697Wlergjjibu and management of inpatientValemaxwell Sifuentes SENIOR ASP NET DEVELOPER - CNM Work Phone: mthz Labor and DeliveryStart: 10-27-2020 End: 50-14-3230fhrdiqysioAF OLY Rachel ZIEBERFacility:T2Ynnjn: 10-27-2020 End: 05-57-6619Vgoiwdp encounter procedureJEFFERYin Powell KATKOFacility:H1 Procedures DateProcedureProcedure DetailPerforming ClinicianStart: 97-33-3276Mqxhk dip stick/tablet rgnt non-auto w/o micrscpMary Marek Nayak MD Work Phone: Start: 47-15-7178Foyiuxhovwa antibodies anaMarycarmen Nayak MD Work Phone: Start: 11-07-8261ZRGJGZACOHN ANTIBODIES TITER AND PATTERNMarycarmen Nayak MD Work Phone: Start: 95-85-8066Pjhxiukiwjhbz metabolic panelMarycarmen Nayak MD Work Phone: Start: 95-63-6878GLS W/REFLEX TO BR9PodiMarycarmen Nayak MD Work Phone: Start: 80-30-6968Dmalnll bacterial quanttative colony count urineMarycarmen Nayak MD Work Phone: Start: 94-17-9155Vbzhm dip stick/tablet rgnt non-auto w/o micrscpMary Marek Nayak MD Work Phone: Start: 06-96-8987BWIIJJ COVID-19/FLUBreann Majors CHOCOLATE MAKER Work Phone: Start: 10-56-9780Qtxrl dip stick/tablet rgnt non-auto w/o micrscpBreann Majors CHOCOLATE MAKER Work Phone: Start: 01-28-5444YHE CRP SERPL-MCNCGeneric External Data ProviderStart: 16-51-2184SOW CBC WITH AUTO DIFFCorey Demetra DO Work Phone: Start: 43-93-7283OAB CBC WITH AUTO DIFFCorey Demetra DO Work Phone: Start: 15-59-7701OWV CBC WITH AUTO DIFFGeneric External Data ProviderStart: 80-34-9491MinecibmgbkpQMRNJSDR PERRY Start: 77-46-2914Lasghnvabso observation [Identifier] in Cervix by Cyto stainMarycarmen Nayak MD Work Phone: Start: 54-00-2109RlllcieepjiSwko Bower MD Work Phone: Start: 83-97-0636VBBIOND, WHOLE BLOODKathleen E Pool SENIOR ASP NET DEVELOPER - CNM Work Phone: Start: 63-93-5972Ienr screen class list aKathleen E Pool SENIOR ASP NET DEVELOPER - CNM Work Phone: Start: 35-49-3774Fhwsn count complete auto&auto difrntl wbcKathleen E Pool SENIOR ASP NET DEVELOPER - CNM Work Phone: Start: 41-72-9654Vjkcyihsta microscopic onlyKathleen E Pool SENIOR [employer] NET DEVELOPER - CNM Work Phone: Start: 01-71-3662Zeuvm dip stick/tablet rgnt auto w/o microscopyKathleen E Pool SENIOR ASP NET DEVELOPER - CNM Work Phone: Start: 20-75-0470UTFAHAX, WHOLE BLOODValerie Floro SENIOR [employer] NET DEVELOPER - CNM Work Phone: Start: 69-41-9009IIWAAUZ, WHOLE BLOODValerie Floro SENIOR ASP NET DEVELOPER - CNM Work Phone: Start: 01-83-3671Yffqoapf screenValerie Floro SENIOR ASP NET DEVELOPER - CNM Work Phone: Start: 91-65-5613Moyxc count complete auto&auto difrntl wbcValerie Floro SENIOR [employer] NET DEVELOPER - CNM Work Phone: Start: 09-00-6918POSGQQS, WHOLE BLOODValerie Floro SENIOR [employer] NET DEVELOPER - CNM Work Phone: Start: 56-29-4868Qpsby count complete auto&auto difrntl wbcLisbethrijerry Sifuentes SENIOR [employer] NET DEVELOPER - CNM Work Phone: Start: 21-65-4380Qagho typing serologic aboLisbethrijerry Sifuentes SENIOR [employer] NET DEVELOPER - CNM Work Phone: Start: 67-08-6895Dwngcptgtp microscopic onlyValerijerry Sifuentes SENIOR ASP NET DEVELOPER - CNM Work Phone: Start: 72-60-2324Biuxf dip stick/tablet rgnt auto w/o microscopyLisbethrijerry Sifuentes SENIOR ASP NET DEVELOPER - CNM Work Phone: Start: 34-83-4006QDL, EXTERNAL RESULTValerie Ginao SENIOR [employer] NET DEVELOPER - CNM Work Phone: Start: 05-88-5585YNC, EXTERNAL RESULTHistorical Provider MDStart: 46-16-7347Ovgcjjpw hiv-1&hiv-2 single resultValerijerry Sifuentes SENIOR ASP NET DEVELOPER - CNM Work Phone: Start: 63-74-2111Zwzjnxhl screenLisbethrijerry Sifuentes SENIOR ASP NET DEVELOPER - CNM Work Phone: Start: 72-98-1657Omryiocno cultureSelma Sifuentes SENIOR [employer] NET DEVELOPER - CNM Work Phone: Start: 04-05-4552Uiffjuauq neisseria gonorrhoeae Selma Sifuentes SENIOR [employer] NET DEVELOPER - CNM Work Phone: Start: 99-04-7718VcrjelahumaPRGKGQFO TRISTAN Start: 54-92-0888LpzqdelngxmzrlzuqykvjmimleBQSCWOBM TRISTAN Comment on above:with bxStart: 69-80-3135Ehtmabfzq hernia (disorder)GEOVANNI HUDSON Comment on above:repairAnkle region structure (body structure)GEOVANNI HUDSON Comment on above:achilles tendonCholecystectomyJENNIFER TRISTAN Plan of Treatment DateCare ActivityDetailAuthorStart: 68-03-6337Jyquh microalbumin profile DTaP,Tdap,Td Vaccine (2 - Td or Tdap)[facility] Hospitaltart: 70-00-4985Lsrsnkptd for malignant neoplasm of cervixNOMS HealthcareStart: 43-53-8126Avgmajphb vaccinationInfluenza Vaccine (#1)NOMS HealthcareComment on above:Postponed from 07/07/2025 (Insurance / Financial)Start: 10-29-0588Xikvmmeub for malignant neoplasm of cervixPap SmearNOMS HealthcareStart: 10-09-2025 End: 11-13-6887Xbuekgb encounter iwlosouhe86/04/2025 11:45 AM EST Procedure Visit [facility] [address] [facility] [address] [place] [address] Su Armas, CHOCOLATE MAKER [address] [facility] [address] [place] [address] [phone] [facility] NeurologyStart: 09-23-2025 End: 93-95-9032Sbqqsdhsdlwe consultation with zsygwyi9209/23/2025 11:00 AM EST Telemedicine [facility]LLChast[facility] [address] [place] [address] [place] [address] Braden Laird MD [address] [facility] [address] [place] [address] [phone] [facility]LL[facility] 210Start: 09-09-2025 End: 09-97-9946Eomibfm encounter procedureNOMS BCP OBStart: 09-03-2025 End: 69-79-3091Vzzqkkb encounter eelksslep72/29/2025 3:00 PM EDT Office Visit [facility] [address] [facility] [id number] Florin Mccrary, [address] [place], [place] [id number] NOMS BCP OBStart: 08-27-2025 End: 68-94-0251Rkiizmp encounter wzguneufv34/22/2025 7:55 AM EDT Office Visit [facility] [address] HUMP[address] [place] [address], [place] [address] Su Armas CHOCOLATE MAKER [address] [place] [address], [place] [address] NOMChastity [facility] 210Start: 08-25-2025 End: 92-84-8044Kqfewoyz identified in Urine by CultureUrine culture (clean catch) Microbiology Routine Dysuria Vaginal odor Expected: 08/25/2025 (Approxim ate), Expires: 08/25/2026[facility] Work Phone: Comment on above:Expected: 08/25/2025 (Approximate), Expires: 08/25/2026Start: 07-11-2025 End: 29-19-6651Odhtobp encounter xosjdtnsx24/05/2025 9:45 AM EDT Procedure Visit [facility] [address] [facility] [address] [place], [phone] Su Armas CHOCOLATE MAKER [address] [place] [address], [place] [address] [facility] NeurologyStart: 88-87-3172Uzfyccjjm vaccinationNOMS HealthcareStart: 05-29-2025 End: 56-80-4247Svkfrwq encounter eczcxdkes84/24/2025 1:30 PM EDT Procedure Visit [facility] NEUR [address] [facility] [address] [place] [address] Su Armas, CHOCOLATE MAKER [address] [place] [address], [place] [address] NOMChastity SWS NEURStart: 05-22-2025 End: 33-31-1299Ehndvx panel reflex to titerCeliac panel reflex to titer Lab Routine Chronic diarrhea Expected: 05/22/2025 (Approximate), Expires: 05/22/2026 NOMS HealthcareComment on above:Expected: 05/22/2025 (Approximate), Expires: 05/22/2026Start: 05-22-2025 End: 61-89-9493ZE Heart TransthoracicTransthoracic Echo (TTE) Complete Echocardiography Routine Systolic murmur Expected: 05/22/2025 (Approximate), Expires: 05/22/2027[facility] Work Phone: Comment on above:Expected: 05/22/2025 (Approximate), Expires: 05/22/2027Start: 99-50-7701Lqncrqjdk vaccinationInfluenza Vaccine (#1) NOMS HealthcareComment on above:Postponed from 07/07/2024 (Patient Refused) Start: 04-09-2025 End: 06-87-6965Ywfdhvvmjrxk consultation with [facility] NEURO 210Comment on above:ArrivedStart: 04-04-2025 End: 76-75-7042Qqaukel [Enzymatic activity/volume] in Serum or PlasmaAmylase Lab Routine Flank pain Pain of upper abdomen Expected: 04/04/2025 (Approximate), Expires: 04/04/2026NOMS HealthcareComment on above:Expected: 04/04/2025 (Approximate), Expires: 04/04/2026Start: 04-04-2025 End: 70-91-5246Fulvrgrh identified in Urine by CultureUrine culture (clean catch) Microbiology Routine Flank pain Expected: 04/04/2025 (Approximate), Expi res: 04/04/2026[facility] Work Phone: Comment on above:Expected: 04/04/2025 (Approximate), Expires: 04/04/2026Start: 04-04-2025 End: 87-70-3454QVB W Auto Differential panel - BloodCBC and differential Lab Routine Flank pain Pain of upper abdomen Expected: 04/04/2025 (Approximate), Expires: 04/04/2026NOMS HealthcareComment on above:Expected: 04/04/2025 (Approximate), Expires: 04/04/2026Start: 04-04-2025 End: 62-38-9901Pthxhblplujam metabolic 2000 panel - Serum or PlasmaComprehensive metabolic panel Lab Routine Flank pain Pain of upper abdomen Expected: 04/04/2025 (Approximate), Expires: 04/04/2026NOMS HealthcareComment on above: Expected: 04/04/2025 (Approximate), Expires: 04/04/2026Start: 04-04-2025 End: 02-57-8116Eiiazc [Enzymatic activity/volume] in Serum or PlasmaLipase Lab Routine Flank pain Pain of upper abdomen Expected: 04/04/2025 (Approximate), Expires: 04/04/2026NOMS HealthcareComment on above:Expected: 04/04/2025 (Approximate), Expires: 04/04/2026Start: 04-04-2025 End: 93-99-8940ZM Abdomen Single viewNOMS HealthcareComment on above:Expected: 04/04/2025, Expires: 04/04/2026Start: 04-04-2025 End: 65-77-4524Rrjrppi encounter ihlulacei42/30/2025 1:00 PM EDT Office Visit [facility] [address] [place] [id number] [phone], Breann, NP [address] [place] [address] ArrivedNOOR FNR FMComment on above:ArrivedStart: 03-12-2025 End: 02-04-6563Usefrpo encounter tjeldoxeb75/07/2025 1:00 PM EDT Office Visit [facility] [address] [address] Braden Laird MD [address] [facility] [address] [address] [facility] NEURStart: 03-12-2025 End: 56-50-9107Ndpusfewxmsr consultation with fndnlkj4403/12/2025 1:00 PM EDT Telemedicine N[facility] [address] [address] Braden Laird MD [address] [facility] [address] [place] [address] ArrivedNOMS [facility] NEURComment on above:ArrivedStart: 12-11-2024 End: 02-30-3430Iplycph encounter lhxobvjyn42/05/2025 11:50 AM EST Office Visit [facility] [address] [facility] [address] [place] [address] Grazyna Hawthorne, [employer] [address], [facility] [address] [place] [address] [facility] NEURStart: 11-25-2024 End: 98-90-9500Dmyosxvjegqn / ancillary services vcdethdqgj39/20/2025 4:30 PM EST Ancillary Procedure [facility] [address] [facility] [address] [place] [address] OOHX FNR ULTRASOUNDStart: 11-22-2024 End: 58-89-3061Cujcicmmtmxl / ancillary services yvuklaqnul84/17/2025 3:00 PM EST Ancillary Procedure [facility] [address] [facility] [address] [place] [address] FULR FNR ULTRASOUNDStart: 11-20-2024 End: 71-40-8174Bxzjboex identified in Throat by Aerobe cultureThroat culture, comprehensive Microbiology Routine Acute pharyngitis, unspecified etiology Expected: 11/20/2024 (Approximate), Expires: 11/20/2025N[facility] HealthcareComment on above:Expected: 11/20/2024 (Approximate), Expires: 11/20/2025Start: 11-20-2024 End: 51-25-0458Dwvyxfmi identified in Urine by CultureUrine culture (clean catch) Microbiology Routine Pelvic pain Expected: 11/20/2024 (Approximate), Exp ires: 11/20/2025NOMS HealthcareComment on above:Expected: 11/20/2024 (Approximate), Expires: 11/20/2025Start: 11-20-2024 End: 67-50-2876IKC W Auto Differential panel - BloodCBC and differential Lab Routine Pelvic pain Expected: 11/20/2024 (Approximate), Expires: 11/20/2025[facility] HealthcareComment on above:Expected: 11/20/2024 (Approximate), Expires: 11/20/2025Start: 11-20-2024 End: 48-24-5923Pndwurylubyaa metabolic 2000 panel - Serum or PlasmaComprehensive metabolic panel Lab Routine Pelvic pain Expected: 11/20/2024, Expires: 11/20/2025[facility] HealthcareComment on above:Expected: 11/20/2024, Expires: 11/20/2025Start: 11-20-2024 End: 14-87-5799Ozywrznsl gonorrhoeae DNA [Presence] in Cervical mucus by ANTHONY with probe detectionC. trachomatis / N. gonorrhoeae, DNA probe Pathology and Cytology Routine Abdominal bloating Pelvicpain Expected: 11/20/2024 (Approximate), Expires: 11/20/2025[facility] Work Phone: Comment on above:Expected: 11/20/2024 (Approximate), Expires: 11/20/2025Start: 11-20-2024 End: 49-46-5143Mqnwhrivws complete panel - UrineUrinalysis with reflex microscopic (catheter) Lab Routine Pelvic pain Expected: 11/20/2024 (Approxim ate), Expires: 11/20/2025[facility] HealthcareComment on above:Expected: 11/20/2024 (Approximate), Expires: 11/20/2025Start: 11-20-2024 End: 98-50-1995BD PelvisUS pelvis Imaging Routine Abdominal bloating Pelvic pain Expected: 11/20/2024, Expires: 11/20/2025[facility] HealthcareComment on above: Expected: 11/20/2024, Expires: 11/20/2025Start: 10-21-2024 End: 19-57-9969Rikjdnr encounter qxxocnxnj67/16/2024 9:20 AM EST Office Visit [facility] [address] [place] [phone] Braden Laird MD [address] [facility] [address] [place] [address] [phone] [facility] NEURStart: 09-24-2024 End: 20-16-6623Guzqitr encounter cgksuqeny36/19/2024 11:10 AM EST Office Visit [facility] [address] [place] [phone] Jeremiah Bro MD [address] [place] [address] [facility] ENDOCRINOLOGYStart: 09-23-2024 End: 08-48-8582Skbdtxi encounter /18/2024 2:20 PM EST Office Visit [facility] [address] [place] [phone] Marycarmen Nayak MD [address] [place] [address] [facility] FNR FMStart: 09-13-2024 End: 16-14-5599Xlekaie encounter procedureNOMS FNR FMComment on above:Arrived Start: 09-05-2024 End: 34-69-9244Dzgkzmtacecb / ancillary services vkcxqohloo09/31/2024 1:00 PM EDT Ancillary Procedure [facility] [address] [phone] [facility] FNR CTStart: 09-04-2024 End: 90-83-6662Cmtzxryxqhgn / ancillary services eoboiqsrku57/30/2024 8:30 AM EDT Ancillary Procedure [facility] MR [address] [facility] [address] [place] [phone] [facility] FNR MRStart: 09-02-2024 End: 35-87-8467Byycwcv encounter yjifiyymh18/28/2024 1:00 PM EDT Office Visit [facility] [address] [place] [address] [place] [address] Florin Mccrary, DO [address] [place] [address] [place] [address] [facility] BCP OBStart: 08-29-2024 End: 17-02-2257YNO W Auto Differential panel - BloodCBC and differential Lab Routine Raynaud's phenomenon without gangrene Myalgia Arthralgia, unspecified joint Expected: 08/29/2024 (Approximate), [facility] Comment on above:Expected: 08/29/2024 (Approximate), Expires: 08/29/2025Start: 08-29-2024 End: 42-33-7161Ewvybhpdodcdn metabolic 2000 panel - Serum or PlasmaComprehensive metabolic panel Lab Routine Raynaud's phenomenon without gangrene Slow transit constipation Expected: 08/29/2024, Expires: 08/29/2025[facility] HealthcareComment on above:Expected: 08/29/2024, Expires: 08/29/2025Start: 08-29-2024 End: 96-62-1020SE Abdomen and Pelvis WO contrastCT abdomen pelvis wo IV contrast Imaging Routine Pain of upper abdomen Slow transit constipation Expected: 08/29/2024, Expires: 08/29/2025[facility] HealthcareComment on above:Expected: 08/29/2024, Expires: 08/29/2025Start: 08-29-2024 End: 14-10-9459Ybikqdgqklf sedimentation rateSedimentation rate, automated Lab Routine Raynaud's phenomenon without gangrene Myalgia Arthralgia,unspecified joint Expected: 08/29/2024 (Approximate), Expires: 08/29/2025[facility] Work Phone: Comment on above:Expected: 08/29/2024 (Approximate), Expires: 08/29/2025Start: 08-29-2024 End: 82-20-1291Vkkk disease, PCRLyme disease, PCR Lab Routine Raynaud's phenomenon without gangrene Myalgia Arthralgia, unspecifiedjoint Expected: 08/29/2024 (Approximate), Expires: 08/29/2025[facility] HealthcareComment on above: Expected: 08/29/2024 (Approximate), Expires: 08/29/2025Start: 08-29-2024 End: 57-51-7784Sevgqdr Ab [Titer] in Serum by ImmunofluorescenceANA Lab Routine Raynaud's phenomenon without gangrene Myalgia Arthralgia, unspecified joint Expected: 08/29/2024 (Approximate), Expires: 08/29/2025[facility] HealthcareComment on above:Expected: 08/29/2024 (Approximate), Expires: 08/29/2025Start: 08-29-2024 End: 38-89-8784Fmthqtxhuy factor [Units/volume] in Serum or PlasmaRheumatoid factor Lab Routine Raynaud's phenomenon without gangrene Myalgia Arthralgia, unspecifiedjoint Expected: 08/29/2024 (Approximate), Expires: 08/29/2025[facility] HealthcareComment on above:Expected: 08/29/2024 (Approximate), Expires: 08/29/2025Start: 08-29-2024 End: 72-02-3032NN Abdomen Single viewNOMS HealthcareComment on above:Expected: 08/29/2024, Expires: 08/29/2025Start: 08-26-2024 End: 69-58-5594CLWRUNUR Lab Routine Abnormal thyroid function test Expected: 08/26/2024 (Approximate), Expires: 08/26/2025[facility] HealthcareComment on above: Expected: 08/26/2024 (Approximate), Expires: 08/26/2025Start: 08-26-2024 End: 25-66-0913Tgefr metabolic 1998 panel - Serum or PlasmaBasic metabolic panel Lab Routine Abnormal thyroid function test Expected: 08/26/2024 (Approximate), Expires: 08/26/2025[facility] HealthcareComment on above:Expected: 08/26/2024 (Approximate), Expires: 08/26/2025Start: 08-26-2024 End: 46-24-4256AqjluqjyVisamkke Lab Routine Abnormal thyroid function test Expected: 08/26/2024 (Approximate), Expires: 08/26/2025[facility] HealthcareComment on above:Expected: 08/26/2024 (Approximate), Expires: 08/26/2025Start: 08-26-2024 End: 87-84-7011Otqduxmf stimulating hormoneFollicle stimulating hormone Lab Routine Abnormal thyroid function test Expected: 08/26/2024 (Approximate), Expires: 08/26/2025[facility] HealthcareComment on above:Expected: 08/26/2024 (Approximate), Expires: 08/26/2025Start: 08-26-2024 End: 82-13-7224Rgtnfs hormoneGrowth hormone Lab Routine Abnormal thyroid function test Expected: 08/26/2024 (Approximate), Expires: 08/26/2025[facility] HealthcareComment on above:Expected: 08/26/2024 (Approximate), Expires: 08/26/2025Start: 08-26-2024 End: 54-56-0797Sqawsjv-like growth factor 1Insulin-like growth factor 1 Lab Routine Abnormal thyroid function test Expected: 08/26/2024 (Approximate), Expires: 08/26/2025[facility] HealthcareComment on above:Expected: 08/26/2024 (Approximate), Expires: 08/26/2025Start: 08-26-2024 End: 07-95-7964Pwibnkowayx hormoneLuteinizing hormone Lab Routine Abnormal thyroid function test Expected: 08/26/2024 (Approximate), Expires: 08/26/2025 [facility] HealthcareComment on above:Expected: 08/26/2024 (Approximate), Expires: 08/26/2025Start: 08-26-2024 End: 85-33-3878QD Brain WO and W contrast IVMR brain w and wo contrast routine Imaging Routine Complex regional pain syndrome type 1 of left lower extremity New daily persistent headache Expected: 08/26/2024 (Approximate), Expires: 08/23/2025[facility] Work Phone: Comment on above:Expected: 08/26/2024 (Approximate), Expires: 08/23/2025Start: 08-26-2024 End: 94-63-2929KrgsgsrbbYcokzxizh Lab Routine Abnormal thyroid function test Expected: 08/26/2024 (Approximate), Expires: 08/26/2025[facility] HealthcareComment on above:Expected: 08/26/2024 (Approximate), Expires: 08/26/2025Start: 08-26-2024 End: 15-39-2361Wnedkjmtcflsw AntibodyThyroglobulin Antibody Lab Routine Abnormal thyroid function test Expected: 08/26/2024 (Approximate), Expires: 08/26/2025 [facility] Work Phone: Comment on above:Expected: 08/26/2024 (Approximate), Expires: 08/26/2025Start: 08-26-2024 End: 59-28-2415Ezoslaw peroxidase antibodyThyroid peroxidase antibody Lab Routine Abnormal thyroid function test Expected: 08/26/2024 (Approximate), Expires: 08/26/2025[facility] HealthcareComment on above:Expected: 08/26/2024 (Approximate), Expires: 08/26/2025Start: 08-26-2024 End: 80-31-6807Ookdzehkowe [Units/volume] in Serum or PlasmaTSH Lab Routine Abnormal thyroid function test Expected: 08/26/2024 (Approximate), Expires: 08/26/2025[facility] HealthcareComment on above:Expected: 08/26/2024 (Approximate), Expires: 08/26/2025Start: 08-26-2024 End: 89-75-4007Wkxsklpkpre receptor antibodyThyrotropin receptor antibody Lab Routine Abnormal thyroid function test Expected: 08/26/2024 (Approximate), Expires: 08/26/2025[facility] HealthcareComment on above:Expected: 08/26/2024 (Approximate), Expires: 08/26/2025Start: 08-26-2024 End: 80-70-4770Vvwtjsoob (T4) free [Mass/volume] in Serum or PlasmaT4, free Lab Routine Abnormal thyroid function test Expected: 08/26/2024 (Approximate), Expires: 08/26/2025[facility] HealthcareComment on above:Expected: 08/26/2024 (Approximate), Expires: 08/26/2025Start: 08-26-2024 End: 81-89-9068Gpfihxojbzpvzxhh (T3) Free [Mass/volume] in Serum or PlasmaT3, free Lab Routine Abnormal thyroid function test Expected: 08/26/2024 (Approximate), Expires: 08/26/2025[facility] HealthcareComment on above:Expected: 08/26/2024 (Approximate), Expires: 08/26/2025Start: 08-26-2024 End: 88-01-4665Rjalptw encounter gqxxdiheb08/21/2024 11:40 AM EDT Consult [facility] [address] [place] [address] Jeremiah Bro MD [address] [place] [address] Acquired hypothyroidism (CMS/HCC)[facility] ENDOCRINOLOGYComment on above:Acquired hypothyroidism (CMS/HCC)Start: 08-26-2024 End: 94-77-3145Tgvlxne encounter mavpquglg59/21/2024 9:50 AM EDT Office Visit [facility] [address] [place] [address] Braden Laird MD [address] [facility] [address] [phone] [facility]: 08-23-2024 End: 10-26-3302Hlqwkxg encounter procedureNOCHAPMAN [facility] NEURComment on above:Arrived Start: 08-20-2024 End: 31-22-9074DUNQIYOLFF DEFICIENCY ASSAYCleveland ClinicComment on above: Expected: 08/20/2024, Expires: 11/19/2024Start: 08-20-2024 End: 41-66-0559GTFFZHV IMMUNITY PANEL 1[facility] ClinicComment on above: Expected: 08/20/2024, Expires: 11/19/2024Start: 08-20-2024 End: 22-18-9315LCH SUBCLASSES BLDCleveland ClinicComment on above:Expected: 08/20/2024, Expires: 11/19/2024Start: 08-20-2024 End: 50-89-8231Oubcjantaajnnnyn panel - Blood by Flow cytometry (FC)[facility] Work Phone: Comment on above:Expected: 08/20/2024, Expires: 11/19/2024Start: 08-20-2024 End: 47-71-0717Dmrwnsx Ab [Presence] in Serum by ImmunoassayGrant Hospital Comment on above:Expected: 08/20/2024, Expires: 11/19/2024Start: 08-15-2024 End: 85-35-9701Oasxflo encounter oygnwgoui67/10/2024 8:30 AM EDT Office Visit [facility] [address] [facility] [address] Deanne Broussard PA [address] [place], [place] [address] [facility] BCP OBStart: 07-11-2024 End: 93-12-6015Reocyqe encounter zzewzjiqy27/05/2024 9:10 AM EDT Office Visit [facility] [address] [facility] [address] Deanne Broussard PA [address] [place], [place] [phone] ArrivedNOMS [facility] OBComment on above:ArrivedStart: 07-07-2024 Covid-19 Vaccine ( season)Covid-19 Vaccine ( season) [facility] Hospitaltart: 63-19-4006Vauqdksrr vaccinationInfluenza Vaccine (#1)[facility] HealthcareStart: 07-04-2024 End: 57-89-3701Igwxkpt encounter mvfzegggs14/29/2024 1:00 PM EDT Procedure Visit [facility]P Florin Mccrary DO [address] [place], [place] [phone] [facility] EXT DEPStart: 35-97-0253Cpshifhlr for malignant neoplasm of breastNOMS HealthcareStart: 10-26-2710Qcelkuvgt vaccinationInfluenza Vaccine (#1)[facility] HealthcareStart: 14-51-7334Ofegztwle vaccinationFlu vaccine (#1)[facility] Phone: start: 01-80-5931Jkygylfr screenDiabetes screenOhiohealth Van [facility]ert Hospital [employer] Work Phone: start: 82-95-9055Bpkyu panelLipid screenAdams County Regional Medical Center Work Phone: start: 02-17-7012Gpmjcxbac for malignant neoplasm of cervixOhiohealth Van Wert Hospital [employer] Phone: start: 86-23-5756Gntnhdaxc for malignant neoplasm of cervixSelect Medical TriHealth Rehabilitation Hospitaltart: 20-05-4785JOhH/Tdap/Td vaccine (1 - Tdap) DTaP/Tdap/Td vaccine (1 - Tdap)[facility] [employer] Phone: start: 31-30-0145Jrlpeiuho B Vaccine (1 of 3 - 19+ 3- dose series)Hepatitis B Vaccine (1 of 3 - 19+ 3-dose series)[facility] Start: 37-92-8582Qwgpkmx ScreeningAnxiety ScreeningSelect Medical TriHealth Rehabilitation Hospitaltart: 18-77-6850Yfcklzgjgz ScreeningDepression ScreeningSelect Medical TriHealth Rehabilitation Hospitaltart: 68-77-4890Aitjjikkq C screeningHepatitis C ScreeningSelect Medical TriHealth Rehabilitation Hospitaltart: 52-52-4450WQJ screeningHIV ScreeningSelect Medical TriHealth Rehabilitation Hospitaltart: 15-47-1727YQYEH-19 Vaccine (1)COVID-19 Vaccine (1)[facility] [employer] Phone: start: 09-42-3014Bvnetciva vaccine (1 of 2 - 2-dose childhood series)Varicella vaccine (1 of 2 - 2-dose childhood series)[facility] Phone: start: 51-91-4208Dsonhwypm C screeningHepatitis C screenMansfield Hospital Phone: End: 64-33-6870Nsghnpaa identified in Urine by CultureUrine culture Microbiology Routine One Time for 1 Occurrences starting 07/20/2021 until 07/20/2021[facility] [employer] Phone: comment on above:One Time for 1 Occurrences starting 07/20/2021 until 07/20/2021 End: 82-34-8151Ieymqlgq identified in Urine by CultureUrine culture Microbiology Routine One Time for 1 Occurrences starting 07/27/2021 until 07/27/2021[facility] [employer] Phone: comment on above:One Time for 1 Occurrences starting 07/27/2021 until 1Bacteria identified in Urine by CultureUrine culture Microbiology [employer] Label Print 07/27/2021 10:30 PM [facility] [employer] Phone: cBC W Auto Differential panel - BloodCBC and differential Lab Routine Chronic fatigue Ordered: 08/19/2024[facility] Comment on above:Ordered: 08/19/2024Ferritin [Mass/volume] in Serum or Plasma Ferritin Lab Routine Chronic fatigue Ordered: 08/19/2024[facility] HealthcareComment on above:Ordered: 08/19/2024Glucose [Mass/volume] in Serum or PlasmaPOCT glucose Point of Care Testing Routine TID until discontinued starting 07/21/2021[facility] Phone: comrwvx on above:TID until discontinued starting 07/21/2021Hemoglobin A1c/Hemoglobin.total in BloodHemoglobin A1c Lab Routine Chronic fatigue Ordered: 08/19/2024[facility] HospitalComment on above:Ordered: 08/19/2024Nonrebreather mask oxygenOhiohealth Van Wert Hospital [employer] Work Phone: comment on above:As directed - RT (PRN) until discontinued starting 07/20/2021s directed - RT (PRN) until discontinued starting 07/27/2021 End: 94-70-7484DHNFFZ POSTPARTUMRHOGAM Blood Bank Routine One Time for 1 Occurrences starting 07/29/2021 until 07/29/2021[facility] [employer] Phone: comovza on above:One Time for 1 Occurrences starting 07/29/2021 until 07/29/2021 End: 69-61-5746SFJWFR Point of Care Testing Routine One Time for 1 Occurrences starting 07/20/2021 until 07/20/2021[facility] [employer] Work Phone: comment on above:One Time for 1 Occurrences starting 07/20/2021 until 07/20/2021 End: 60-56-3701KWODUG Point of Care Testing Routine One Time for 1 Occurrences starting 07/27/2021 until 07/27/2021[facility] [employer] Work Phone: comment on above:One Time for 1 Occurrences starting 07/27/2021 until 07/27/2021Thyrotropin [Units/volume] in Serum or PlasmaTSH Lab Routine Chronic fatigue Ordered: 08/19/2024[facility] [employer] Work Phone: comment on above:Ordered: 08/19/2024Thyroxine (T4) free [Mass/volume] in Serum or PlasmaT4, free Lab Routine Chronic fatigue Ordered: 08/19/2024[facility] [employer] on above:Ordered: 08/19/2024 End: 85-99-7155RcqticjoaaNzhfbnptcf Lab Routine One Time for 1 Occurrences starting 07/27/2021 until 07/27/2021[facility] [employer] Phone: comment on above:One Time for 1 Occurrences starting 07/27/2021 until 07/27/2021Vitamin D 1,25 dihydroxyVitamin D 1,25 dihydroxy Lab Routine Chronic fatigue Ordered: 08/19/2024[facility] [employer] on above: Ordered: 08/19/2024 Immunizations Immunization DateImmunizationNotesCare QsoiffrvEixqylpw76-63-3905mbykevwjpi, tetanus toxoids and acellular pertussis vaccine, unspecified formulationKathleen Pool [facility] Work Phone: [facility] [employer] Work Phone: [phone], mumps and rubella virus vaccine María Pool [facility] Work Phone: [facility] [employer] Work Phone: [phone]esjz toxoid, reduced diphtheria toxoid, and acellular pertussis vaccine, Ramya Nayak MD Work Phone: [facility] Payers DatePayer CategoryPayerPolicy [id number] 2024Self-pay [id number] Health InsuranceMEDICAL MUTUAL Member Subscriber Plan / Payer (Effective 2023-Present) Name: Julianna Guerra AMember ID: [id number] Relation to Subscriber: Self Name: Julianna Guerra Payer ID: Not on file Type: Not on file Address: [address] [id number]67.26314-90-6243Kpuvcnt [id number] [id number]. [id number] 1.2.840.815584.1.13.239.2.7.3.593468.10545-12-3604Lnrxvre [id number] 2.840.1.781895.3.57[id number] 2.840.1.766470.3.579.2.[id number] 2.840.1.592873.3.579.2.78918-12-9158Yjvhbsg20363526 2.840.1.532303.3.579.2.96763-85-4212Wrqtxdo0939039 2.840.1.144383.3.579.[id number] 2.0.1.803411.3.579.2.61115-21-9702Tmllmlf70068893 2.0.1.934350.3.579.2.469395-18-6946Izwavlg83332481 2..1.699949.3.579.2.969984-34-3626Jomcidf65693959 2.0.1.199350.3.579.2.018777-99-9554Iasubvd821416045 2..1.462142.3.579.2.308461-64-4542Rxyyamb220377474 2..1.561160.3.579.2.509646-44-8832Ujpndzn95955250 2..1.317525.3.579.2.309201-70-6478Dpupszi23976467 2..1.531155.3.579.2.098187-02-8620Jzyzcon68186561 2..1.333098.3.579.2.009517-23-0739Ekafkgj49600616 2..1.875289.3.579.2.264031-40-0263Wxjezdw48928663 2..1.793451.3.579.2.370347-60-4724Pizmpwf45126234 2..1.406624.3.579.2.133433-44-7205Qwwzqhp8798988 2..1.835906.3.579.2.163411-44-6686Npixmic6617661 2..1.154109.3.579.2.983304-31-6675Owynazn8088820 2.840.1.710941.3.579.2.832576-47-5535Csctnlf1414632 2.0.1.026330.3.579.2.238218-07-0757Jyqcfjw3156138 2.840.1.569863.3.579.2.855560-64-7093Tyxgnxt6588812 2..1.867442.3.579.2.486054-66-0116Rcafbci6640147 2.0.1.063290.3.579.2.741534-42-7297Mohisdx2911076 2.0.1.341800.3.579.2.498098-70-7382Qohsgfv1126444 2..1.139781.3.579.2.515358-78-5363Ktfmqui5588221 2..1.280908.3.579.2.026749-71-7690Leabxvp1390072 2..1.968453.3.579.2.710764-44-1106Cbguqzu2779963 2..1.866847.3.579.2.595744-37-3440Mkcsbum2709174 2..1.142609.3.579.2.669145-34-9557Ogsialr21104856Lzpypvt54647960 2..1.086954.3.579.2.769Iezasas76244693 2..1.241705.3.579.2.531 Social History DateTypeDetailFacilityStart: 07-20-2021 End: 21-80-4212Dyvyibj smoking status NHISFormer smokerOhiohealth Van Wert Hospital [employer] Work Phone: start: 11-06-1994 End: 01-42-7182Cgupqsq of tobacco useCurrent smokerAdams County Regional Medical CenterStart: 07-20-2021 End: 62-20-2704Jzoxjtf use and exposureNever usedAdams County Regional Medical CenterStart: 07-20-2021 End: 85-59-1577Uvxhaxn intakeLifetime non-drinker (finding)[facility] [employer] Work Phone: start: 99-21-4631Ljvxftn SDOH Alcohol Ayghvhvjw1Xzsxn [employer] Work Phone: start: 98-33-0814TfsbeurpClwpt [employer] Work Phone: start: 69-17-9833Uxe Assigned At BirthNot on fileOhiohealth Van Wert Hospital [employer] Work Phone: exposure to SARS-CoV-2 (event)Not [facility] Start: 11-06-1994 End: 35-04-5676Rymrbkw of tobacco useCigarette SmokerLAKEVIEW HOSPITAL HealthcareStart: 11-10-2023 End: 97-14-7674Xctdmdk intakeEx-drinker (finding)[facility] HealthcareStart: 04-13-2023 End: 93-94-8008Uaktgag intakeNOMS HealthcareStart: 04-13-2023 End: 28-68-6291Vzgdfkbdgsv, Afraid, Rape, and Kick questionnaire [HARK][facility] HealthcareWithin the last year, have you been afraid of your partner or ex-partner?NoNOMS HealthcareAre you now , , , , never or living with a partner?DivorcedNOMS HealthcareHow often to you have a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 RepresentativeExplanationACP-Advance DirectiveACP-Power of AttorneyCode StatusDate ActivatedDate InactivatedCommentsFull Code07/20/2021 2:33 PMCode StatusDate ActivatedDate InactivatedCommentsFull Code07/27/2021 10:29 PMFull Code07/27/2021 10:27 PM07/27/2021 10:28 PMFull Code07/20/2021 2:33 PM 07/21/2021 3:03 PMCode StatusDate ActivatedDate InactivatedCommentsFull Code 07/29/2021 8:55 AMFull Code07/29/2021 4:34 AM07/29/2021 8:55 AMFull Code07/27/2021 10:29 PM07/28/2021 5:32 AM Advance Directive Response Recorded Date/ Time Advance Directives No May 21 1:05pm Reason for Referral SpecialtyDiagnoses / ProceduresReferred By ContactReferred To Contact Rheumatology Diagnoses Livedo reticularis Diffuse pain Procedures CONSULT TO RHEUM/IMMUN DISEASE OFFICE/OUTPATIENT [facility] 60 MINUTES River Gardner MD [address] [place] [address] Referral IDStatusReasonStart DateExpiration DateVisits RequestedVisits [id number] PCP Requested Referral Additional Source Comments INFORMATION SOURCE (unrecogn ized section and content) DATE CREATED AUTHOR 10/29/2020 [facility] DATE CREATED AUTHOR AUTHOR'S ORGANIZ ATION 08/02/2021 [facility] DATE CREATED AUTHOR AUTHOR'S ORGANIZ ATION 10/04/2021 [facility] DATE CREATED AUTHOR AUTHOR'S ORGANIZ ATION 09/16/2022 [facility] DATE CREATED AUTHOR AUTHOR'S ORGANIZ ATION 07/17/2024 [facility] DATE CREATED AUTHOR AUTHOR'S ORGANIZ ATION 08/10/2024 [facility] DATE CREATED AUTHOR AUTHOR'S ORGANIZ ATION 08/26/2024 [facility] DATE CREATED AUTHOR AUTHOR'S ORGANIZ ATION 10/02/2024 [facility] DATE CREATED AUTHOR AUTHOR'S ORGANIZ ATION 12/19/2024 [facility] DATE CREATED AUTHOR AUTHOR'S ORGANIZ ATION 06/22/2025 [facility] DATE CREATED AUTHOR AUTHOR'S ORGANIZ ATION 08/28/2025 [facility] Reason for Visit (unrecogniz ed section and content) ReasonCommentsContractionsReasonCommentsRupture of MembranesStatusReason SpecialtyDiagnoses / ProceduresReferred By ContactReferred To Contact Diagnoses Uterine contractions during María Barnes APRN - [facility] [address] [place] [address] [facility] ReasonCommentsPost-op VisitReasonCommentsConsultReasonCommentsThyroid ProblemNEW SpecialtyDiagnoses / ProceduresReferred By ContactReferred To Contact Endocrinology Diagnoses Acquired hypothyroidism (CMS/HCC) Procedures [place] OFFICE/OUTPATIENT [facility] 60 MINUTES Braden Laird MD [address] [place] [id number] Phone: tel: fax: Jeremiah Bro MD [address] [facility] [place] [address] Phone: tel: fax: Referral IDStatusReasonStart DateExpiration DateVisits RequestedVisits [id number] Specialty Services Required [id number] presents today for follow up. Patient thinks she needs a referral for rheumatology. Patienthas seen Dr. Bro for endocrinology, Dr. Laird for neurology, and an actuarial associate.Reason CommentsFollow-upPatient presents today for follow up on CT results and results from Rheumatology.ReasonCommentsMed RefillReasonCommentsFlank PainNauseaHeadache DizzinessHospital Follow-upReasonCommentsAbdominal PainSore ThroatHeadacheNasal CongestionReasonCommentsFatigueReasonCommentsNeck Pain Scheduled Active and Recently Administ ered Medications (unrecognized section and content) Medication Order07/19/// nalbuphine (NUBAIN) injection 20 mg (COMPLETED) 20 mg, IntraMUSCular, ONCE, On Mon07/20/21 at 2015, For 1 dose * 2004 (Given - Provider: Caterina Bautista, JONH) nalbuphine (NUBAIN) injection 5 mg (COMPLETED) 5 mg, IntraVENous, ONCE, On Mon07/20/21 at 1545, For 1 dose * 1640 (Given - Provider: Leena Washburn, JONH) Medication Order// lactated ringers infusion IntraVENous, at 100 mL/hr, CONTINUOUS, Starting on Mon07/20/21 at 1545 * 1515 (New Bag - Provider: Leena Washburn, JONH) * 1600 (Rate/Dose Change - Provider: Leena Washburn, RN) * 2004 (New Bag - Provider: Caterina Bautista, JONH) * 041 (New Bag - Provider: Caterina Bautista, JONH) Medication Order/// acetaminophen (TYLENOL) tablet 650 mg 650 mg, Oral, EVERY 4 HOURS PRN, Pain Mild (1-3), Starting on Mon07/21/21 at 0220, Maximum dose of acetaminophen is 4000 mg from all sources in 24 hours. * 0254 (Given - Provider: Caterina Bautista, JONH) nalbuphine (NUBAIN) injection 20 mg 20 mg, IntraMUSCular, EVERY 6 HOURS PRN, Pain Severe (7-10), Starting on Mon07/20/21 at 2246 ondansetron (ZOFRAN) injection 4 mg 4 mg, IntraVENous, EVERY 8 HOURS PRN, Nausea, Vomiting, Starting on Mon07/20/21 at 2246 * 2316 (Given - Provider: Caterina Bautista, RN) Medication Order07/29//// benzocaine-menthol (DERMOPLAST) 20-0.5 % spray Topical, 2 TIMES DAILY, First dose on Mon07/29/21 at 0915, Apply to perineal area. Patient is capable and may self administer at bedside., * 0915 (Due) * 2100 (Due) * 0856 (Not Given - Provider: Miriam Wong RN - Reason: Patient/family refused) * 2100 (Due) * 0932 (Not Given - Provider: Kristie Houser, JONH - Reason: Other) * 2100 (Due) ibuprofen (ADVIL;MOTRIN) tablet 800 mg 800 mg, Oral, EVERY 8 HOURS, First dose on Mon07/29/21 at 0915, Do not crush or break., * 0906 (Given - Provider: Jenny Moore, RN) * 1757 (Given - Provider: Sudha Lee, RN) * 0018 (Given - Provider: Lashon Alarcon, JONH) * 0856 (Given - Provider: Miriam Wong RN) * 1704 (Given - Provider: Sudha Lee, RN) * 0117 (Given - Provider: Caterina Bautista, RN) * 0936 (Given - Provider: Kristie Houser, RN) * 1715 (Due) measles, mumps & rubella vaccine (MMR) injection 0.5 mL 0.5 mL, SubCUTAneous, PRIOR TO DISCHARGE, Starting on Mon07/29/21 at 0855, For 1 dose, sodium chloride flush 0.9 % injection 10 mL 10 mL, IntraVENous, EVERY 12 HOURS SCHEDULED (2 times per day), First dose on Mon07/29/21 at 0915, * 0915 (Due) * 2100 (Due) * 0856 (Not Given - Provider: Miriam Wong RN - Reason: Loss of IV access) * 2100 (Due) * 0933 (Not Given - Provider: Kristie Houser, JONH - Reason: Loss of IV access) * 2100 (Due) Xrdzdpw-Vhpxsg-Gbyox Pertussis (BOOSTRIX) injection 0.5 mL 0.5 mL, IntraMUSCular, PRIOR TO DISCHARGE, Starting on Vera 07/29/21 at 0855, For 1 dose, If not previously administered during at 27-36 weeks as recommended by CDC., witch bryant-glycerin (TUCKS) pad Topical, 2 TIMES DAILY, First dose on Vera 07/29/21 at 0915, Apply to perineal area. Patient is capable and may self administer at bedside., * 0915 (Due) * 2100 (Due) * 0857 (Not Given - Provider: Miriam Wong RN - Reason: Patient/family refused) * 2100 (Due) * 0933 (Not Given - Provider: Kristie Houser, JONH - Reason: Other) * 2100 (Due) Medication Order07/29//// 0.9 % sodium chloride infusion 25 mL, [...] mg from all sources in 24 hours., * 1248 (Given - Provider: Jenny Moore RN) * 2000 (Given - Provider: Obdulia Farrell, RN) * 0025 (Given - Provider: Lashon Alarcon, RN) * 1353 (Given - Provider: Miriam Wong, JONH) * 1801 (Given - Provider: Sudha Lee, RN) * 2212 (Given - Provider: Aileen Sands, JONH) * 0749 (Given - Provider: Kristie Houser, JONH) [...] 0429, PRN for pain, Labor and Delivery * 0536 (Given - Provider: Mariola Tinoco RN) * 0746 (Given - Provider: Jenny Moore RN) oxytocin (PITOCIN) 30 units in 500 mL infusion (CANCELED) 166 gertrudis-units/min (166 mL/hr), IntraVENous, at 166 mL/hr, PRN, Bleeding, Starting on Vera 07/29/21 at 0429, For 1 dose, For Post Use Only. Give after delivery of placenta. Following Bolus frombag administration, reduce the rate to166 mL/hr and administer remaining bag, Post Delivery * 0845 (New Bag - Provider: Jenny Moore [...] Ordered Prescriptions (unrec ognized section and content) PrescriptionSigDispensedRefillsStart DateEnd lansinoh lanolin CREA ointment Apply 1 applicator topically as needed for Dry Skin (nipple discomfort) 1 each ibuprofen (ADVIL;MOTRIN) 800 MG tablet Take 1 tablet by mouth every 8 hours 120 tablet Care Teams (unrecognized sec tion and content) Team MemberRelationshipSpecialtyStart DateEnd Marycarmen Nayak MD [address] [place] [address] PCP - GeneralFamily Medicine03/15/23 Marycarmen Nayak MD [address] [place] [address] PCP - [facility]05/06/23 Kimberlee Yang NP [address] [place] [address] [facility]03/15/23 Team Status: Inactive Member Role Status Dates Florin Mccrary DO Attending Provider Active Start : May 20, 2024 End: May 20, 2024Team MemberRelationshipSpecialtyStart DateEnd Date Marycarmen Nayak MD [address] [place] [address] PCP - [facility]03/15/23 Marycarmen Nayak MD [address] [facility] [place] [address] PCP - [employer]12/08/2411 Kimberlee Yang NP [address] [place] [address] [facility]03/15/23Team MemberRelationshipSpecialtyStart DateEnd Date Marycarmen Nayak MD [address] [place] [address] PCP - [facility]03/15/23 Marycarmen Nayak MD [address] [place] [address] PCP - [facility] [employer]12/08/2411 Kimberlee Yang NP [address] [place] [address] Nurse PractitionerFamily Medicine03/15/23Team MemberRelationshipSpecialtyStart DateEnd Date Marycarmen Nayak MD [address] [place] [address] PCP - GeneralFamily Medicine03/15/23 Marycarmen Nayak MD [address] [place] [address] PCP - [facility] [employer]12/08/2411 Kimberlee Yang CHOCOLATE MAKER [address] [place] [address] Nurse PractitionerBu[facility] Centerly Medicine03/15/23Team MemberRelationshipSpecialtyStart DateEnd Date Marycarmen Nayak MD [address] [place] [address] PCP - GeneralFamily Yvmwavkm21/15/24Team MemberRelationshipSpecialtyStart Date End Date Marycarmen Nayak MD [address] [place] [address] PCP - GeneralFamily Medicine03/15/23 Marycarmen Nayak MD [address] [place] [address] PCP - [facility] [employer]12/08/2411 Kimberlee Yang NP [address] [place] [address] Nurse Practitionermily Medicine03/15/23Team MemberRelationshipSpecialtyStart DateEnd Date Marycarmen Nayak MD [address] [place] [address] PCP - GeneralFamily Medicine03/15/23 Marycarmen Nayak MD [address] [facility] [place] [address] PCP - [employer]12/08/2411 Kimberlee Yang NP [address] [facility] [place] [address] [facility]03/15/23Team MemberRelationshipSpecialtyStart DateEnd Date Marycarmen Nayak MD [address] [facility] [place] [address] PCP - GeneralFamily Medicine03/15/23 Marycarmen Nayak MD [address] [facility] [place] [address] PCP - [employer]12/08/2411 Kimberlee Yang NP [address] [facility] [place] [address] [facility]03/15/23Te MemberRelationshipSpecialtyStart DateEnd Date Marycarmen Nayak MD [address] [facility] [place] [address] PCP - GeneralFamily Medicine03/15/23 Marycarmen Nayak MD [address] [facility] [place] [address] PCP - [facility] [employer]12/08/2411 Kimberlee Yang NP [address] [facility] [place] [address] Nurse PractitionerFamily Medicine03/15/23Team MemberRelationshipSpecialtyStart End Marycarmen Nayak MD [address] [facility] [place] [address] PCP - GeneralFamily Medicine03/15/23 Marycarmen Nayak MD [address] [facility] [place] [address] PCP - [facility] [employer]12/08/2411 Kimberlee Yang, GINGER [address] [facility] [place] [address] [facility]03/15/23Te MemberRelationshipSpecialtyStart End Marycarmen Nayak MD [address] [facility] [place] [address] PCP - GeneralFamily Medicine03/15/23 Marycarmen Nayak MD [address] [facility] [place] [address] PCP - [employer]12/08/2411 Kimberlee Yang NP [address] [facility] [place] [address] Nurse PractitionerFamily Medicine03/15/23Te MemberRelationshipSpecialtyStart End Marycarmen Nayak MD [address] [facility] [place] [address] PCP - GeneralFamily Medicine03/15/23 Marycarmen Nayak MD [address] [facility] [place] [address] PCP - [employer]12/08/2411 Kimberlee Yang NP [address] [facility] [place] [address] Nurse PractitionerFamily Medicine03/15/23Te MemberRelationshipSpecialtyStart End Marycarmen Nayak MD [address] [facility] [place] [address] PCP - GeneralFamily Medicine03/15/23 Marycarmen Nayak MD [address] [facility] [place] [address] PCP - [facility] [employer]12/08/2411 Kimberlee Yang NP [address] [facility] [place] [address] Nurse PractitionerFafederal medical center, [facility] Medicine03/15/23Te MemberRelationshipSpecialtyStart End Marycarmen Nayak MD [address] [facility] [place] [address] PCP - GeneralFamily Medicine03/15/23 Marycarmen Nayak MD [address] [facility] [place] [address] PCP - [employer]12/08/2411 Kimberlee Yang NP [address] [facility] [place] [address] [facility]03/15/23Te MemberRelationshipSpecialtyStart End Marycarmen Nayak MD [address] [place] [address] PCP - GeneralFamily Medicine03/15/23 Marycarmen Nayak MD [address] [place] [address] PCP - [facility] [employer]12/0812/2411 Kimberlee Yang, CHOCOLATE MAKER [address] [place] [address] [facility]03/15/23Team MemberRelationshipSpecialtyStart DateEnd Date Marycarmen Nayak MD [address] [place] [address] PCP - GeneralFamily Medicine03/15/23 Kimberlee Yang CHOCOLATE MAKER [address] [facility] [place] [address] [facility]03/15/23Team MemberRelationshipSpecialtyStart DateEnd Date Marycarmen Nayak MD [address] [place] [address] PCP - GeneralFamily Medicine03/15/23 Kimberlee Yang NP [address] [facility] [place] [address] [facility]03/15/23Team MemberRelationshipSpecialtyStart DateEnd Date Marycarmen Nayak MD [address] [facility] [place] [address] PCP - GeneralFaidly Medicine03/15/23 Kimberlee Yang CHOCOLATE MAKER [address] [facility] [place] [address] Nurse Practitionermily Medicine03/15/23Team MemberRelationshipSpecialtyStart DateEnd Date Marycarmen Naayk MD [address] [place] [address] PCP - [facility]03/15/23 Kimberlee Yang, CHOCOLATE MAKER [address] [place] [address] Nurse PractitionerBuena Vista Regional Medical Centerly Medicine03/15/23Team MemberRelationshipSpecialtyStart DateEnd Date Marycarmen Nayak MD [address] [place] [address] PCP - [facility] Medicine03/15/23 Kimberlee Yang, CHOCOLATE MAKER [address] [facility] [place] [address] Nurse PractitionerBuena Vista [facility] Medical Centerly Medicine03/15/23Te MemberRelationshipSpecialtyStart DateEnd Date Marycarmen Nayak MD [address] [place] [address] PCP - [facility]03/15/23 Kimberlee Yang, CHOCOLATE MAKER [address] [facility] [place] [address] Nurse PractitionerBuena Vista [facility] Medical Centerly Medicine03/15/23Te MemberRelationshipSpecialtyStart DateEnd Date Marycarmen Nayak MD [address] [place] [address] PCP - GeneralBuena Vista Regional Medical Centerly Medicine03/15/23 Kimberlee Yang, CHOCOLATE MAKER [address] [facility] [place] [address] Nurse PractitionerBuena Vista Regional Medical Centerly Medicine03/15/23Te MemberRelationshipSpecialtyStart DateEnd Date Marycarmen Nayak MD [address] [facility] [place] [address] PCP - GeneralFamily Medicine03/15/23 Kimberlee Yang, CHOCOLATE MAKER [address] [facility] [place] [address] Nurse Practitionermily Medicine03/15/23Team MemberRelationshipSpecialtyStart DateEnd Date Marycarmen Nayak MD [address] [facility] [place] [address] PCP - GeneralFamily Medicine03/15/23 Kimberlee Yang, GINGER [address] [facility] [place] [address] Nurse Practitionermily Medicine03/15/23Team MemberRelationshipSpecialtyStart DateEnd Date Marycarmen Nayak MD [address] [facility] [place] [address] PCP - Generalmily Medicine03/15/23 Kimberlee Yang, GINGER [address] [facility] [place] [address] [facility]03/15/23Team MemberRelationshipSpecialtyStart DateEnd Date Marycarmen Nayak MD [address] [facility] [place] [address] PCP - Generalmily Medicine03/15/23 Kimberlee Yang NP [address] [facility] [place] [address] [facility]03/15/23Team MemberRelationshipSpecialtyStart DateEnd Date Marycarmen Nayak MD [address] [facility] [place] [address] PCP - GeneralFamily Medicine03/15/23 Kimberlee Yang, CHOCOLATE MAKER [address] [place] [address] Nurse PractitionerBuena Vista Regional Medical Centerly Medicine03/15/23Te MemberRelationshipSpecialtyStart DateEnd Date Marycarmen Nayak MD [address] [place] [address] PCP - Generalmily Medicine03/15/23 Kimberlee Yang, CHOCOLATE MAKER [address] [place] [address] [facility]03/15/23Te MemberRelationshipSpecialtyStart DateEnd Date Marycarmen Nayak MD [address] [place] [address] PCP - [facility]Sh[facility] Medicine03/15/23 Kimberlee Yang CHOCOLATE MAKER [address] [place] [address] [facility]03/15/23Te MemberRelationshipSpecialtyStart DateEnd Date Marycarmen Nayak MD [address] [place] [address] PCP - GeneralBuena Vista Regional Medical Centerly Medicine03/15/23 Kimberlee Yang CHOCOLATE MAKER [address] [place] [address] [facility] Medicine03/15/23Te MemberRelationshipSpecialtyStart DateEnd Date Marycarmen Nayak MD [address] [place] [address] [facility] - [facility]03/15/23 Kimberlee Yang NP [address] [facility] [place] [address] Nurse PractitionerFamily Medicine03/15/23Team MemberRelationshipSpecialtyStart DateEnd Date Marycarmen Nayak MD [address] [facility] [place] [address] PCP - GeneralFamily Medicine03/15/23 Kimberlee Yang, CHOCOLATE MAKER [address] [facility] [place] [address] Nurse PractitionerFamily Medicine03/15/23Team MemberRelationshipSpecialtyStart DateEnd Date Marycarmen Nayak MD [address] [facility] [place] [address] PCP - GeneralFamily Medicine03/15/23 Kimberlee Yang NP [address] [facility] [place] [address] Nurse Practitionermily Medicine03/15/23Team MemberRelationshipSpecialtyStart DateEnd Date Marycarmen Nayak MD [address] [facility] [place] [address] PCP - GeneralFamily Medicine03/15/23 Kimberlee Yang NP [address] [facility] [place] [address] Nurse PractitionerBuena Vista Regional Medical Centerly Medicine03/15/23Team MemberRelationshipSpecialtyStart DateEnd Date Marycarmen Nayak MD [address] [facility] [place] [address] PCP - GeneralFamily Medicine03/15/23 Kimberlee Yang NP [address] [facility] [place] [address] Nurse [facility]03/15/23Te MemberRelationshipSpecialtyStart DateEnd Date Marycarmen Nayak MD [address] [facility] [place] [address] PCP - [facility]03/15/23 Kimebrlee Yang CHOCOLATE MAKER [address] [facility] [place] [address] Nurse [facility]03/15/23Te MemberRelationshipSpecialtyStart DateEnd Date Marycarmen Nayak MD [address] [facility] [place] [address] PCP - [facility]03/15/23 Kimberlee Yang CHOCOLATE MAKER [address] [facility] [place] [address] Nurse [facility]03/15/23Te MemberRelationshipSpecialtyStart DateEnd Date Marycarmen Nayak MD [address] [facility] [place] [address] [facility] - [facility]03/15/23 Kimberlee Yang, CHOCOLATE MAKER [address] [facility] [place] [address] Nurse [facility]03/15/23 Goals (unrecognized section and content) Goals may be documented in a n alternate section No data available for this section Source Comments (unrecognize d section and content) In the event this informatio n is protected by the Federal Confidentiality of Alcohol and Drug Abuse Patient Records regulations: The Federal rules restrict any use of the information to criminally investigate or prosecute any alcohol or drug abuse patient.[facility] FOR RECORDS PERTAINING TO PATIENTS WHO ARE [...] BE BASED ON THE PRIMARY CLINICAL RECORDS. [facility]. provides no warranty or guarantee of the accuracy or completeness of information in this document.
[2025-09-21 22:38] LABS: Hematocrit 34.8 % (36.0-48.0); Hemoglobin 12.8 g/dL (12.0-16.0); Immature Granulocytes Abs Auto 0.02 10^3/uL (0.00-0.03); Immature Granulocytes Pct Auto 0.2 % (0.0-0.5); Lymphocytes Absolute Auto 2.5 10^3/uL (1.2-3.8); Mean Corpuscular HGB Conc 36.8 g/dL (29.9-35.2); Mean Corpuscular Hemoglobin 29.2 pg (26.7-34.0); Mean Corpuscular Volume 79.3 fL (81.0-99.0); Platelet Count 291 10^3/uL (150-450); Red Blood Count 4.39 10^6/uL (4.20-5.40); White Blood Count 8.7 10^3/uL (4.0-11.0)
[2025-09-21 22:39] LABS: Glucose Urine UA NEGATIVE (NEGATIVE)
[2025-09-21 22:50] LABS: Anion Gap 12.0; Blood Urea Nitrogen 8.0 mg/dL (7.0-18.0); Calcium 8.8 mg/dL (8.5-10.1); Carbon Dioxide 23.5 mmol/L (21.0-32.0); Chloride 110 mmol/L (98-107); Estimated GFR (African America >60 (>=60 mL/min/1.73m^2); Estimated GFR (Non-African Ame >60 (>=60 mL/min/1.73m^2); Glucose 106 mg/dL (74-106); Potassium 3.5 mmol/L (3.5-5.1); Sodium 142 mmol/L (136-145)
[2025-09-21 22:52] LABS: Cast Seen? NONE SEEN #/LPF (NONE SEEN); Crystals Seen? None Seen #/HPF (None Seen); Urine Culture Indicated NO
[2025-09-21 23:05] VITALS: BP 133/96
[2025-09-22 00:43] VITALS: BP 149/99; PULSE 95; O2SAT 100
== END 2025-09-22 01:07 | disposition home or self-care (01) ==
PROVIDERS: Emergency Provider Emergency Medicine; PCP Family Medicine
DX: R10.9 Unspecified abdominal pain (principal)
CPT/HCPCS: 36415; 74177; 80048; 81001; 85025; 99285; Q9967